=== PATIENT | female | born 1930 | race Caucasian/White ===

== ENCOUNTER → 2017-03-05 | Outpatient (CLI) | payer MEDICARE | LOC: M WUC 14:38 | DX: M51.36 Other intervertebral disc degeneration, lumbar region (principal); S23.3XXA Sprain of ligaments of thoracic spine, initial encounter; Z87.81 Personal history of (healed) traumatic fracture; Y92.89 Other specified places as the place of occurrence of the external cause; Y93.89 Activity, other specified; Y99.8 Other external cause status; X58.XXXA Exposure to other specified factors, initial encounter | CPT/HCPCS: 71046 ==

== ENCOUNTER → 2018-07-03 | Outpatient (REF) | payer MEDICARE, MEDICAID ==
[2018-07-03 12:43] LABS: HEMOGLOBIN 12.5 g/dl (12.0-15.5); MEAN CORPUSCULAR HEMOGLOBIN 29.8 pg (27.0-33.0); MEAN CORPUSCULAR HGB CONC 32.1 g/dl (32.0-36.5); MEAN CORPUSCULAR VOLUME 92.9 fl (80.0-96.0); PLATELET COUNT, AUTOMATED 240 10^3/uL (150-450); WHITE BLOOD COUNT 5.6 10^3/uL (4.0-10.0)
[2018-07-03 13:44] LABS: ALBUMIN 3.3 GM/DL (3.2-5.2); BILIRUBIN,TOTAL 0.5 MG/DL (0.2-1.0); CALCIUM LEVEL 8.7 MG/DL (8.8-10.2); CHOLESTEROL RISK RATIO 3.875 (<5); CREATININE FOR GFR 1.04 MG/DL (0.55-1.30); GLOMERULAR FILTRATION RATE 53.5 (>32); POTASSIUM SERUM 4.7 MEQ/L (3.5-5.1); THYROID STIMULATING HORMONE 3.3 uIU/ML (0.358-3.740); TOTAL 25(OH) VITAMIN D 28.4 NG/ML (30.0-100.0); TOTAL PROTEIN 6.6 GM/DL (6.4-8.2)
[2018-07-03 13:55] LABS: HEMOGLOBIN A1c 5.3 %
== END ==
LOC: M LABDRAW1 11:57
PROVIDERS: ATTEND Family Medicine
DX: D64.9 Anemia, unspecified (principal); R53.83 Other fatigue; E03.9 Hypothyroidism, unspecified

== ENCOUNTER 2019-01-06 16:27 | Inpatient (IN) | payer MEDICARE, MEDICAID ==
[~2019-01-06] VITALS: Ht 149.9 cm; Wt 52.0 kg
--- NOTE | 2019-01-06 17:45 | REP ---
Three views left hip: 2018. Indication: New left hip pain following fall. Comparison: None. Findings: Minimally displaced intertrochanteric left hip fracture is present with a somewhat obliquely oriented subtrochanteric extension. There is no subluxation or dislocation. 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 No additional fractures are present. Impression: Proximal left femur fracture as described. Electronically Signed by Johann Chris DO 01/06/2019 05:35 P
[2019-01-06 18:31] LABS: BASO % 0.1 % (0.0-1.0); EOS % 0.1 % (0.0-3.0); HEMATOCRIT 33.4 % (36.0-47.0); HEMOGLOBIN 10.6 g/dl (12.0-15.5); LYMPH # 0.7 10^3/uL (1.5-5.0); MEAN CORPUSCULAR HEMOGLOBIN 29.5 pg (27.0-33.0); MEAN CORPUSCULAR HGB CONC 31.7 g/dl (32.0-36.5); MONO # 0.4 10^3/uL (0.0-0.8); MONO % 4.6 % (0.0-5.0); NEUTROPHILS # 7.8 10^3/uL (1.5-8.5); NEUTROPHILS % 86.8 % (36.0-66.0); PLATELET COUNT, AUTOMATED 199 10^3/uL (150-450); RED BLOOD COUNT 3.59 10^6/uL (4.00-5.40)
--- NOTE | 2019-01-06 18:45 | REP ---
Single view chest: 01/06/2019. Indication: Syncope. Comparison: 03/05/2017. Findings: The lungs are clear. Ectatic aorta is noted. The cardiomediastinal silhouette is unremarkable. There is no evidence of pleural effusion or pneumothorax. Chronic interstitial changes are redemonstrated. The patient is rotated. High-riding humeral heads particularly on the right suggest rotator cuff injury. Impression: There is no evidence of acute cardiopulmonary process. Electronically Signed by Johann Chris DO 01/06/2019 06:37 P
[2019-01-06 18:52] LABS: BLOOD UREA NITROGEN 25 MG/DL (7-18); CALCIUM LEVEL 8.5 MG/DL (8.8-10.2); CARBON DIOXIDE LEVEL 25 MEQ/L (21-32); CHLORIDE LEVEL 108 MEQ/L (98-107); CK-MB VALUE MASS 1.2 NG/ML (<3.6); CPK CREATINE PHOSPHOKINASE 34 U/L (26-192); CREATININE FOR GFR 1.15 MG/DL (0.55-1.30); GLOMERULAR FILTRATION RATE 47.5 (>32); GLUCOSE, FASTING 108 MG/DL (70-100); MB/CK RELATIVE INDEX 3.53 (< OR =4); POTASSIUM SERUM 4.1 MEQ/L (3.5-5.1); SODIUM LEVEL 141 MEQ/L (136-145); TROPONIN I < 0.02 NG/ML (< 0.10)
--- NOTE | 2019-01-06 19:13 | REP ---
Two views distal left femur: 01/06/2019. Indication: Left femur trauma. Comparison: None. Findings: There is no acute fracture, subluxation or dislocation of the distal left femur or visualized knee. 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 Impression: No distal femoral fracture. There is no evidence of subluxation/dislocation. Electronically Signed by Johann Chris DO 01/06/2019 07:05 P
[2019-01-06] MEDS ORDERED: KETAMINE HCL 200 MG/20 ML VIAL As Ordered ONE (20:11)
[2019-01-06] MEDS ORDERED: MIDAZOLAM INJ 2 MG/2 ML VIAL (J2250) As Ordered ONE (20:12)
--- NOTE | 2019-01-06 20:22 | CR.PDOC ---
General Date of Consultation: Jan 06, 2019 Consultation REASON FOR CONSULTATION/CHIEF COMPLAINT: Left femoral bone fracture HISTORY OF PRESENT ILLNESS: Patient is 88 years old female resolved significant past medical history, patient didn't go primary care physician for years presented to the ER after mechanical fall, patient stood up and fell backwards due to lightheadedness. Patient was found to have left proximal femoral bone fracture on x-ray. Patient is afebrile, does not have leukocytosis. EKG was done and showed normal sinus rhythm, no any acute ischemic changes. Patient denied fever, cough, chills, nausea, vomiting, shortness of breath, palpitations, diarrhea or dysuria ALLERGIES: Please see below. HOME MEDICATIONS: Please see below. PAST MEDICAL HISTORY: No significant past medical history. Patient didn't go to primary care physician for years PAST SURGICAL HISTORY: Appendectomy FAMILY HISTORY: I personally reviewed family history and found in significant SOCIAL HISTORY: Marital status and/or living arrangements: Tobacco use: Denied ETOH: Denied REVIEW OF SYSTEMS: 10 point review system negative except as listed above PHYSICAL EXAMINATION: VITAL SIGNS: Please see below. GENERAL APPEARANCE: Pleasant elderly female HEENT: PERRLA, EOMI RESPIRATORY: Clear to auscultation bilaterally CARDIOVASCULAR: S1-S2 ABDOMEN: Nontender, nondistended EXTREMITIES: Tenderness over left hip area, no cyanosis, no leg swelling NEUROLOGICAL: Cranial nerves from 2-12 intact PSYCHIATRIC: Normal mental status LABORATORY DATA: Please see below. ASSESSMENT/PLAN: Patient is 88 years old female resolved significant past medical history, patient didn't go primary care physician for years presented to the ER after mechanical fall, patient stood up and fell backwards due to lightheadedness. Patient was found to have left proximal femoral bone fracture on x-ray Patient does not have any acute cardiopulmonary diseases, gastrointestinal diseases, renal diseases or infection. Vital Signs/I&O Vital Signs Date Time Temp Pulse Resp B/P (MAP) Pulse Ox O2 Delivery O2 Flow Rate FiO2 01/06/19 19:45 70 18 170/67 (101) 99 Room Air 01/06/19 18:19 98.1 Laboratory Data Labs 24H Laboratory Tests 2 01/06/19 18:04: Immature Granulocyte % (Auto) 0.4, Neutrophils (%) (Auto) 86.8H, Lymphocytes (%) (Auto) 8.0L, Monocytes (%) (Auto) 4.6, Eosinophils (%) (Auto) 0.1, Basophils (%) (Auto) 0.1, Neutrophils # (Auto) 7.8, Lymphocytes # (Auto) 0.7L, Monocytes # (Auto) 0.4, Eosinophils # (Auto) 0.0, Basophils # (Auto) 0.0, Nucleated Red Blood Cells % (auto) 0.0, Anion Gap 8, Glomerular Filtration Rate 47.5, Calcium Level 8.5L, Total Creatine Kinase 34, Creatine Kinase MB 1.2, Creatine Kinase MB Relative Index 3.53, Troponin I < 0.02, Thyroid Stimulating Hormone (TSH) 2.100 CBC/BMP Laboratory Tests 01/06/19 18:04 Allergies Coded Allergies: Penicillins (Verified Allergy, Unknown, 01/06/19) Home Medications No Active Prescriptions or Reported Meds POLI ANDRADE DO Jan 06, 2019 20:22
[2019-01-06] MEDS ORDERED: CLINDAMYCIN 900 MG/50 ML PREMIX BAG As Ordered ONE (21:07)
[2019-01-06] MEDS ORDERED: NS 1,000 ML IV SCH (22:45)
[2019-01-06] MEDS ORDERED: ACETAMINOPHEN 325 MG TAB PO PRN (22:45)
[2019-01-06] MEDS ORDERED: oxyCODONE 5MG TAB PO PRN ×2 (22:45)
[2019-01-06 23:00] VITALS: BP 113/73
[2019-01-06] MEDS ORDERED: ONDANSETRON 4MG/2ML VIAL (J2405) IV PRN (23:15)
[2019-01-06] MEDS ORDERED: LR 1,000 ML IV SCH (23:15)
[2019-01-06] MEDS ORDERED: fentaNYL 100 MCG/2 ML INJECTION (J3010) IV PRN (23:15)
[2019-01-06 23:30] VITALS: BP 114/73
[2019-01-06] MEDS ORDERED: MORPHINE 2 MG/ML 1ML VIAL (J2270) IV PRN (23:45)
[2019-01-07] VITALS (7 sets, daily range): BP systolic 114–153; BP diastolic 65–86
[2019-01-07] MEDS: CLINDAMYCIN 900 MG in IV 1 EA IV SCH ×3 (00:05→14:49)
[2019-01-07] MEDS ORDERED: PILL CUTTER 1 EACH XX PRN (06:15)
--- NOTE | 2019-01-07 08:24 | REP ---
Two-view fluoroscopic images: 01/06/2019. Indication: Operative guidance. Comparison: Earlier this same day. Findings: Given no fixation of the previously described fractures is present with the hardware intact. No new fractures are detected. Impression: Fluoroscopy provided for operative guidance. 3 minutes 6 seconds of fluoroscopy time utilized. Electronically Signed by Johann Chris DO 01/07/2019 08:15 A
[2019-01-07] MEDS: MOM 30ML SUSPENSION UDC PO SCH (09:00)
[2019-01-07] MEDS: MIRALAX *UNIT DOSE* 17GM PACKET PO SCH (09:00)
[2019-01-07] MEDS: traMADol 50 MG TAB PO PRN ×2 (09:22→14:01)
--- NOTE | 2019-01-07 11:36 | IPNPDOC ---
Date Seen The patient was seen on 01/07/19. Progress Note SUBJECTIVE: Patient was seen at bedside this morning. She reported mild pain around her surgical site. I asked her about the events surrounding her fall. She explained that she stood up too quickly, felt dizzy and fell. She denied any prior history of palpitations, heart problems, vertigo, feelings of heart racing. She had no current complaints. She was eager to start working with PT and moving as soon as possible in order to leave the hospital. She denied any chest pain, shortness of breath, lower extremity swelling. OBJECTIVE PHYSICAL EXAMINATION: VITAL SIGNS: Please see below. GENERAL: Patient is pleasant and cooperative, appears her stated age, sitting up comfortably in bed, alert and oriented in no acute distress HEENT: Normocephalic, atraumatic. No scleral icterus. PERRLA. EOMI. no nasal discharge. No tracheal deviation. No obvious swollen lymph nodes CARDIOVASCULAR: Regular rate and rhythm. Normal S1 and S2. No murmurs, gallops or rubs noted RESPIRATORY: Lungs clear to auscultation bilaterally. ABDOMINAL:. No obvious lesions noted. Normal bowel sounds in all 4 quadrants. No pain, tenderness, guarding or rigidity EXTREMITIES:. Surgical scar noted on patients left leg. No erythema or exudates. 2/4 pulses noted throughout. No leg swelling or tenderness NEUROLOGICAL: A&O x3. No focal deficits noted PSYCHOLOGICAL: Mood and affect were appropriate LABORATORY DATA, MICROBIOLOGY: Please see below. Imagin01/06/2019 hip/pelvis x-ray: Proximal left femur fracture as described 01/06/2019 CXR: There is no evidence of acute cardiopulmonary process 01/06/2019. Femur x-ray: No distal femoral fracture. There is no evidence of subluxation/dislocation. DVT prophylaxis ordered?: Currently on Xarelto 10 mg by mouth daily ASSESSMENT AND PLAN: This is an 88-year-old white female with no known pertinent past medical history presenting after a fall with a left femoral fracture s/p surgical repair. PROBLEMS: # Femoral fracture S/P surgical repair -Patient shows no sign of surgical site infection -Pt is medically optimized -Pt should be evaluated by PT/OT DISPOSITION: Pending patient's improved mobility and PT/OT approval VS, I&O, 24H, Fishbone Vital Signs/I&O Vital Signs Date Time Temp Pulse Resp B/P (MAP) Pulse Ox O2 Delivery O2 Flow Rate FiO2 01/07/19 10:00 18 01/07/19 09:22 99 Room Air 01/07/19 06:16 97.1 71 142/73 (96) I&O- Last 24 Hours up to 6 AM 01/07/19 06:00 Intake Total 1300 ml Output Total 200 ml Balance 1100 ml Laboratory Data 24H LABS Laboratory Tests 2 01/06/19 18:04: Immature Granulocyte % (Auto) 0.4, Neutrophils (%) (Auto) 86.8H, Lymphocytes (%) (Auto) 8.0L, Monocytes (%) (Auto) 4.6, Eosinophils (%) (Auto) 0.1, Basophils (%) (Auto) 0.1, Neutrophils # (Auto) 7.8, Lymphocytes # (Auto) 0.7L, Monocytes # (Auto) 0.4, Eosinophils # (Auto) 0.0, Basophils # (Auto) 0.0, Nucleated Red Blood Cells % (auto) 0.0, Anion Gap 8, Glomerular Filtration Rate 47.5, Calcium Level 8.5L, Total Creatine Kinase 34, Creatine Kinase MB 1.2, Creatine Kinase MB Relative Index 3.53, Troponin I < 0.02, Thyroid Stimulating Hormone (TSH) 2.100 CBC/BMP Laboratory Tests 01/06/19 18:04 GME ATTESTATION GME ATTESTATION My faculty preceptor for this patient encounter was physically present during the encounter and was fully available. All aspects of the patient interview, examination, medical decision making process, and medical care plan development were reviewed and approved by the faculty preceptor. The faculty preceptor is a christianson and concurs with the plan as stated in the body of this note and will attest to such by his/her cosignature. ATTENDING NOTE Patient was seen and examined by me this morning with the residents. Agree with the above assessment and plan ANNETTE ROMERO-3 Jan 07, 2019 11:36 ALINE PHILLIPS MD Jan 07, 2019 16:33
[2019-01-07] MEDS: ACETAMINOPHEN 500 MG TAB PO SCH ×2 (13:42→21:38)
[2019-01-07] MEDS ORDERED: ONDANSETRON 4MG/2ML VIAL (J2405) IV PRN (15:00)
--- NOTE | 2019-01-07 15:01 | ECGEPIP ---
[facility] - ED Test Date: 2019-01-06 Pat Name: GRICEL REDDY Department: Room: - Gender: Female Addictions Recovery Specialist: : [id number] Requested By: ESTUARDO LEBRON Order Number: [id number] Reading MD: Dhaval Edwards Measurements Intervals Pinson Rate: 60 P: 39 CT: 195 QRS: -15 QRSD: 88 T: -14 QT: 411 QTc: 411 Interpretive Statements SINUS RHYTHM MINIMAL VOLTAGE CRITERIA FOR LVH, CONSIDER NORMAL VARIANT NONSPECIFIC ST & T-WAVE ABNORMALITY NO PRIORS FOR COMPARISON Electronically Signed on 01-07-2019 15:01:30 EST by Dhaval Edwards
[2019-01-07] MEDS: RIVAROXABAN 10 MG TAB (XARELTO) PO SCH (17:38)
[2019-01-08] MEDS: ACETAMINOPHEN 500 MG TAB PO SCH ×3 (05:50→21:47)
[2019-01-08 06:06] VITALS: BP 139/75
--- NOTE | 2019-01-08 07:29 | CR ---
DATE OF CONSULTATION: 01/06/2019 REASON FOR CONSULTATION: Left hip pain. HISTORY OF PRESENT ILLNESS: The patient states she was at her daughter's home with whom she lives when she felt a little dizzy and fell onto her left hip. She immediately appreciated pain that was sharp in nature and located to the left hip/groin. It was made worse with any sort of movement, alleviated only with rest and pain medications. It is sharp in nature as a 10 out of 10. Denies any pain or issues elsewhere. Denies any fevers, chills, nausea, or vomiting. Complete 10-system review with pertinent positives and negatives in history of present illness (HPI). All other systems negative. PAST MEDICAL HISTORY: None. PAST SURGICAL HISTORY: She had an appendectomy when she was 26. MEDICATIONS: None. ALLERGIES: To PENICILLIN. She says she has swelling. SOCIAL HISTORY: Denies any drinking or smoking or illicit drug use and currently lives at home with her daughter. PHYSICAL EXAMINATION: Patient is awake, alert, and oriented. Well dressed. Appropriate affect. Breathing unlabored in room air. Normocephalic, atraumatic. BILATERAL UPPER EXTREMITIES: No tenderness to palpation. Full active range of motion in the shoulders, elbows, and wrists. Radial pulse 2+, regular rate. Skin is intact. Positive anterior interosseous nerve (AIN), posterior interosseous nerve (PIN), and ulnar motor nerve function. Sensation intact to light touch superficial sensory branch of radial nerve, median nerve, ulnar nerve. RIGHT LOWER EXTREMITY: No tenderness to palpation about the hip, knee, or foot. Full range of motion in the ankle, hip, and knee without any pain or discomfort. Negative log roll. Sensation intact to light touch superficial peroneal, deep peroneal, sural, saphenous, tibial distributions. Positive extensor hallucis longus (EHL), flexor hallucis longus (FHL), tibia, and gastroc motor function. Posterior tibial pulse 2+, regular rate. Skin intact. LEFT LOWER EXTREMITY: Skin is intact. Positive log roll test. Tender to palpation in the groin. No tenderness to palpation about the knee or ankle. Positive EHL, FHL, tibia, and gastroc motor function. Sensation intact to light touch superficial peroneal, deep peroneal, sural, saphenous, tibial distributions. Posterior tibial pulse 2+, regular rate. Skin is intact. IMAGING: Reviewed, demonstrating a left intertrochanteric hip fracture. DIAGNOSIS: Left hip intertrochanteric fracture. I discussed with the patient this requires surgical intervention in order to improve her mobilization and overall functioning. Patient expressed understanding and agreement with this plan. Consent was obtained. Discussed the risks and benefits including, but not limited to, infection, damage to surrounding structures, incomplete relief, and need for further surgery. Patient consented. She underwent medical hospitalist clearance and is cleared for surgery. She is currently nothing by mouth (n.p.o.). We will plan on doing the surgery tonight. Patient is currently bed rest, IV fluids. Orthopedic team will follow. Appreciate hospitalist admission.
--- NOTE | 2019-01-08 08:04 | RO ---
DATE OF PROCEDURE: PREOPERATIVE DIAGNOSIS: Left intertrochanteric hip fracture. POSTOPERATIVE DIAGNOSIS: Left intertrochanteric hip fracture. PROCEDURE: Left femur intramedullary rodding. SURGEON: Efren Webb MD YARDAGE CALLER: None. ANESTHESIA: Spinal. INDICATIONS: This is a pleasant 88-year-old female who suffered a hip fracture after a fall at home. We discussed the benefits of improved mobilization and pain control with operative intervention, and the risks including, but not limited to, infection, malunion, nonunion, damage to surrounding structures. The patient and her daughter consented for surgery. PREOPERATIVE ANTIBIOTICS: 900 mg of clindamycin. ESTIMATED BLOOD LOSS: 200 mL. COMPLICATIONS: None. OPERATIVE DESCRIPTION: The patient was brought back to the operating room in the supine position, underwent spinal anesthesia and was placed onto the fracture table, at which point we took preoperative x-rays after closed reduction maneuvers of traction, adduction of the affected leg and internal rotation. Once confirming adequate reduction, we prepped and draped in the left hip in the usual fashion. We had a time out confirmed site, side and surgery. Once all in agreement, we made a longitudinal incision in line with the greater trochanter and femur. We used a drill tip Guidewire to establish our start point confirmed on AP and lateral films of the hip. Once this was done, we placed a starting Guidewire and used the entry reamer. Then we passed the Guidewire all the way down to the knee, measured for a 380 nail, at which point we sequentially reamed up to 12.5 and used an 11 nail and passed it down past the fracture site. We then made an incision through the aiming arm for the helical blade. We inserted a Guidewire and confirmed on AP and lateral views that we were in subchondral bone within appropriate tip apex distance. We then drilled appropriately and placed the helical blade and we locked it into place, at which point we used perfect [place] techniques to make small stab incisions on the lateral aspect of the distal knee and placed two distal Crosslocks in static positioning. At this point, fracture reduction and fixation was confirmed on AP and lateral films of the entire femur. We were happy with placement and fixation of the hardware and reduction of the fracture. We irrigated the wounds thoroughly, closed the subcutaneous tissue with #2-0 Vicryl and the skin with madie, placed dressing of gauze and Tegaderm, took the patient off the fracture taken and awakened the patient, at which point she was taken back to the postanesthesia care unit (PACU) in stable condition. POSTOPERATIVE PLAN: She will undergo skip antibiotics and deep vein thrombosis (DVT) prophylaxis, and be weightbearing as tolerated on the affected leg.
[2019-01-08] MEDS: MOM 30ML SUSPENSION UDC PO SCH ×2 (09:00→09:26)
[2019-01-08] MEDS: MIRALAX *UNIT DOSE* 17GM PACKET PO SCH ×2 (09:00→09:26)
--- NOTE | 2019-01-08 09:47 | IPNPDOC ---
Date Seen The patient was seen on 01/08/19. Progress Note SUBJECTIVE: Patient was seen at bedside this morning. She said her work with physical therapy yesterday went well. She is enthusiastic about getting back to her baseline as soon as possible. She currently has no complaints. She expresses that the pain around her hip after surgery is less than she was expecting and tolerable. She denies any chest pain, shortness of breath, nausea, vomiting, weakness, lower extremity swelling. OBJECTIVE PHYSICAL EXAMINATION: VITAL SIGNS: Please see below. GENERAL: Patient is pleasant and cooperative, appears her stated age, sitting up comfortably in bed, alert and oriented in no acute distress HEENT: Normocephalic, atraumatic. No scleral icterus. PERRLA. EOMI. no nasal discharge. No tracheal deviation. No obvious swollen lymph nodes CARDIOVASCULAR: Regular rate and rhythm. Normal S1 and S2. No murmurs, gallops or rubs noted RESPIRATORY: Lungs clear to auscultation bilaterally. ABDOMINAL:. No obvious lesions noted. Normal bowel sounds in all 4 quadrants. No pain, tenderness, guarding or rigidity EXTREMITIES:. Surgical scar noted on patients left leg. No erythema or exudates. 2/4 pulses noted throughout. No leg swelling or tenderness NEUROLOGICAL: A&O x3. No focal deficits noted PSYCHOLOGICAL: Mood and affect were appropriate LABORATORY DATA, MICROBIOLOGY: Please see below. Imagin01/06/2019 hip/pelvis x-ray: Proximal left femur fracture as described 01/06/2019 CXR: There is no evidence of acute cardiopulmonary process 01/06/2019. Femur x-ray: No distal femoral fracture. There is no evidence of sub luxation/dislocation. DVT prophylaxis ordered?: Currently on Xarelto 10 mg by mouth daily ASSESSMENT AND PLAN: This is an 88-year-old white female with no known pertinent past medical history presenting after a fall with a left femoral fracture s/p surgical repair. PROBLEMS: # Femoral fracture S/P surgical repair -Patient shows no sign of surgical site infection -Pt is medically optimized -PT/OT evaluated pt and will continue to work with her in improving her mobility. DISPOSITION: Pending patient's improved mobility with PT/OT. VS, I&O, 24H, Fishbone Vital Signs/I&O Vital Signs Date Time Temp Pulse Resp B/P (MAP) Pulse Ox O2 Delivery O2 Flow Rate FiO2 01/08/19 06:06 96.8 66 20 139/75 (96) 97 Room Air I&O- Last 24 Hours up to 6 AM 01/08/19 06:00 Intake Total 1250 ml Output Total 650 ml Balance 600 ml GME ATTESTATION GME ATTESTATION My faculty preceptor for this patient encounter was physically present during the encounter and was fully available. All aspects of the patient interview, exa mination, medical decision making process, and medical care plan development were reviewed and approved by the faculty preceptor. The faculty preceptor is aware and concurs with the plan as stated in the body of this note and will attest to such by his/her cosignature. ATTENDING NOTE Patient was seen and examined by me this morning with the residents. Agree with the above assessment and plan ANNETTE ROMERO-3 Jan 08, 2019 09:47 ALINE PHILLIPS MD Jan 08, 2019 15:39
[2019-01-08] MEDS: traMADol 50 MG TAB PO PRN (10:15)
[2019-01-08 14:30] VITALS: BP 128/72
[2019-01-08] MEDS: RIVAROXABAN 10 MG TAB (XARELTO) PO SCH (17:26)
[2019-01-09] MEDS: ACETAMINOPHEN 500 MG TAB PO SCH ×3 (05:46→21:31)
[2019-01-09 06:00] VITALS: BP 126/62
[2019-01-09] MEDS: MOM 30ML SUSPENSION UDC PO SCH (08:58)
[2019-01-09] MEDS: MIRALAX *UNIT DOSE* 17GM PACKET PO SCH (08:58)
[2019-01-09 14:00] VITALS: BP 147/68
--- NOTE | 2019-01-09 15:32 | IPNPDOC ---
Date Seen The patient was seen on 01/09/19. Progress Note SUBJECTIVE: Patient seen and examined this morning. She states that she is feeling well. Her only complaint is left hip tenderness which is expected especially after working with PT yesterday. Otherwise she denies chest pain, shortness breath, nausea, vomiting, fevers, and chills. She is tolerating her meals with no problems as well. OBJECTIVE PHYSICAL EXAMINATION: VITAL SIGNS: Please see below. GENERAL: Patient is pleasant and cooperative, appears her stated age, sitting up comfortably in bed, alert and oriented in no acute distress HEENT: Moist mucous membranes no elevation in CVP CARDIOVASCULAR: S1 S2 regular no additional heart sounds appreciated. RESPIRATORY: Clear to auscultation bilaterally. ABDOMINAL: Bowel sounds present abdomen soft and nontender EXTREMITIES: No clubbing cyanosis or edema. Surgical scar noted on patients left leg. No erythema or exudates. 2/4 pulses noted throughout. No leg swelling or tenderness NEUROLOGICAL: cranial 2 through 12 grossly intact no gross focal deficits appreciated PSYCHOLOGICAL: Appropriate LABORATORY DATA, MICROBIOLOGY: Please see below. IMAGING STUDIES: 01/06/2019 Hip/pelvis x-ray: Proximal left femur fracture as described CXR: There is no evidence of acute cardiopulmonary process Femur x-ray: No distal femoral fracture. There is no evidence of subluxation/dislocation. ASSESSMENT AND PLAN: This is a 88-year-old white female with left femoral fracture s/p surgical repair. PROBLEMS: Femoral fracture S/P surgical repair - medically optimized -PT/OT on board to increase mobility. -ARU screen for rehabilitation -Currently getting scheduled Tylenol 1000 mg Q8H, will obtain CMP tomorrow to monitor liver enzymes. No known pertinent past medical history Constipation -MiraLAX and milk of magnesia magnesium DVT prophylaxis: Cholesterol total 10 mg PO daily DISPOSITION: ARU screen. Rehabilitation placement possible Friday? VS, I&O, 24H, Fishbone Vital Signs/I&O Vital Signs Date Time Temp Pulse Resp B/P (MAP) Pulse Ox O2 Delivery O2 Flow Rate FiO2 01/09/19 14:00 98.2 90 16 147/68 (94) 95 Room Air I&O- Last 24 Hours up to 6 AM 01/09/19 06:00 Intake Total 960 ml Output Total 2050 ml Balance -1090 ml GME ATTESTATION GME ATTESTATION My faculty preceptor for this patient encounter was physically present during the encounter and was fully available. All aspects of the patient interview, examination, medical decision making process, and medical care plan development were reviewed and approved by the faculty preceptor. The faculty preceptor is aware and concurs with the plan as stated in the body of this note and will attest to such by his/her cosignature. ATTENDING NOTE Pt was seen and examined by me personally. Agree with the above assessment and plan . ZINA LIAO DO Jan 09, 2019 15:32 ALINE PHILLIPS MD Jan 09, 2019 16:30
[2019-01-09] MEDS: RIVAROXABAN 10 MG TAB (XARELTO) PO SCH (18:07)
[2019-01-09 20:20] VITALS: BP 148/71
[2019-01-10] VITALS (13 sets, daily range): BP systolic 146–176; BP diastolic 74–97
[2019-01-10] MEDS: traMADol 50 MG TAB PO PRN ×2 (00:31→23:52)
[2019-01-10] MEDS: ACETAMINOPHEN 500 MG TAB PO SCH ×3 (05:28→22:15)
[2019-01-10] MEDS ORDERED: XARE10TA PO (05:52)
[2019-01-10] MEDS ORDERED: TRAM50TA2 PO (05:52)
[2019-01-10 06:05] LABS: HEMATOCRIT 23.2 % (36.0-47.0); HEMOGLOBIN 7.3 g/dl (12.0-15.5); MEAN CORPUSCULAR HEMOGLOBIN 29.9 pg (27.0-33.0); MEAN CORPUSCULAR HGB CONC 31.5 g/dl (32.0-36.5); MEAN CORPUSCULAR VOLUME 95.1 fl (80.0-96.0); PLATELET COUNT, AUTOMATED 202 10^3/uL (150-450); RED BLOOD COUNT 2.44 10^6/uL (4.00-5.40); WHITE BLOOD COUNT 5.1 10^3/uL (4.0-10.0)
[2019-01-10] MEDS ORDERED: ACET-683 PO (06:10)
[2019-01-10 06:26] LABS: ALBUMIN 2.4 GM/DL (3.2-5.2); ALT/SGPT 14 U/L (12-78); BILIRUBIN,TOTAL 0.6 MG/DL (0.2-1.0); BLOOD UREA NITROGEN 23 MG/DL (7-18); CALCIUM LEVEL 8.7 MG/DL (8.8-10.2); CARBON DIOXIDE LEVEL 29 MEQ/L (21-32); CHLORIDE LEVEL 109 MEQ/L (98-107); GLOMERULAR FILTRATION RATE > 60.0 (>32); GLUCOSE, FASTING 86 MG/DL (70-100); MAGNESIUM LEVEL 1.9 MG/DL (1.8-2.4); SODIUM LEVEL 142 MEQ/L (136-145); TOTAL PROTEIN 5.5 GM/DL (6.4-8.2)
[2019-01-10 08:52] LABS: HEMATOCRIT 22.4 % (36.0-47.0); HEMOGLOBIN 7.1 g/dl (12.0-15.5)
[2019-01-10] MEDS: MOM 30ML SUSPENSION UDC PO SCH ×2 (08:56→08:58)
[2019-01-10] MEDS: MIRALAX *UNIT DOSE* 17GM PACKET PO SCH ×2 (08:56→08:59)
--- NOTE | 2019-01-10 08:58 | REPVR ---
PROCEDURE INFORMATION: Exam: CT Abdomen And Pelvis Without Contrast Exam date and time: 01/10/2019 8:05 AM Age: 88 years old Clinical history: Abnormal Findings; Abnormal Lab Test; Other: anemia 7.3 hgh; Prior Surgery; Surgery Date: Post-operative (0-2 days); Surgery Type: LEFT TOTAL HIP; Additional Info: anemia 7.3 hgb post op left hip TECHNIQUE: Imaging protocol: Computed tomography of the abdomen and pelvis without contrast. Radiation optimization: All CT scans at this facility use at least one of these dose optimization techniques: automated exposure control; mA and/or kV adjustment per patient size (includes targeted exams where dose is matched to clinical indication); or iterative reconstruction. COMPARISON: CR Hip,AP,LAT to include Pelvis 01/06/2019 4:59 PM FINDINGS: Limitations: Examination is limited without IV contrast. Coronary arteries: Mild coronary artery calcification. Liver: Normal. No mass. Gallbladder and bile ducts: Normal. No calcified stones. No ductal dilation. Pancreas: Normal. No ductal dilation. Spleen: Normal. No splenomegaly. Adrenals: Normal. No mass. Kidneys and ureters: Moderate atrophy of the right kidney. No hydronephrosis bilaterally. Cystic lesion in the upper pole of the left kidney measuring 2.3 x 1.9 cm with thin septal and rim calcifications. Stomach and bowel: Copious stool in the colon. Negative for colonic diverticulitis. No abnormal bowel dilatation. No abnormal bowel wall thickening. Appendix: The appendix is not seen. However, there is no evidence of appendicitis. Intraperitoneal space: Unremarkable. No free air. No significant fluid collection. Vasculature: Severe calcified atherosclerotic disease. 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 No abdominal or aortic rupture. Lymph nodes: Unremarkable. No enlarged lymph nodes. Few scattered mesenteric nodes. Bladder: Unremarkable as visualized. Reproductive: Uterus is normal. Bones/joints: Severe degenerative spine. Mild chronic compression deformity of T12. Mild degenerative changes of the hips. Status post left proximal femoral fixation. Degenerate changes of the pubic symphysis. Soft tissues: There is dependent subcutaneous edema. Mild soft tissue swelling and gas in the left lateral hemipelvis. IMPRESSION: 1. No intraperitoneal or retroperitoneal hemorrhage. 2. 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 Recommend follow-up CTA in 3 months. 3. Complicated cystic lesion in the upper pole of the right kidney. Recommend CT without and with contrast or MR without and with contrast at 6 months and 12 months, then yearly for 5 years. 4. Status post left proximal femoral fixation. 5. Mild soft tissue swelling and gas in the left lateral hemipelvis. Consistent with recent postop status. 6. Additional findings as described. Electronically signed by: Luis Chaudhary On 01/10/2019 08:57:54 AM
[2019-01-10] MEDS ORDERED: diphenhydrAMINE 25 MG CAP PO ONE (09:00)
[2019-01-10] MEDS ORDERED: ACETAMINOPHEN TAB 650MG DOSE (2X325MG) PO ONE (09:00)
[2019-01-10 09:10] LABS: PERCENT SATURATION 13.3 % (13.2-45.0)
--- NOTE | 2019-01-10 11:37 | IPNPDOC ---
Date Seen The patient was seen on 01/10/19. Progress Note INFRARENAL AAA 2.1 x 1.1. x 2.8 cm plan: -no rupture or dissection -keep sbp<180 at all times -norvasc 2.5 mg bid hold for sbp<130mmHg -vascular consult as outpt. VS, I&O, 24H, Fishbone Vital Signs/I&O Vital Signs Date Time Temp Pulse Resp B/P (MAP) Pulse Ox O2 Delivery O2 Flow Rate FiO2 01/10/19 11:16 97.8 78 20 155/78 98 Room Air I&O- Last 24 Hours up to 6 AM 01/10/19 06:00 Intake Total 660 ml Output Total 0 ml Balance 660 ml Laboratory Data 24H LABS Laboratory Tests 2 01/10/19 05:36: Nucleated Red Blood Cells % (auto) 0.6H, Anion Gap 4L, Glomerular Filtration Rate > 60.0, Calcium Level 8.7L, Magnesium Level 1.9, Total Bilirubin 0.6, Aspartate Amino Transf (AST/SGOT) 21, Alanine Aminotransferase (ALT/SGPT) 14, Alkaline Phosphatase 117, Total Protein 5.5L, Albumin 2.4L, Albumin/Globulin Ratio 0.77L 01/10/19 08:20: Reticulocyte # (auto) 47.2, Differential Slide Review Report, Peripheral Blood Smear Path Consult PERIPHERAL SMEAR, Percent Reticulocyte Count 2.0H, Reticulocyte Hemoglobin Equivalent 32.0, Iron Level 22L, Total Iron Binding Capacity 166L, Transferrin % Saturation 13.3, Ferritin 440H CBC/BMP Laboratory Tests 01/10/19 05:36 01/10/19 08:20 JOHN SMITH MD Jan 10, 2019 11:37
[2019-01-10] MEDS: FUROSEMIDE 20 MG/2 ML VIAL (J1940) IV SCH ×2 (14:37→17:35)
--- NOTE | 2019-01-10 15:49 | IPN ---
DATE: 01/10/2019 The patient this morning complains of 10 out of 10 at the left hip, stating yesterday, "It was the worst night of my life." Despite having pain medications, tramadol 50 mg every 4 hours as needed, the patient states that she was unable to sleep. This morning, she denies any chest pain, pressure, tightness, shortness of breath. Aside from the left upper arm ecchymosis, there are no other ecchymotic areas found on the abdomen, back, flank or left hip. Hemoglobin this morning was 7.3 from previous 10.6 on the . She is currently on anticoagulation with Xarelto. Denies any chest pain, pressure, tightness, shortness of breath, palpitations, or lightheadedness. No complaints of generalized weakness. Repeat hemoglobin is still pending. Denies bright red blood per rectum, melena, black tarry stools, hematemesis or coffee ground emesis. PHYSICAL EXAMINATION: Temperature 96.9, pulse 71, respiratory rate 17, blood pressure 146/78, 93% on room air. GENERAL: Awake, alert, oriented to person, place and time. Able to speak appropriately. No facial asymmetry. Moist mucous membranes. No thyromegaly. No jugular venous distention (JVD). LUNGS: Clear to auscultation. No wheezing, rales or rhonchi. HEART: S1, S2. Sinus rhythm. No murmurs, rubs or gallops. ABDOMEN: Soft, nontender, nondistended. Positive bowel sounds. EXTREMITIES: Ecchymotic area in the left arm. Otherwise there are no Lance Tsai signs. No bruising at the left hip site, which has a surgical dressing. No pitting edema in the lower extremities. LABORATORY DATA: Hemoglobin 7.3, hematocrit 23, previous hemoglobin was 10.6, hematocrit 33, platelet count 202. Sodium 142, potassium 4.0, chloride 109, bicarbonate 29, BUN 23, creatinine 0.9, glucose 86, magnesium 1.9, total bilirubin 0.6, AST 21, ALT 14, alkaline phosphatase 117. ASSESSMENT AND PLAN: This is an 88-year-old female with no past medical history, has not seen a physician for several years, fell backwards and sustained a left femoral fracture. Due to complaints of lightheadedness, the patient underwent left femoral intramedullary jaden, now found to be anemic. IMPRESSION: 1. Left intertrochanteric hip fracture, currently on anticoagulation with Xarelto. Pain control with Ultram 50 mg every 4 hours, milk of magnesia for bowel regimen. 2. Postoperative anemia. No signs of hemodilution. The patient did not receive a significant amount of IV fluids last evening, she did receive a total of 3.4 liters of fluid since admission, but had urinated almost 2.7 liters out over this past [address] of the abdomen and pelvis without contrast to rule out retroperitoneal bleed and repeat hemoglobin. If hemoglobin remains less than 8, we will transfuse with red blood cells and Lasix in between, premedicate with Tylenol and Benadryl. Check hemoccult stool, iron studies, reticulocyte count and smear. 3.Infrarenal AAA. no dissection or rupture. keep sbp<180 mmHg at all times. outpt fu with vascular surgery 4. HTN -low dose norvasc with holding parameters for sbp<130mmHg MTDD
[2019-01-10] MEDS ORDERED: FUROSEMIDE 20 MG/2 ML VIAL (J1940) As Ordered ONE (17:33)
[2019-01-10] MEDS: RIVAROXABAN 10 MG TAB (XARELTO) PO SCH (17:38)
[2019-01-10 17:56] LABS: HEMATOCRIT 35.6 % (36.0-47.0); HEMOGLOBIN 11.6 g/dl (12.0-15.5)
[2019-01-11 00:16] LABS: HEMATOCRIT 32.9 % (36.0-47.0)
[2019-01-11 05:33] VITALS: BP 157/88
[2019-01-11] MEDS: ACETAMINOPHEN 500 MG TAB PO SCH ×3 (05:37→23:24)
[2019-01-11 06:03] LABS: HEMATOCRIT 35.1 % (36.0-47.0); HEMOGLOBIN 11.6 g/dl (12.0-15.5)
[2019-01-11] MEDS: MIRALAX *UNIT DOSE* 17GM PACKET PO SCH (07:57)
[2019-01-11] MEDS: MOM 30ML SUSPENSION UDC PO SCH (07:57)
[2019-01-11] MEDS: traMADol 50 MG TAB PO PRN (07:57)
[2019-01-11 11:02] LABS: TOTAL 25(OH) VITAMIN D 19.6 NG/ML (30.0-100.0)
[2019-01-11 12:12] LABS: HEMATOCRIT 35.8 % (36.0-47.0)
[2019-01-11 14:28] VITALS: BP 153/92
--- NOTE | 2019-01-11 16:44 | IPNPDOC ---
Date Seen The patient was seen on 01/11/19. Progress Note Addendum to progress note: acute blood loss anemia -s/p 2 units rbc transfusion -no overt GI bleed, denies hematemesis, brbpr, black tarry stools, melena. -CT abd/pelvis: no intraperitoneal or retroperitoneal hematoma -hip surgical site-no obvious hematoma -check stool for blood x 3 VS, I&O, 24H, Fishbone Vital Signs/I&O Vital Signs Date Time Temp Pulse Resp B/P (MAP) Pulse Ox O2 Delivery O2 Flow Rate FiO2 01/11/19 14:28 96.7 78 18 153/92 (112) 99 Room Air I&O- Last 24 Hours up to 6 AM 01/11/19 05:59 Intake Total 2025 ml Output Total 650 ml Balance 1375 ml Laboratory Data 24H LABS Laboratory Tests 2 01/11/19 11:44: Reticulocyte # (auto) 73.7, Percent Reticulocyte Count 1.8H, Reticulocyte Hemoglobin Equivalent 28.7 CBC/BMP Laboratory Tests 01/10/19 17:49 01/10/19 23:38 01/11/19 05:55 01/11/19 11:44 JOHN SMITH MD Jan 11, 2019 16:44
[2019-01-11 17:37] LABS: CALCIUM LEVEL 9.1 MG/DL (8.8-10.2); GLOMERULAR FILTRATION RATE 55.8 (>32); POTASSIUM SERUM 4.3 MEQ/L (3.5-5.1)
[2019-01-11 17:46] LABS: HEMATOCRIT 35.7 % (36.0-47.0); HEMOGLOBIN 11.9 g/dl (12.0-15.5); MEAN CORPUSCULAR HEMOGLOBIN 29.8 pg (27.0-33.0); MEAN CORPUSCULAR HGB CONC 33.3 g/dl (32.0-36.5); MEAN CORPUSCULAR VOLUME 89.3 fl (80.0-96.0); PLATELET COUNT, AUTOMATED 257 10^3/uL (150-450)
[2019-01-11] MEDS: RIVAROXABAN 10 MG TAB (XARELTO) PO SCH (17:47)
--- NOTE | 2019-01-11 22:01 | IPN ---
DATE: 01/11/2019 Patient had a restful night's sleep after two units red blood cell (RBC) transfusion. Her hemoglobin and hematocrit have remained stable at 12 and 35.8 hematocrit. She denies any bright red blood per rectum, melena, or black tarry stools, only has slight ecchymosis in the left antecubital fossa and arm. Patient currently has no pain, 0/10 at the bedside. No other issues overnight, afebrile, no chills, no shortness of breath. Patient is awaiting placement and not safe for hospital discharge as yet and has been changed to alternate level of care (ALC) status. Vital signs: Temperature 97.5, pulse 75, respiratory rate 18, blood pressure 157/88, 98% on room air. Generally: Patient is awake, alert, oriented, answering questions appropriately, no use of respiratory accessory muscles. Anicteric sclerae, no jaundice. No jugular venous distention (JVD). No thyromegaly or cervical lymphadenopathy. Lungs: Clear to auscultation. No wheezing, rales, or rhonchi. Heart: S1, S2, sinus rhythm. Abdomen: Soft, nontender, nondistended. Negative Lance Tsai's sign. Extremities: Ecchymotic area left upper arm. No bruising on the left hip. The surgical site is clean. No pitting edema of the lower extremities. LABORATORY DATA: White count 5.1, hemoglobin 12, hematocrit 35.8, platelet count 202. 01/10/2019 metabolic panel have been reviewed. Iron studies have been reviewed. CT abdomen and pelvis 01/10/2019: No intraperitoneal or retroperitoneal hemorrhage. Saccular aneurysm with a wide neck at the right posterior lateral wall of the infrarenal abdominal aorta. Recommend followup CT in 3 months. Complicated cystic lesion upper pole of the right kidney. Recommend CT without and with contrast or MR without and with contrast in 6 months and 12 months and yearly for 5 years. Status post left proximal femoral fixation. Mild soft tissue swelling and gas in the left lateral hemipelvis consistent with recent postoperative status. ASSESSMENT AND PLAN: This is an 88-year-old female who has not seen a physician in several decades, fell backwards, sustained a left femoral fracture status post left femoral intramedullary jaden, was found to be anemic postoperatively with CT abdomen and pelvis showing an incidental finding of an infrarenal abdominal aortic aneurysm without rupture or dissection. Patient did receive 2 units of red blood cell (RBC) transfusion. Has not had a bowel movement to rule out gastrointestinal (GI) bleed. Currently stable for the past 12 hours. IMPRESSION: 1. Left intertrochanteric hip fracture. On anticoagulation with Xarelto. Pain controlled with Ultram every 4 hours. Milk of Magnesia for bowel regimen. Followed postoperatively by orthopaedic surgery. Cooperative with physical therapy and awaiting placement in rehabilitation. Not safe for hospital discharge. Patient is currently alternate level of care (ALC) status. 2. Postoperative anemia. No signs of hemodilution. Patient did not have any overt gastrointestinal (GI) bleed. Has not had a bowel movement to check hemoccult stool. CT abdomen and pelvis has no intraperitoneal or retroperitoneal bleeding. Repeat hemoglobin after 2 units red blood cell (RBC) transfusion has been stable at 12 for the past 12 hours. 3. Incidental finding of an infrarenal abdominal aortic aneurysm with no dissection or rupture. Patient's blood pressure has been well maintained. We started her on Norvasc 2.5 mg twice a day to be increased to 5 mg twice a day for better blood pressure control. Pain is controlled on tramadol 50 every 4 hours as needed. Patient has no signs of dissection or rupture. DISPOSITION: Not safe for hospital discharge. Awaiting clearance from physical therapy. Currently changed to alternate level of care (ALC) longterm facility (SNF) status due to not being able to pass a home safety evaluation and not safe for hospital discharge. Recommendations are to continue rehabilitation after hospital discharge. KUNAL
[2019-01-12] MEDS: traMADol 50 MG TAB PO PRN ×2 (01:18→08:26)
[2019-01-12] MEDS: ACETAMINOPHEN 500 MG TAB PO SCH (05:19)
[2019-01-12 06:00] VITALS: BP 131/89
[2019-01-12 06:22] LABS: HEMATOCRIT 35.6 % (36.0-47.0); HEMOGLOBIN 11.9 g/dl (12.0-15.5); MEAN CORPUSCULAR HEMOGLOBIN 29.8 pg (27.0-33.0); MEAN CORPUSCULAR HGB CONC 33.4 g/dl (32.0-36.5); PLATELET COUNT, AUTOMATED 270 10^3/uL (150-450); WHITE BLOOD COUNT 5.6 10^3/uL (4.0-10.0)
[2019-01-12 08:27] VITALS: BP 131/89
[2019-01-12] MEDS: MIRALAX *UNIT DOSE* 17GM PACKET PO SCH (08:27)
[2019-01-12] MEDS: MOM 30ML SUSPENSION UDC PO SCH (08:27)
--- NOTE | 2019-01-12 10:56 | DSES ---
DATE OF ADMISSION: 01/06/2019 DATE OF DISCHARGE: 01/12/2019 DISCHARGE DIAGNOSES: 1. Left intertrochanteric hip fracture. 2. Postoperative anemia. 3. Incidental finding of an infrarenal abdominal aortic aneurysm with no dissection or rupture. CONSULTANTS: Dr. Efren Webb [facility] COURSE: This is an 88-year-old female who presented to the emergency room (ER) after mechanical fall (the patient stood up and fell backwards due to lightheadedness). In the emergency department, she was found to have a left proximal femoral bone fracture on x-ray. She was afebrile at the time and did not have leukocytosis. Electrocardiogram (EKG) was done in the emergency department and showed normal sinus rhythm without any acute ischemic changes. She had no history of acute cardiopulmonary diseases, gastrointestinal diseases, renal diseases, or infection. Orthopedics was consulted and she went for left femur intramedullary rodding by Dr. Efren Webb on the day of admission. On postoperative day #4, CBC was checked and the patient was found to have a hemoglobin of 7.3 which subsequently dropped down to 7.1 almost three hours later. She was transfused 2 units of packed red blood cells on 01/10/2019 (postoperative day #4). Her hemoglobin/hematocrit (H/H) continued to be monitored and her hemoglobin stayed relatively stable at around 11-12. CT of abdomen and pelvis done 01/10/2019 was unrevealing for intraperitoneal or retroperitoneal hemorrhage; however, there was incidentally noted a saccular aneurysm with a wide neck at the right posterior lateral wall of the infrarenal abdominal aorta. Radiology recommended followup CTA in 3 months. Incidentally, it was also discovered that she had a complicated cystic lesion in the upper pole of the right kidney as well and radiology recommended CT without and with contrast or MRI without and with contrast at 6 and 12 months and then yearly for 5 years. While the patient did work with physical therapy, she continued to not be deemed suitable for discharge home. She was subsequently discharged on postoperative day #6 to [facility]) for acute rehab to gather her strength and improve mobility. PHYSICAL EXAMINATION ON DISCHARGE: Vitals: Temperature 97.1, pulse 87 and regular, respiratory rate 18, blood pressure 131/89, pulse oximetry is 97% on room air. General: The patient is awake, alert and oriented, answering questions appropriately. HEENT: Anicteric sclerae. Atraumatic, normocephalic. Neck: No jugular venous distention (JVD). No thyromegaly or cervical lymphadenopathy. Lungs: Clear to auscultation bilaterally; no wheezing, rhonchi or rales. No use of respiratory accessory muscles. Heart: Regular rate and rhythm. No murmurs, gallops or rubs. Abdomen: Positive bowel sounds, soft, nontender, nondistended. No peritoneal signs. Extremities: Ecchymotic area of the left upper arm. No bruising of the left hip. Surgical site is clean and the dressing and is intact. No pitting edema of the lower extremities bilaterally. LABORATORY DATA: CBC: WBC 5.6, hemoglobin 11.9, hematocrit 35.6, and platelets 270. Chemistry from 01/11/2019 shows electrolytes are in balance with a sodium of 136, potassium 4.3, chloride 102, carbon dioxide 27, BUN 28, creatinine 1.00, fasting glucose 94, and calcium 9.1. Iron studies done 01/06/2019 showed mild iron deficiency with an iron of 22, TIBC of 166 and ferritin of 444. Her albumin was low at 2.4 on the 24th as well as her total protein which was 5.5. Peripheral smear on 01/11/2019 showed normocytic normochromic anemia, either a component of anemia of chronic disease or blood loss from her hip fracture would be the causative agent. IMAGING STUDIES: 01/06/2019 hip and pelvis x-ray showed a proximal left femur fracture with an obliquely oriented sub trochanteric extension, no subluxation or dislocation. Chest x-ray done 01/06/2019 showed the lungs were clear. Ectatic aorta is noted. Cardiomediastinal silhouette is unremarkable. No pleural effusion or pneumothorax. Chronic interstitial changes. No evidence of acute cardiopulmonary disease. Femur x-ray done 01/06/2019 showed no distal femoral fracture, no evidence of subluxation or dislocation. 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 CT of abdomen and pelvis done 01/06/2019 (with the findings discussed as above) showed no intraperitoneal or retroperitoneal hemorrhage, saccular aneurysm with a wide neck at the right posterior lateral wall of the infrarenal abdominal aorta (recommend followup CT in 3 months), complicated cystic lesion in the upper pole of the right kidney (recommend CT with and without contrast or MRI without and with contrast at 6 and 12 months and then yearly for 5 years), status post left proximal femoral fixation, mild soft tissue swelling and gas in the left lateral hemipelvis consistent with recent postoperative changes. DISCHARGE/PLAN: 1. Discharged to [facility] for rehabilitation. 2. Discharge medications are Tylenol 1000 mg by mouth every 8 hours as needed for pain, tramadol 50 mg 1-2 tablets by mouth every 4 hours as needed for pain, and Xarelto 10 mg by mouth daily for deep vein thrombosis (DVT) prophylaxis post surgery. She should follow up with her primary care provider 1 week after hospital discharge. Greater than 33 minutes was spent coordinating discharge. I have personally evaluated and examined the patient. Discussed with residents and student regarding plan of care and agree with the above assessment and discharge plan. KUNAL
== END 2019-01-12 13:05 | DRG 481 ==
LOC: M ED 16:27 → EDBD 16:27 → M ED 20:36 → M MS5PR 23:25
PROVIDERS: ADMIT Orthopaedic Surgery Hand Surgery; ATTEND Student in an Organized Health Care Education/Training Program
PROC: 0QS706Z Reposition Left Upper Femur with Intramedullary Internal Fixation Device, Open Approach (ICD-10-PCS; principal; 2019-01-06 20:30)
PROC: 30233N1 Transfusion of Nonautologous Red Blood Cells into Peripheral Vein, Percutaneous Approach (ICD-10-PCS; 2019-01-10)
DX: S72.142A Displaced intertrochanteric fracture of left femur, initial encounter for closed fracture (principal); D62 Acute posthemorrhagic anemia; W18.09XA Striking against other object with subsequent fall, initial encounter; Y92.009 Unspecified place in unspecified non-institutional (private) residence as the place of occurrence of the external cause; K59.00 Constipation, unspecified; I10 Essential (primary) hypertension; I71.4 Abdominal aortic aneurysm, without rupture; Z88.0 Allergy status to penicillin

== ENCOUNTER → 2019-01-26 | Outpatient (REF) | payer MEDICAID, MEDICARE ==
[~2019-01-26] MED LIST: ACET-683 PO; TRAM50TA2 PO; XARE10TA PO
[2019-01-26 11:49] LABS: HEMATOCRIT 34.5 % (36.0-47.0); HEMOGLOBIN 10.7 g/dl (12.0-15.5); MEAN CORPUSCULAR HEMOGLOBIN 29.3 pg (27.0-33.0); MEAN CORPUSCULAR VOLUME 94.5 fl (80.0-96.0); PLATELET COUNT, AUTOMATED 423 10^3/uL (150-450); RED BLOOD COUNT 3.65 10^6/uL (4.00-5.40); WHITE BLOOD COUNT 4.6 10^3/uL (4.0-10.0)
[2019-01-26 12:21] LABS: BLOOD UREA NITROGEN 23 MG/DL (7-18); CALCIUM LEVEL 9.3 MG/DL (8.8-10.2); CARBON DIOXIDE LEVEL 29 MEQ/L (21-32); CHLORIDE LEVEL 106 MEQ/L (98-107); CREATININE FOR GFR 0.92 MG/DL (0.55-1.30); GLOMERULAR FILTRATION RATE > 60.0 (>32); GLUCOSE, FASTING 87 MG/DL (70-100); POTASSIUM SERUM 5.4 MEQ/L (3.5-5.1); SODIUM LEVEL 140 MEQ/L (136-145)
== END ==
PROVIDERS: ATTEND Internal Medicine
DX: Z00.00 Encounter for general adult medical examination without abnormal findings (principal)

== ENCOUNTER → 2019-04-18 | Outpatient (REF) | payer MEDICARE, MEDICAID | LOC: M LAB REF 14:29 | PROVIDERS: ATTEND Physician Assistant | DX: M54.9 Dorsalgia, unspecified (principal) ==

== ENCOUNTER 2019-04-21 12:56 | Emergency (ER) | payer MEDICARE, MEDICAID ==
[2019-04-21 15:16] LABS: HEMATOCRIT 39.4 % (36.0-47.0); HEMOGLOBIN 12.6 g/dl (12.0-15.5); LYMPH # 0.8 10^3/uL (1.5-5.0); LYMPH % 12.8 % (24.0-44.0); MEAN CORPUSCULAR HEMOGLOBIN 30.1 pg (27.0-33.0); MONO # 0.2 10^3/uL (0.0-0.8); MONO % 3.7 % (0.0-5.0); NEUTROPHILS # 5.3 10^3/uL (1.5-8.5); PLATELET COUNT, AUTOMATED 261 10^3/uL (150-450); RED BLOOD COUNT 4.19 10^6/uL (4.00-5.40); WHITE BLOOD COUNT 6.4 10^3/uL (4.0-10.0)
[2019-04-21] MEDS ORDERED: NITR100C2 OR (15:18)
[2019-04-21] MEDS ORDERED: PRED10TA2 OR (15:18)
[2019-04-21 15:48] LABS: APPEARANCE, URINE HAZY (CLEAR); BACTERIA, URINE AUTO NEGATIVE (NEGATIVE); BILIRUBIN, URINE AUTO NEGATIVE (NEGATIVE); BLOOD, URINE BLOOD NEGATIVE (NEGATIVE); CALCIUM OXALATE CRYSTALS LARGE; COLOR, URINE YELLOW (YELLOW); GLUCOSE, URINE (UA) AUTO NEGATIVE (NEGATIVE); KETONE, URINE AUTO TRACE mg/dL (NEGATIVE); LEUKOCYTE ESTERASE, URINE AUTO NEGATIVE (NEGATIVE); NITRITE, URINE AUTO NEGATIVE (NEGATIVE); PROTEIN, URINE AUTO NEGATIVE (NEGATIVE); RBC, URINE AUTO 12 /HPF (0-3); SPECIFIC GRAVITY URINE AUTO 1.024 (1.002-1.035); SQUAMOUS EPITHELIAL CELL UR AU 0 /HPF (0-6); WBC, URINE AUTO 2 /HPF (0-3)
[2019-04-21 15:54] LABS: ALBUMIN 3.8 GM/DL (3.2-5.2); BILIRUBIN,DIRECT 0.1 MG/DL (0.0-0.2); BILIRUBIN,TOTAL 0.4 MG/DL (0.2-1.0); CALCIUM LEVEL 9.2 MG/DL (8.8-10.2); CREATININE FOR GFR 1.03 MG/DL (0.55-1.30); POTASSIUM SERUM 4.1 MEQ/L (3.5-5.1); TOTAL PROTEIN 7.2 GM/DL (6.4-8.2)
--- NOTE | 2019-04-21 18:13 | REPVR ---
PROCEDURE INFORMATION: Exam: CT Abdomen And Pelvis Without Contrast Exam date and time: 04/21/2019 5:34 PM Age: 88 years old Clinical indication: Abdominal pain; Additional info: Flank pain, hematuria TECHNIQUE: Imaging protocol: Computed tomography of the abdomen and pelvis without contrast. Radiation optimization: All CT scans at this facility use at least one of these dose optimization techniques: automated exposure control; mA and/or kV adjustment per patient size (includes targeted exams where dose is matched to clinical indication); or iterative reconstruction. COMPARISON: CT ABD PELVIS W/O CONTRAST 01/10/2019 7:54 AM FINDINGS: Lungs: No suspicious mass or airspace process in the visualized lung bases. Liver: Noncontrast liver shows no obvious lesion. Gallbladder and bile ducts: Gallbladder is present and shows no evidence of gallstone. Pancreas: Noncontrast pancreas shows no obvious mass or adjacent fluid. Spleen: Noncontrast spleen shows no obvious focal deformity. Adrenals: Adrenal glands are normal in appearance. Kidneys and ureters: Kidneys demonstrate no stone or obstruction. Anterior midpole left renal 1 cm cyst with simple fluid density on axial image 36. Upper pole peripherally calcified 2.3 cm simple fluid density cyst, right kidney. Both of these appear benign and stable. Stomach and bowel: No evidence of small bowel obstruction. No evidence of acute diverticulitis. Appendix: Appendix is not seen. No RLQ inflammation to suggest appendicitis. Intraperitoneal space: No pneumoperitoneum. Vasculature: Infrarenal abdominal aortic aneurysm measuring 3.1 x 2.3 cm, unchanged since the prior CT. Lymph nodes: No enlarged lymph nodes. Bladder: Urinary bladder appears normal. Reproductive: No uterine enlargement or obvious ovarian lesion. Bones/joints: Diffuse skeletal demineralization, left proximal femur fixation, and lumbar spine degenerative changes are present. Soft tissues: Unremarkable. Other findings: Limited evaluation without enteric or IV contrast. IMPRESSION: 1. No evidence of obstructive uropathy or other explanation for flank pain and hematuria. 2. Benign simple cyst, left kidney and Bosniak type 2 cyst, right kidney with peripheral calcification. 3. Stable saccular aneurysm, infrarenal abdominal aorta COMMENTS: Consistent with the [employer]'s Incidental Findings Committee white paper (J Am Radha Radiol 2018): Any incidental cystic renal lesion classified in this report as too small to characterize or simple appearing is likely a benign cyst. No follow-up imaging is recommended for these lesions per consensus recommendations based on imaging criteria. Electronically signed by: Irving Trevino On 04/21/2019 18:13:17 PM
[2019-04-21] MEDS ORDERED: LIDOCAINE 5% (LIDODERM) PATCH TD ONE (18:15)
[2019-04-21 18:38] VITALS: BP 140/76
[2019-04-22] MEDS ORDERED: **NOTE PATIENT COMMENT** MISC XX SCH (06:00)
--- NOTE | 2019-04-22 11:43 | ED PDOC ---
Post-Departure Follow-Up dr orozco faxed formal report of ct abd/p for fu Carolyn Noriega MD Apr 22, 2019 11:43
== END 2019-04-21 19:18 | disposition home or self-care (01) ==
LOC: M ED 12:56
DX: S29.012A Strain of muscle and tendon of back wall of thorax, initial encounter (principal); X58.XXXA Exposure to other specified factors, initial encounter; Y92.9 Unspecified place or not applicable; C64.2 Malignant neoplasm of left kidney, except renal pelvis; N20.0 Calculus of kidney; I71.4 Abdominal aortic aneurysm, without rupture; Z88.0 Allergy status to penicillin; Z79.899 Other long term (current) drug therapy

== ENCOUNTER 2020-04-04 14:07 | Observation (INO) | payer MEDICARE, MEDICAID ==
[~2020-04-04] VITALS: Ht 152.4 cm; Wt 49.5 kg
[~2020-04-04 14:07] MED LIST changes: +NITR100C2 OR; +PRED10TA2 OR
[2020-04-04 14:43] LABS: BASO % 0.8 % (0.0-1.0); EOS # 0.1 10^3/uL (0.0-0.5); EOS % 2.8 % (0.0-3.0); HEMATOCRIT 39.8 % (36.0-47.0); HEMOGLOBIN 12.7 g/dl (12.0-15.5); LYMPH # 0.9 10^3/uL (1.5-5.0); MEAN CORPUSCULAR HEMOGLOBIN 29.2 pg (27.0-33.0); MEAN CORPUSCULAR HGB CONC 31.9 g/dl (32.0-36.5); MEAN CORPUSCULAR VOLUME 91.5 fl (80.0-96.0); MONO # 0.4 10^3/uL (0.0-0.8); MONO % 9.1 % (2.0-8.0); NEUTROPHILS # 2.5 10^3/uL (1.5-8.5); PLATELET COUNT, AUTOMATED 203 10^3/uL (150-450); RED BLOOD COUNT 4.35 10^6/uL (4.00-5.40); WHITE BLOOD COUNT 3.9 10^3/uL (4.0-10.0)
[2020-04-04 15:19] LABS: ALBUMIN 3.4 GM/DL (3.2-5.2); ALT/SGPT 10 U/L (12-78); BILIRUBIN,TOTAL 0.4 MG/DL (0.2-1.0); BLOOD UREA NITROGEN 20 MG/DL (7-18); CALCIUM LEVEL 8.9 MG/DL (8.8-10.2); CARBON DIOXIDE LEVEL 26 MEQ/L (21-32); CHLORIDE LEVEL 108 MEQ/L (98-107); CK-MB VALUE MASS < 1.0 NG/ML (<3.6); CPK CREATINE PHOSPHOKINASE 30 U/L (26-192); CREATININE FOR GFR 0.96 MG/DL (0.55-1.30); GLOMERULAR FILTRATION RATE 58.4 (>32); GLUCOSE, FASTING 99 MG/DL (70-100); MB/CK RELATIVE INDEX 3.33 (< OR =4); POTASSIUM SERUM 3.8 MEQ/L (3.5-5.1); SODIUM LEVEL 141 MEQ/L (136-145); TOTAL PROTEIN 6.3 GM/DL (6.4-8.2); TROPONIN I 0.04 NG/ML (< 0.10)
--- OUTSIDE RECORDS SUMMARY | 2020-04-04 15:19 | CCD ---
Author Author [facility] Organization [facility] Address Unknown Phone Unavailable Care Team Providers Care Stone Planer Name Role Phone Galilea, Fouzia DO Unavailable Unavailable Galilea, Fouzia DO Unavailable Unavailable Galilea, Fouzia DO Unavailable Unavailable Galilea, Fouzia DO Unavailable Unavailable Galilea, Fouzia DO Unavailable Unavailable Galilea, Fouzia DO Unavailable Unavailable Galilea, Fouzia DO Unavailable Unavailable Galilea, Fouzia DO Unavailable Unavailable Galilea, Fouzia DO Unavailable Unavailable Galilea, Fouzia DO Unavailable Unavailable Galilea, Fouzia DO Unavailable Unavailable Galilea, Fouzia DO Unavailable Unavailable Galilea, Fouzia DO Unavailable Unavailable Galilea, Fouzia DO Unavailable Unavailable Galilea, Fouzia DO Unavailable Unavailable Galilea, Fouzia DO Unavailable Unavailable Galilea, Fouzia DO Unavailable Unavailable Galilea, Fouzia DO Unavailable Unavailable Galilea, Fouzia DO Unavailable Unavailable Galilea, Fouzia DO Unavailable Unavailable Galilea, Fouzia DO Unavailable Unavailable Galilea, Fouzia DO Unavailable Unavailable Galilea, Fouzia DO Unavailable Unavailable Galilea, Fouzia DO Unavailable Unavailable Galilea, Fouzia DO Unavailable Unavailable Galilea, Fouzia DO Unavailable Unavailable Galilea, Fouzia DO Unavailable Unavailable Galilea, Fouzia DO Unavailable Unavailable Galilea, Fouzia DO Unavailable Unavailable Galilea, Fouzia DO Unavailable Unavailable Galilea, Fouzia DO Unavailable Unavailable Galilea, Fouzia DO Unavailable Unavailable Galilea, Fouzia DO Unavailable Unavailable Galilea, Fouzia DO Unavailable Unavailable Galilea, Fouzia DO Unavailable Unavailable Galilea, Fouzia DO Unavailable Unavailable Galilea, Fouzia DO Unavailable Unavailable Galilea, Fouzia DO Unavailable Unavailable Galilea, Fouzia DO Unavailable Unavailable Galilea, Fouzia DO Unavailable Unavailable Galilea, Fouzia DO Unavailable Unavailable Galilea, Fouzia DO Unavailable Unavailable Galilea, Fouzia DO Unavailable Unavailable Galilea, Fouzia DO Unavailable Unavailable Galilea, Fouzia DO Unavailable Unavailable Galilea, Fouzia DO Unavailable Unavailable Galilea, Fouzia DO Unavailable Unavailable Galilea, Fouzia DO Unavailable Unavailable Galilea, Fouzia DO Unavailable Unavailable Galilea, Fouzia DO Unavailable Unavailable Galilea, Fouzia DO Unavailable Unavailable Galilea, Fouzia DO Unavailable Unavailable Galilea, Fouzia DO Unavailable Unavailable Galilea, Fouzia DO Unavailable Unavailable Galilea, Fouzia DO Unavailable Unavailable Galilea, Fouzia DO Unavailable Unavailable Galilea, Fouzia DO Unavailable Unavailable Galilea, Fouzia DO Unavailable Unavailable Galilea, Fouzia DO Unavailable Unavailable Galilea, Fouzia DO Unavailable Unavailable Galilea, Fouzia DO Unavailable Unavailable Galilea, Fouzia DO Unavailable Unavailable Galilea, Fouzia DO Unavailable Unavailable Galilea, Fouzia DO Unavailable Unavailable Galilea, Fouzia DO Unavailable Unavailable Galilea, Fouzia DO Unavailable Unavailable Galilea, Fouzia DO Unavailable Unavailable Galilea, Fouzia DO Unavailable Unavailable Galilea, Fouzia DO Unavailable Unavailable Galilea, Fouzia DO Unavailable Unavailable Galilea, Fouzia DO Unavailable Unavailable Galilea, Fouzia DO Unavailable Unavailable Galilea, Fouzia DO Unavailable Unavailable Galilea, Fouzia DO Unavailable Unavailable Galilea, Fouzia DO Unavailable Unavailable Galilea, Fouzia DO Unavailable Unavailable Galilea, Fouzia DO Unavailable Unavailable Galilea, Fouzia DO Unavailable Unavailable Galilea, Fouzia DO Unavailable Unavailable Galilea, Fouzia DO Unavailable Unavailable Galilea, Fouzia DO Unavailable Unavailable Galilea, Fouzia DO Unavailable Unavailable Galilea, Fouzia DO Unavailable Unavailable Galilea, Fouzia DO Unavailable Unavailable Galilea, Fouzia DO Unavailable Unavailable Galilea, Fouzia DO Unavailable Unavailable Galilea, Fouzia DO Unavailable Unavailable Galilea, Fouzia DO Unavailable Unavailable Galilea, Fouzia DO Unavailable Unavailable Galilea, Fouzia DO Unavailable Unavailable Galilea, Fouzia DO Unavailable Unavailable Galilea, Fouzia DO Unavailable Unavailable Galilea, Fouzia DO Unavailable Unavailable Galilea, Fouzia DO Unavailable Unavailable Galilea, Fouzia DO Unavailable Unavailable Galilea, Fouzia DO Unavailable Unavailable Galilea, Fouzia DO Unavailable Unavailable Galilea, Fouzia DO Unavailable Unavailable Galilea, Fouzia DO Unavailable Unavailable Galilea, Fouzia DO Unavailable Unavailable Galilea, Fouzia DO Unavailable Unavailable Galilea, Fouzia DO Unavailable Unavailable Galilea, Fouzia DO Unavailable Unavailable Galilea, Fouzia DO Unavailable Unavailable Galilea, Fouzia DO Unavailable Unavailable Galilea, Fouzia DO Unavailable Unavailable Galilea, Fouzia DO Unavailable Unavailable Galilea, Fouzia DO Unavailable Unavailable Galilea, Fouzia DO Unavailable Unavailable Galilea, Fouzia DO Unavailable Unavailable Galilea, Fouzia DO Unavailable Unavailable Galilea, Fouzia DO Unavailable Unavailable Galilea, Fouzia DO Unavailable Unavailable Galilea, Fouzia DO Unavailable Unavailable Galilea, Fouzia DO Unavailable Unavailable Galilea, Fouzia DO Unavailable Unavailable Galilea, Fouzia DO Unavailable Unavailable Galilea, Fouzia DO Unavailable Unavailable Galilea, Fouzia DO Unavailable Unavailable Galilea, Fouzia DO Unavailable Unavailable Galilea, Fouzia DO Unavailable Unavailable Galilea, Fouzia DO Unavailable Unavailable Galilea, Fouzia DO Unavailable Unavailable Galilea, Fouzia DO Unavailable Unavailable Galilea, Fouzia DO Unavailable Unavailable Galilea, Fouzia DO Unavailable Unavailable Galilea, Fouzia DO Unavailable Unavailable Galilea, Fouzia DO Unavailable Unavailable Galilea, Fouzia DO Unavailable Unavailable Galilea, Fouzia DO Unavailable Unavailable Galilea, Fouzia DO Unavailable Unavailable Galilea, Fouzia DO Unavailable Unavailable Galilea, Fouzia DO Unavailable Unavailable Galilea, Fouzia DO Unavailable Unavailable Galilea, Fouzia DO Unavailable Unavailable Galilea, Fouzia DO Unavailable Unavailable Galilea, Fouzia DO Unavailable Unavailable Galilea, Fouzia DO Unavailable Unavailable Galilea, Fouzia DO Unavailable Unavailable Galilea, Fouzia DO Unavailable Unavailable Galilea, Fouzia DO Unavailable Unavailable Galilea, Fouzia DO Unavailable Unavailable Galilea, Fouzia DO Unavailable Unavailable Galilea, Fouzia DO Unavailable Unavailable RING, K CHEMA PA Unavailable Unavailable RING, K CHEMA PA Unavailable Unavailable RING, K CHEMA PA Unavailable Unavailable RING, K CHEMA PA Unavailable Unavailable RING, K CHEMA PA Unavailable Unavailable RING, K CHEMA PA Unavailable Unavailable RING, K CHEMA PA Unavailable Unavailable RING, K CHEMA PA Unavailable Unavailable RING, K CHEMA PA Unavailable Unavailable RING, K CHEMA PA Unavailable Unavailable RING, K CHEMA PA Unavailable Unavailable RING, K CHEMA PA Unavailable Unavailable RING, K CHEMA PA Unavailable Unavailable RING, K CHEMA PA Unavailable Unavailable RING, K CHEMA PA Unavailable Unavailable RING, K CHEMA PA Unavailable Unavailable RING, K CHEMA PA Unavailable Unavailable RING, K CHEMA PA Unavailable Unavailable RING, K CHEMA PA Unavailable Unavailable RING, K CHEMA PA Unavailable Unavailable RING, K CHEMA PA Unavailable Unavailable Re-disclosure Warning The records that you are about to access may contain information from federally-assisted alcohol or drug abuse programs. If such information is present, then the following federally mandated warning applies: This information has been disclosed to you from records protected by federal confidentiality rules (42 CFR part 2). The federal rules prohibit you from making any further disclosure of this information unless further disclosure is expressly permitted by the written consent of the person to whom it pertains or as otherwise permitted by 42 CFR part 2. A general authorization for the release of medical or other information is NOT sufficient for this purpose. The Federal rules restrict any use of the information to criminally investigate or prosecute any alcohol or drug abuse patient.The records that you are about to access may contain highly sensitive health information, the redisclosure of which is protected by Article 27-F of the [facility] Public Health law. If you continue you may have access to information: Regarding HIV / AIDS; Provided by facilities licensed or operated by the [facility] Office of Mental Health; or Provided by the [facility] Office for People With Developmental Disabilities. If such information is present, then the following [facility] mandated warning applies: This information has been disclosed to you from confidential records which are protected by state law. State law prohibits you from making any further disclosure of this information without the specific written consent of the person to whom it pertains, or as otherwise permitted by law. Any unauthorized further disclosure in violation of state law may result in a fine or skilled nursing sentence or both. A general authorization for the release of medical or other information is NOT sufficient authorization for further disc losure. Family History Family Member Name Family Member Gender Family Member Status Date o f Status Description Data Source(s) Unknown Male Problem [facility] ([facility]) Unknown Unknown Problem [facility] ([facility]) Encounters Encounter Providers Location Date Indications Data Source(s ) Outpatient Attender: Fouzia Herrera 10/21 10:20:00 AM EDT [facility] ([facility] ) Outpatient Referrer: Fouzia Calero DO 04/26/2019 12:19:00 PM EDT [facility] Outpatient Attender: CHEMA Monroe 04/18/2019 10:20:00 AM EST [facility] ([facility]) Outpatient Referrer: Fouzia Calero DO 03/01/2019 04:11:00 PM EST [facility] Outpatient Referrer: Fouzia Calero DO 03/01/2019 04:02:00 PM EST [facility] Outpatient Referrer: Fouzia Calero DO 03/01/2019 01:26:00 PM EST [facility] Outpatient Referrer: Fouzia Calero DO 03/01/2019 01:20:00 PM EST [facility] Outpatient Referrer: Fouzia Calero DO 03/01/2019 01:15:00 PM EST [facility] Outpatient Referrer: Fouzia Calero DO 02/26/2019 09:06:00 AM EST [facility] Outpatient Referrer: Fouzia Calero DO 02/26/2019 07:23:00 AM EST [facility] Outpatient Referrer: Fouzia Calero DO 02/25/2019 02:57:00 PM EST [facility] Medications Medication Brand Name Start Date Product Form Dose Route Admi nistrative Instructions Pharmacy Instructions Status Indications Reaction Description Data Source(s) 5 mg 10/22/2019 12:00:00 AM EDT tablet 30 TAKE ONE TABLET BY MOUTH EVERY DAY AT BEDTIME TAKE ONE TABLET BY MOUTH EVERY DAY AT BEDTIME SOLD: 10/23/2019 [facility] 5 mg 10/22/2019 12:00:00 AM EDT tablet 30 TAKE ONE TABLET BY MOUTH EVERY DAY AT BEDTIME TAKE ONE TABLET BY MOUTH EVERY DAY AT BEDTIME SOLD: 11/27/2019 [facility] levocetirizine dihydrochloride 5 MG Oral Tablet Levocetirizi ne Dihydrochloride 10/22/2019 12:00:00 AM EDT ORAL active [facility] ([facility]) NITROFURANTOIN, MACROCRYSTALS 25 MG / Ni trofurantoin, Monohydrate 75 MG Oral Capsule [Macrobid] Macrobid 04/18/2019 12:00:00 AM EST ORAL active [facility] ([facility], [facility]) Cephalexin 500 MG Oral Tablet Cephalexin 04/18/2019 12:00:00 AM EST ORAL completed [facility] ([facility], [facility]) 10 mg 04/18/2019 12:00:00 AM EST tablet 8 TAKE ONE TABLET BY MOUTH TWICE A DAY FOR 4 DAYS TAKE ONE TABLET BY MOUTH TWICE A DAY FOR 4 DAYS SOLD: 2019 [facility] Prednisone 10 MG Oral Tablet Prednisone 04/18/2019 12:00:00 AM EST ORAL active [facility] ([facility]) 100 mg 04/18/2019 12:00:00 AM EST capsule 10 TAKE ONE CAPSULE BY MOUTH EVERY 12 HOURS FOR 5 DAYS TAKE ONE CAPSULE BY MOUTH EVERY 12 HOURS FOR 5 DAYS SO LD: 04/18/2019 [facility] No Active Medications 04/18/2019 12:00:00 AM EST completed [facility] ([facility], [facility]) 8 HR Acetaminophen 650 MG Extended Release Oral Tablet [Tylenol] Tylenol 8 Hour Arthritis Pain 02/19/2019 12:00:00 AM EST ORAL active [facility] ([facility]) Fouzia [employer] 02/19/2019 12:00:00 AM EST ORAL active [facility] ([facility]) tramadol hydrochloride 50 MG Oral Tablet Tramadol HCL 02/19/2019 12:00:00 AM EST active [facility] ([facility]) Insurance Providers Payer name Policy type / Coverage type Policy ID Covered alliance party ID Covered alliance party's relationship to anderson Policy Anderson Plan Information EMEDNY [id number] SP [id number] MEDICARE COMPLETE [id number] SP [id number] [facility] O [id number] S [id number] MEDICAID M [id number] MEDICAID [id number] SP [id number] [facility] [id number] SP [id number] [facility] [id number] SP [id number] [facility]) O [id number] S [id number] MEDICARE C [id number] S [id number] [id number] SP [id number] [facility] [id number] SP [id number] [facility] Commercial [id number] Self [id number] [facility]/Medicare Solu Commercial [id number] Self [id number] Results ID Date Data Source [id number] 11/08/2019 12:00:00 AM EDT [facility] Fouzia Calero DO Patient Name: GRICEL [id number] [facility] Date of : 1930[place] [address] Date of Exam: 11/08/2019PATRICIA Dangelo [id number]#: Fax: [phone] EXAM: US RETROPERITONEAL, COMPLETE(RENAL/AORTA)CLINICAL INFORMATION: Hematuria.Prior CT of 04/21/2019 showed a simple left renal cyst.The right kidney measures 6.8 x 2.5 x 3.1 cm. There is renal corticalthinning. In the superior pole there is a 1.7 x 1.9 x 1.4 cm sizedanechoic structure which exhibits posterior wall enhancement and increasedthrough transmission. This is without septations or mural nodules. Thereare no solid masses. There is no hydronephrosis. The right renal RI is.33.The left kidney measures 9.7 x 4.9 x 4.2 cm. The renal cortical echopattern is within normal limits. In the interpolar region, there is a 1.6x 1.2 x 1 cm sized anechoic structure which exhibits posterior wallenhancement and increased through transmission. This is without septationsor mural nodules. There are no solid masses. There is no hydronephrosis.The left renal RI is .71.IMPRESSION:1. The right kidney is small in size compared to the left. There is rightrenal cortical thinning, etiology uncertain. There is a right renal cystas described above. The prior CT showed some thin peripheral cyst wallcalcifications.2. Simple left renal cyst as described above.Accredited by the [employer] in General Ultrasound.UZMA Montero/Pelon you for referring GRICEL REDDY to our office. Electronically Signed - BRENDA BAILEY DO 11/08/19 13:52 Name Value Range Interpretation Code Description Data Natalie rce(s) Supporting Document(s) ID Date Data Source [id number] 10/22/2019 11:05:00 AM EDT [facility] ([facility]) Name Value Range Interpretation Code Description Data Natalie rce(s) Supporting Document(s) Thyrotropin [Units/volume] in Serum or Plasma by Detec tion limit <= 0.05 mIU/L 1.38 uIU/mL 0.36-3.74 [facility] ([facility] ) ID Date Data Source [id number] 10/22/2019 11:05:00 AM EDT [facility] ([facility]) Name Value Range Interpretation Code Description Data Natalie rce(s) Supporting Document(s) Urea nitrogen [Mass/volume] in Serum or Plasma 24 mg/dL 7-18 [facility] ([facility]) Glucose [Mass/volume] in Serum or Plasma 87 mg/dL 74-99 [facility] ([facility]) 100-125 mg/dL PRE-DIABETES/FASTING >126 mg/dL DIABETES/FASTING Sodium [Moles/volume] in Serum or Plasma 142 meq/L 136-145 [facility] ([facility]) Potassium [Moles/volume] in Serum or Plasma 4.0 meq/L 3.5-5.1 [facility] ([facility]) Chloride [Moles/volume] in Serum or Plasma 106 meq/L 98-107 [facility] ([facility]) Creatinine 1.2 mg/dL 0.6-1.3 [facility] Calcium [Mass/volume] in Serum or Plasma 9.1 mg/dL 8.5-10.1 [facility] ([facility]) Alkaline phosphatase isoenzyme [Units/volume] in Serum or Pl asma 129 mg/dL 46-116 [facility] ([facility]) Carbon dioxide, total [Moles/volume] in Serum or Plasma 26 meq/L 21 -32 [facility] ([facility]) Aspartate aminotransferase [Enzymatic activity/volume] in Serum or Plasma 16 U/L 15-37 [facility] ([facility] ) Albumin [Mass/volume] in Serum or Plasma 3.9 g/dL 3.4-5.0 [facility] ([facility]) Alanine aminotransferase [Enzymatic activity/volume] in Seru m or Plasma 13 U/L 12-78 [facility] ([facility]) Total Bilirubin 0.6 mg/dL 0.2-1.0 [facility] ([facility]) Glomerular filtration rate/1.73 sq M pre dicted among non-blacks [Volume Rate/Area] in Serum or Plasma by Creatinine-based formula (MDRD) 42 mL/min [facility] ([facility]) A/G Ratio 1.11 CALC 1.00-1.90 [facility]) Proteinase 3 Ab [Units/volume] in Serum 7.4 g/dL 6.4-8.2 [facility] ([facility]) Glomerular filtration rate/1.73 sq M pre dicted among blacks [Volume Rate/Area] in Serum or Plasma by Creatinine-based formula (MDRD) 51 mL/min [facility] ([facility]) <content>CHRONIC KIDNEY DISEASE STAGING PER NKF</content>
<content></content>
<content>STAGE I & II GFR >= 60 NORMAL TO MILDLY DECREASED</content>
<content>STAGE III GFR 30-59 MODERATELY DECREASED</content>
<content>STAGE IV GFR 15-29 SEVERELY DECREASED</content>
<content>STAGE V GFR <15 VERY LITTLE GFR LEFT</content>
<content>ESRD GFR <15 ON ASSISTANT TO THE VICE PRESIDENT</content>
<content></content> ID Date Data Source [id number] 10/22/2019 11:05:00 AM EDT [facility] ([facility]) Name Value Range Interpretation Code Description Data Natalie rce(s) Supporting Document(s) Leukocytes [#/volume] in Blood by Automated count 4.8 x10*3/UL 4.1-10 .9 [facility] Hematocrit [Volume Fraction] of Blood by Automated count 41.7 % 3 7.0-51.0 [facility] Hemoglobin [Mass/volume] in Blood 14.0 g/dL 12.0-18.0 [facility] Erythrocytes [#/volume] in Blood by Automated count 4.61 x10*6/UL 4.2 0-6.30 [facility] ([facility]) MCH 30.5 pg 26.0-32.0 [facility] MCV 90.4 fL 80.0-97.0 [facility] ([facility]) MCHC 33.7 g/dL 31.0-38.0 [facility] ([facility]) Erythrocyte distribution width [Ratio] by Automated count 13.1 % 11.6-13.7 [facility] ([facility]) Lymph % 30.2 % 10.0-58.5 [facility] MPV 8.1 FL 7.8-11.0 [facility] ([facility]) Platelets [#/volume] in Blood by Automated count 223 x10*3/UL 140-440 [facility] ([facility]) Mid % 8.7 % 1.7-9.3 [facility] Mid # 0.5 x10*3/UL 0.1-0.6 [facility] ([facility]) Neut % 61.1 % 37.0-92.0 [facility] Lymph # 1.4 x10*3/UL 0.6-4.1 [facility] ([facility]) Neut # 2.9 x10*3/UL 2.0-7.8 [facility] ([facility]) ID Date Data Source [id number] 10/22/2019 10:30:00 AM EDT [facility] ([facility]) Name Value Range Interpretation Code Description Data Natalie rce(s) Supporting Document(s) Urine Color Laboratory test result MEDEN T ([facility]) Urine Appearance Laboratory test result Abnormal (applies to non-numeric results) [facility] ([facility]) Specific gravity of Urine 1.030 1.005-1.030 OK DENT ([facility]) Urine PH 5.0 units 5.0-9.0 [facility] Urine Blood Laboratory test result Abnormal (applies to non-numeric results) [facility] ([facility]) Urine Leukocytes Laboratory test result [facility] ([facility]) Urine Protein Laboratory test result 0-0 MED ENT ([facility]) Urine Nitrite Laboratory test result MED [facility] ([facility]) Glucose [Presence] in Urine Laboratory test result [facility] ([facility]) Bilirubin.total [Mass/volume] in Serum or Plasma Laboratory test resu lt [facility] ([facility]) Urine Urobilinogen 0.2 mg/dL 0.2-1.0 [facility] ([facility]) Urine Ketone Laboratory test result MEDE NT ([facility]) ID Date Data Source [id number] 04/18/2019 12:23:00 PM EST [facility] ([facility]) Name Value Range Interpretation Code Description Data Natalie rce(s) Supporting Document(s) Bacteria identified in Urine by Culture <pending> [facility]) ID Date Data Source [id number] 03/01/2019 12:00:00 AM EST [facility] Fouzia Calero DO Patient Name: GRICEL [id number] [facility] Date of : 1930[facility] [address] [facility]: [facility] [id number] Fax: [phone] EXAM: CT ABDOMEN & PELVIS WITHOUT&WITH CONTRASTCLINICAL INFORMATION: Abdominal aortic aneurysm and right renal lesion.Comparison CT 01/10/19 [facility].Low dose [address] scanning of the abdomen and pelvis wasobtained before and after the administration of intravenous contrast using3 mm increments and reconstructed in both sagittal and coronal scan planes. Immediate and delayed post contrast enhanced imaging was obtained throughthe abdomen. 75 cc of Optiray 350 was administered intravenously.The visualized lung bases demonstrate mild fibrotic changes.The liver, spleen, adrenals and pancreas are unremarkable with no mass.There is no hydronephrosis bilaterally. The left kidney demonstrates a1.3 cm cyst in the mid-anterior aspect. The right kidney is moderatelyatrophic. Approximate length is 7 cm. There is no right hydronephrosis.There is a delayed nephrogram of the right kidney. 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 Benign appearing cysticlesion in the upper pole of the right kidney measures 2.5 cm in diameterwith thin calcifications in the wall of the cyst.Moderate atherosclerotic calcification is seen of the abdominal aorta.There is again a focal saccular aneurysm posteriorly of the distalabdominal aorta below the level of the renal arteries. The saccularout-pouching is totally thrombosed. Maximum diameter is 3.4 cm. Residualpatent lumen is 2.3 x 2.2 cm. There is no adenopathy. There is no freeair or free fluid. There is no bowel wall thickening. No pelvic mass isseen. Urinary bladder is not well distended and not well evaluated. Thereis metallic internal fixation in the proximal left femur. There aredegenerative changes of the spine. There is a moderate compressiondeformity of the T12 vertebral body which is unchanged.IMPRESSION:Moderate right renal atrophy. 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 There is a benigncyst in the upper pole of the right kidney with thin calcifications in thewall of the cyst. 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 The focal out-pouching is thrombosed.There is residual patent lumen is 2.3 x 2.2 cm.Accredited by the [employer] in [place].KENY Griffin/Pelon diehl for referring GRICEL REDDY to our office. Electronically Signed - ANGEL PHAN MD 03/01/19 18:02 Name Value Range Interpretation Code Description Data Natalie rce(s) Supporting Document(s) ID Date Data Source [id number] 02/19/2019 11:19:00 AM EST [facility] ([facility]) Name Value Range Interpretation Code Description Data Natalie rce(s) Supporting Document(s) Triglyceride [Mass/volume] in Serum or Plasma 87 mg/dL 30-150 [facility] ([facility] [facility] Cholesterol [Mass/volume] in Serum or Plasma 220 mg/dL 131-200 [facility] ([facility]) Cholesterol in LDL [Mass/volume] in Serum or Plasma by calcu lation 136 CALC 50-159 [facility] ([facility]) Cholesterol in HDL [Mass/volume] in Serum or Plasma 67 mg/dL 35-60 [facility] ([facility]) ID Date Data Source [id number] 02/19/2019 11:19:00 AM EST [facility] ([facility]) Name Value Range Interpretation Code Description Data Natalie rce(s) Supporting Document(s) Glucose [Mass/volume] in Serum or Plasma 94 mg/dL 74-99 [facility] ([facility]) 100-125 mg/dL PRE-DIABETES/FASTING >126 mg/dL DIABETES/FASTING Creatinine 1.2 mg/dL 0.6-1.3 [facility] Urea nitrogen [Mass/volume] in Serum or Plasma 31 mg/dL 7-18 [facility] ([facility]) Sodium [Moles/volume] in Serum or Plasma 140 meq/L 136-145 [facility] ([facility]) Carbon dioxide, total [Moles/volume] in Serum or Plasma 24 meq/L 21 -32 [facility] ([facility]) Potassium [Moles/volume] in Serum or Plasma 4.5 meq/L 3.5-5.1 [facility] ([facility]) Chloride [Moles/volume] in Serum or Plasma 104 meq/L 98-107 [facility] ([facility]) Calcium [Mass/volume] in Serum or Plasma 9.6 mg/dL 8.5-10.1 [facility] ([facility]) Alkaline phosphatase isoenzyme [Units/volume] in Serum or Pl asma 167 mg/dL 46-116 [facility] ([facility]) Total Bilirubin 0.6 mg/dL 0.2-1.0 [facility] ([facility]) Albumin [Mass/volume] in Serum or Plasma 3.7 g/dL 3.4-5.0 [facility] ([facility]) Alanine aminotransferase [Enzymatic activity/volume] in Seru m or Plasma 11 U/L 12-78 [facility] ([facility]) Aspartate aminotransferase [Enzymatic activity/volume] in Serum or Plasma 14 U/L 15-37 [facility] ([facility] ) Proteinase 3 Ab [Units/volume] in Serum 7.3 g/dL 6.4-8.2 [facility] ([facility]) A/G Ratio 1.03 CALC 1.00-1.90 [facility] Glomerular filtration rate/1.73 sq M pre dicted among blacks [Volume Rate/Area] in Serum or Plasma by Creatinine-based formula (MDRD) 52 mL/min [facility] <content>CHRONIC KIDNEY DISEASE STAGING PER NKF</content>
<content></content>
<content>STAGE I & II GFR >= 60 NORMAL TO MILDLY DECREASED</content>
<content>STAGE III GFR 30-59 MODERATELY DECREASED</content>
<content>STAGE IV GFR 15-29 SEVERELY DECREASED</content>
<content>STAGE V GFR <15 VERY LITTLE GFR LEFT</content>
<content>ESRD GFR <15 ON ASSISTANT TO THE VICE PRESIDENT</content>
<content></content> Glomerular filtration rate/1.73 sq M pre dicted among non-blacks [Volume Rate/Area] in Serum or Plasma by Creatinine-based formula (MDRD) 42 mL/min [facility] ([facility]) ID Date Data Source [id number] 02/19/2019 11:19:00 AM EST [facility] ([facility]) Name Value Range Interpretation Code Description Data Natalie rce(s) Supporting Document(s) Leukocytes [#/volume] in Blood by Automated count 4.8 x10*3/UL 4.1-10 .9 [facility] ([facility]) Hemoglobin [Mass/volume] in Blood 12.6 g/dL 12.0-18.0 [facility] ([facility]) Erythrocytes [#/volume] in Blood by Automated count 4.25 x10*6/UL 4.2 0-6.30 [facility] ([facility]) Hematocrit [Volume Fraction] of Blood by Automated count 38.7 % 3 7.0-51.0 [facility] ([facility]) MCV 91.1 fL 80.0-97.0 [facility]) MCH 29.6 pg 26.0-32.0 [facility]) MCHC 32.5 g/dL 31.0-38.0 [facility]) Platelets [#/volume] in Blood by Automated count 251 x10*3/UL 140-440 [facility] ([facility]) Erythrocyte distribution width [Ratio] by Automated count 13.7 % 11.6-13.7 [facility] ([facility]) MPV 8.5 FL 7.8-11.0 [facility]) Mid % 8.2 % 1.7-9.3 [facility] Lymph % 26.1 % 10.0-58.5 [facility] Lymph # 1.2 x10*3/UL 0.6-4.1 [facility] ([facility]) Neut % 65.7 % 37.0-92.0 [facility] Mid # 0.5 x10*3/UL 0.1-0.6 [facility] ([facility]) Neut # 3.1 x10*3/UL 2.0-7.8 [facility] ([facility]) Procedure Vital Signs ID Date Data Source [id number] Name Value Range Interpretation Code Description Data Source(s) Body mass index (BMI) [Ratio] 20.9 kg/m2 20.9 k g/m2 [facility] ([facility]) Body weight 105.38 [lb_av] 105.38 [lb_av] [facility] ([facility]) Body height 59.50 [in_i] 59.50 [in_i] [facility] ([facility]) 4'11.50" Body temperature 97.6 [degF] 97.6 [degF] [facility] ([facility]) Diastolic blood pressure 80 mm[Hg] 80 mm[Hg] [facility] ([facility]) RT Arm Systolic blood pressure 122 mm[Hg] 122 mm[Hg] [facility] ([facility]) RT Arm Body mass index (BMI) [Ratio] 20.8 kg/m2 20.8 k [facility]) Body height 59 [in_i] 59 [in_i] [facility] ([facility]) 4'11" Body weight 103.00 [lb_av] 103.00 [lb_av] [facility] ([facility], [facility]) Body temperature 97.6 [degF] 97.6 [degF] [facility] ([facility], [facility]) Oxygen saturation in Arterial blood by Pulse oximetry 96 % 96 % [facility] ([facility], [facility]) Respiratory rate 12 /min 12 /min [facility] ( [facility], [facility]) Heart rate 79 /min 79 /min [facility] ([facility], [facility]) Diastolic blood pressure 94 mm[Hg] 94 mm[Hg] [facility] ([facility], [facility]) Systolic blood pressure 170 mm[Hg] 170 mm[Hg] [facility] ([facility], [facility]) Body mass index (BMI) [Ratio] 20.5 kg/m2 20.5 k g/m2 [facility] Oxygen saturation in Arterial blood by Pulse oximetry --post exerci se 98 % 98 % [facility] ([facility]) RM Air Body weight 103.00 [lb_av] 103.00 [lb_av] [facility] ([facility]) Body height 59.50 [in_i] 59.50 [in_i] [facility] ([facility] 4'11.50" Heart rate 77 /min 77 /min [facility] ([facility]) Diastolic blood pressure 84 mm[Hg] 84 mm[Hg] [facility] ([facility]) RT Arm Systolic blood pressure 112 mm[Hg] 112 mm[Hg] [facility] ([facility]) RT Arm
[2020-04-04 18:01] LABS: CK-MB VALUE MASS 1.3 NG/ML (<3.6); MB/CK RELATIVE INDEX 3.42 (< OR =4); TROPONIN I 0.04 NG/ML (< 0.10)
[2020-04-04] MEDS ORDERED: LABETALOL 100MG/20ML VIAL IV STA (18:49)
--- NOTE | 2020-04-04 18:51 | REPVR ---
PROCEDURE INFORMATION: Exam: CT Head Without Contrast Exam date and time: 04/04/2020 6:36 PM Age: 89 years old Clinical indication: Weakness, extremity; Additional info: Right n/t weakness TECHNIQUE: Imaging protocol: Computed tomography of the head without contrast. Radiation optimization: All CT scans at this facility use at least one of these dose optimization techniques: automated exposure control; mA and/or kV adjustment per patient size (includes targeted exams where dose is matched to clinical indication); or iterative reconstruction. COMPARISON: No relevant prior studies available. FINDINGS: Brain: There is moderate age related parenchymal volume loss. White matter changes are demonstrated in the subcortical, centrum semiovale and periventricular white matter consistent with chronic age related small vessel ischemic changes. Diffuse cerebellar atrophy. Cerebral ventricles: The degree of ventricular dilatation is normal for age and/or degree of atrophy present. Bones/joints: Unremarkable. No acute fracture. Paranasal sinuses: Visualized sinuses are unremarkable. No fluid levels. Mastoid air cells: Visualized mastoid air cells are well aerated. Vasculature: Atherosclerotic calcifications are demonstrated in the intracranial carotid arteries bilaterally as well as in the vertebral basilar system. Soft tissues: Unremarkable. IMPRESSION: 1. There is moderate age related parenchymal volume loss. White matter changes are demonstrated in the subcortical, centrum semiovale and periventricular white matter consistent with chronic age related small vessel ischemic changes. 2. The degree of ventricular dilatation is normal for age and/or degree of atrophy present. 3. Diffuse cerebellar atrophy. Electronically signed by: Tyrese Blackburn On 04/04/2020 18:50:42 PM
--- NOTE | 2020-04-04 19:49 | ECGEPIP ---
[facility] - ED Test Date: 2020-04-04 Pat Name: GRICEL REDDY Department: Room: - Gender: Female [employer]: : 1930 Requested By: Autumn Mendez Order Number: [id number] Reading MD: Dhaval Edwards Measurements Intervals [place] Rate: 72 P: 27 SC: 176 QRS: -24 QRSD: 94 T: 4 QT: 416 QTc: 455 Interpretive Statements Normal sinus rhythm Moderate voltage criteria for LVH, may be normal variant Nonspecific ST and T wave abnormality SIMILAR TO 01/06/19 Electronically Signed on 04-04-2020 19:49:44 EST by Dhaval Edwards
[2020-04-04 19:51] LABS: RSV AMPLIFICATION NEGATIVE (NEGATIVE)
--- NOTE | 2020-04-04 20:18 | HPEPDOC ---
General Date of Admission Apr 04, 2020 Date of Service: Apr 04, 2020 Chief Complaint The patient is a 89-year-old female admitted with a reason for visit of right upper extremity loss of sensation and weakness with right facial droop Source: Patient History of Present Illness Mrs. Negron is an 89 year old female with hypertension who presents with stroke like symptoms that have resolved. At baseline, she has been independent at home with family. She ambulates without a walker and cognitively sharp. She is not on any medications per daughter (HCP). Daughter says they are monitoring her blood pressure which has consistently been in the 190s. PCP reports that her hyper tension is from anxiety. This week and this morning patient was feeling well. Patient was sitting down to watch TV when she developed diaphoresis and nausea. When family returned and saw patient at 12:30PM, patient was lying on the couch saying she cannot feel her right arm and cannot move her right arm. She had right facial droop and was looking up and to the right. She was brought to the ED. Cardiac work up in the ED was negative. Neurologically stable. Blood pressure was labile. When I walked in she was comfortable and BP was 168/99. As we were talking, SBP increased to 190s. She feels well without complaints. Patient will be place in observation for TIA and stroke work up. Home Medications No Active Prescriptions or Reported Meds Allergies Coded Allergies: Penicillins (Verified Allergy, Unknown, 01/06/19) Past Medical History Medical History 1. Left renal cancer 2. Left hip fracture Surgical History 1. Appendectomy 2. Left hip fracture 3. 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 Family History Mother: Had to have her kidney's removed Father: Heart disease Social History * Smoker: Denies Alcohol: Denies Drugs: denies A-FIB/CHADSVASC A-FIB History Current/History of A-Fib/PAF?: No Review of Systems Constitutional: Denies: Chills, Fever Eyes: Reports: Other (Unable to move pupils to left due to eye surgery) ENT: Reports: Sore Throat (Yesterday had sore throat, better today) Skin: Denies: Rash Pulmonary: Denies: Dyspnea, Cough Cardiovascular: Denies: Chest Pain Gastrointestinal: Reports: Nausea (Earlier, but resolved), Diarrhea (Yesterday); Denies: Abdominal Pain Genitourinary: Denies: Dysuria Hematologic: Denies: Bruising Neurological: Reports: Other Symptoms (Denies paresthesias) Psych: Denies: Anxiety, Depression Physical Examination General Exam: Positive: Alert, Cooperative, No Acute Distress Eye Exam: Positive: Other Eye Symptoms (Unable to move pupils to the left) ENT Exam: Positive: Atraumatic, Tongue Midline Neck Exam: Positive: Supple Chest Exam: Positive: Clear to auscultation; Negative: Rales, Rhonchi, Wheezing Heart Exam: Positive: Rate Normal, Regular Rhythm Abdomen Exam: Positive: Normal bowel sounds, Soft; Negative: Tenderness Extremity Exam: Negative: Edema Neuro Exam: Positive: Normal Speech, Cranial Nerves 3-12 NL Psych Exam: Positive: Mental status NL Vital Signs Vital Signs Date Time Temp Pulse Resp B/P (MAP) Pulse Ox O2 Delivery O2 Flow Rate FiO2 04/04/20 18:56 73 201/113 04/04/20 18:37 96 04/04/20 14:20 96.4 18 Room Air Laboratory Data Labs 24H Laboratory Tests 2 04/04/20 14:28: Immature Granulocyte % (Auto) 0.3, Neutrophils (%) (Auto) 65.0, Lymphocytes (%) (Auto) 22.0L, Monocytes (%) (Auto) 9.1H, Eosinophils (%) (Auto) 2.8, Basophils (%) (Auto) 0.8, Neutrophils # (Auto) 2.5, Lymphocytes # (Auto) 0.9L, Monocytes # (Auto) 0.4, Eosinophils # (Auto) 0.1, Basophils # (Auto) 0.0, Nucleated Red Blood Cells % (auto) 0.0, Anion Gap 7L, Glomerular Filtration Rate 58.4, Calcium Level 8.9, Total Bilirubin 0.4, Aspartate Amino Transf (AST/SGOT) 11, Alanine Aminotransferase (ALT/SGPT) 10L, Alkaline Phosphatase 126H, Total Creatine Kinase 30, Creatine Kinase MB < 1.0, Creatine Kinase MB Relative Index 3.33, Troponin I 0.04, Total Protein 6.3L, Albumin 3.4, Albumin/Globulin Ratio 1.2 04/04/20 17:22: Total Creatine Kinase 38, Creatine Kinase MB 1.3, Creatine Kinase MB Relative Index 3.42, Troponin I 0.04 04/04/20 18:37: Coronavirus (COVID-19)(PCR) NEGATIVE, Influenza Type A (RT-PCR) NEGATIVE, Influenza Type B (RT-PCR) NEGATIVE, Respiratory Syncytial Virus (PCR) NEGATIVE CBC/BMP Laboratory Tests 04/04/20 14:28 Assessment/Plan Mrs. Negron is an 89 year old female with hypertension who presents with a TIA. She has been following with PCP about hypertension of which they've opted to monitor. Will allow for permissive hypertension today between 140-180. Otherwise will pursue a stroke up work. Plan / VTE VTE Prophylaxis Ordered?: Yes Plan Plan 1. TIA -Transient right sided weakness, loss of sensation, and facial droop -Ordered for MRI, MRA, Carotid US, and Echo with bubble study -Ordered for lipid panel and HbA1c for AM -Aspirin, clopidogrel, and atorvastatin 2. Hypertension -Part of it may be anxiety related -Will allow for permissive hypertension between 140 to 180 -May benefit from antihypertensives 3. DVT ppx -SCD SHAHRAM DECKER DO Apr 04, 2020 20:18
--- OUTSIDE RECORDS SUMMARY | 2020-04-04 20:30 | CCD ---
Author Author [facility] Organization [facility] Address Unknown Phone Unavailable Care Team Providers Care Advertising Analyst Name Role Phone Galilea, Fouzia DO Unavailable Unavailable Galilea, Fouzia DO Unavailable Unavailable Galilea, Fouzia DO Unavailable Unavailable Galilea, Fouzia DO Unavailable Unavailable Galilea, Fouzia DO Unavailable Unavailable Galilea, Fozuia DO Unavailable Unavailable Galilea, Fouzia DO Unavailable [...] Unavailable Galilea, Fouzia DO Unavailable Unavailable Galilea, Fouzai DO Unavailable Unavailable Galilea, Fouzia DO Unavailable [...] is protected by Article 27-F of the [facility] Public Health law. If you continue you may have access to information: Regarding HIV / AIDS; Provided by facilities licensed or operated by the [facility] Office of Mental Health; or Provided by the [facility] Office for People With Developmental Disabilities. If such information is present, then the following [facility] mandated warning applies: This information has [...] law may result in a fine or retirement sentence or both. A general authorization for [...] Fouzia Herrera 10/21 10:20:00 AM EDT [facility] ([facility] ) Outpatient Referrer: Fouzia Calero DO 04/26/2019 12:19:00 PM EDT [facility] Outpatient Attender: CHEMA Monroe 04/18/2019 10:20:00 AM EST [facility] ([facility]) Outpatient Referrer: Fouzia Calero DO 03/01/2019 04:11:00 [...] 10/22/2019 12:00:00 AM EDT ORAL active [facility] ([facility]) NITROFURANTOIN, MACROCRYSTALS 25 MG / Ni trofurantoin, Monohydrate 75 MG Oral Capsule [Macrobid] Macrobid 04/18/2019 12:00:00 AM EST ORAL active [facility] ([facility], [facility]) Cephalexin 500 MG Oral Tablet Cephalexin 04/18/2019 12:00:00 AM EST ORAL completed [facility] ([facility], [facility]) 10 mg 04/18/2019 12:00:00 AM EST tablet 8 TAKE ONE TABLET BY MOUTH TWICE A DAY FOR 4 DAYS TAKE ONE TABLET BY MOUTH TWICE A DAY FOR 4 DAYS SOLD: 2019 [facility] Prednisone 10 MG Oral Tablet Prednisone 04/18/2019 12:00:00 AM EST ORAL active [facility] ([facility], [facility]) 100 mg 04/18/2019 12:00:00 AM EST capsule 10 TAKE ONE CAPSULE BY MOUTH EVERY 12 HOURS FOR 5 DAYS TAKE ONE CAPSULE BY MOUTH EVERY 12 HOURS FOR 5 DAYS SO LD: 04/18/2019 [facility] No Active Medications 04/18/2019 12:00:00 AM EST completed [facility] ([facility], [facility]) 8 HR Acetaminophen 650 MG Extended Release Oral Tablet [Tylenol] Tylenol 8 Hour Arthritis Pain 02/19/2019 12:00:00 AM EST ORAL active [facility] ([facility]) Fouzia [employer] 02/19/2019 12:00:00 AM EST ORAL active [facility] ([facility]) tramadol hydrochloride 50 MG Oral Tablet Tramadol HCL 02/19/2019 12:00:00 AM EST active [facility] ([facility]) Insurance Providers Payer name Policy type / Coverage type Policy ID Covered constitution party ID Covered constitution party's relationship to anderson Policy Anderson Plan Information EMEDNY [id number] SP [id number] MEDICARE COMPLETE [id number] SP [id number] MEDICARE COMPLETE-[facility] O [id number] S [id number] MEDICAID M [id number] S [id number] MEDICAID [id number] SP [id number] [facility] [id number] SP [id number] [facility] [id number] SP [id number] [facility](M[facility]) O [id number] S [id number] MEDICARE C [id number] S [id number] [facility] [id number] SP [id number] [facility] [id number] SP [id number] [facility] ([facility]) Commercial [id number] Self [id number] [facility]/Medicare Solu Commercial [id number] Self [id number] Results ID Date Data Source [id number] 11/08/2019 12:00:00 AM EDT [facility] Fouzia Calero DO Patient Name: GRICEL [id number] [facility] Date of : 1930[place] [address] Date of Exam: 11/08/2019PATRICIA Dangelo [id number]#: Fax: [phone] EXAM: US RETROPERITONEAL, COMPLETE(RENAL/AORTA)CLINICAL INFORMATION: [...] renal cyst as described above.Accredited by the [employer] in General Ultrasound.UZMA Montero/Pelon you for referring GRICEL REDDY to our office. Electronically Signed - BRENDA BAILEY DO 11/08/19 13:52 Name Value Range Interpretation Code Description Data Natalie rce(s) Supporting Document(s) ID Date Data Source [id number] 10/22/2019 11:05:00 AM EDT [facility] ([facility]) Name Value Range Interpretation Code Description Data Natalie rce(s) Supporting Document(s) Thyrotropin [Units/volume] in Serum or Plasma by Detec tion limit <= 0.05 mIU/L 1.38 uIU/mL 0.36-3.74 [facility] ([facility] ) ID Date Data Source [id number] 10/22/2019 11:05:00 AM EDT [facility] ([facility]) Name Value Range Interpretation Code Description Data Natalie rce(s) Supporting Document(s) Urea nitrogen [Mass/volume] in Serum or Plasma 24 mg/dL 7-18 [facility] ([facility]) Glucose [Mass/volume] in Serum or Plasma 87 mg/dL 74-99 [facility] ([facility]) 100-125 mg/dL PRE-DIABETES/FASTING >126 mg/dL DIABETES/FASTING Sodium [Moles/volume] in Serum or Plasma 142 meq/L 136-145 [facility] ([facility]) Potassium [Moles/volume] in Serum or Plasma 4.0 meq/L 3.5-5.1 [facility] ([facility]) Chloride [Moles/volume] in Serum or Plasma 106 meq/L 98-107 [facility] ([facility]) Creatinine 1.2 mg/dL 0.6-1.3 [facility] Calcium [Mass/volume] in Serum or Plasma 9.1 mg/dL 8.5-10.1 [facility] ([facility]) Alkaline phosphatase isoenzyme [Units/volume] in Serum or Pl asma 129 mg/dL 46-116 [facility] ([facility]) Carbon dioxide, total [Moles/volume] in Serum or Plasma 26 meq/L 21 -32 [facility] ([facility]) Aspartate aminotransferase [Enzymatic activity/volume] in Serum or Plasma 16 U/L 15-37 [facility] ([facility] ) Albumin [Mass/volume] in Serum or Plasma 3.9 g/dL 3.4-5.0 [facility] ([facility]) Alanine aminotransferase [Enzymatic activity/volume] in Seru m or Plasma 13 U/L 12-78 [facility] ([facility]) Total Bilirubin 0.6 mg/dL 0.2-1.0 [facility] ([facility]) Glomerular filtration rate/1.73 sq M pre dicted among non-blacks [Volume Rate/Area] in Serum or Plasma by Creatinine-based formula (MDRD) 42 mL/min [facility] ([facility]) A/G Ratio 1.11 CALC 1.00-1.90 [facility]) Proteinase 3 Ab [Units/volume] in Serum 7.4 g/dL 6.4-8.2 [facility] ([facility]) Glomerular filtration rate/1.73 sq M pre dicted among blacks [Volume Rate/Area] in Serum or Plasma by Creatinine-based formula (MDRD) 51 mL/min [facility] ([facility]) <content>CHRONIC KIDNEY DISEASE STAGING PER NKF</content>
<content></content>
<content>STAGE I & II GFR >= 60 NORMAL TO MILDLY DECREASED</content>
<content>STAGE III GFR 30-59 MODERATELY DECREASED</content>
<content>STAGE IV GFR 15-29 SEVERELY DECREASED</content>
<content>STAGE V GFR <15 VERY LITTLE GFR LEFT</content>
<content>ESRD GFR <15 ON SUPPORT ASSOCIATE</content>
<content></content> ID Date Data Source [id number] 10/22/2019 11:05:00 AM EDT [facility] ([facility]) Name Value Range Interpretation Code Description Data Natalie rce(s) Supporting Document(s) Leukocytes [#/volume] in Blood by Automated count 4.8 x10*3/UL 4.1-10 .9 [facility] Hematocrit [Volume Fraction] of Blood by Automated count 41.7 % 3 7.0-51.0 [facility] Hemoglobin [Mass/volume] in Blood 14.0 g/dL 12.0-18.0 [facility] Erythrocytes [#/volume] in Blood by Automated count 4.61 x10*6/UL 4.2 0-6.30 [facility] ([facility]) MCH 30.5 pg 26.0-32.0 [facility] MCV 90.4 fL 80.0-97.0 [facility] ([facility]) MCHC 33.7 g/dL 31.0-38.0 [facility] ([facility]) Erythrocyte distribution width [Ratio] by Automated count 13.1 % 11.6-13.7 [facility] ([facility]) Lymph % 30.2 % 10.0-58.5 [facility] MPV 8.1 FL 7.8-11.0 [facility] ([facility]) Platelets [#/volume] in Blood by Automated count 223 x10*3/UL 140-440 [facility] ([facility]) Mid % 8.7 % 1.7-9.3 [facility] Mid # 0.5 x10*3/UL 0.1-0.6 [facility] ([facility]) Neut % 61.1 % 37.0-92.0 [facility] Lymph # 1.4 x10*3/UL 0.6-4.1 [facility] ([facility]) Neut # 2.9 x10*3/UL 2.0-7.8 [facility] ([facility]) ID Date Data Source [id number] 10/22/2019 10:30:00 AM EDT [facility] ([facility]) Name Value Range Interpretation Code Description Data Natalie rce(s) Supporting Document(s) Urine Color Laboratory test result MEDEN T ([facility]) Urine Appearance Laboratory test result Abnormal (applies to non-numeric results) [facility] ([facility]) Specific gravity of Urine 1.030 1.005-1.030 [place] DENT ([facility]) Urine PH 5.0 units 5.0-9.0 [facility] Urine Blood Laboratory test result Abnormal (applies to non-numeric results) [facility] ([facility]) Urine Leukocytes Laboratory test result [facility] ([facility]) Urine Protein Laboratory test result 0-0 MED [facility]NT ([facility]) Urine Nitrite Laboratory test result [facility] ([facility]) Glucose [Presence] in Urine Laboratory test result [facility] ([facility]) Bilirubin.total [Mass/volume] in Serum or Plasma Laboratory test resu lt [facility] ([facility]) Urine Urobilinogen 0.2 mg/dL 0.2-1.0 [facility] ([facility]) Urine Ketone Laboratory test result MEDE NT ([facility]) ID Date Data Source [id number] 04/18/2019 12:23:00 PM EST [facility] ([facility], [facility]) Name Value Range Interpretation Code Description Data Natalie rce(s) Supporting Document(s) Bacteria identified in Urine by Culture <pending> [facility], [facility]) ID Date Data Source [id number] 03/01/2019 12:00:00 AM EST [facility] Fouzia Calero DO Patient Name: GRICEL [id number] [facility] Date of : 1930[facility]: [id number] Fax: [phone] EXAM: CT ABDOMEN & PELVIS WITHOUT&WITH CONTRASTCLINICAL INFORMATION: 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.Low dose [address] scanning [...] is 2.3 x 2.2 cm.Accredited by the [employer] in [place].KENY Griffin/Pelon diehl for referring GRICEL REDDY to our office. Electronically Signed - ANGEL PHAN MD 03/01/19 18:02 Name Value Range Interpretation Code Description Data Natalie rce(s) Supporting Document(s) ID Date Data Source [id number] 02/19/2019 11:19:00 AM EST [facility] ([facility]) Name Value Range Interpretation Code Description Data Natalie rce(s) Supporting Document(s) Triglyceride [Mass/volume] in Serum or Plasma 87 mg/dL 30-150 [facility] ([facility]) Cholesterol [Mass/volume] in Serum or Plasma 220 mg/dL 131-200 [facility] ([facility]) Cholesterol in LDL [Mass/volume] in Serum or Plasma by calcu lation 136 CALC 50-159 [facility] ([facility]) Cholesterol in HDL [Mass/volume] in Serum or Plasma 67 mg/dL 35-60 [facility] ([facility]) ID Date Data Source [id number] 02/19/2019 11:19:00 AM EST [facility] ([facility]) Name Value Range Interpretation Code Description Data Natalie rce(s) Supporting Document(s) Glucose [Mass/volume] in Serum or Plasma 94 mg/dL 74-99 [facility] ([facility]) 100-125 mg/dL PRE-DIABETES/FASTING >126 mg/dL DIABETES/FASTING Creatinine 1.2 mg/dL 0.6-1.3 [facility] Urea nitrogen [Mass/volume] in Serum or Plasma 31 mg/dL 7-18 [facility] ([facility]) Sodium [Moles/volume] in Serum or Plasma 140 meq/L 136-145 [facility] ([facility]) Carbon dioxide, total [Moles/volume] in Serum or Plasma 24 meq/L 21 -32 [facility] ([facility]) Potassium [Moles/volume] in Serum or Plasma 4.5 meq/L 3.5-5.1 [facility] ([facility]) Chloride [Moles/volume] in Serum or Plasma 104 meq/L 98-107 [facility] ([facility]) Calcium [Mass/volume] in Serum or Plasma 9.6 mg/dL 8.5-10.1 [facility] ([facility]) Alkaline phosphatase isoenzyme [Units/volume] in Serum or Pl asma 167 mg/dL 46-116 [facility] ([facility]) Total Bilirubin 0.6 mg/dL 0.2-1.0 [facility] ([facility]) Albumin [Mass/volume] in Serum or Plasma 3.7 g/dL 3.4-5.0 [facility] ([facility]) Alanine aminotransferase [Enzymatic activity/volume] in Seru m or Plasma 11 U/L 12-78 [facility] ([facility]) Aspartate aminotransferase [Enzymatic activity/volume] in Serum or Plasma 14 U/L 15-37 [facility] ([facility] ) Proteinase 3 Ab [Units/volume] in Serum 7.3 g/dL 6.4-8.2 [facility] ([facility]) A/G Ratio 1.03 CALC 1.00-1.90 [facility] Glomerular filtration rate/1.73 sq M pre dicted among blacks [Volume Rate/Area] in Serum or Plasma by Creatinine-based formula (MDRD) 52 mL/min [facility] <content>CHRONIC KIDNEY DISEASE STAGING PER NKF</content>
<content></content>
<content>STAGE I & II GFR >= 60 NORMAL TO MILDLY DECREASED</content>
<content>STAGE III GFR 30-59 MODERATELY DECREASED</content>
<content>STAGE IV GFR 15-29 SEVERELY DECREASED</content>
<content>STAGE V GFR <15 VERY LITTLE GFR LEFT</content>
<content>ESRD GFR <15 ON SUPPORT ASSOCIATE</content>
<content></content> Glomerular filtration rate/1.73 sq M pre dicted among non-blacks [Volume Rate/Area] in Serum or Plasma by Creatinine-based formula (MDRD) 42 mL/min [facility] ([facility]) ID Date Data Source [id number] 02/19/2019 11:19:00 AM EST [facility] ([facility]) Name Value Range Interpretation Code Description Data Natalie rce(s) Supporting Document(s) Leukocytes [#/volume] in Blood by Automated count 4.8 x10*3/UL 4.1-10 .9 [facility] ([facility]) Hemoglobin [Mass/volume] in Blood 12.6 g/dL 12.0-18.0 [facility] ([facility]) Erythrocytes [#/volume] in Blood by Automated count 4.25 x10*6/UL 4.2 0-6.30 [facility] ([facility]) Hematocrit [Volume Fraction] of Blood by Automated count 38.7 % 3 7.0-51.0 [facility] ([facility]) MCV 91.1 fL 80.0-97.0 [facility] MCH 29.6 pg 26.0-32.0 [facility] MCHC 32.5 g/dL 31.0-38.0 [facility] Platelets [#/volume] in Blood by Automated count 251 x10*3/UL 140-440 [facility] ([facility]) Erythrocyte distribution width [Ratio] by Automated count 13.7 % 11.6-13.7 [facility] ([facility]) MPV 8.5 FL 7.8-11.0 [facility] Mid % 8.2 % 1.7-9.3 [facility] Lymph % 26.1 % 10.0-58.5 [facility] Lymph # 1.2 x10*3/UL 0.6-4.1 [facility] ([facility]) Neut % 65.7 % 37.0-92.0 [facility] Mid # 0.5 x10*3/UL 0.1-0.6 [facility] ([facility]) Neut # 3.1 x10*3/UL 2.0-7.8 [facility] ([facility]) Procedure Vital Signs ID Date Data Source [id number] Name Value Range Interpretation Code Description Data Source(s) Body mass index (BMI) [Ratio] 20.9 kg/m2 20.9 k g/m2 [facility] ([facility]) Body weight 105.38 [lb_av] 105.38 [lb_av] [facility] T ([facility]) Body height 59.50 [in_i] 59.50 [in_i] [facility] ([facility]) 4'11.50" Body temperature 97.6 [degF] 97.6 [degF] [facility] ([facility]) Diastolic blood pressure 80 mm[Hg] 80 mm[Hg] [facility] ([facility]) RT Arm Systolic blood pressure 122 mm[Hg] 122 mm[Hg] [facility] ([facility]) RT Arm Body mass index (BMI) [Ratio] 20.8 kg/m2 20.8 k g/m2 [facility] ([facility], [facility]) Body height 59 [in_i] 59 [in_i] [facility] ([facility]) 4'11" Body weight 103.00 [lb_av] 103.00 [lb_av] [facility] T ([facility], [facility]) Body temperature 97.6 [degF] 97.6 [degF] [facility] ([facility], [facility]) Oxygen saturation in Arterial blood by Pulse oximetry 96 % 96 % [facility] ([facility]) Respiratory rate 12 /min 12 /min [facility] ( [facility], [facility]) Heart rate 79 /min 79 /min [facility] ([facility], [facility]) Diastolic blood pressure 94 mm[Hg] 94 mm[Hg] [facility] ([facility], [facility]) Systolic blood pressure 170 mm[Hg] 170 mm[Hg] [facility] ([facility], [facility]) Body mass index (BMI) [Ratio] 20.5 kg/m2 20.5 k g/m2 [facility] ([facility]) Oxygen saturation in Arterial blood by Pulse oximetry --post exerci se 98 % 98 % [facility] ([facility]) RM Air Body weight 103.00 [lb_av] 103.00 [lb_av] [facility] T ([facility]) Body height 59.50 [in_i] 59.50 [in_i] [facility] 4'11.50" Heart rate 77 /min 77 /min [facility] ([facility]) Diastolic blood pressure 84 mm[Hg] 84 mm[Hg] [facility] ([facility]) RT Arm Systolic blood pressure 112 mm[Hg] 112 mm[Hg] M [facility] ([facility]) RT Arm
--- NOTE | 2020-04-04 21:26 | REPVR ---
PROCEDURE INFORMATION: Exam: MR Head Without Contrast Exam date and time: 04/04/2020 9:04 PM Age: 89 years old Clinical indication: Other: RT sided weakness; Additional info: Right side weakness TECHNIQUE: Imaging protocol: MR of the head without contrast. COMPARISON: CT Head without contrast 04/04/2020 6:29 PM FINDINGS: Brain: Multiple foci of T2 lengthening are demonstrated in the subcortical, periventricular and centrum semiovale white matter consistent with age-related small vessel gliosis. Moderate age related parenchymal atrophy. Diffuse cerebellar atrophy. Cerebral ventricles: The degree of ventricular dilatation is normal for age and/or degree of atrophy present. Bones/joints: Unremarkable. Paranasal sinuses: Normal as visualized. No acute sinusitis. Mastoid air cells: Normal as visualized. No mastoid effusion. Orbital cavity: Unremarkable. Soft tissues: Unremarkable. IMPRESSION: 1. Multiple foci of T2 lengthening are demonstrated in the subcortical, periventricular and centrum semiovale white matter consistent with age-related small vessel gliosis. 2. Moderate age related parenchymal atrophy. 3. The degree of ventricular dilatation is normal for age and/or degree of atrophy present. 4. Diffuse cerebellar atrophy. 5. No acute intracranial findings. Electronically signed by: Tyrese Blackburn On 04/04/2020 21:26:53 PM
--- NOTE | 2020-04-04 21:30 | REPVR ---
PROCEDURE INFORMATION: Exam: MR Angiogram Head Without Contrast, Arteries Exam date and time: 04/04/2020 9:04 PM Age: 89 years old Clinical indication: Weakness; Additional info: Right side weakness TECHNIQUE: Imaging protocol: MR angiogram head without contrast. Exam focused on the arteries. 3D rendering (Not supervised by radiologist): MIP and/or 3D reconstructed images were created by the technologist. COMPARISON: CT Head without contrast 04/04/2020 6:29 PM FINDINGS: ANTERIOR CIRCULATION: Right internal carotid artery: Intracranial segment is patent with no significant stenosis. No aneurysm. Right middle cerebral artery: No occlusion or significant stenosis. No aneurysm. Right anterior cerebral artery: No occlusion or significant stenosis. No aneurysm. Left internal carotid artery: Intracranial segment is patent with no significant stenosis. No aneurysm. Left middle cerebral artery: No occlusion or significant stenosis. No aneurysm. Left anterior cerebral artery: No occlusion or significant stenosis. No aneurysm. POSTERIOR CIRCULATION: Right vertebral artery: No occlusion or significant stenosis. No aneurysm. Left vertebral artery: No occlusion or significant stenosis. No aneurysm. Basilar artery: No occlusion or significant stenosis. No aneurysm. Right posterior cerebral artery: No occlusion or significant stenosis. No aneurysm. Left posterior cerebral artery: origin. No occlusion or significant stenosis. No aneurysm. Other findings: Limited by motion artifact. IMPRESSION: Limited study. No large vessel occlusion. Electronically signed by: Tyrese Blackburn On 04/04/2020 21:30:36 PM
--- NOTE | 2020-04-04 21:37 | REPVR ---
PROCEDURE INFORMATION: Exam: US Duplex Bilateral Extracranial Arteries Exam date and time: 04/04/2020 9:23 PM Age: 89 years old Clinical indication: Other: TIA TECHNIQUE: Imaging protocol: Real-time Duplex ultrasound scan of the bilateral carotid and vertebral arteries combining freeman scale, color Doppler and spectral waveform analysis. Bilateral exam. COMPARISON: CT Head without contrast 04/04/2020 6:29 PM FINDINGS: Right common carotid artery: Mild atherosclerotic changes. No occlusion or high-grade stenosis. Monophasic waveform. Right internal carotid artery: [id number] atherosclerotic changes. No occlusion or significant stenosis. No significant velocity increase. Monophasic waveform. Right ICA/CCA ratio: Within normal limits. 1.2. Right external carotid artery: No stenosis in the origin. Right vertebral artery: Unremarkable. Antegrade flow. Left common carotid artery: Mild atherosclerotic changes. No occlusion or high-grade stenosis. Biphasic waveform. Left internal carotid artery: Unremarkable. No occlusion or high-grade stenosis. Parvus tardus waveform. Left ICA/CCA ratio: Within normal limits. 1.1. Left external carotid artery: No stenosis in the origin. Left vertebral artery: Unremarkable. Antegrade flow. IMPRESSION: 1. Mild atherosclerotic changes in both proximal internal carotid arteries without evidence of a significant stenosis. Findings consistent with a mild stenosis using standard ultrasound criteria. 2. Dampened waveform in the left internal carotid artery. Relatively low velocities demonstrated bilaterally suggest decreased cardiac output versus bilateral proximal carotid stenoses. 3. Antegrade flow both vertebral arteries. REFERENCES: SRU CRITERIA. The degree of internal carotid artery stenosis is based on criteria defined by the Society of Radiologists in Ultrasound (SRU). Normal is no stenosis. Mild is less than 50% stenosis. Moderate is 50-69% stenosis. Severe is greater than 69% stenosis to near occlusion. Near occlusion is a markedly narrowed lumen. Total occlusion is no detectable patent lumen. Electronically signed by: Tyrese Blackburn On 04/04/2020 21:38:11 PM
[2020-04-04 22:58] VITALS: BP 174/96
[2020-04-05 06:00] VITALS: BP 148/84
[2020-04-05 06:50] LABS: HEMATOCRIT 37.2 % (36.0-47.0); MEAN CORPUSCULAR HEMOGLOBIN 29.5 pg (27.0-33.0); MEAN CORPUSCULAR HGB CONC 32.3 g/dl (32.0-36.5); MEAN CORPUSCULAR VOLUME 91.4 fl (80.0-96.0); PLATELET COUNT, AUTOMATED 190 10^3/uL (150-450); RED BLOOD COUNT 4.07 10^6/uL (4.00-5.40)
[2020-04-05 07:07] LABS: BLOOD UREA NITROGEN 17 MG/DL (7-18); CALCIUM LEVEL 8.6 MG/DL (8.8-10.2); CARBON DIOXIDE LEVEL 25 MEQ/L (21-32); CHLORIDE LEVEL 109 MEQ/L (98-107); CHOLESTEROL LEVEL 192 MG/DL (<200); CHOLESTEROL RISK RATIO 3.047 (<5); CREATININE FOR GFR 0.91 MG/DL (0.55-1.30); GLOMERULAR FILTRATION RATE > 60.0 (>32); GLUCOSE, FASTING 86 MG/DL (70-100); HDL CHOLESTEROL 63 MG/DL (>40); LDL CHOLESTEROL 108 MG/DL (<100); NON-HDL-C 129 MG/DL; SODIUM LEVEL 143 MEQ/L (136-145); TRIGLYCERIDES LEVEL 104 MG/DL (<150)
[2020-04-05] MEDS ORDERED: ASPIRIN 81 MG ENTERIC TAB PO SCH (09:00)
[2020-04-05] MEDS ORDERED: CLOPIDOGREL 75 MG TAB PO SCH (09:00)
[2020-04-05 10:11] LABS: HEMOGLOBIN A1c 5.2 %
[2020-04-05 14:00] VITALS: BP 162/98
[2020-04-05] MEDS ORDERED: ASPI81TAEC PO (16:19)
[2020-04-05] MEDS ORDERED: AMLO1TAB24 PO (16:19)
[2020-04-05] MEDS ORDERED: CLOP75TA2 PO (16:19)
[2020-04-05] MEDS ORDERED: ATOR80TA59 PO (16:19)
[2020-04-05] MEDS ORDERED: amLODIPine 5 MG TAB PO ONE (16:30)
--- NOTE | 2020-04-05 16:34 | DS.PDOC ---
Discharge Summary General Date of Admission Apr 04, 2020 at 20:06 Date of Discharge 04/05/20 Discharge Summary PROCEDURES PERFORMED DURING STAY: [None]. ADMITTING DIAGNOSES: TIA Hypertension DISCHARGE DIAGNOSES: TIA Hypertension COMPLICATIONS/CHIEF COMPLAINT: Hypertension/Tia. HISTORY OF PRESENT ILLNESS: Mrs. Negron is an 89 year old female with hypertension who presents with stroke like symptoms that have resolved. At baseline, she has been independent at home with family. She ambulates without a walker and cognitively sharp. She is not on any medications per daughter (HCP). Daughter says they are monitoring her blood pressure which has consistently been in the 190s. PCP reports that her hypertension is from anxiety. This week and this morning patient was feeling well. Patient was sitting down to watch TV when she developed diaphoresis and nausea. When family returned and saw patient at 1 2:30PM, patient was lying on the couch saying she cannot feel her right arm and cannot move her right arm. She had right facial droop and was looking up and to the right. She was brought to the ED. Cardiac work up in the ED was negative. Neurologically stable. Blood pressure was labile. When I walked in she was comfortable and BP was 168/99. As we were talking, SBP increased to 190s. She feels well without complaints. Patient will be place in observation for TIA and stroke work up. HOSPITAL COURSE: CT and MRI imaging of the brain including MRA did not reveal acute stroke or significant vascular stenosis. Patient was started on aspirin, Plavix and hypodensity statin. Physical therapy and cleared for discharge with rolling walker at home services. Patient was noted to be hypertensive. Her blood pressure improved slightly to 160s over 90s started on amlodipine 5 mg. Patient was referred to PCP and neurology upon discharge. DISCHARGE MEDICATIONS: Please see below. ALLERGIES: Please see below. PHYSICAL EXAMINATION ON DISCHARGE: VITAL SIGNS: please see below General: NAD, comfortable HEENT: PERRLA, EOMI, sclerae clear Neck: supple, normal ROM, no JVD Respiratory: lungs CTAB, no wheeze, no rales, no crackles CVS: RRR, normal S1, S2, no murmurs Abdo: soft, no masses, no hepatosplenomegaly, BS+, no rebound tenderness Extremities: no edema, pulses 2+ MSK: no joint deformities, normal ROM Neuro: no focal neuro deficits, moving all 4 extremities, CN2-12 intact. Strength 5/5 in all 4 extremities. No nystagmus. Psych: calm, cooperative, AAO x 3 LABORATORY DATA: Please see below. IMAGING: CT head wo contrast (04/04/20): 1. There is moderate age related parenchymal volume loss. White matter changes are demonstrated in the subcortical, centrum semiovale and periventricular white matter consistent with chronic age related small vessel ischemic changes. 2. The degree of ventricular dilatation is normal for age and/or degree of atrophy present. 3. Diffuse cerebellar atrophy. MRA brain wo contrast (04/04/20): FINDINGS: ANTERIOR CIRCULATION: Right internal carotid artery: Intracranial segment is patent with no significant stenosis. No aneurysm. Right middle cerebral artery: No occlusion or significant stenosis. No aneurysm. Right anterior cerebral artery: No occlusion or significant stenosis. No aneurysm. Left internal carotid artery: Intracranial segment is patent with no significant stenosis. No aneurysm. Left middle cerebral artery: No occlusion or significant stenosis. No aneurysm. Left anterior cerebral artery: No occlusion or significant stenosis. No aneurysm. POSTERIOR CIRCULATION: Right vertebral artery: No occlusion or significant stenosis. No aneurysm. Left vertebral artery: No occlusion or significant stenosis. No aneurysm. Basilar artery: No occlusion or significant stenosis. No aneurysm. Right posterior cerebral artery: No occlusion or significant stenosis. No aneurysm. Left posterior cerebral artery: origin. No occlusion or significant stenosis. No aneurysm. Other findings: Limited by motion artifact. IMPRESSION: Limited study. No large vessel occlusion. MRI brain wo contrast (04/04/20): IMPRESSION: 1. Multiple foci of T2 lengthening are demonstrated in the subcortical, periventricular and centrum semiovale white matter consistent with age-related small vessel gliosis. 2. Moderate age related parenchymal atrophy. 3. The degree of ventricular dilatation is normal for age and/or degree of atrophy present. 4. Diffuse cerebellar atrophy. 5. No acute intracranial findings. US Duplex bilateral carotids (04/04/20): FINDINGS: Right common carotid artery: Mild atherosclerotic changes. No occlusion or high-grade stenosis. Monophasic waveform. Right internal carotid artery: [id number] atherosclerotic changes. No occlusion or significant stenosis. No significant velocity increase. Monophasic waveform. Right ICA/CCA ratio: Within normal limits. 1.2. Right external carotid artery: No stenosis in the origin. Right vertebral artery: Unremarkable. Antegrade flow. Left common carotid artery: Mild atherosclerotic changes. No occlusion or high-grade stenosis. Biphasic waveform. Left internal carotid artery: Unremarkable. No occlusion or high-grade stenosis. Parvus tardus waveform. Left ICA/CCA ratio: Within normal limits. 1.1. Left external carotid artery: No stenosis in the origin. Left vertebral artery: Unremarkable. Antegrade flow. IMPRESSION: 1. Mild atherosclerotic changes in both proximal internal carotid arteries without evidence of a significant stenosis. Findings consistent with a mild stenosis using standard ultrasound criteria. 2. Dampened waveform in the left internal carotid artery. Relatively low velocities demonstrated bilaterally suggest decreased cardiac output versus bilateral proximal carotid stenoses. 3. Antegrade flow both vertebral arteries. PROGNOSIS: good ACTIVITY: As tolerated DIET: low cholesterol DISCHARGE PLAN: DC home with home PT and OT. Use RW. Started on asa 81, plavix 75 mg and atorvastatin 80 mg daily. Started on amlodipine 5 mg daily. Neurology referral. To follow up with PCP 2-5 days. DISPOSITION: . DISCHARGE INSTRUCTIONS: . Please follow-up with your primary care doctor within 3-5 days . Please follow-up with neurology within 1-2 weeks . Please taking medications as prescribed. . If you develop bleeding, chest pain, shortness of breath, seizures, nausea, fevers, or otherwise worsening of your symptoms, please call 911 or return to the nearest emergency room ITEMS TO FOLLOWUP ON ON OUTPATIENT: Final echo report DISCHARGE CONDITION: Stable TIME SPENT ON DISCHARGE: 35 minutes Vital Signs/I&Os Vital Signs Date Time Temp Pulse Resp B/P (MAP) Pulse Ox O2 Delivery O2 Flow Rate FiO2 04/05/20 14:00 98.3 65 16 162/98 (119) 97 Room Air I&O- Last 24 Hours up to 6 AM 04/05/20 06:00 Intake Total 60 ml Output Total 250 ml Balance -190 ml Laboratory Data Labs 24H Laboratory Tests 2 04/04/20 17:22: Total Creatine Kinase 38, Creatine Kinase MB 1.3, Creatine Kinase MB Relative Index 3.42, Troponin I 0.04 04/04/20 18:37: Coronavirus (COVID-19)(PCR) NEGATIVE, Influenza Type A (RT-PCR) NEGATIVE, Influenza Type B (RT-PCR) NEGATIVE, Respiratory Syncytial Virus (PCR) NEGATIVE 04/05/20 06:16: Nucleated Red Blood Cells % (auto) 0.0, Anion Gap 9, Glomerular Filtration Rate > 60.0, Estimated Mean Plasma Glucose 103, Hemoglobin A1c 5.2, Calcium Level 8.6L, Triglycerides Level 104, Total Cholesterol 192, LDL Cholesterol 108H, Non- HDL Cholesterol (LDL + VLDL) 129, Total HDL Cholesterol 63, Cholesterol/HDL Ratio 3.047 CBC/BMP Laboratory Tests 04/05/20 06:16 Discharge Medications Scheduled Amlodipine Besylate (Amlodipine Besylate) 5 Mg Tablet, 1 TAB PO DAILY Aspirin (Aspirin EC) 81 Mg Tablet.dr, 81 MG PO DAILY Atorvastatin Calcium (Atorvastatin Calcium) 80 Mg Tablet, 1 TAB PO DAILY Clopidogrel Bisulfate (Clopidogrel) 75 Mg Tablet, 75 MG PO DAILY Allergies Coded Allergies: Penicillins (Verified Allergy, Unknown, 01/06/19) LINDA FINNEY MD Apr 05, 2020 16:34
[2020-04-05] MEDS ORDERED: CAPTOpril 6.25 MG PER 1/2 TABLET PO ONE (16:45)
[2020-04-05 17:02] VITALS: BP 172/98
[2020-04-05] MEDS ORDERED: ATORVASTATIN 20 MG TAB PO SCH (21:00)
[2020-04-06] MEDS ORDERED: ATOR80TA59 PO (12:27)
[2020-04-06] MEDS ORDERED: AMLO1TAB24 PO (12:27)
[2020-04-06] MEDS ORDERED: PLAV1TAB2 PO (12:27)
[2020-04-06] MEDS ORDERED: ASPI-161 PO (12:27)
--- NOTE | 2020-04-10 08:47 | ECHO ---
DATE OF PROCEDURE: 04/05/2020 Age: 89 Gender: Female PATIENT LOCATION: Room 4227 REFERRING PROVIDER: SHAHRAM DECKER DO REASON FOR STUDY: Transient ischemic attack (TIA) 2D MEASUREMENTS: IVS 1.4 cm LV 3.0 cm LVPW 1.4 cm LA 3.8 cm Aorta 2.8 cm IVC 1.3 cm DOPPLER MEASUREMENT Peak velocity across the aortic valve 1.9 m/s Peak velocity across the LVOT 0.67 m/s Peak gradient across the aortic valve 15 mmHg Mean gradient across the aortic valve 9 mmHg Mitral E 0.45 Mitral A 0.81 with a ratio of about 0.6 Maximum tricuspid valve velocity 2.5 m/s 2D COMMENTS: 1. Technically limited study due to poor acoustic window. 2. Mildly increased left ventricular wall thickness with normal left ventricular size, and a low-normal global left ventricular systolic function. The anterior septum appeared to be mildly hypokinetic in some views. The ejection fraction is 50% to 55%. 3. Normal left atrium. Normal right atrium and right ventricle. 4. The atrial septum appeared to be normal without evidence of defect or shunt. 5. Normal aortic root. 6. No pericardial effusion seen. 7. Mildly calcified aortic valve with normal leaflet excursion. Mildly calcified mitral annulus with normal anterior mitral valve leaflet motion. Normal tricuspid valve. The pulmonic valve and proximal pulmonary artery branches were not well visualized. 8. The inferior vena cava was normal in size and central venous pressure is most likely normal. DOPPLER: It detects mild aortic regurgitation, mild mitral regurgitation, and mild tricuspid regurgitation. The calculated pulmonary artery systolic pressure varied between 30 to 40 mmHg. Abnormal relaxation pattern was noted across the mitral valve leaflets, as well as the mitral valve annulus consistent with features of grade 1 left ventricular diastolic dysfunction. IMPRESSION: 1. Low-normal global left ventricular systolic function. The anterior septum appeared to be mildly hypokinetic in some views. 2. There are some features of grade 1 left ventricular diastolic dysfunction manifested by abnormal relaxation. 3. Aortic valve sclerosis with mild aortic regurgitation and trivial aortic stenosis. 4. Mitral annular calcification with mild mitral regurgitation. 5. Mild tricuspid regurgitation with [id number] hypertension. 6. Bubble study was not done due to poor acoustic window. [facility]
== END 2020-04-05 18:06 | disposition home health service (06) ==
LOC: EDBD 14:07 → M ED 14:07 → M ED INP 20:06 → M MSPAV 22:58
PROVIDERS: ADMIT Internal Medicine; ATTEND Family Medicine
DX: G45.9 Transient cerebral ischemic attack, unspecified (principal); I10 Essential (primary) hypertension; F41.9 Anxiety disorder, unspecified; Z79.82 Long term (current) use of aspirin; Z79.899 Other long term (current) drug therapy; Z88.0 Allergy status to penicillin; Z85.528 Personal history of other malignant neoplasm of kidney

== ENCOUNTER 2020-04-06 09:30 | Inpatient (IN) | payer MEDICARE, MEDICAID ==
[~2020-04-06] VITALS: Ht 154.9 cm; Wt 44.4 kg
[~2020-04-06 09:30] MED LIST changes: +AMLO1TAB24 PO; +ASPI-569 PO; +ATOR80TA59 PO; +CLOP75TA2 PO
--- OUTSIDE RECORDS SUMMARY | 2020-04-06 09:40 | CCD | Continuity of Care Document ---
Author Author Ingrid SHERIFF Organization Unknown Address [address] [facility] [address] [place] [address] Phone [phone] Care Team Providers Care Press Set Up Person Name Role Phone Fouzia Sheriff DO AUTM Unavailable Problems Description No Information Available Social History Type Date Description Comments Sex Unknown ETOH Use Denies alcohol use Tobacco Use Start: Unknown End: Unknown Patient is a former smoker 6 cigarettes a day x 10-15 yrs Allergies, Adverse Reactions, Alerts Active Allergies Reaction Severity Comments Date Penicillin arm swelled from injection 0 02/19/2019 Medications Active Medications SIG Qnty Indications Ordering Provide r Date Levocetirizine Dihydrochloride 5mg Tablets take one tablet by mouth at bedtime 30tabs Fouzia Sheriff, 10/22/2019 Fouzia [employer] 1 qd po Fouzia Sheriff,DO 04/2019 Tramadol HCL 50mg Tablets 1 tab bid po prn pain Fouzia Sheirff,DO 02/19/2019 Tylenol 8 Hour Arthritis Pain 650mg Tablets ER 1 by mouth as needed every 8 hours 90tabs Fouzia Sheriff, 02/19/2019 Immunizations Description No Information Available Vital Signs Date Vital Result Comment 10/22/2019 10:31am BP Systolic 122 mmHg RT Arm BP Diastolic 80 mmHg RT Arm Body Temperature 97.6 F Height 59.50 inches 4'11.50" Weight 105.38 lb BMI (Body Mass Index) 20.9 kg/m2 02/19/2019 10:41am BP Systolic 112 mmHg RT Arm BP Diastolic 84 mmHg RT Arm Heart Rate 77 /min Height 59.50 inches 4'11.50" Weight 103.00 lb O2 Saturation Level with Exercise 98 % RM Air BMI (Body Mass Index) 20.5 kg/m2 Results Test Acquired Date Facility Test Result H/L Range Note CBC With Differential 04/04/2020 [facility] [address] [place] [address] [phone] White Blood Count 3.9 10 Low 4.0-10.0 Red Blood Count 4.35 10 Normal 4.00-5.40 Hemoglobin 12.7 g/dL Normal 12.0-15.5 Hematocrit 39.8 % Normal 36.0-47.0 Mean Corpuscular Volume 91.5 fl Normal 80.0-96.0 Mean Corpuscular Hemoglobin 29.2 pg Normal 27.0-33.0 Mean Corpuscular HGB Conc 31.9 g/dL Low 32.0-36.5 Red Cell Distribution Width 12.1 % Normal 11.5-14.5 Platelet Count, Automated 203 10 Normal 150-450 Neutrophils % 65.0 % Normal 36.0-66.0 Lymph % 22.0 % Low 24.0-44.0 [place] % 9.1 % High 2.0-8.0 Eos % 2.8 % Normal 0.0-3.0 Baso % 0.8 % Normal 0.0-1.0 Immature Granulocyte % 0.3 % Normal 0-3.0 Nucleated Red Blood Cell % 0.0 % Normal 0-0 Neutrophils # 2.5 10 Normal 1.5-8.5 Lymph # 0.9 10 Low 1.5-5.0 [place] # 0.4 10 Normal 0.0-0.8 Eos # 0.1 10 Normal 0.0-0.5 Baso # 0.0 10 Normal 0.0-0.2 Complete Blood Count 10/22/2019 [facility] Full Stack Developer: [place] [address] [phone] WBC 4.8 x10*3/UL 4.1 - 10.9 RBC 4.61 x10*6/UL 4.20 - 6.30 Hemoglobin 14.0 g/dL 12.0 - 18.0 Hematocrit 41.7 % 37.0 - 51.0 MCV 90.4 fL 80.0 - 97.0 MCH 30.5 pg 26.0 - 32.0 MCHC 33.7 g/dL 31.0 - 38.0 RDW 13.1 % 11.6 - 13.7 PLT 223 x10*3/UL 140 - 440 MPV 8.1 FL 7.8 - 11.0 Lymph % 30.2 % 10.0 - 58.5 Mid % 8.7 % 1.7 - 9.3 Neut % 61.1 % 37.0 - 92.0 Lymph # 1.4 x10*3/UL 0.6 - 4.1 Mid # 0.5 x10*3/UL 0.1 - 0.6 Neut # 2.9 x10*3/UL 2.0 - 7.8 Comprehensive Chem Profile 10/22/2019 [facility], Full Stack Developer: [place] [address] [phone] Glucose 87 mg/dL 74 - 99 1 BUN 24 mg/dL High 7 - 18 Creatinine 1.2 mg/dL 0.6 - 1.3 Sodium 142 mEq/L 136 - 145 Potassium 4.0 mEq/L 3.5 - 5.1 Chloride 106 mEq/L 98 - 107 Carbon Dioxide 26 mEq/L 21 - 32 Calcium 9.1 mg/dL 8.5 - 10.1 Alk. Phosphatase 129 mg/dL High 46 - 116 Total Bilirubin 0.6 mg/dL 0.2 - 1.0 Ast (Sgot) 16 U/L 15 - 37 Alt (SGPT) 13 U/L 12 - 78 Albumin 3.9 g/dL 3.4 - 5.0 Total Protein 7.4 g/dL 6.4 - 8.2 A/G Ratio 1.11 CALC 1.00 - 1.90 GFR 42 mL/min Low >60 GFR 51 mL/min Low >60 2 Laboratory test finding 10/22/2019 [facility], Full Stack Developer: [place] [address] [phone] Thyroid Stimulating Hormone 1.38 uIU/mL 0.3 6 - 3.74 Ua Dipstick Only 10/22/2019 [facility] , Full Stack Developer: [place] [address] [phone] Urine Color YELLOW Yellow Urine Appearance SL. HAZY Abnormal Clear Urine PH 5.0 units 5.0 - 9.0 Urine Specific [place] 1.030 1.005 - 1.030 Urine Leukocytes NEGATIVE Negative Urine Blood MODERATE Abnormal Negative Urine Protein NEGATIVE Negative -Trace Urine Glucose NEGATIVE mg/dL Negative Urine Nitrite NEGATIVE Negative Urine Ketone NEGATIVE mg/dL Negative Urine Bilirubin NEGATIVE Negative Urine Urobilinogen 0.2 mg/dL 0.2 - 1.0 1 100-125 mg/dL PRE-DIABET ES/FASTING >126 mg/dL DIABETES/FASTING 2 CHRONIC KIDNEY DISEASE STAGI NG PER NKF STAGE I & II GFR >= 60 NORMAL TO MILDLY DECREASED STAGE III GFR 30-59 MODERATELY DECREASED STAGE IV GFR 15-29 SEVERELY DECREASED STAGE V GFR <15 VERY LITTLE GFR LEFT ESRD GFR <15 ON RETORT PRE COOKER Procedures Description No Information Available Medical Devices Description No Information Available Encounters Type Date Location Provider Dx Diagnosis Office Visit 10/22/2019 10:20a [facility] 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 H81.311 Aural vertigo, right ear H69.91 Unspecified Eustachian tube disorder, right ear M15.9 Polyosteoarthritis, unspecif ied E78.00 Pure hypercholesterolemia, u nspecified Assessments Date Code Description Provider 10/22/2019 D64.9 Anemia, unspecified Fouzia Galilea, DO 10/22/2019 R31.9 Hematuria, unspecified Fouzia Bog gs,DO 10/22/2019 E78.00 Pure hypercholesterolemia, unspe cified Fouzia Sheriff,DO 10/22/2019 I71.9 Aortic aneurysm of unspecified s ite, without rupture Fouzia Sheriff,DO 10/22/2019 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 behavior o f right kidney Fouzia Sheriff,DO 10/22/2019 H81.311 Aural vertigo, right ear Fouzia B oggs,DO 10/22/2019 H69.91 Unspecified Eustachian tube diso rder, right ear Fouzia Galilea,DO 10/22/2019 M15.9 Polyosteoarthritis, unspecified Fouzia Galilea,DO 10/22/2019 E78.00 Pure hypercholesterolemia, unspe cified Fouzia Galilea,DO Plan of Treatment 10/22/2019 - Fouzia Sheriff,DO* D64.9 Anemia, unspecified * R31.9 Hematuria, unspecified * E78.00 Pure hypercholesterolemia, unspecified * I71.9 Aortic aneurysm of unspecified site, without rupture * 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
--- OUTSIDE RECORDS SUMMARY | 2020-04-06 09:40 | CCD | Continuity of Care Document ---
Author Author Ingrid SHERIFF Organization Unknown Address [address] [facility] [address] [place] [address] Phone [phone] Care Team Providers Care Sewing Machine Operator Semiautomatic Name Role Phone Fouzia Sheriff DO AUTM [...] 1 tab bid po prn pain Fouzia Sheriff,DO 02/19/2019 Tylenol 8 Hour Arthritis Pain 650mg [...] H/L Range Note CBC With Differential 04/04/2020 [facility] [address] [place] [address] [phone] White Blood Count 3.9 10 Low 4.0-10.0 [...] 36.0-66.0 Lymph % 22.0 % Low 24.0-44.0 [place] % 9.1 % High 2.0-8.0 Eos % 2.8 % Normal 0.0-3.0 Baso % 0.8 % Normal 0.0-1.0 Immature Granulocyte % 0.3 % Normal 0-3.0 Nucleated Red Blood Cell % 0.0 % Normal 0-0 Neutrophils # 2.5 10 Normal 1.5-8.5 Lymph # 0.9 10 Low 1.5-5.0 [place] # 0.4 10 Normal 0.0-0.8 Eos # 0.1 10 Normal 0.0-0.5 Baso # 0.0 10 Normal 0.0-0.2 Comprehensive Metabolic Profil 04/04/[address] [id number] [phone] Glucose, Fasting 99 mg/dL Normal 70-100 Blood Urea Nitrogen 20 mg/dL High 7-18 Creatinine For GFR 0.96 mg/dL Normal 0.55-1.30 Glomerular Filtration Rate 58.4 Normal >32 1 Sodium Level 141 mEq/L Normal 136-145 Potassium Serum 3.8 mEq/L Normal 3.5-5.1 Chloride Level 108 mEq/L High 98-107 Carbon Dioxide Level 26 mEq/L Normal 21-32 Anion Gap 7 mEq/L Low 8-16 Calcium Level 8.9 mg/dL Normal 8.8-10.2 Ast/Sgot 11 U/L Normal 7-37 Alt/SGPT 10 U/L Low 12-78 Alkaline Phosphatase 126 U/L High 45-117 Bilirubin,Total 0.4 mg/dL Normal 0.2-1.0 Total Protein 6.3 GM/DL Low 6.4-8.2 Albumin 3.4 GM/DL Normal 3.2-5.2 Albumin/Globulin Ratio 1.2 Normal 1.2-2.2 Cardiac Marker Panel 04/04/2020 [facility] [address] [place], [place] [id number] [phone] CPK Creatine Phosphokinase 30 U/L Normal 26-19 2 CK-MB Value Mass < 1.0 NG/ML Normal <3.6 MB/CK Relative Index 3.33 Normal < Or =4 2 Troponin I 0.04 NG/ML Normal < 0.10 3 Complete Blood Count 10/22/2019 [facility] [employer] [facility] [employer] Business Administration Program Chair: [place] [address] [phone] WBC 4.8 x10*3/UL 4.1 - 10.9 RBC [...] 2.0 - 7.8 Comprehensive Chem Profile 10/22/2019 [facility] Business Administration Program Chair: [place] [address] [phone] Glucose 87 mg/dL 74 - 99 4 BUN 24 mg/dL High 7 - 18 [...] Low >60 GFR 51 mL/min Low >60 5 Laboratory test finding 10/22/2019 [facility] Architectural Engineer iskaran, Business Administration Program Chair: Dr Jay Marquez [place] [id number] [phone] Thyroid Stimulating Hormone 1.38 uIU/mL 0.3 6 - 3.74 Ua Dipstick Only 10/22/2019 [facility] , Business Administration Program Chair: [place] [address] [phone] Urine Color YELLOW Yellow Urine Appearance SL. HAZY Abnormal Clear Urine PH 5.0 units 5.0 - 9.0 Urine Specific [place] 1.030 1.005 - 1.030 Urine Leukocytes NEGATIVE Negative Urine Blood MODERATE Abnormal Negative Urine Protein NEGATIVE Negative -Trace Urine Glucose NEGATIVE mg/dL Negative Urine Nitrite NEGATIVE Negative Urine Ketone NEGATIVE mg/dL Negative Urine Bilirubin NEGATIVE Negative Urine Urobilinogen 0.2 mg/dL 0.2 - 1.0 1 Units are mL/min/1.73 m2 Chronic Kidney Disease Staging per NKF: Stage I & II GFR >=60 Normal to Mildly Decreased Stage III GFR 30-59 Moderately Decreased Stage IV GFR 15-29 Severely Decreased Stage V GFR <15 Very Little GFR Left ESRD GFR <15 on FUR BLOWING MACHINE OPERATOR 2 DIAGNOSIS CRITERIA MMB ng/ml Relative Index (RI) NON-AMI < or = 5 N/A PHAN ZONE > 5 < or = 4 AMI > 5 > 4 3 Troponin I Reference Interva l for Siemens [place] LOCI: 99th Percentile= 0.00-0.045 ng/ml Risk Stratification: <= 0.10 ng/ml Decreased Risk for Adverse Clinical Events. 0.10-1.50 ng/ml Increased Risk for Adv erse Clinical Events. Evaluation of additional criterion and/or repeat testing in 2-6 hours is suggested to rule out myocardial damage. >= 1.50 ng/ml Indicative of Myocardial Injury. 4 100-125 mg/dL PRE-DIABET ES/FASTING >126 mg/dL DIABETES/FASTING 5 CHRONIC KIDNEY DISEASE STAGI NG PER NKF STAGE I & II GFR >= 60 NORMAL TO MILDLY DECREASED STAGE III GFR 30-59 MODERATELY DECREASED STAGE IV GFR 15-29 SEVERELY DECREASED STAGE V GFR <15 VERY LITTLE GFR LEFT ESRD GFR <15 ON FUR BLOWING MACHINE OPERATOR Procedures Description No Information Available Medical Devices Description No Information Available Encounters Type Date Location Provider Dx Diagnosis Office Visit 10/22/2019 10:20a [facility] 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
--- OUTSIDE RECORDS SUMMARY | 2020-04-06 09:40 | CCD ---
Author Author [facility] Organization [facility] Address Unknown Phone Unavailable Care Team Providers Care Lighter Name Role Phone Galilea, Fouzia DO Unavailable [...] is protected by Article 27-F of the [facility] Public Health law. If you continue you may have access to information: Regarding HIV / AIDS; Provided by facilities licensed or operated by the [facility] Office of Mental Health; or Provided by the [facility] Office for People With Developmental Disabilities. If such information is present, then the following [facility] mandated warning applies: This information has [...] law may result in a fine or senior living sentence or both. A general authorization for [...] Fouzia Herrera 10/21 10:20:00 AM EDT [facility] ([facility] ) Outpatient Referrer: Fouzia Calero DO 04/26/2019 12:19:00 PM EDT [facility] Outpatient Attender: CHEMA Monroe 04/18/2019 10:20:00 AM EST [facility] ([facility]) Outpatient Referrer: Fouzia Calero DO 03/01/2019 04:11:00 [...] Instructions Status Indications Reaction Description Data Source(s) 80 mg 04/05/2020 12:00:00 AM EST tablet 30 TAKE ONE TABLET BY MOUTH EVERY DAY TAKE ONE TABLET BY MOUTH EVERY DAY SOLD: 04/05/2020 [facility] 81 mg 04/05/2020 12:00:00 AM EST tablet,delayed release (DR/EC) 30 TAKE ONE TABLET BY MOUTH EVERY DAY TAKE ONE TABLET BY MOUTH EVERY DAY SOLD: 04/05/2020 [facility] 5 mg 04/05/2020 12:00:00 AM EST tablet 30 TAKE ONE TABLET BY MOUTH EVERY DAY TAKE ONE TABLET BY MOUTH EVERY DAY SOLD: 04/05/2020 [facility] 75 mg 04/05/2020 12:00:00 AM EST tablet 30 TAKE ONE TABLET BY MOUTH EVERY DAY TAKE ONE TABLET BY MOUTH EVERY DAY SOLD: 04/05/2020 [facility] 5 mg 10/22/2019 12:00:00 AM EDT tablet 30 TAKE ONE TABLET BY MOUTH EVERY DAY AT BEDTIME TAKE ONE TABLET BY MOUTH EVERY DAY AT BEDTIME SOLD: 11/27/2019 [facility] levocetirizine dihydrochloride 5 MG Oral Tablet Levocetirizi ne Dihydrochloride 10/22/2019 12:00:00 AM EDT ORAL active [facility] ([facility]) 5 mg 10/22/2019 12:00:00 AM EDT tablet 30 TAKE ONE TABLET BY MOUTH EVERY DAY AT BEDTIME TAKE ONE TABLET BY MOUTH EVERY DAY AT BEDTIME SOLD: 10/23/2019 [facility] NITROFURANTOIN, MACROCRYSTALS 25 MG / Ni trofurantoin, Monohydrate 75 MG Oral Capsule [Macrobid] Macrobid 04/18/2019 12:00:00 AM EST ORAL active [facility] ([facility]) Cephalexin 500 MG Oral Tablet Cephalexin 04/18/2019 12:00:00 AM EST ORAL completed [facility] ([facility]) Prednisone 10 MG Oral Tablet Prednisone 04/18/2019 12:00:00 AM EST ORAL active [facility] ([facility]) 100 mg 04/18/2019 12:00:00 AM EST capsule 10 TAKE ONE CAPSULE BY MOUTH EVERY 12 HOURS FOR 5 DAYS TAKE ONE CAPSULE BY MOUTH EVERY 12 HOURS FOR 5 DAYS SO LD: 04/18/2019 [facility] No Active Medications 04/18/2019 12:00:00 AM EST completed [facility] ([facility]) 10 mg 04/18/2019 12:00:00 AM EST tablet 8 TAKE ONE TABLET BY MOUTH TWICE A DAY FOR 4 DAYS TAKE ONE TABLET BY MOUTH TWICE A DAY FOR 4 DAYS SOLD: 2019 [facility] tramadol hydrochloride 50 MG Oral Tablet Tramadol HCL 02/19/2019 12:00:00 AM EST active [facility] ([facility]) 8 HR Acetaminophen 650 MG Extended Release Oral Tablet [Tylenol] Tylenol 8 Hour Arthritis Pain 02/19/2019 12:00:00 AM EST ORAL active [facility] ([facility]) Fouzia [employer] 02/19/2019 12:00:00 AM EST ORAL active [facility] ([facility]) Insurance Providers Payer name Policy type / Coverage type Policy ID Covered green party ID Covered green party's relationship to anderson Policy [place] Plan Information EMEDNY [id number] SP [id number] MEDICARE COMPLETE [id number] SP [id number] MEDICARE COMPLETE[facility] O [id number] S [id number] MEDICAID M [id number] MEDICAID [id number] SP [id number] [facility] MCRO [id number] SP [id number] [facility] MCRO [id number] SP [id number] [facility](MCAID) O [id number] S [id number] MEDICARE C [id number] S [id number] [facility] MCRO [id number] SP [id number] [facility] MCRO [id number] SP [id number] [facility] (MCR) Commercial [id number] Self [id number] [facility] [id number] Self [id number] Results ID Date Data Source [id number] 04/04/2020 06:37:00 PM EST [facility] Name Value Range Interpretation Code Description Data Natalie rce(s) Supporting Document(s) SARS coronavirus 2 RNA [Presence] in Res piratory specimen by TAN with probe detection NEGATIVE [facility] This lab was ordered by [facility] a nd reported by [facility]. ID Date Data Source [id number] 04/04/2020 02:28:00 PM EST [facility] ([facility]) Name Value Range Interpretation Code Description Data Natalie rce(s) Supporting Document(s) CPK Creatine Phosphokinase 30 U/L 26-192 [facility] ([facility]) CK-MB Value Mass [facility] test [facility] MB/CK Relative Index 3.33 [facility] ([facility]) <content>DIAGNOSIS CRITERIA</content>
<content>MMB ng/ml Relative Index (RI)</content>
<content>NON-AMI < or = 5 N/A</content>
<content>PHAN ZONE > 5 < or = 4</content>
<content>AMI > 5 > 4</content>
<content></content> Troponin I 0.04 ng/mL [facility] ([facility]) <content>Troponin I Reference Interval f or Siemens Wilson LOCI:</content>
<content></content>
<content>99th Percentile= 0.00-0.045 ng/ml</content>
<content></content>
<content>Risk Stratification:</content>
<content><= 0.10 ng/ml Decreased Risk for Adverse Clinical</content>
<content>Events.</content>
<content>0.10-1.50 ng/ml Increased Risk for Adverse Clinical</content>
<content>Events. Evaluation of additional</content>
<content>criterion and/or repeat testing in 2-6</content>
<content>hours is suggested to rule out myocardial</content>
<content>damage.</content>
<content>>= 1.50 ng/ml Indicative of Myocardial Injury.</content>
<content></content> ID Date Data Source [id number] 04/04/2020 02:28:00 PM EST [facility] ([facility]) Name Value Range Interpretation Code Description Data Natalie rce(s) Supporting Document(s) Glucose, Fasting 99 mg/dL 70-100 [facility] ([facility]) Creatinine For GFR 0.96 mg/dL 0.55-1.30 [facility] ([facility]) Blood Urea Nitrogen 20 mg/dL 7-18 [facility] ([facility]) Glomerular Filtration Rate 58.4 [facility] ([facility]) <content>Units are mL/min/1.73 m2</content>
<content></content>
<content>Chronic Kidney Disease Staging per NKF:</content>
<content></content>
<content>Stage I & II GFR >=60 Normal to Mildly Decreased</content>
<content>Stage III GFR 30- 59 Moderately Decreased</content>
<content>Stage IV GFR 15-29 Severely Decreased</content>
<content>Stage V GFR <15 Very Little GFR Left</content>
<content>ESRD GFR <15 on DUDE RANCH MANAGER</content>
<content></content> Potassium Serum 3.8 meq/L 3.5-5.1 [facility] ([facility]) Sodium Level 141 meq/L 136-145 [facility] ([facility]) Anion Gap 7 meq/L 8-16 [facility]) Chloride Level 108 meq/L 98-107 [facility] ([facility]) Carbon Dioxide Level 26 meq/L 21-32 [facility] ([facility]) Calcium Level 8.9 mg/dL 8.8-10.2 [facility] ([facility]) Ast/Sgot 11 U/L 7-37 [facility]) Alt/SGPT 10 U/L 12-78 [facility]) Alkaline Phosphatase 126 U/L 45-117 [facility] ([facility]) Total Protein 6.3 GM/DL 6.4-8.2 [facility] ([facility]) Bilirubin,Total 0.4 mg/dL 0.2-1.0 [facility] Albumin/Globulin Ratio 1.2 1.2-2.2 [facility] Albumin 3.4 GM/DL 3.2-5.2 [facility] ([facility]) ID Date Data Source [id number] 04/04/2020 02:28:00 PM EST [facility] ([facility]) Name Value Range Interpretation Code Description Data Natalie rce(s) Supporting Document(s) White Blood Count 3.9 10 4.0-10.0 [facility] ([facility]) Red Blood Count 4.35 10 4.00-5.40 [facility] ([facility]) Hemoglobin 12.7 g/dL 12.0-15.5 [facility] Mean Corpuscular Hemoglobin 29.2 pg 27.0-33.0 [facility] ([facility]) Hematocrit 39.8 % 36.0-47.0 [facility] Mean Corpuscular Volume 91.5 fl 80.0-96.0 [facility] Platelet Count, Automated 203 10 150-450 [facility] NT ([facility]) Mean Corpuscular HGB Conc 31.9 g/dL 32.0-36.5 [facility] ([facility]) Red Cell Distribution Width 12.1 % 11.5-14.5 [facility] ([facility]) Lymph % 22.0 % 24.0-44.0 [facility]) Neutrophils % 65.0 % 36.0-66.0 [facility] ([facility]) [place] % 9.1 % 2.0-8.0 [facility] Baso % 0.8 % 0.0-1.0 [facility]) Eos % 2.8 % 0.0-3.0 [facility]) Immature Granulocyte % 0.3 % 0-3.0 [facility] ([facility]) Lymph # 0.9 10 1.5-5.0 [facility]) Neutrophils # 2.5 10 1.5-8.5 [facility] ([facility]) Nucleated Red Blood Cell % 0.0 % 0-0 [facility] ([facility]) Eos # 0.1 10 0.0-0.5 [facility] Baso # 0.0 10 0.0-0.2 [facility]) [place] # 0.4 10 0.0-0.8 [facility]) ID Date Data Source [id number] 11/08/2019 12:00:00 AM EDT [facility] Fouzia Calero DO Patient Name: GRICEL [id number] [facility] Date of : 08/11/1931[address] Date of Exam: 11/08/2019PATRICIA Dangelo [id number]#: Fax: [phone] EXAM: US RETROPERITONEAL, COMPLETE(RENAL/AORTA)CLINICAL INFORMATION: [...] renal cyst as described above.Accredited by the [employer] in General Ultrasound.UZMA Montero/Pelon you for referring GRICEL REDDY to our office. Electronically Signed - BRENDA BAILEY DO 11/08/19 13:52 Name Value Range Interpretation Code Description Data Natalie rce(s) Supporting Document(s) ID Date Data Source [id number] 10/22/2019 11:05:00 AM EDT [facility] ([facility]) Name Value Range Interpretation Code Description Data Natalie rce(s) Supporting Document(s) Thyrotropin [Units/volume] in Serum or Plasma by Detec tion limit <= 0.05 mIU/L 1.38 uIU/mL 0.36-3.74 [facility] ([facility] ) ID Date Data Source [id number] 10/22/2019 11:05:00 AM EDT [facility] ([facility]) Name Value Range Interpretation Code Description Data Natalie rce(s) Supporting Document(s) Glucose [Mass/volume] in Serum or Plasma 87 mg/dL 74-99 [facility] ([facility]) 100-125 mg/dL PRE-DIABETES/FASTING >126 mg/dL DIABETES/FASTING Sodium [Moles/volume] in Serum or Plasma 142 meq/L 136-145 [facility] ([facility]) Urea nitrogen [Mass/volume] in Serum or Plasma 24 mg/dL 7-18 [facility] ([facility]) Creatinine 1.2 mg/dL 0.6-1.3 [facility] ([facility]) Potassium [Moles/volume] in Serum or Plasma 4.0 meq/L 3.5-5.1 [facility] ([facility]) Chloride [Moles/volume] in Serum or Plasma 106 meq/L 98-107 [facility] ([facility]) Carbon dioxide, total [Moles/volume] in Serum or Plasma 26 meq/L 21 -32 [facility] ([facility]) Calcium [Mass/volume] in Serum or Plasma 9.1 mg/dL 8.5-10.1 [facility] ([facility]) Total Bilirubin 0.6 mg/dL 0.2-1.0 [facility] ([facility]) Alkaline phosphatase isoenzyme [Units/volume] in Serum or Pl asma 129 mg/dL 46-116 [facility] ([facility]) Aspartate aminotransferase [Enzymatic activity/volume] in Serum or Plasma 16 U/L 15-37 [facility] ([facility] ) Albumin [Mass/volume] in Serum or Plasma 3.9 g/dL 3.4-5.0 [facility] ([facility]) Alanine aminotransferase [Enzymatic activity/volume] in Seru m or Plasma 13 U/L 12-78 [facility] Glomerular filtration rate/1.73 sq M pre dicted among non-blacks [Volume Rate/Area] in Serum or Plasma by Creatinine-based formula (MDRD) 42 mL/min [facility] A/G Ratio 1.11 CALC 1.00-1.90 [facility] ([facility]) Proteinase 3 Ab [Units/volume] in Serum 7.4 g/dL 6.4-8.2 [facility] Glomerular filtration rate/1.73 sq M pre dicted among blacks [Volume Rate/Area] in Serum or Plasma by Creatinine-based formula (MDRD) 51 mL/min [facility] <content>CHRONIC KIDNEY DISEASE STAGING PER NKF</content>
<content></content>
<content>STAGE I & II GFR >= 60 NORMAL TO MILDLY DECREASED</content>
<content>STAGE III GFR 30-59 MODERATELY DECREASED</content>
<content>STAGE IV GFR 15-29 SEVERELY DECREASED</content>
<content>STAGE V GFR <15 VERY LITTLE GFR LEFT</content>
<content>ESRD GFR <15 ON DUDE RANCH MANAGER</content>
<content></content> ID Date Data Source [id number] 10/22/2019 11:05:00 AM EDT [facility] Name Value Range Interpretation Code Description Data Natalie rce(s) Supporting Document(s) Leukocytes [#/volume] in Blood by Automated count 4.8 x10*3/UL 4.1-10 .9 [facility] Erythrocytes [#/volume] in Blood by Automated count 4.61 x10*6/UL 4.2 0-6.30 [facility] MCV 90.4 fL 80.0-97.0 [facility] ([facility]) Hematocrit [Volume Fraction] of Blood by Automated count 41.7 % 3 7.0-51.0 [facility] Hemoglobin [Mass/volume] in Blood 14.0 g/dL 12.0-18.0 [facility] MCH 30.5 pg 26.0-32.0 [facility] ([facility]) MCHC 33.7 g/dL 31.0-38.0 [facility] ([facility]) Erythrocyte distribution width [Ratio] by Automated count 13.1 % 11.6-13.7 [facility] Lymph % 30.2 % 10.0-58.5 [facility] ([facility]) MPV 8.1 FL 7.8-11.0 [facility] ([facility]) Platelets [#/volume] in Blood by Automated count 223 x10*3/UL 140-440 [facility] Mid % 8.7 % 1.7-9.3 [facility] ([facility]) Neut % 61.1 % 37.0-92.0 [facility] ([facility]) Neut # 2.9 x10*3/UL 2.0-7.8 [facility] ([facility]) Mid # 0.5 x10*3/UL 0.1-0.6 [facility] ([facility]) Lymph # 1.4 x10*3/UL 0.6-4.1 [facility] ([facility]) ID Date Data Source [id number] 10/22/2019 10:30:00 AM EDT [facility] Name Value Range Interpretation Code Description Data Natalie rce(s) Supporting Document(s) Urine Color Laboratory test result [facility] Specific gravity of Urine 1.030 1.005-1.030 [facility] Urine PH 5.0 units 5.0-9.0 [facility] ([facility]) Urine Appearance Laboratory test result Abnormal (applies to non-numeric results) [facility] Urine Protein Laboratory test result 0-0 [facility] Urine Blood Laboratory test result Abnormal (applies to non-numeric results) [facility] ([facility]) Urine Leukocytes Laboratory test result [facility] ([facility]) Urine Nitrite Laboratory test result [facility] ([facility]) Urine Ketone Laboratory test result [facility] ([facility]) Glucose [Presence] in Urine Laboratory test result [facility] Bilirubin.total [Mass/volume] in Serum or Plasma Laboratory test resu lt [facility] ([facility]) Urine Urobilinogen 0.2 mg/dL 0.2-1.0 [facility] ([facility]) ID Date Data Source [id number] 04/18/2019 12:23:00 PM EST [facility]) Name Value Range Interpretation Code Description Data Natalie rce(s) Supporting Document(s) Bacteria identified in Urine by Culture <pending> [facility] ([facility], [facility]) ID Date Data Source [id number] 03/01/2019 12:00:00 AM EST [facility] Fouzia Calero DO Patient Name: GRICEL [id number] [facility] Date of : [facility] Date of Exam: 03/01/2019PATRICIA Dangelo [id number]#: Fax: [phone] EXAM: CT ABDOMEN & PELVIS WITHOUT&WITH CONTRASTCLINICAL INFORMATION: 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 Electronically Signed - ANGEL PHAN MD 03/01/19 18:02 Name Value Range Interpretation Code Description Data Natalie rce(s) Supporting Document(s) ID Date Data Source [id number] 02/19/2019 11:19:00 AM EST [facility] ([facility]) Name Value Range Interpretation Code Description Data Natalie rce(s) Supporting Document(s) Triglyceride [Mass/volume] in Serum or Plasma 87 mg/dL 30-150 [facility] ([facility]) Cholesterol [Mass/volume] in Serum or Plasma 220 mg/dL 131-200 [facility] ([facility]) Cholesterol in LDL [Mass/volume] in Serum or Plasma by calcu lation 136 CALC 50-159 [facility] ([facility]) Cholesterol in HDL [Mass/volume] in Serum or Plasma 67 mg/dL 35-60 [facility] ([facility]) ID Date Data Source [id number] 02/19/2019 11:19:00 AM EST [facility] ([facility]) Name Value Range Interpretation Code Description Data Natalie rce(s) Supporting Document(s) Glucose [Mass/volume] in Serum or Plasma 94 mg/dL 74-99 [facility] ([facility]) 100-125 mg/dL PRE-DIABETES/FASTING >126 mg/dL DIABETES/FASTING Creatinine 1.2 mg/dL 0.6-1.3 [facility] ([facility]) Urea nitrogen [Mass/volume] in Serum or Plasma 31 mg/dL 7-18 [facility] ([facility]) Sodium [Moles/volume] in Serum or Plasma 140 meq/L 136-145 [facility] ([facility]) Carbon dioxide, total [Moles/volume] in Serum or Plasma 24 meq/L 21 -32 [facility] ([facility]) Potassium [Moles/volume] in Serum or Plasma 4.5 meq/L 3.5-5.1 [facility] ([facility]) Chloride [Moles/volume] in Serum or Plasma 104 meq/L 98-107 [facility] ([facility]) Calcium [Mass/volume] in Serum or Plasma 9.6 mg/dL 8.5-10.1 [facility] ([facility]) Alkaline phosphatase isoenzyme [Units/volume] in Serum or Pl asma 167 mg/dL 46-116 [facility] ([facility]) Total Bilirubin 0.6 mg/dL 0.2-1.0 [facility] ([facility]) Albumin [Mass/volume] in Serum or Plasma 3.7 g/dL 3.4-5.0 [facility] ([facility]) Alanine aminotransferase [Enzymatic activity/volume] in Seru m or Plasma 11 U/L 12-78 [facility] ([facility]) Aspartate aminotransferase [Enzymatic activity/volume] in Serum or Plasma 14 U/L 15-37 [facility] ([facility] ) Proteinase 3 Ab [Units/volume] in Serum 7.3 g/dL 6.4-8.2 [facility] ([facility]) A/G Ratio 1.03 CALC 1.00-1.90 [facility] ([facility]) Glomerular filtration rate/1.73 sq M pre dicted among blacks [Volume Rate/Area] in Serum or Plasma by Creatinine-based formula (MDRD) 52 mL/min [facility] <content>CHRONIC KIDNEY DISEASE STAGING PER NKF</content>
<content></content>
<content>STAGE I & II GFR >= 60 NORMAL TO MILDLY DECREASED</content>
<content>STAGE III GFR 30-59 MODERATELY DECREASED</content>
<content>STAGE IV GFR 15-29 SEVERELY DECREASED</content>
<content>STAGE V GFR <15 VERY LITTLE GFR LEFT</content>
<content>ESRD GFR <15 ON DUDE RANCH MANAGER</content>
<content></content> Glomerular filtration rate/1.73 sq M pre dicted among non-blacks [Volume Rate/Area] in Serum or Plasma by Creatinine-based formula (MDRD) 42 mL/min [facility] ID Date Data Source [id number] 02/19/2019 11:19:00 AM EST [facility] ([facility]) Name Value Range Interpretation Code Description Data Natalie rce(s) Supporting Document(s) Leukocytes [#/volume] in Blood by Automated count 4.8 x10*3/UL 4.1-10 .9 [facility] ([facility]) Hemoglobin [Mass/volume] in Blood 12.6 g/dL 12.0-18.0 [facility] ([facility]) Erythrocytes [#/volume] in Blood by Automated count 4.25 x10*6/UL 4.2 0-6.30 [facility] ([facility]) Hematocrit [Volume Fraction] of Blood by Automated count 38.7 % 3 7.0-51.0 [facility] ([facility]) MCV 91.1 fL 80.0-97.0 [facility] MCH 29.6 pg 26.0-32.0 [facility] MCHC 32.5 g/dL 31.0-38.0 [facility] Platelets [#/volume] in Blood by Automated count 251 x10*3/UL 140-440 [facility] ([facility]) Erythrocyte distribution width [Ratio] by Automated count 13.7 % 11.6-13.7 [facility] ([facility]) MPV 8.5 FL 7.8-11.0 [facility] Mid % 8.2 % 1.7-9.3 [facility] Lymph % 26.1 % 10.0-58.5 [facility] Lymph # 1.2 x10*3/UL 0.6-4.1 [facility] ([facility]) Neut % 65.7 % 37.0-92.0 [facility] Mid # 0.5 x10*3/UL 0.1-0.6 [facility] ([facility]) Neut # 3.1 x10*3/UL 2.0-7.8 [facility] ([facility]) Procedure Vital Signs ID Date Data Source [id number] Name Value Range Interpretation Code Description Data Source(s) Body mass index (BMI) [Ratio] 20.9 kg/m2 20.9 k g/m2 [facility] ([facility]) Body weight 105.38 [lb_av] 105.38 [lb_av] [facility] ([facility]) Body height 59.50 [in_i] 59.50 [in_i] [facility] ( [facility] 4'11.50" Body temperature 97.6 [degF] 97.6 [degF] [facility] ([facility]) Diastolic blood pressure 80 mm[Hg] 80 mm[Hg] [facility] ([facility]) RT Arm Systolic blood pressure 122 mm[Hg] 122 mm[Hg] M [facility] ([facility]) RT Arm Body mass index (BMI) [Ratio] 20.8 kg/m2 20.8 k g/m2 [facility] ([facility]) Body height 59 [in_i] 59 [in_i] [facility] ([facility], [facility]) 4'11" Body weight 103.00 [lb_av] 103.00 [lb_av] [facility] T ([facility]) Body temperature 97.6 [degF] 97.6 [degF] [facility] ([facility], [facility]) Oxygen saturation in Arterial blood by Pulse oximetry 96 % 96 % [facility] ([facility], [facility]) Respiratory rate 12 /min 12 /min [facility] ( [facility]) Heart rate 79 /min 79 /min [facility] ([facility], [facility]) Diastolic blood pressure 94 mm[Hg] 94 mm[Hg] [facility]) Systolic blood pressure 170 mm[Hg] 170 mm[Hg] [facility]) Body mass index (BMI) [Ratio] 20.5 kg/m2 20.5 k g/m2 [facility] ([facility]) Oxygen saturation in Arterial blood by Pulse oximetry --post exerci se 98 % 98 % [facility] ([facility]) RM Air Body weight 103.00 [lb_av] 103.00 [lb_av] MEDEN T ([facility]) Body height 59.50 [in_i] 59.50 [in_i] [facility] 411.50" Heart rate 77 /min 77 /min MEDENT ([facility]) Diastolic blood pressure 84 mm[Hg] 84 mm[Hg] MEDENT ([facility]) RT Arm Systolic blood pressure 112 mm[Hg] 112 mm[Hg] [facility]) RT Arm
--- OUTSIDE RECORDS SUMMARY | 2020-04-06 10:19 | CCD ---
Author Author [facility] Organization [facility] Address Unknown Phone Unavailable Care Team Providers Care Beef Pusher Name Role Phone Galilea, Fouzia DO Unavailable [...] Unavailable Unavailable Galilea, Fouzia DO Unavailable Unavailable Galiela, Fouzia DO Unavailable Unavailable Glailea, Fouzia DO Unavailable Unavailable Galilea, Fouzia DO [...] Unavailable Unavailable Galilea, Fouzia DO Unavailable Unavailable Aglilea, Fouzia DO Unavailable Unavailable Galilea, Fouzia DO [...] Unavailable Unavailable Galilea, Fouzia DO Unavailable Unavailable Glailea, Fouzia DO Unavailable Unavailable Galilea, Fouzia DO [...] is protected by Article 27-F of the [facility] Public Health law. If you continue you may have access to information: Regarding HIV / AIDS; Provided by facilities licensed or operated by the [facility] Office of Mental Health; or Provided by the [facility] Office for People With Developmental Disabilities. If such information is present, then the following [facility] mandated warning applies: This information has [...] may result in a fine or senior care sentence or both. A general authorization for [...] Fouzia Herrera 10/21 10:20:00 AM EDT [facility] ([facility] ) Outpatient Referrer: Fouzia Calero DO 04/26/2019 12:19:00 PM EDT [facility] Outpatient Attender: CHEMA Monroe 04/18/2019 10:20:00 AM EST [facility]) Outpatient Referrer: Fouzia Calero DO 03/01/2019 04:11:00 PM EST [facility] Outpatient Referrer: Fouzia Calero DO 03/01/2019 04:02:00 PM EST [facility] Outpatient Referrer: Fouzia Calero DO 03/01/2019 01:26:00 PM EST [facility] Outpatient Referrer: Fouzia Calero DO 03/01/2019 01:20:00 PM EST [facility] Outpatient Referrer: Fouiza Calero DO 03/01/2019 01:15:00 PM EST [facility] [...] 10/22/2019 12:00:00 AM EDT ORAL active [facility] ([facility]) 5 mg 10/22/2019 12:00:00 AM EDT tablet 30 TAKE ONE TABLET BY MOUTH EVERY DAY AT BEDTIME TAKE ONE TABLET BY MOUTH EVERY DAY AT BEDTIME SOLD: 10/23/2019 [facility] NITROFURANTOIN, MACROCRYSTALS 25 MG / Ni trofurantoin, Monohydrate 75 MG Oral Capsule [Macrobid] Macrobid 04/18/2019 12:00:00 AM EST ORAL active [facility] ([facility]) Cephalexin 500 MG Oral Tablet Cephalexin 04/18/2019 12:00:00 AM EST ORAL completed [facility] ([facility]) Prednisone 10 MG Oral Tablet Prednisone 04/18/2019 12:00:00 AM EST ORAL active [facility] ([facility]) 100 mg 04/18/2019 12:00:00 AM EST capsule 10 TAKE ONE CAPSULE BY MOUTH EVERY 12 HOURS FOR 5 DAYS TAKE ONE CAPSULE BY MOUTH EVERY 12 HOURS FOR 5 DAYS SO LD: 04/18/2019 [facility] No Active Medications 04/18/2019 12:00:00 AM EST completed [facility] ([facility]) 10 mg 04/18/2019 12:00:00 AM EST tablet [...] 02/19/2019 12:00:00 AM EST ORAL active [facility] ([facility]) Fouzia [employer] 02/19/2019 12:00:00 AM EST ORAL active [facility] ([facility]) Insurance Providers Payer name Policy type / Coverage type Policy ID Covered democrat ID Covered democrat's relationship to anderson Policy Anderson Plan Information EMEDNY [id number] SP [id number] MEDICARE COMPLETE [id number] SP [id number] [facility]IC[facility] COM[facility]TE[facility] O [id number] S [id number] MEDICAID M [id number] MEDICAID [id number] SP [id number] [facility] MCRO [id number] SP [id number] [facility] MCRO [id number] SP [id number] [facility](MCAID) O [id number] S [id number] MEDICARE C [id number] S [id number] [facility] MCRO [id number] SP [id number] [facility] MCRO [id number] SP [id number] [facility] (MCR) Commercial [id number] Self [id number] [facility] Commercial [id number] Self [id number] Results ID Date Data Source [id number] 04/04/2020 06:37:00 PM EST [facility] Name Value Range Interpretation Code Description Data Natalie rce(s) Supporting Document(s) SARS coronavirus 2 RNA [Presence] in Res piratory specimen by TAN with probe detection NEGATIVE [facility] This lab was ordered by [facility] a nd reported by [facility]. ID Date Data Source [id number] 04/04/2020 02:28:00 PM EST [facility] ([facility]) Name Value Range Interpretation Code Description Data Natalie rce(s) Supporting Document(s) CPK Creatine Phosphokinase 30 U/L 26-192 [facility] ([facility]) CK-MB Value Mass Laboratory test result [facility] ([facility]) MB/CK Relative Index 3.33 [facility] ([facility]) <content>DIAGNOSIS CRITERIA</content>
<content>MMB ng/ml Relative Index (RI)</content>
<content>NON-AMI < or = 5 N/A</content>
<content>PHAN ZONE > 5 < or = 4</content>
<content>AMI > 5 > 4</content>
<content></content> Troponin I 0.04 ng/mL [facility] ([facility]) <content>Troponin I Reference Interval f or Siemens [place] LOCI:</content>
<content></content>
<content>99th Percentile= 0.00-0.045 ng/ml</content>
<content></content>
<content>Risk Stratification:</content>
<content><= 0.10 ng/ml Decreased Risk for Adverse Clinical</content>
<content>Events.</content>
<content>0.10-1.50 ng/ml Increased Risk for Adverse Clinical</content>
<content>Events. Evaluation of additional</content>
<content>criterion and/or repeat testing in 2-6</content>
<content>hours is suggested to rule out myocardial</content>
<content>damage.</content>
<content>>= 1.50 ng/ml Indicative of Myocardial Injury.</content>
<content></content> ID Date Data Source [id number] 04/04/2020 02:28:00 PM EST [facility] ([facility]) Name Value Range Interpretation Code Description Data Natalie rce(s) Supporting Document(s) Glucose, Fasting 99 mg/dL 70-100 [facility] ([facility]) Creatinine For GFR 0.96 mg/dL 0.55-1.30 [facility] ([facility]) Blood Urea Nitrogen 20 mg/dL 7-18 [facility] ([facility]) Glomerular Filtration Rate 58.4 [facility] ([facility]) <content>Units are mL/min/1.73 m2</content>
<content></content>
<content>Chronic Kidney Disease Staging per NKF:</content>
<content></content>
<content>Stage I & II GFR >=60 Normal to Mildly Decreased</content>
<content>Stage III GFR 30- 59 Moderately Decreased</content>
<content>Stage IV GFR 15-29 Severely Decreased</content>
<content>Stage V GFR <15 Very Little GFR Left</content>
<content>ESRD GFR <15 on PRESS SETTER</content>
<content></content> Potassium Serum 3.8 meq/L 3.5-5.1 [facility] ([facility]) Sodium Level 141 meq/L 136-145 [facility] ([facility]) Anion Gap 7 meq/L 8-16 [facility] [facility]) Chloride Level 108 meq/L 98-107 [facility] ([facility]) Carbon Dioxide Level 26 meq/L 21-32 [facility] ([facility]) Calcium Level 8.9 mg/dL 8.8-10.2 [facility] ([facility]) Ast/Sgot 11 U/L 7-37 [facility] [facility]) Alt/SGPT 10 U/L 12-78 [facility] [facility] Alkaline Phosphatase 126 U/L 45-117 [facility] ([facility]) Total Protein 6.3 GM/DL 6.4-8.2 [facility] ([facility]) Bilirubin,Total 0.4 mg/dL 0.2-1.0 [facility] Albumin/Globulin Ratio 1.2 1.2-2.2 [facility] Albumin 3.4 GM/DL 3.2-5.2 [facility] [facility]) ID Date Data Source [id number] 04/04/2020 02:28:00 PM EST [facility] ([facility]) Name Value Range Interpretation Code Description Data Natalie rce(s) Supporting Document(s) White Blood Count 3.9 10 4.0-10.0 [facility] ([facility]) Red Blood Count 4.35 10 4.00-5.40 [facility] ([facility]) Hemoglobin 12.7 g/dL 12.0-15.5 [facility] [facility] Mean Corpuscular Hemoglobin 29.2 pg 27.0-33.0 [facility] ([facility]) Hematocrit 39.8 % 36.0-47.0 [facility] [facility] Mean Corpuscular Volume 91.5 fl 80.0-96.0 [facility]) Platelet Count, Automated 203 10 150-450 [facility] ([facility]) Mean Corpuscular HGB Conc 31.9 g/dL 32.0-36.5 [facility] ([facility]) Red Cell Distribution Width 12.1 % 11.5-14.5 [facility] ([facility]) Lymph % 22.0 % 24.0-44.0 [facility] [facility] Neutrophils % 65.0 % 36.0-66.0 [facility] ([facility]) [place] % 9.1 % 2.0-8.0 [facility] [place] [facility] Baso % 0.8 % 0.0-1.0 [facility] [place] [facility] Eos % 2.8 % 0.0-3.0 [facility]) Immature Granulocyte % 0.3 % 0-3.0 [facility] ([facility]) Lymph # 0.9 10 1.5-5.0 [facility] [place] [facility]) Neutrophils # 2.5 10 1.5-8.5 [facility] ([facility]) Nucleated Red Blood Cell % 0.0 % 0-0 [facility] ([facility]) Eos # 0.1 10 0.0-0.5 [facility] [place] [facility] Baso # 0.0 10 0.0-0.2 [facility] [place] [facility]) [place] # 0.4 10 0.0-0.8 [facility] [place] [facility]) ID Date Data Source [id number] 11/08/2019 12:00:00 AM EDT [facility] Fouzia Calero DO Patient Name: GRICEL [id number] [facility] Date of : 08/11/1931[address] Date of Exam: 11/08/2019PATRICIA Dangelo [id number]#: Fax: [phone] EXAM: US RETROPERITONEAL, COMPLETE(RENAL/AORTA)CLINICAL INFORMATION: [...] renal cyst as described above.Accredited by the [employer] in General Ultrasound.UZMA Montero/Pelon you for referring GRICEL REDDY to our office. Electronically Signed - BRENDA BAILEY DO 11/08/19 13:52 Name Value Range Interpretation Code Description Data Natalie rce(s) Supporting Document(s) ID Date Data Source [id number] 10/22/2019 11:05:00 AM EDT [facility] ([facility]) Name Value Range Interpretation Code Description Data Natalie rce(s) Supporting Document(s) Thyrotropin [Units/volume] in Serum or Plasma by Detec tion limit <= 0.05 mIU/L 1.38 uIU/mL 0.36-3.74 [facility] ([facility] ) ID Date Data Source [id number] 10/22/2019 11:05:00 AM EDT [facility] ([facility]) Name Value Range Interpretation Code Description Data Natalie rce(s) Supporting Document(s) Glucose [Mass/volume] in Serum or Plasma 87 mg/dL 74-99 [facility] ([facility]) 100-125 mg/dL PRE-DIABETES/FASTING >126 mg/dL DIABETES/FASTING Sodium [Moles/volume] in Serum or Plasma 142 meq/L 136-145 [facility] ([facility]) Urea nitrogen [Mass/volume] in Serum or Plasma 24 mg/dL 7-18 [facility] ([facility]) Creatinine 1.2 mg/dL 0.6-1.3 [facility] ([facility]) Potassium [Moles/volume] in Serum or Plasma 4.0 meq/L 3.5-5.1 [facility] ([facility]) Chloride [Moles/volume] in Serum or Plasma 106 meq/L 98-107 [facility] ([facility]) Carbon dioxide, total [Moles/volume] in Serum or Plasma 26 meq/L 21 -32 [facility] ([facility]) Calcium [Mass/volume] in Serum or Plasma 9.1 mg/dL 8.5-10.1 [facility] ([facility]) Total Bilirubin 0.6 mg/dL 0.2-1.0 [facility] ([facility]) Alkaline phosphatase isoenzyme [Units/volume] in Serum or Pl asma 129 mg/dL 46-116 [facility] ([facility]) Aspartate aminotransferase [Enzymatic activity/volume] in Serum or Plasma 16 U/L 15-37 [facility] ([facility] ) Albumin [Mass/volume] in Serum or Plasma 3.9 g/dL 3.4-5.0 [facility] ([facility]) Alanine aminotransferase [Enzymatic activity/volume] in Seru m or Plasma 13 U/L 12-78 [facility] Glomerular filtration rate/1.73 sq M pre dicted among non-blacks [Volume Rate/Area] in Serum or Plasma by Creatinine-based formula (MDRD) 42 mL/min [facility] A/G Ratio 1.11 CALC 1.00-1.90 [facility] ([facility]) Proteinase 3 Ab [Units/volume] in Serum 7.4 g/dL 6.4-8.2 [facility] Glomerular filtration rate/1.73 sq M pre dicted among blacks [Volume Rate/Area] in Serum or Plasma by Creatinine-based formula (MDRD) 51 mL/min [facility] <content>CHRONIC KIDNEY DISEASE STAGING PER NKF</content>
<content></content>
<content>STAGE I & II GFR >= 60 NORMAL TO MILDLY DECREASED</content>
<content>STAGE III GFR 30-59 MODERATELY DECREASED</content>
<content>STAGE IV GFR 15-29 SEVERELY DECREASED</content>
<content>STAGE V GFR <15 VERY LITTLE GFR LEFT</content>
<content>ESRD GFR <15 ON PRESS SETTER</content>
<content></content> ID Date Data Source [id number] 10/22/2019 11:05:00 AM EDT [facility] Name Value Range Interpretation Code Description Data Natalie rce(s) Supporting Document(s) Leukocytes [#/volume] in Blood by Automated count 4.8 x10*3/UL 4.1-10 .9 [facility] Erythrocytes [#/volume] in Blood by Automated count 4.61 x10*6/UL 4.2 0-6.30 [facility] MCV 90.4 fL 80.0-97.0 [facility] ([facility]) Hematocrit [Volume Fraction] of Blood by Automated count 41.7 % 3 7.0-51.0 [facility] Hemoglobin [Mass/volume] in Blood 14.0 g/dL 12.0-18.0 [facility] MCH 30.5 pg 26.0-32.0 [facility] ([facility]) MCHC 33.7 g/dL 31.0-38.0 [facility] ([facility]) Erythrocyte distribution width [Ratio] by Automated count 13.1 % 11.6-13.7 [facility] Lymph % 30.2 % 10.0-58.5 [facility] ([facility]) MPV 8.1 FL 7.8-11.0 [facility] ([facility]) Platelets [#/volume] in Blood by Automated count 223 x10*3/UL 140-440 [facility] Mid % 8.7 % 1.7-9.3 [facility] ([facility]) Neut % 61.1 % 37.0-92.0 [facility] ([facility]) Neut # 2.9 x10*3/UL 2.0-7.8 [facility] ([facility]) Mid # 0.5 x10*3/UL 0.1-0.6 [facility] ([facility]) Lymph # 1.4 x10*3/UL 0.6-4.1 [facility] ([facility]) ID Date Data Source [id number] 10/22/2019 10:30:00 AM EDT [facility] Name Value Range Interpretation Code Description Data Natalie rce(s) Supporting Document(s) Urine Color Laboratory test result [facility] ([facility] Specific gravity of Urine 1.030 1.005-1.030 [facility] Urine PH 5.0 units 5.0-9.0 [facility] ([facility]) Urine Appearance Laboratory test result Abnormal (applies to non-numeric results) [facility] Urine Protein Laboratory test result 0-0 [facility] Urine Blood Laboratory test result Abnormal (applies to non-numeric results) [facility] ([facility]) Urine Leukocytes Laboratory test result [facility] ([facility]) Urine Nitrite Laboratory test result [facility] ([facility]) Urine Ketone Laboratory test result [facility] ([facility]) Glucose [Presence] in Urine Laboratory test result [facility] Bilirubin.total [Mass/volume] in Serum or Plasma Laboratory test resu lt [facility] ([facility]) Urine Urobilinogen 0.2 mg/dL 0.2-1.0 [facility] ([facility]) ID Date Data Source [id number] 04/18/2019 12:23:00 PM EST [facility] ([facility]) Name Value Range Interpretation Code Description Data Natalie rce(s) Supporting Document(s) Bacteria identified in Urine by Culture <pending> [facility] ([facility]) ID Date Data Source [id number] 03/01/2019 12:00:00 AM EST [facility] Fouzia Calero DO Patient Name: GRICEL [id number] [facility] Date of Exam: 03/01/2019PATRICIA Dangelo [id number]#: Fax: [phone] EXAM: CT ABDOMEN & PELVIS WITHOUT&WITH CONTRASTCLINICAL INFORMATION: 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 Electronically Signed - ANGEL PHAN MD 03/01/19 18:02 Name Value Range Interpretation Code Description Data Natalie rce(s) Supporting Document(s) ID Date Data Source [id number] 02/19/2019 11:19:00 AM EST [facility] ([facility]) Name Value Range Interpretation Code Description Data Natalie rce(s) Supporting Document(s) Triglyceride [Mass/volume] in Serum or Plasma 87 mg/dL 30-150 [facility] ([facility]) Cholesterol [Mass/volume] in Serum or Plasma 220 mg/dL 131-200 [facility] ([facility]) Cholesterol in LDL [Mass/volume] in Serum or Plasma by calcu lation 136 CALC 50-159 [facility] ([facility]) Cholesterol in HDL [Mass/volume] in Serum or Plasma 67 mg/dL 35-60 [facility] ([facility]) ID Date Data Source [id number] 02/19/2019 11:19:00 AM EST [facility] ([facility]) Name Value Range Interpretation Code Description Data Natalie rce(s) Supporting Document(s) Glucose [Mass/volume] in Serum or Plasma 94 mg/dL 74-99 [facility] ([facility]) 100-125 mg/dL PRE-DIABETES/FASTING >126 mg/dL DIABETES/FASTING Creatinine 1.2 mg/dL 0.6-1.3 [facility] ([facility]) Urea nitrogen [Mass/volume] in Serum or Plasma 31 mg/dL 7-18 [facility] ([facility]) Sodium [Moles/volume] in Serum or Plasma 140 meq/L 136-145 [facility] ([facility]) Carbon dioxide, total [Moles/volume] in Serum or Plasma 24 meq/L 21 -32 [facility] ([facility]) Potassium [Moles/volume] in Serum or Plasma 4.5 meq/L 3.5-5.1 [facility] ([facility]) Chloride [Moles/volume] in Serum or Plasma 104 meq/L 98-107 [facility] ([facility]) Calcium [Mass/volume] in Serum or Plasma 9.6 mg/dL 8.5-10.1 [facility] ([facility]) Alkaline phosphatase isoenzyme [Units/volume] in Serum or Pl asma 167 mg/dL 46-116 [facility] ([facility]) Total Bilirubin 0.6 mg/dL 0.2-1.0 [facility] ([facility]) Albumin [Mass/volume] in Serum or Plasma 3.7 g/dL 3.4-5.0 [facility] ([facility]) Alanine aminotransferase [Enzymatic activity/volume] in Seru m or Plasma 11 U/L 12-78 [facility] ([facility]) Aspartate aminotransferase [Enzymatic activity/volume] in Serum or Plasma 14 U/L 15-37 [facility] ([facility] ) Proteinase 3 Ab [Units/volume] in Serum 7.3 g/dL 6.4-8.2 [facility] ([facility]) A/G Ratio 1.03 CALC 1.00-1.90 [facility] ([facility]) Glomerular filtration rate/1.73 sq M pre dicted among blacks [Volume Rate/Area] in Serum or Plasma by Creatinine-based formula (MDRD) 52 mL/min [facility] [facility] <content>CHRONIC KIDNEY DISEASE STAGING PER NKF</content>
<content></content>
<content>STAGE I & II GFR >= 60 NORMAL TO MILDLY DECREASED</content>
<content>STAGE III GFR 30-59 MODERATELY DECREASED</content>
<content>STAGE IV GFR 15-29 SEVERELY DECREASED</content>
<content>STAGE V GFR <15 VERY LITTLE GFR LEFT</content>
<content>ESRD GFR <15 ON PRESS SETTER</content>
<content></content> Glomerular filtration rate/1.73 sq M pre dicted among non-blacks [Volume Rate/Area] in Serum or Plasma by Creatinine-based formula (MDRD) 42 mL/min [facility] [place] [facility] ID Date Data Source [id number] 02/19/2019 11:19:00 AM EST [facility] ([facility]) Name Value Range Interpretation Code Description Data Natalie rce(s) Supporting Document(s) Leukocytes [#/volume] in Blood by Automated count 4.8 x10*3/UL 4.1-10 .9 [facility] ([facility]) Hemoglobin [Mass/volume] in Blood 12.6 g/dL 12.0-18.0 [facility] ([facility]) Erythrocytes [#/volume] in Blood by Automated count 4.25 x10*6/UL 4.2 0-6.30 [facility] ([facility]) Hematocrit [Volume Fraction] of Blood by Automated count 38.7 % 3 7.0-51.0 [facility] ([facility]) MCV 91.1 fL 80.0-97.0 [facility] [facility] MCH 29.6 pg 26.0-32.0 [facility] [facility] MCHC 32.5 g/dL 31.0-38.0 [facility] [facility] Platelets [#/volume] in Blood by Automated count 251 x10*3/UL 140-440 [facility] ([facility]) Erythrocyte distribution width [Ratio] by Automated count 13.7 % 11.6-13.7 [facility] ([facility]) MPV 8.5 FL 7.8-11.0 [facility] [facility] Mid % 8.2 % 1.7-9.3 [facility] [facility] Lymph % 26.1 % 10.0-58.5 [facility] [facility] Lymph # 1.2 x10*3/UL 0.6-4.1 [facility] ([facility]) Neut % 65.7 % 37.0-92.0 [facility] [facility] Mid # 0.5 x10*3/UL 0.1-0.6 [facility] ([facility]) Neut # 3.1 x10*3/UL 2.0-7.8 [facility] ([facility]) Procedure Vital Signs ID Date Data Source [id number] Name Value Range Interpretation Code Description Data Source(s) Body mass index (BMI) [Ratio] 20.9 kg/m2 20.9 k g/m2 [facility] ([facility]) Body weight 105.38 [lb_av] 105.38 [lb_av] [facility] ([facility]) Body height 59.50 [in_i] 59.50 [in_i] [facility] 4'11.50" Body temperature 97.6 [degF] 97.6 [degF] [facility] ([facility]) Diastolic blood pressure 80 mm[Hg] 80 mm[Hg] [facility] ([facility]) RT Arm Systolic blood pressure 122 mm[Hg] 122 mm[Hg] M [facility] ([facility]) RT Arm Body mass index (BMI) [Ratio] 20.8 kg/m2 20.8 k g/m2 [facility] ([facility]) Body height 59 [in_i] 59 [in_i] [facility] ([facility]) 4'11" Body weight 103.00 [lb_av] 103.00 [lb_av] [facility] ([place] [facility], [facility]) Body temperature 97.6 [degF] 97.6 [degF] [facility] ([facility], [facility]) Oxygen saturation in Arterial blood by Pulse oximetry 96 % 96 % [facility] ([place] [facility]) Respiratory rate 12 /min 12 /min [facility] ( [place] [facility], [facility]) Heart rate 79 /min 79 /min [facility] ([facility]) Diastolic blood pressure 94 mm[Hg] 94 mm[Hg] [facility] ([place] [facility]) Systolic blood pressure 170 mm[Hg] 170 mm[Hg] [facility] [facility]) Body mass index (BMI) [Ratio] 20.5 kg/m2 20.5 k g/m2 [facility] ([facility]) Oxygen saturation in Arterial blood by Pulse oximetry --post exerci se 98 % 98 % [facility] ([facility]) RM Air Body weight 103.00 [lb_av] 103.00 [lb_av] [facility] ([facility]) Body height 59.50 [in_i] 59.50 [in_i] [facility] 411.50" Heart rate 77 /min 77 /min [facility] ([facility]) Diastolic blood pressure 84 mm[Hg] 84 mm[Hg] [facility] ([facility]) RT Arm Systolic blood pressure 112 mm[Hg] 112 mm[Hg] [facility]) RT Arm
--- NOTE | 2020-04-06 10:22 | REP ---
INDICATION: CVA - Nursing interventions must not delay CT COMPARISON: 04/04/2020 TECHNIQUE: Axial noncontrast images from the skull base to the thoracic inlet with coronal reformations. This CT examination was performed using the following dose reduction techniques: Automated exposure control, adjustment of mA and/or kv according to the patient's size, and use of iterative reconstruction technique. FINDINGS: Periventricular leukomalacia, atrophy and microvascular ischemic changes are appreciated. 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 The ventricles and sulci are symmetric. Corey-white differentiation is maintained. There is no evidence for acute intracranial hemorrhage, mass/mass effect, pathology or infarction. No extra-axial fluid collection. Calvarium is intact. Paranasal sinuses and mastoid air cells are clear. IMPRESSION: Atrophy and microvascular ischemic changes. No acute intracranial hemorrhage, infarction, or mass/mass effect. <Electronically signed by Daniel Baker > 04/06/20 [id number]
--- NOTE | 2020-04-06 10:23 | REP ---
INDICATION: CVA COMPARISON: 01/06/2019 TECHNIQUE: Portable AP view of the chest FINDINGS: The mediastinum and cardiac silhouette are stable and within normal limits for portable technique. The lung lanier demonstrate chronic changes without acute consolidation, effusion, or pneumothorax. Skeletal structures are intact. IMPRESSION: No acute cardiopulmonary process appreciated. <Electronically signed by Daniel Baker > 04/06/20 [id number]
[2020-04-06 10:49] LABS: BASO % 0.4 % (0.0-1.0); EOS # 0.1 10^3/uL (0.0-0.5); EOS % 0.6 % (0.0-3.0); HEMATOCRIT 44.2 % (36.0-47.0); HEMOGLOBIN 13.9 g/dl (12.0-15.5); LYMPH # 0.7 10^3/uL (1.5-5.0); LYMPH % 8.8 % (24.0-44.0); MEAN CORPUSCULAR HEMOGLOBIN 28.7 pg (27.0-33.0); MEAN CORPUSCULAR HGB CONC 31.4 g/dl (32.0-36.5); MEAN CORPUSCULAR VOLUME 91.3 fl (80.0-96.0); MONO # 0.5 10^3/uL (0.0-0.8); MONO % 6.3 % (2.0-8.0); NEUTROPHILS % 83.2 % (36.0-66.0); PLATELET COUNT, AUTOMATED 211 10^3/uL (150-450); RED BLOOD COUNT 4.84 10^6/uL (4.00-5.40); WHITE BLOOD COUNT 8.5 10^3/uL (4.0-10.0)
[2020-04-06 10:58] LABS: INR 0.96
[2020-04-06 10:59] LABS: PARTIAL THROMBOPLASTIN TIME 29.9 SECONDS (24.2-38.5)
[2020-04-06 11:20] LABS: ALBUMIN 3.7 GM/DL (3.2-5.2); BILIRUBIN,DIRECT 0.2 MG/DL (0.0-0.2); BILIRUBIN,TOTAL 1.2 MG/DL (0.2-1.0); CALCIUM LEVEL 9.4 MG/DL (8.8-10.2); CK-MB VALUE MASS 1.4 NG/ML (<3.6); CREATININE FOR GFR 0.95 MG/DL (0.55-1.30); GLOMERULAR FILTRATION RATE 59.1 (>32); MB/CK RELATIVE INDEX 1.89 (< OR =4); POTASSIUM SERUM 4.4 MEQ/L (3.5-5.1); TOTAL PROTEIN 6.8 GM/DL (6.4-8.2); TROPONIN I 0.04 NG/ML (< 0.10)
[2020-04-06] MEDS ORDERED: ASPI-161 PO (12:27)
[2020-04-06] MEDS ORDERED: PLAV1TAB2 PO (12:27)
[2020-04-06] MEDS ORDERED: ATOR80TA59 PO (12:27)
[2020-04-06] MEDS ORDERED: AMLO1TAB24 PO (12:27)
[2020-04-06] MEDS ORDERED: hydrALAZINE 20MG/ML 1ML VIAL (J0360 PER 20MG) IV ONE (12:45)
--- NOTE | 2020-04-06 13:33 | REP ---
INDICATION: fall. COMPARISON: None. TECHNIQUE: AP view of the pelvis and AP and frogleg views of the right hip are obtained. FINDINGS: There is marked diffuse osteopenia. There is orthopedic hull in the left hip across a healed fracture. No acute pelvic or sacral fracture is seen. The right hip is intact. No right hip fracture is seen. There is some chondrocalcinosis and mild spurring at the right hip. There is also mild spurring at the symphysis pubis. Visualized bowel gas pattern is normal. IMPRESSION: Diffuse osteopenia. Old pinned fracture left hip. No acute hip or pelvic fracture seen. Right hip osteoarthritic changes. <Electronically signed by Hiren Buchanan > 04/06/20 [id number]
--- NOTE | 2020-04-06 13:54 | REP ---
INDICATION: fall. COMPARISON: None. TECHNIQUE: AP and lateral views of the right femur are presented. FINDINGS: Two views of the right mid and distal femur demonstrate diffuse osteopenia and vascular calcification. No fracture or subluxation is seen. There are degenerative changes in the knee joint including joint space narrowing and chondrocalcinosis. IMPRESSION: Diffuse osteopenia. Degenerative changes at the knee. Vascular calcification. No fracture seen.. <Electronically signed by Hiren Buchanan > 04/06/20 [id number]
[2020-04-06] MEDS ORDERED: MOM 30ML SUSPENSION UDC PO PRN (16:45)
[2020-04-06] MEDS ORDERED: MAALOX 30 ML SUSP *UDC PO PRN (16:45)
[2020-04-06] MEDS ORDERED: ACETAMINOPHEN TAB 650MG DOSE (2X325MG) PO PRN (16:45)
--- OUTSIDE RECORDS SUMMARY | 2020-04-06 16:46 | CCD ---
Author Author [facility] Organization [facility] Address Unknown Phone Unavailable Care Team Providers Care Agent Licensing Clerk Name Role Phone Galilea, Fouzia DO Unavailable [...] is protected by Article 27-F of the [facility] Public Health law. If you continue you may have access to information: Regarding HIV / AIDS; Provided by facilities licensed or operated by the [facility] Office of Mental Health; or Provided by the [facility] Office for People With Developmental Disabilities. If such information is present, then the following [facility] mandated warning applies: This information has [...] law may result in a fine or chcf sentence or both. A general authorization for [...] Fouzia Herrera 10/21 10:20:00 AM EDT [facility] ([facility] ) Outpatient Referrer: Fouzia Calero DO 04/26/2019 12:19:00 PM EDT [facility] Outpatient Attender: CHEMA Monroe 04/18/2019 10:20:00 AM EST [facility] ([facility]) Outpatient Referrer: Fouzia Calero DO 03/01/2019 [...] 10/22/2019 12:00:00 AM EDT ORAL active [facility] ([facility]) 5 mg 10/22/2019 12:00:00 AM EDT tablet 30 TAKE ONE TABLET BY MOUTH EVERY DAY AT BEDTIME TAKE ONE TABLET BY MOUTH EVERY DAY AT BEDTIME SOLD: 10/23/2019 [facility] NITROFURANTOIN, MACROCRYSTALS 25 MG / Ni trofurantoin, Monohydrate 75 MG Oral Capsule [Macrobid] Macrobid 04/18/2019 12:00:00 AM EST ORAL active [facility] ([facility]) Cephalexin 500 MG Oral Tablet Cephalexin 04/18/2019 12:00:00 AM EST ORAL completed [facility] ([facility]) Prednisone 10 MG Oral Tablet Prednisone 04/18/2019 12:00:00 AM EST ORAL active [facility] ([facility]) 100 mg 04/18/2019 12:00:00 AM EST capsule 10 TAKE ONE CAPSULE BY MOUTH EVERY 12 HOURS FOR 5 DAYS TAKE ONE CAPSULE BY MOUTH EVERY 12 HOURS FOR 5 DAYS SO LD: 04/18/2019 [facility] No Active Medications 04/18/2019 12:00:00 AM EST completed [facility] ([facility]) 10 mg 04/18/2019 12:00:00 AM EST tablet 8 TAKE ONE TABLET BY MOUTH TWICE A DAY FOR 4 DAYS TAKE ONE TABLET BY MOUTH TWICE A DAY FOR 4 DAYS SOLD: 2019 [facility] tramadol hydrochloride 50 MG Oral Tablet Tramadol HCL 02/19/2019 12:00:00 AM EST active [facility] ([facility]) 8 HR Acetaminophen 650 MG Extended Release Oral Tablet [Tylenol] Tylenol 8 Hour Arthritis Pain 02/19/2019 12:00:00 AM EST ORAL active [facility] ([facility]) Fouzia [employer] 02/19/2019 12:00:00 AM EST ORAL active [facility] ([facility]) Insurance Providers Payer name Policy type / Coverage type Policy ID Covered libertarian ID Covered libertarian's relationship to anderson Policy Anderson Plan Information EMEDNY [id number] SP [id number] MEDICARE COMPLETE [id number] SP [id number] MEDICARE COMPLETE-[facility] O [id number] S [id number] MEDICAID M [id number] MEDICAID [id number] SP [id number] [facility] MCRO [id number] SP [id number] [facility] MCRO [id number] SP [id number] [employer] [facility](MCAID) O [id number] S [id number] MEDICARE C [id number] S [id number] [employer] [facility] [facility] MCRO [id number] SP [id number] [facility] [facility] MCRO [id number] SP [id number] [facility] (MCR) Commercial [id number] Self [id number] [facility] Commercial [id number] Self [id number] Results ID Date Data Source [id number] 04/04/2020 06:37:00 PM EST [facility] ([facility]) Name Value Range Interpretation Code Description Data Natalie rce(s) Supporting Document(s) Influenza A Amplification Laboratory test result [facility] ([facility]) Negative results do not preclude influen za or RSV virus infection and should not be used as the sole basis for treatment or other patient management decisions. Influenza B Amplification Laboratory test result [facility] ([facility]) Negative results do not preclude influen za or RSV virus infection and should not be used as the sole basis for treatment or other patient management decisions. RSV Amplification Laboratory test result [facility] ([facility]) Negative results do not preclude influen za or RSV virus infection and should not be used as the sole basis for treatment or other patient management decisions. Laboratory test finding (navigational concept) Laboratory test result [facility] ([facility]) A false negative result may occur if a s pecimen is improperly collected, transported or handled. False negative results may also occur if inadequate numbers of organisms are present in the specimen. As with any molecular test, mutations within the target regions of [employer] SARS-CoV-2 could affect primer and/or probe binding resulting in failure to detect the presence of virus. This test cannot rule out diseases caused by other bacterial or viral pathogens. DISCLAIMER: Testing was performed using the [employer] SARS-CoV-2 test. This test was developed and its performance characteristics determined by [employer]. This test has not been FDA cleared or approved. This test has been authorized by FDA under an Emergency Use Authorization (EUA). This test is only authorized for the duration of time the declaration that circumstances exist justifying the authorization of the emergency use of in vitro diagnostic tests for detection of SARS-CoV-2 virus and/or diagnosis of COVID-19 infection under section 564(b)(1) of the Act, 21 U.S.C. 360bbb-3(b)(1), unless the authorization is terminated or revoked sooner. ID Date Data Source [id number] 04/04/2020 06:37:00 PM EST [facility] Name Value Range Interpretation Code Description Data Natalie rce(s) Supporting Document(s) SARS coronavirus 2 RNA [Presence] in Res piratory specimen by TAN with probe detection NEGATIVE [facility] This lab was ordered by [facility] a nd reported by [facility]. ID Date Data Source [id number] 04/04/2020 05:22:00 PM EST [facility] ([facility]) Name Value Range Interpretation Code Description Data Natalie rce(s) Supporting Document(s) CK-MB Value Mass 1.3 ng/mL [facility] ([facility]) CPK Creatine Phosphokinase 38 U/L 26-192 [facility] ([facility]) Troponin I 0.04 ng/mL [facility] ([facility]) <content>Troponin I Reference Interval f or Siemens Nolan LOCI:</content>
<content></content>
<content>99th Percentile= 0.00-0.045 ng/ml</content>
<content></content>
<content>Risk Stratification:</content>
<content><= 0.10 ng/ml Decreased Risk for Adverse Clinical</content>
<content>Events.</content>
<content>0.10-1.50 ng/ml Increased Risk for Adverse Clinical</content>
<content>Events. Evaluation of additional</content>
<content>criterion and/or repeat testing in 2-6</content>
<content>hours is suggested to rule out myocardial</content>
<content>damage.</content>
<content>>= 1.50 ng/ml Indicative of Myocardial Injury.</content>
<content></content> MB/CK Relative Index 3.42 [facility] ([facility]) <content>DIAGNOSIS CRITERIA</content>
<content>MMB ng/ml Relative Index (RI)</content>
<content>NON-AMI < or = 5 N/A</content>
<content>PHAN ZONE > 5 < or = 4</content>
<content>AMI > 5 > 4</content>
<content></content> ID Date Data Source [id number] 04/04/2020 02:28:00 PM EST [facility] Name Value Range Interpretation Code Description Data Natalie rce(s) Supporting Document(s) CPK Creatine Phosphokinase 30 U/L 26-192 [facility] ([facility]) CK-MB Value Mass Laboratory test result [facility] ([facility]) MB/CK Relative Index 3.33 [facility] ([facility]) <content>DIAGNOSIS CRITERIA</content>
<content>MMB ng/ml Relative Index (RI)</content>
<content>NON-AMI < or = 5 N/A</content>
<content>PHAN ZONE > 5 < or = 4</content>
<content>AMI > 5 > 4</content>
<content></content> Troponin I 0.04 ng/mL [facility] <content>Troponin I Reference Interval f or Siemens Nolan LOCI:</content>
<content></content>
<content>99th Percentile= 0.00-0.045 ng/ml</content>
<content></content>
<content>Risk Stratification:</content>
<content><= 0.10 ng/ml Decreased Risk for Adverse Clinical</content>
<content>Events.</content>
<content>0.10-1.50 ng/ml Increased Risk for Adverse Clinical</content>
<content>Events. Evaluation of additional</content>
<content>criterion and/or repeat testing in 2-6</content>
<content>hours is suggested to rule out myocardial</content>
<content>damage.</content>
<content>>= 1.50 ng/ml Indicative of Myocardial Injury.</content>
<content></content> ID Date Data Source [id number] 04/04/2020 02:28:00 PM EST [facility] ([facility]) Name Value Range Interpretation Code Description Data Natalie rce(s) Supporting Document(s) Glucose, Fasting 99 mg/dL 70-100 [facility] ([facility]) Creatinine For GFR 0.96 mg/dL 0.55-1.30 [facility] ([facility]) Blood Urea Nitrogen 20 mg/dL 7-18 [facility] ([facility]) Glomerular Filtration Rate 58.4 [facility] <content>Units are mL/min/1.73 m2</content>
<content></content>
<content>Chronic Kidney Disease Staging per NKF:</content>
<content></content>
<content>Stage I & II GFR >=60 Normal to Mildly Decreased</content>
<content>Stage III GFR 30- 59 Moderately Decreased</content>
<content>Stage IV GFR 15-29 Severely Decreased</content>
<content>Stage V GFR <15 Very Little GFR Left</content>
<content>ESRD GFR <15 on RESEARCH QUALITY ASSURANCE SPECIALIST</content>
<content></content> Potassium Serum 3.8 meq/L 3.5-5.1 [facility] ([facility]) Sodium Level 141 meq/L 136-145 [facility] ([facility]) Chloride Level 108 meq/L 98-107 [facility] ([facility]) Carbon Dioxide Level 26 meq/L 21-32 [facility] ([facility]) Calcium Level 8.9 mg/dL 8.8-10.2 [facility] ([facility]) Anion Gap 7 meq/L 8-16 [facility] Ast/Sgot 11 U/L 7-37 [facility] ([facility]) Alt/SGPT 10 U/L 12-78 [facility] Alkaline Phosphatase 126 U/L 45-117 [facility] ([facility]) Total Protein 6.3 GM/DL 6.4-8.2 [facility] ([facility]) Bilirubin,Total 0.4 mg/dL 0.2-1.0 [facility] ([facility]) Albumin/Globulin Ratio 1.2 1.2-2.2 [facility] ([facility]) Albumin 3.4 GM/DL 3.2-5.2 [facility] ([facility]) ID Date Data Source [id number] 04/04/2020 02:28:00 PM EST [facility] ([facility]) Name Value Range Interpretation Code Description Data Natalie rce(s) Supporting Document(s) White Blood Count 3.9 10 4.0-10.0 [facility] ([facility]) Red Blood Count 4.35 10 4.00-5.40 [facility] ([facility]) Hemoglobin 12.7 g/dL 12.0-15.5 [facility] ([facility]) Mean Corpuscular Hemoglobin 29.2 pg 27.0-33.0 MD D[facility] ([facility]) Hematocrit 39.8 % 36.0-47.0 [facility] ([facility]) Mean Corpuscular Volume 91.5 fl 80.0-96.0 [facility] ([facility]) Platelet Count, Automated 203 10 150-450 MEDE NT ([facility]) Mean Corpuscular HGB Conc 31.9 g/dL 32.0-36.5 [facility]E NT ([facility]) Red Cell Distribution Width 12.1 % 11.5-14.5 [facility] ([facility]) Lymph % 22.0 % 24.0-44.0 [facility]) Neutrophils % 65.0 % 36.0-66.0 [facility] ([facility]) Carlton % 9.1 % 2.0-8.0 [facility]) Eos % 2.8 % 0.0-3.0 [facility]) Nucleated Red Blood Cell % 0.0 % 0-0 [facility] ([facility]) Baso % 0.8 % 0.0-1.0 [facility]) Immature Granulocyte % 0.3 % 0-3.0 [facility] ([facility]) Lymph # 0.9 10 1.5-5.0 [facility]) Neutrophils # 2.5 10 1.5-8.5 [facility] ([facility]) Carlton # 0.4 10 0.0-0.8 [facility]) Eos # 0.1 10 0.0-0.5 [facility]) Baso # 0.0 10 0.0-0.2 [facility]) ID Date Data Source [id number] 11/08/2019 12:00:00 AM EDT [facility] Fouzia Calero DO Patient Name: GRICEL [id number] Date of : 1930[facility] [address] Date of Exam: 11/08/2019PATRICIA Dangelo [id number]#: Fax: [phone] EXAM: US RETROPERITONEAL, COMPLETE(RENAL/AORTA)CLINICAL INFORMATION: [...] renal cyst as described above.Accredited by the [employer] in General Ultrasound.UZMA Montero/Pelon you for referring GRICEL REDDY to our office. Electronically Signed - BRENDA BAILEY DO 11/08/19 13:52 Name Value Range Interpretation Code Description Data Natalie rce(s) Supporting Document(s) ID Date Data Source [id number] 10/22/2019 11:05:00 AM EDT JIMY ([facility]) Name Value Range Interpretation Code Description Data Natalie rce(s) Supporting Document(s) Thyrotropin [Units/volume] in Serum or Plasma by Detec tion limit <= 0.05 mIU/L 1.38 uIU/mL 0.36-3.74 JIMY ([facility] ) ID Date Data Source [id number] 10/22/2019 11:05:00 AM EDT [facility] ([facility]) Name Value Range Interpretation Code Description Data Natalie rce(s) Supporting Document(s) Glucose [Mass/volume] in Serum or Plasma 87 mg/dL 74-99 [facility] ([facility]) 100-125 mg/dL PRE-DIABETES/FASTING >126 mg/dL DIABETES/FASTING Urea nitrogen [Mass/volume] in Serum or Plasma 24 mg/dL 7-18 [facility] ([facility]) Creatinine 1.2 mg/dL 0.6-1.3 [facility] ([facility]) Sodium [Moles/volume] in Serum or Plasma 142 meq/L 136-145 [facility] ([facility]) Potassium [Moles/volume] in Serum or Plasma 4.0 meq/L 3.5-5.1 [facility] ([facility]) Chloride [Moles/volume] in Serum or Plasma 106 meq/L 98-107 [facility] ([facility]) Calcium [Mass/volume] in Serum or Plasma 9.1 mg/dL 8.5-10.1 [facility] ([facility]) Carbon dioxide, total [Moles/volume] in Serum or Plasma 26 meq/L 21 -32 [facility] ([facility]) Aspartate aminotransferase [Enzymatic activity/volume] in Serum or Plasma 16 U/L 15-37 [facility] ([facility] ) Total Bilirubin 0.6 mg/dL 0.2-1.0 [facility] ([facility]) Alkaline phosphatase isoenzyme [Units/volume] in Serum or Pl asma 129 mg/dL 46-116 [facility] ([facility]) Alanine aminotransferase [Enzymatic activity/volume] in Seru m or Plasma 13 U/L 12-78 [facility] ([facility]) Albumin [Mass/volume] in Serum or Plasma 3.9 g/dL 3.4-5.0 [facility] ([facility]) Proteinase 3 Ab [Units/volume] in Serum 7.4 g/dL 6.4-8.2 [facility] ([facility]) Glomerular filtration rate/1.73 sq M pre dicted among non-blacks [Volume Rate/Area] in Serum or Plasma by Creatinine-based formula (MDRD) 42 mL/min [facility] A/G Ratio 1.11 CALC 1.00-1.90 [facility] ([facility]) Glomerular filtration rate/1.73 sq M pre dicted among blacks [Volume Rate/Area] in Serum or Plasma by Creatinine-based formula (MDRD) 51 mL/min [facility] <content>CHRONIC KIDNEY DISEASE STAGING PER NKF</content>
<content></content>
<content>STAGE I & II GFR >= 60 NORMAL TO MILDLY DECREASED</content>
<content>STAGE III GFR 30-59 MODERATELY DECREASED</content>
<content>STAGE IV GFR 15-29 SEVERELY DECREASED</content>
<content>STAGE V GFR <15 VERY LITTLE GFR LEFT</content>
<content>ESRD GFR <15 ON RESEARCH QUALITY ASSURANCE SPECIALIST</content>
<content></content> ID Date Data Source [id number] 10/22/2019 11:05:00 AM EDT [facility] ([facility]) Name Value Range Interpretation Code Description Data Natalie rce(s) Supporting Document(s) Leukocytes [#/volume] in Blood by Automated count 4.8 x10*3/UL 4.1-10 .9 [facility] Hemoglobin [Mass/volume] in Blood 14.0 g/dL 12.0-18.0 [facility] Erythrocytes [#/volume] in Blood by Automated count 4.61 x10*6/UL 4.2 0-6.30 [facility] MCV 90.4 fL 80.0-97.0 [facility] ([facility]) Hematocrit [Volume Fraction] of Blood by Automated count 41.7 % 3 7.0-51.0 [facility] ([facility]) MCH 30.5 pg 26.0-32.0 [facility] ([facility]) MCHC 33.7 g/dL 31.0-38.0 [facility] ([facility]) Erythrocyte distribution width [Ratio] by Automated count 13.1 % 11.6-13.7 [facility] ([facility]) Lymph % 30.2 % 10.0-58.5 [facility] ([facility]) MPV 8.1 FL 7.8-11.0 [facility] ([facility]) Platelets [#/volume] in Blood by Automated count 223 x10*3/UL 140-440 [facility] ([facility]) Mid % 8.7 % 1.7-9.3 [facility] ([facility]) Neut % 61.1 % 37.0-92.0 [facility] ([facility]) Neut # 2.9 x10*3/UL 2.0-7.8 [facility] ([facility]) Mid # 0.5 x10*3/UL 0.1-0.6 [facility] ([facility]) Lymph # 1.4 x10*3/UL 0.6-4.1 [facility] ([facility]) ID Date Data Source [id number] 10/22/2019 10:30:00 AM EDT [facility] Name Value Range Interpretation Code Description Data Natalie rce(s) Supporting Document(s) Urine Color Laboratory test result [facility] T [facility] Urine Appearance Laboratory test result Abnormal (applies to non-numeric results) [facility] Specific gravity of Urine 1.030 1.005-1.030 [facility] Urine PH 5.0 units 5.0-9.0 [facility] Urine Protein Laboratory test result 0-0 [facility] Urine Blood Laboratory test result Abnormal (applies to non-numeric results) [facility] ([facility]) Urine Leukocytes Laboratory test result [facility] ([facility]) Urine Nitrite Laboratory test result [facility]) Glucose [Presence] in Urine Laboratory test result [facility]) Bilirubin.total [Mass/volume] in Serum or Plasma Laboratory test resu lt [facility] ([facility]) Urine Ketone Laboratory test result MEDE NT ([facility]) Urine Urobilinogen 0.2 mg/dL 0.2-1.0 [facility] ([facility]) ID Date Data Source [id number] 04/18/2019 12:23:00 PM EST [facility] ([facility]) Name Value Range Interpretation Code Description Data Natalie rce(s) Supporting Document(s) Bacteria identified in Urine by Culture <pending> [facility]) ID Date Data Source [id number] 03/01/2019 12:00:00 AM EST 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 Electronically Signed - ANGEL PHAN MD 03/01/19 18:02 Name Value Range Interpretation Code Description Data Natalie rce(s) Supporting Document(s) ID Date Data Source [id number] 02/19/2019 11:19:00 AM EST [facility] ([facility]) Name Value Range Interpretation Code Description Data Natalie rce(s) Supporting Document(s) Triglyceride [Mass/volume] in Serum or Plasma 87 mg/dL 30-150 [facility] ([facility]) Cholesterol [Mass/volume] in Serum or Plasma 220 mg/dL 131-200 [facility] ([facility]) Cholesterol in LDL [Mass/volume] in Serum or Plasma by calcu lation 136 CALC 50-159 [facility] ([facility]) Cholesterol in HDL [Mass/volume] in Serum or Plasma 67 mg/dL 35-60 [facility] ([facility]) ID Date Data Source [id number] 02/19/2019 11:19:00 AM EST [facility] ([facility]) Name Value Range Interpretation Code Description Data Natalie rce(s) Supporting Document(s) Glucose [Mass/volume] in Serum or Plasma 94 mg/dL 74-99 [facility] ([facility]) 100-125 mg/dL PRE-DIABETES/FASTING >126 mg/dL DIABETES/FASTING Creatinine 1.2 mg/dL 0.6-1.3 [facility] ([facility]) Urea nitrogen [Mass/volume] in Serum or Plasma 31 mg/dL 7-18 [facility] ([facility]) Sodium [Moles/volume] in Serum or Plasma 140 meq/L 136-145 [facility] ([facility]) Carbon dioxide, total [Moles/volume] in Serum or Plasma 24 meq/L 21 -32 [facility] ([facility]) Potassium [Moles/volume] in Serum or Plasma 4.5 meq/L 3.5-5.1 [facility] ([facility]) Chloride [Moles/volume] in Serum or Plasma 104 meq/L 98-107 [facility] ([facility]) Calcium [Mass/volume] in Serum or Plasma 9.6 mg/dL 8.5-10.1 [facility] ([facility]) Alkaline phosphatase isoenzyme [Units/volume] in Serum or Pl asma 167 mg/dL 46-116 [facility] ([facility]) Total Bilirubin 0.6 mg/dL 0.2-1.0 [facility] ([facility]) Albumin [Mass/volume] in Serum or Plasma 3.7 g/dL 3.4-5.0 [facility] ([facility]) Alanine aminotransferase [Enzymatic activity/volume] in Seru m or Plasma 11 U/L 12-78 [facility] ([facility]) Aspartate aminotransferase [Enzymatic activity/volume] in Serum or Plasma 14 U/L 15-37 [facility] Proteinase 3 Ab [Units/volume] in Serum 7.3 g/dL 6.4-8.2 [facility] A/G Ratio 1.03 CALC 1.00-1.90 [facility] Glomerular filtration rate/1.73 sq M pre dicted among blacks [Volume Rate/Area] in Serum or Plasma by Creatinine-based formula (MDRD) 52 mL/min [facility] <content>CHRONIC KIDNEY DISEASE STAGING PER NKF</content>
<content></content>
<content>STAGE I & II GFR >= 60 NORMAL TO MILDLY DECREASED</content>
<content>STAGE III GFR 30-59 MODERATELY DECREASED</content>
<content>STAGE IV GFR 15-29 SEVERELY DECREASED</content>
<content>STAGE V GFR <15 VERY LITTLE GFR LEFT</content>
<content>ESRD GFR <15 ON RESEARCH QUALITY ASSURANCE SPECIALIST</content>
<content></content> Glomerular filtration rate/1.73 sq M pre dicted among non-blacks [Volume Rate/Area] in Serum or Plasma by Creatinine-based formula (MDRD) 42 mL/min [facility] ID Date Data Source [id number] 02/19/2019 11:19:00 AM EST [facility] ([facility]) Name Value Range Interpretation Code Description Data Natalie rce(s) Supporting Document(s) Leukocytes [#/volume] in Blood by Automated count 4.8 x10*3/UL 4.1-10 .9 [facility] ([facility]) Hemoglobin [Mass/volume] in Blood 12.6 g/dL 12.0-18.0 [facility] ([facility]) Erythrocytes [#/volume] in Blood by Automated count 4.25 x10*6/UL 4.2 0-6.30 [facility] Hematocrit [Volume Fraction] of Blood by Automated count 38.7 % 3 7.0-51.0 [facility] ([facility]) MCV 91.1 fL 80.0-97.0 [facility] MCH 29.6 pg 26.0-32.0 [facility] ([facility] MCHC 32.5 g/dL 31.0-38.0 [facility] ([facility] Platelets [#/volume] in Blood by Automated count 251 x10*3/UL 140-440 [facility] ([facility]) Erythrocyte distribution width [Ratio] by Automated count 13.7 % 11.6-13.7 [facility] ([facility]) MPV 8.5 FL 7.8-11.0 [facility] ([facility] Mid % 8.2 % 1.7-9.3 [facility] ([facility] Lymph % 26.1 % 10.0-58.5 [facility] ([facility] Lymph # 1.2 x10*3/UL 0.6-4.1 [facility] ([facility]) Neut % 65.7 % 37.0-92.0 [facility] Mid # 0.5 x10*3/UL 0.1-0.6 [facility] ([facility]) Neut # 3.1 x10*3/UL 2.0-7.8 [facility] ([facility]) Procedure Vital Signs ID Date Data Source UNK Name Value Range Interpretation Code Description Data Source(s) Body mass index (BMI) [Ratio] 20.9 kg/m2 20.9 k g/m2 [facility] ([facility]) Body weight 105.38 [lb_av] 105.38 [lb_av] [facility] ([facility]) Body height 59.50 [in_i] 59.50 [in_i] [facility] ([facility]) 4'11.50" Body temperature 97.6 [degF] 97.6 [degF] [facility] ([facility]) Diastolic blood pressure 80 mm[Hg] 80 mm[Hg] [facility] ([facility]) RT Arm Systolic blood pressure 122 mm[Hg] 122 mm[Hg] [facility] ([facility]) RT Arm Body mass index (BMI) [Ratio] 20.8 kg/m2 20.8 k g/m2 [facility] ([facility], [facility]) Body height 59 [in_i] 59 [in_i] [facility] ([facility]) 4'11" Body weight 103.00 [lb_av] 103.00 [lb_av] [facility] ([facility]) Body temperature 97.6 [degF] 97.6 [degF] [facility] ([facility]) Oxygen saturation in Arterial blood by Pulse oximetry 96 % 96 % [facility] ([facility], [facility]) Respiratory rate 12 /min 12 /min [facility] ( [facility], [facility]) Heart rate 79 /min 79 /min [facility] ([facility], [facility]) Diastolic blood pressure 94 mm[Hg] 94 mm[Hg] [facility] ([facility]) Systolic blood pressure 170 mm[Hg] 170 mm[Hg] [facility] ([facility]) Body mass index (BMI) [Ratio] 20.5 kg/m2 20.5 k g/m2 [facility] ([facility]) Oxygen saturation in Arterial blood by Pulse oximetry --post exerci se 98 % 98 % [facility] ([facility]) RM Air Body weight 103.00 [lb_av] 103.00 [lb_av] [facility] ([facility]) Body height 59.50 [in_i] 59.50 [in_i] [facility] ([facility]) 4'11.50" Heart rate 77 /min 77 /min [facility] ([facility]) Diastolic blood pressure 84 mm[Hg] 84 mm[Hg] [facility] ([facility]) RT Arm Systolic blood pressure 112 mm[Hg] 112 mm[Hg] [facility] ([facility]) RT Arm
--- NOTE | 2020-04-06 19:00 | HPEPDOC ---
[facility] Medical History & Physical Date of Admission Apr 06, 2020 Date of Service: Apr 06, 2020 History and Physical CHIEF COMPLAINT: R sided weakness, fall HISTORY OF PRESENT ILLNESS: 89 yo F with a hx of HTN, TIA (TIA dx on 04/04/17 and DC on 04/05/20 on ASA/plavix/statin), developed R sided arm and leg weakness along with R facial droop and slurred speech on evening of 04/05/20. Per family, patient developed symptoms 30 minutes after arrival home. Her family could not understand her and she was unable to open a bottle of water with her R hand, and her R foot was dragging. Subsequently she fell to the ground in the [place], onto her R hip, without head injury. On arrival to ED patient's speech and R sided weakness normalized, but recurred again on re-exam. CT head showed no acute CVA. RLE imaging including femur did not shoe fracture. I consulted Dr. Guo from the ED, recommended stat CTA head and neck along with repeat MRI brain wo contrast. CTA did not show severe stenosis, but MRI revealed clustered foci of L temporoparietal acute to early subacute ischemic infarct extending to the posterior L insula, in aggregate measuring 3 cm. As patient as out side of window, no tPA was administered. Patient also found to be hypertensive, but permissive hypertension will be practiced to maintain BP between 140 and 180 systolic. Patient will be admitted to hospitalist service for further stroke workup. PAST MEDICAL HISTORY: 1. Left renal cancer 2. Left hip fracture PAST SURGICAL HISTORY: 1. Appendectomy 2. Left hip fracture 3. 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 SOCIAL HISTORY: Patient denies smoking Patient denies etoh use Patient denies illicit drug use FAMILY HISTORY: Mother: Had to have her kidney's removed Father: Heart disease ALLERGIES: Please see below. REVIEW OF SYSTEMS: 10 point ROS completed, relevant findings noted in HPI HOME MEDICATIONS: Please see below. PHYSICAL EXAMINATION: VITAL SIGNS: please see below General: NAD, comfortable HEENT: PERRLA, EOMI, sclerae clear Neck: supple, normal ROM, no JVD Respiratory: lungs CTAB, no wheeze, no rales, no crackles CVS: RRR, normal S1, S2, no murmurs Abdo: soft, no masses, no hepatosplenomegaly, BS+, no rebound tenderness Extremities: no edema, pulses 2+ MSK: no joint deformities, normal ROM Neuro: no focal neuro deficits, moving all 4 extremities, CN2-12 intact. Strength 3/5 in RUE and RLE. No nystagmus. Has subtle R facial droop, and slurr ed speech Psych: calm, cooperative, AAO x 2 LABORATORY DATA: See below. IMAGING: MRI brain wo contrast (04/06/20): FINDINGS: Examination is motion limited. Moderate to severe volume loss. Major vascular flow voids at the skull base are preserved. No extra-axial fluid collection. No midline shift or intracranial mass effect. Nonspecific white matter gliosis, probable chronic microvascular ischemia. Clustered foci of left temporoparietal diffusion restriction extending to the posterior left insula measuring up to 3 cm in aggregate. Visualized paranasal sinuses and mastoid air cells are clear. IMPRESSION: Clustered foci of left temporoparietal acute to early subacute ischemic infarction extending to the posterior left insula measuring up to 3 cm in aggr egate. CTA neck (04/06/20): FINDINGS: Right common carotid artery: Mild plaquing involving the right common carotid artery greater distally with stenosis measuring up to 25%. Right internal carotid artery: No stenosis of the extracranial segment. No dissection or occlusion. Right external carotid artery: No occlusion or stenosis of the origin. Right vertebral artery: No stenosis. No dissection or occlusion. Left common carotid artery: There is plaquing most prominent at the proximal aspect of the left common carotid artery. Stenosis measures up to 40%. Left internal carotid artery: Mild calcification and plaquing at the proximal aspect of the left ICA. Stenosis measures up to 25%. Left external carotid artery: No occlusion or stenosis of the origin. Left vertebral artery: No stenosis. No dissection or occlusion. Subclavian arteries: Hypy-vx-imvmkusn stenosis involving the proximal left subclavian artery. Aorta: Aortic calcification. Bones/joints: There are degenerative changes involving the spine. Soft tissues: Normal. No significant soft tissue swelling. IMPRESSION: 1. 40% stenosis at the proximal left common carotid artery. 2. 25% stenosis at the proximal left ICA. 3. 25% stenosis at the distal right common carotid artery. 4. Zmeh-ln-wtnndlwb stenosis involving the proximal aspect of the left subclavian artery. CTA head (04/06/20): ANTERIOR CIRCULATION: Right internal carotid artery: Mild calcification involving the right carotid siphon without significant stenosis. Right middle cerebral artery: Unremarkable. No occlusion or significant stenosis. No aneurysm. Right anterior cerebral artery: Hypoplastic right A1 segment. Left internal carotid artery: Mild calcification involving the left carotid siphon without significant stenosis. Left middle cerebral artery: Unremarkable. No occlusion or significant stenosis. No aneurysm. Left anterior cerebral artery: Unremarkable. No occlusion or significant stenosis. No aneurysm. POSTERIOR CIRCULATION: Right vertebral artery: Unremarkable. No occlusion or significant stenosis. No aneurysm. Left vertebral artery: Xlwg-xv-qgywlnkr left vertebral artery stenosis. Basilar artery: Unremarkable. No occlusion or significant stenosis. No aneurysm. Right posterior cerebral artery: Unremarkable. No occlusion or significant stenosis. No aneurysm. Left posterior cerebral artery: origin of the left posterior cerebral artery. Moderate left SHAMPOO ASSISTANT P2 stenosis. Brain: No definite mass, mass effect, or midline shift. Cerebral ventricles: No ventriculomegaly. Bones/joints: Unremarkable. No acute fracture. Soft tissues: Unremarkable. IMPRESSION: 1. No large vessel occlusion. 2. Moderate left SHAMPOO ASSISTANT P2 stenosis. 3. Xwju-af-fynjzqqt left vertebral artery stenosis. MICROBIOLOGY: Please see below. ASSESSMENT: 89 yo F with a hx of HTN, TIA, presented with stroke symptoms (R sided weakness and slurred speech), confirmed CVA on MRI (L temporoparietal acute to early subacute) 3 cm in size. Admitted to hospitalist service for further stroke workup. . PLAN: CVA - confirmed on imaging as noted above - no severe stenosis noted on CTA head and neck - plan to assess for possible aort arch thrombus via CT chest w contrast vs. MELIA. D/w Dr. Banerjee, given age, CT would be preferred to avoid invasive procedure. - recently admitted for TIA between 04/04-04/05/20, without imaging findings and resolution of symptoms - was DC on 04/05/20 on ASA/plavix and atorvastatin - neurology consult - c/w DAPT and statin - given [address] once - permissive HTN, maintain BP 140-180 mmHg - labetalol 10 mg q6h IV prn for SBP > 180 mmHg - PT/OT and ST eval ordered HTN - resume amlodipine in am - permissive HTN for 24 hours - labetalol IV 10 mg q6h prn for SBP > 180 mmHg DVT ppx: SCDs, TEDs, Lovenox Vital Signs Vital Signs Date Time Temp Pulse Resp B/P (MAP) Pulse Ox O2 Delivery O2 Flow Rate FiO2 04/06/20 18:22 97 96 04/06/20 18:15 165/99 (121) 04/06/20 09:31 97.9 18 Room Air Laboratory Data Labs 24H Laboratory Tests 2 04/06/20 10:04: Immature Granulocyte % (Auto) 0.7, Neutrophils (%) (Auto) 83.2H, Lymphocytes (%) (Auto) 8.8L, Monocytes (%) (Auto) 6.3, Eosinophils (%) (Auto) 0.6, Basophils (%) (Auto) 0.4, Neutrophils # (Auto) 7.0, Lymphocytes # (Auto) 0.7L, Monocytes # (Auto) 0.5, Eosinophils # (Auto) 0.1, Basophils # (Auto) 0.0, Nucleated Red Blood Cells % (auto) 0.0, Prothrombin Time 13.0, Prothromb Time International Ratio 0.96, Activated Partial Thromboplast Time 29.9, Anion Gap 9, Glomerular Filtration Rate 59.1, Calcium Level 9.4, Total Bilirubin 1.2#H, Direct Bilirubin 0.2, Aspartate Amino Transf (AST/SGOT) 16, Alanine Aminotransferase (ALT/SGPT) 15, Alkaline Phosphatase 134H, Total Creatine Kinase 74#, Creatine Kinase MB 1.4, Creatine Kinase MB Relative Index 1.89, Troponin I 0.04, Total Protein 6.8, Albumin 3.7, Albumin/Globulin Ratio 1.2 CBC/BMP Laboratory Tests 04/06/20 10:04 Home Medications Scheduled Amlodipine Besylate (Norvasc) 10 Mg Tablet, 1 TAB PO DAILY Aspirin (Aspirin EC) 81 Mg Tablet.dr, 81 MG PO DAILY Atorvastatin Calcium (Atorvastatin Calcium) 80 Mg Tablet, 80 MG PO QHS Clopidogrel Bisulfate (Plavix) 75 Mg Tablet, 75 MG PO DAILY Allergies Coded Allergies: Penicillins (Verified Allergy, Unknown, 01/06/19) LINDA FINNEY MD Apr 06, 2020 19:00
--- NOTE | 2020-04-06 19:17 | REPVR ---
PROCEDURE INFORMATION: Exam: CT Angiography Neck With Contrast Exam date and time: 04/06/2020 6:40 PM Age: 89 years old Clinical indication: Other: TIA; Additional info: Re-admit with TIA in 48 hrs. R/O stenosis TECHNIQUE: Imaging protocol: Computed tomography angiography of the neck with intravenous contrast. 3D rendering (Not supervised by radiologist): MIP and/or 3D reconstructed images were created by the technologist. Radiation optimization: All CT scans at this facility use at least one of these dose optimization techniques: automated exposure control; mA and/or kV adjustment per patient size (includes targeted exams where dose is matched to clinical indication); or iterative reconstruction. Contrast material: ISOVUE 370; Contrast volume: 75 ml; Contrast route: INTRAVENOUS (IV); COMPARISON: US Duplex,carotid (complete) 04/04/2020 7:17 PM FINDINGS: Right common carotid artery: Mild plaquing involving the right common carotid artery greater distally with stenosis measuring up to 25%. Right internal carotid artery: No stenosis of the extracranial segment. No dissection or occlusion. Right external carotid artery: No occlusion or stenosis of the origin. Right vertebral artery: No stenosis. No dissection or occlusion. Left common carotid artery: There is plaquing most prominent at the proximal aspect of the left common carotid artery. Stenosis measures up to 40%. Left internal carotid artery: Mild calcification and plaquing at the proximal aspect of the left ICA. Stenosis measures up to 25%. Left external carotid artery: No occlusion or stenosis of the origin. Left vertebral artery: No stenosis. No dissection or occlusion. Subclavian arteries: Qike-yo-hebzioxz stenosis involving the proximal left subclavian artery. Aorta: Aortic calcification. Bones/joints: There are degenerative changes involving the spine. Soft tissues: Normal. No significant soft tissue swelling. IMPRESSION: 1. 40% stenosis at the proximal left common carotid artery. 2. 25% stenosis at the proximal left ICA. 3. 25% stenosis at the distal right common carotid artery. 4. Eahh-na-bwrhissk stenosis involving the proximal aspect of the left subclavian artery. REFERENCES: NASCET CRITERIA. The degree of internal carotid artery stenosis is based on NASCET criteria. Normal is no stenosis. Mild is less than 50% stenosis. Moderate is 50-69% stenosis. Severe is 70% to 99% stenosis. Total occlusion is no detectable patent lumen. Electronically signed by: Refugio Chaudhary On 04/06/2020 19:17:38 PM
--- NOTE | 2020-04-06 19:20 | REPVR ---
PROCEDURE INFORMATION: Exam: CT Angiography Head With Contrast Exam date and time: 04/06/2020 6:40 PM Age: 89 years old Clinical indication: Other: TIA; Additional info: Re-admit with TIA in 48 hrs. R/O stenosis TECHNIQUE: Imaging protocol: Computed tomography angiography of the head with intravenous contrast. 3D rendering (Not supervised by radiologist): MIP and/or 3D reconstructed images were created by the technologist. Radiation optimization: All CT scans at this facility use at least one of these dose optimization techniques: automated exposure control; mA and/or kV adjustment per patient size (includes targeted exams where dose is matched to clinical indication); or iterative reconstruction. Contrast material: ISOVUE 370; Contrast volume: 75 ml; Contrast route: INTRAVENOUS (IV); COMPARISON: MRA BRAIN W/O CONTRAST 04/04/2020 8:31 PM FINDINGS: ANTERIOR CIRCULATION: Right internal carotid artery: Mild calcification involving the right carotid siphon without significant stenosis. Right middle cerebral artery: Unremarkable. No occlusion or significant stenosis. No aneurysm. Right anterior cerebral artery: Hypoplastic right A1 segment. Left internal carotid artery: Mild calcification involving the left carotid siphon without significant stenosis. Left middle cerebral artery: Unremarkable. No occlusion or significant stenosis. No aneurysm. Left anterior cerebral artery: Unremarkable. No occlusion or significant stenosis. No aneurysm. POSTERIOR CIRCULATION: Right vertebral artery: Unremarkable. No occlusion or significant stenosis. No aneurysm. Left vertebral artery: Hsvu-gz-ngbzcujj left vertebral artery stenosis. Basilar artery: Unremarkable. No occlusion or significant stenosis. No aneurysm. Right posterior cerebral artery: Unremarkable. No occlusion or significant stenosis. No aneurysm. Left posterior cerebral artery: origin of the left posterior cerebral artery. Moderate left HSE MANAGER P2 stenosis. Brain: No definite mass, mass effect, or midline shift. Cerebral ventricles: No ventriculomegaly. Bones/joints: Unremarkable. No acute fracture. Soft tissues: Unremarkable. IMPRESSION: 1. No large vessel occlusion. 2. Moderate left HSE MANAGER P2 stenosis. 3. Qmio-py-trfenlxp left vertebral artery stenosis. Electronically signed by: Refugio Chaudhary On 04/06/2020 19:21:12 PM
--- NOTE | 2020-04-06 19:46 | REPVR ---
PROCEDURE INFORMATION: Exam: MR Head Without Contrast Exam date and time: 04/06/2020 7:18 PM Age: 89 years old Clinical indication: Condition or disease; Other: Re-admit with TIA in 48 hrs. R/O CVA TECHNIQUE: Imaging protocol: MR of the head without contrast. COMPARISON: MRI-Brain without Contrast 04/04/2020 8:31 PM FINDINGS: Examination is motion limited. Moderate to severe volume loss. Major vascular flow voids at the skull base are preserved. No extra-axial fluid collection. No midline shift or intracranial mass effect. Nonspecific white matter gliosis, probable chronic microvascular ischemia. Clustered foci of left temporoparietal diffusion restriction extending to the posterior left insula measuring up to 3 cm in aggregate. Visualized paranasal sinuses and mastoid air cells are clear. IMPRESSION: Clustered foci of left temporoparietal acute to early subacute ischemic infarction extending to the posterior left insula measuring up to 3 cm in aggregate. Electronically signed by: Refugio Chaudhary On 04/06/2020 19:47:17 PM
[2020-04-06] MEDS: LABETALOL 100MG/20ML VIAL IV PRN (20:54)
[2020-04-06] MEDS ORDERED: ATORVASTATIN 20 MG TAB PO SCH (21:00)
[2020-04-06] MEDS ORDERED: ASPIRIN 300 MG SUPP PR ONE (21:15)
[2020-04-06 21:30] VITALS: BP 173/85
[2020-04-06] MEDS: DOCUSATE SODIUM 100MG CAPSULE PO SCH (22:47)
[2020-04-06] MEDS: NS 1,000 ML IV SCH (22:48)
[2020-04-07] VITALS: BP 142/82
[2020-04-07 04:00] VITALS: BP 177/94
[2020-04-07] MEDS: NS 1,000 ML IV SCH ×2 (06:04→13:35)
[2020-04-07 08:00] VITALS: BP 164/79
--- NOTE | 2020-04-07 08:14 | ECGEPIP ---
[facility] - ED Test Date: 2020-04-06 Pat Name: GRICEL REDDY Department: Room: - Gender: Female [employer]: : 1930 Requested By: ESTUARDO Escalante Order Number: [id number] Reading MD: Autumn Mendez Measurements Intervals [place] Rate: 81 P: 32 [place]: 168 QRS: -23 QRSD: 92 T: 22 QT: 378 QTc: 439 Interpretive Statements Normal sinus rhythm Moderate voltage criteria for LVH, may be normal variant ( R in aVL , [place] product ) Nonspecific ST and T wave abnormality increased rate 04/04/20 Electronically Signed on 04-07-2020 8:13:53 EST by Autumn Mendez
[2020-04-07] MEDS ORDERED: amLODIPine 5 MG TAB PO SCH (09:00)
[2020-04-07] MEDS ORDERED: CLOPIDOGREL 75 MG TAB PO SCH (09:00)
[2020-04-07] MEDS ORDERED: ASPIRIN 81MG ENTERIC TABLET PO SCH (09:00)
[2020-04-07] MEDS ORDERED: ENOXAPARIN 40MG/0.4ML SYRINGE (J1650 PER 10MG) SC SCH (09:00)
[2020-04-07] MEDS: DOCUSATE SODIUM 100MG CAPSULE PO SCH (09:43)
[2020-04-07] MEDS ORDERED: AMLO10TA PO (11:27)
[2020-04-07 12:00] VITALS: BP 184/84
[2020-04-07 12:24] VITALS: BP 184/84
[2020-04-07] MEDS: LABETALOL 100MG/20ML VIAL IV PRN (12:24)
[2020-04-07 16:00] VITALS: BP 168/88
[2020-04-07] MEDS ORDERED: ISOVUE-370 76% 100ML VIAL As Ordered ONE (18:25)
--- NOTE | 2020-04-07 19:13 | REPVR ---
PROCEDURE INFORMATION: Exam: CT Angiography Chest With Contrast Exam date and time: 04/07/2020 6:33 PM Age: 89 years old Clinical indication: Other: R/O thoracic aortic thrombus. Setting of tia/cva. TECHNIQUE: Imaging protocol: Computed tomographic angiography of the chest with contrast. 3D rendering (Not supervised by radiologist): MIP and/or 3D reconstructed images were created by the technologist. Radiation optimization: All CT scans at this facility use at least one of these dose optimization techniques: automated exposure control; mA and/or kV adjustment per patient size (includes targeted exams where dose is matched to clinical indication); or iterative reconstruction. Contrast material: ISOVUE 370; Contrast volume: 75 ml; Contrast route: INTRAVENOUS (IV); COMPARISON: CR PORTABLE CHEST X-RAY 04/06/2020 10:10 AM FINDINGS: Pulmonary arteries: There are no pulmonary emboli. 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 No dissection. Lungs: Well inflated lungs consistent with COPD. Pleural spaces: Unremarkable. No pneumothorax. No pleural effusion. Heart: There is mild atherosclerotic calcification of the coronary arteries. Cardiomegaly. Lymph nodes: Unremarkable. No enlarged lymph nodes. Bones/joints: Osteoporosis. The spine demonstrates mild degenerative changes. Multilevel age-indeterminate compression deformities throughout the thoracic spine involving T5 through T8 and T11 and T12. Soft tissues: Unremarkable. IMPRESSION: 1. 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 No dissection. 2. There are no pulmonary emboli. 3. Cardiomegaly. 4. Well inflated lungs consistent with COPD. 5. Multilevel age-indeterminate compression deformities throughout the thoracic spine involving T5 through T8 and T11 and T12. Electronically signed by: Tyrese Blackburn On 04/07/2020 19:13:10 PM
--- NOTE | 2020-04-27 15:47 | DS.PDOC ---
Discharge Summary General Date of Admission Apr 06, 2020 at 16:32 Date of Discharge 04/07/20 Discharge Summary PROCEDURES PERFORMED DURING STAY: [None]. ADMITTING DIAGNOSES: CVA HTN DISCHARGE DIAGNOSES: CVA HTN COMPLICATIONS/CHIEF COMPLAINT: Hypertension,Tia. HISTORY OF PRESENT ILLNESS: 89 yo F with a hx of HTN, TIA (TIA dx on 04/04/17 and DC on 04/05/20 on ASA/plavix/statin), developed R sided arm and leg weakness along with R facial droop and slurred speech on evening of 04/05/20. Per family, patient developed symptoms 30 minutes after arrival home. Her family could not understand her and she was unable to open a bottle of water with her R hand, and her R foot was dragging. Subsequently she fell to the ground in the hal[place]way, onto her R hip, without head injury. On arrival to ED patient's speech and R sided weakness normalized, but recurred again on re-exam. CT head showed no acute CVA. RLE imaging including femur did not shoe fracture. I consulted Dr. Guo from the ED, recommended stat CTA head and neck along with repeat MRI brain wo contrast. CTA did not show severe stenosis, but MRI revealed clustered foci of L temporoparietal acute to early subacute ischemic infarct extending to the posterior L insula, in aggregate measuring 3 cm. As patient as out side of window, no tPA was administered. Patient also found to be hypertensive, but permissive hypertension will be practiced to maintain BP between 140 and 180 systolic. HOSPITAL COURSE: During the hospital stay the following issues addressed CVA - confirmed on imaging as noted above - no severe stenosis noted on CTA head and neck Patient will be transferred to ARU for further treatment treatment HTN Resolved after IV medication. Stable for now DISCHARGE MEDICATIONS: Please see below. ALLERGIES: Please see below. PHYSICAL EXAMINATION ON DISCHARGE: VITAL SIGNS: Please see below. General: NAD, comfortable HEENT: PERRLA, EOMI, sclerae clear Neck: supple, normal ROM, no JVD Respiratory: lungs CTAB, no wheeze, no rales, no crackles CVS: RRR, normal S1, S2, no murmurs Abdo: soft, no masses, no hepatosplenomegaly, BS+, no rebound tenderness Extremities: no edema, pulses 2+ MSK: no joint deformities, normal ROM Neuro: no focal neuro deficits, moving all 4 extremities, CN2-12 intact. Strength 3/5 in RUE and RLE. No nystagmus. Has subtle R facial droop, and slurred speech Psych: calm, cooperative, AAO x 2 LABORATORY DATA: Please see below. IMAGING: MRI brain wo contrast (04/06/20): FINDINGS: Examination is motion limited. Moderate to severe volume loss. Major vascular flow voids at the skull base are preserved. No extra-axial fluid collection. No midline shift or intracranial mass effect. Nonspecific white matter gliosis, probable chronic microvascular ischemia. Clustered foci of left temporoparietal diffusion restriction extending to the posterior left insula measuring up to 3 cm in aggregate. Visualized paranasal sinuses and mastoid air cells are clear. IMPRESSION: Clustered foci of left temporoparietal acute to early subacute ischemic infarction extending to the posterior left insula measuring up to 3 cm in aggregate. CTA neck (04/06/20): FINDINGS: Right common carotid artery: Mild plaquing involving the right common carotid artery greater distally with stenosis measuring up to 25%. Right internal carotid artery: No stenosis of the extracranial segment. No dissection or occlusion. Right external carotid artery: No occlusion or stenosis of the origin. Right vertebral artery: No stenosis. No dissection or occlusion. Left common carotid artery: There is plaquing most prominent at the proximal aspect of the left common carotid artery. Stenosis measures up to 40%. Left internal carotid artery: Mild calcification and plaquing at the proximal aspect of the left ICA. Stenosis measures up to 25%. Left external carotid artery: No occlusion or stenosis of the origin. Left vertebral artery: No stenosis. No dissection or occlusion. Subclavian arteries: [id number]-[id number] stenosis involving the proximal left subclavian artery. Aorta: Aortic calcification. Bones/joints: There are degenerative changes involving the spine. Soft tissues: Normal. No significant soft tissue swelling. IMPRESSION: 1. 40% stenosis at the proximal left common carotid artery. 2. 25% stenosis at the proximal left ICA. 3. 25% stenosis at the distal right common carotid artery. 4. [id number]-[id number] stenosis involving the proximal aspect of the left subclavian artery. CTA head (04/06/20): ANTERIOR CIRCULATION: Right internal carotid artery: Mild calcification involving the right carotid siphon without significant stenosis. Right middle cerebral artery: Unremarkable. No occlusion or significant stenosis. No aneurysm. Right anterior cerebral artery: Hypoplastic right A1 segment. Left internal carotid artery: Mild calcification involving the left carotid siphon without significant stenosis. Left middle cerebral artery: Unremarkable. No occlusion or significant stenosis. No aneurysm. Left anterior cerebral artery: Unremarkable. No occlusion or significant stenosis. No aneurysm. POSTERIOR CIRCULATION: Right vertebral artery: Unremarkable. No occlusion or significant stenosis. No aneurysm. Left vertebral artery: Taey-de-nhdfcurv left vertebral artery stenosis. Basilar artery: Unremarkable. No occlusion or significant stenosis. No aneurysm. Right posterior cerebral artery: Unremarkable. No occlusion or significant stenosis. No aneurysm. Left posterior cerebral artery: origin of the left posterior cerebral artery. Moderate left SYSTEMS ENGINEER P2 stenosis. Brain: No definite mass, mass effect, or midline shift. Cerebral ventricles: No ventriculomegaly. Bones/joints: Unremarkable. No acute fracture. Soft tissues: Unremarkable. IMPRESSION: 1. No large vessel occlusion. 2. Moderate left SYSTEMS ENGINEER P2 stenosis. 3. [id number]-[id number] left vertebral artery stenosis. PROGNOSIS: Fair ACTIVITY: [As tolerated]. DIET: Cardiac DISPOSITION: 62 D/T Rehab Facility. ITEMS TO FOLLOWUP ON ON OUTPATIENT: Follow-up with neurologist in the outpatient settings DISCHARGE CONDITION: [Stable]. TIME SPENT ON DISCHARGE: 30 minutes. Discharge Medications Scheduled Amlodipine Besylate (Amlodipine Besylate) 5 Mg Tablet, 5 MG PO BID Aspirin (Aspirin EC) 81 Mg Tablet.dr, 81 MG PO DAILY Atorvastatin Calcium (Atorvastatin Calcium) 80 Mg Tablet, 80 MG PO QHS Clopidogrel Bisulfate (Plavix) 75 Mg Tablet, 75 MG PO DAILY Gabapentin (Gabapentin) 100 Mg Capsule, 100 MG PO TID Hydralazine HCl (Hydralazine HCl) 25 Mg Tablet, 25 MG PO TID Pantoprazole Sodium (Pantoprazole Sodium) 40 Mg Tablet.dr, 40 MG PO DAILY Allergies Coded Allergies: Penicillins (Verified Allergy, Unknown, 01/06/19) POLI ANDRADE DO Apr 27, 2020 15:47
== END 2020-04-07 19:30 | DRG 65 ==
LOC: M ED 09:30 → M ED INP 16:32 → M PCU 21:30
PROVIDERS: ADMIT Family Medicine; ATTEND Internal Medicine
DX: I63.59 Cerebral infarction due to unspecified occlusion or stenosis of other cerebral artery (principal); G81.91 Hemiplegia, unspecified affecting right dominant side; I10 Essential (primary) hypertension; I65.23 Occlusion and stenosis of bilateral carotid arteries; I65.02 Occlusion and stenosis of left vertebral artery; R29.810 Facial weakness; Z85.528 Personal history of other malignant neoplasm of kidney; Z87.81 Personal history of (healed) traumatic fracture; Z79.82 Long term (current) use of aspirin; Z79.02 Long term (current) use of antithrombotics/antiplatelets; Z79.899 Other long term (current) drug therapy; Z88.0 Allergy status to penicillin

== ENCOUNTER 2020-04-07 13:03 | Inpatient (IN) | payer MEDICARE, MEDICAID ==
[~2020-04-07] VITALS: Ht 154.9 cm; Wt 49.3 kg
[~2020-04-07 13:03] MED LIST changes: +AMLO10TA PO; +ASPI-161 PO; +PLAV1TAB2 PO
[2020-04-07] MEDS ORDERED: BISACODYL 10 MG SUPP PR PRN (16:30)
--- OUTSIDE RECORDS SUMMARY | 2020-04-07 19:29 | CCD | Continuity of Care Document ---
Author Author Ingrid SHERIFF Organization Unknown Address [address] [facility] [address] [place] [address] Phone [phone] Care Team Providers Care Ore Grader Name Role Phone Fouzia Sheriff DO AUTM [...] Date Facility Test Result H/L Range Note Influenza A/B RSV Covid Amp 04/04/2020 [facility] [address] [place] [address] [phone] Influenza A Amplification NEGATIVE Normal Negati ve 1 Influenza B Amplification NEGATIVE Normal Negative 2 RSV Amplification NEGATIVE Normal Negative 3 Sars Covid-19 Amplification NEGATIVE Normal Negative 4 Cardiac Marker Panel 04/04/2020 [facility] enter [address] [place] [address] [phone] CPK Creatine Phosphokinase 38 U/L Normal 26-19 2 CK-MB Value Mass 1.3 NG/ML Normal <3.6 MB/CK Relative Index 3.42 Normal < Or =4 5 Troponin I 0.04 NG/ML Normal < 0.10 6 CBC With Differential 04/04/2020 [facility] [address] [place] [address] [phone] White Blood Count 3.9 10 Low 4.0-10.0 [...] 36.0-66.0 Lymph % 22.0 % Low 24.0-44.0 Glenn % 9.1 % High 2.0-8.0 Eos % 2.8 % Normal 0.0-3.0 Baso % 0.8 % Normal 0.0-1.0 Immature Granulocyte % 0.3 % Normal 0-3.0 Nucleated Red Blood Cell % 0.0 % Normal 0-0 Neutrophils # 2.5 10 Normal 1.5-8.5 Lymph # 0.9 10 Low 1.5-5.0 Glenn # 0.4 10 Normal 0.0-0.8 Eos # 0.1 10 Normal 0.0-0.5 Baso # 0.0 10 Normal 0.0-0.2 Comprehensive Metabolic Profil 04/04/2020 [facility] [address] [place] [address] [phone] Glucose, Fasting 99 mg/dL Normal 70-100 Blood Urea Nitrogen 20 mg/dL High 7-18 Creatinine For GFR 0.96 mg/dL Normal 0.55-1.30 Glomerular Filtration Rate 58.4 Normal >32 7 Sodium Level 141 mEq/L Normal 136-145 Potassium [...] 1.2 Normal 1.2-2.2 Cardiac Marker Panel 04/04/2020 [facility] enter [address] [place] [address] [phone] CPK Creatine Phosphokinase 30 U/L Normal 26-19 2 CK-MB Value Mass < 1.0 NG/ML Normal <3.6 MB/CK Relative Index 3.33 Normal < Or =4 8 Troponin I 0.04 NG/ML Normal < 0.10 9 Complete Blood Count 10/22/2019 [facility] Chief Scientific Officer: Dr Jay Marquez [place], [place] [id number] [phone] WBC 4.8 x10*3/UL 4.1 - 10.9 RBC [...] 2.0 - 7.8 Comprehensive Chem Profile 10/22/2019 [facility], Chief Scientific Officer: [place] [address] [phone] Glucose 87 mg/dL 74 - 99 10 BUN 24 mg/dL High 7 - 18 [...] Low >60 GFR 51 mL/min Low >60 11 Laboratory test finding 10/22/2019 [facility], Chief Scientific Officer: [place] [address] [phone] Thyroid Stimulating Hormone 1.38 uIU/mL 0.3 6 - 3.74 Ua Dipstick Only 10/22/2019 [facility] , Chief Scientific Officer: [place] [address] [phone] Urine Color YELLOW Yellow Urine Appearance SL. HAZY Abnormal Clear Urine PH 5.0 units 5.0 - 9.0 Urine Specific [employer] 1.030 1.005 - 1.030 Urine Leukocytes NEGATIVE Negative Urine Blood MODERATE Abnormal Negative Urine Protein NEGATIVE Negative -Trace Urine Glucose NEGATIVE mg/dL Negative Urine Nitrite NEGATIVE Negative Urine Ketone NEGATIVE mg/dL Negative Urine Bilirubin NEGATIVE Negative Urine Urobilinogen 0.2 mg/dL 0.2 - 1.0 1 Negative results do not prec lude influenza or RSV virus infection and should not be used as the sole basis for treatment or other patient management decisions. 2 Negative results do not prec lude influenza or RSV virus infection and should not be used as the sole basis for treatment or other patient management decisions. 3 Negative results do not prec lude influenza or RSV virus infection and should not be used as the sole basis for treatment or other patient management decisions. 4 A false negative result may occur if a specimen is improperly collected, transported or handled. False [...] pathogens. DISCLAIMER: Testing was performed using the [employer] SARS-CoV-2 test. This test was developed and its performance characteristics determined by [employer]. This test has not been FDA cleared [...] the authorization is terminated or revoked sooner. 5 DIAGNOSIS CRITERIA MMB ng/ml Relative Index (RI) NON-AMI < or = 5 N/A PHAN ZONE > 5 < or = 4 AMI > 5 > 4 6 Troponin I Reference Interva l for [employer] LOCI: 99th Percentile= 0.00-0.045 ng/ml Risk Stratification: <= 0.10 ng/ml Decreased Risk for Adverse Clinical Events. 0.10-1.50 ng/ml Increased Risk for Adv erse Clinical Events. Evaluation of additional criterion and/or repeat testing in 2-6 hours is suggested to rule out myocardial damage. >= 1.50 ng/ml Indicative of Myocardial Injury. 7 Units are mL/min/1.73 m2 Chronic Kidney Disease Staging per NKF: Stage I & II GFR >=60 Normal to Mildly Decreased Stage III GFR 30-59 Moderately Decreased Stage IV GFR 15-29 Severely Decreased Stage V GFR <15 Very Little GFR Left ESRD GFR <15 on CHEMICAL ENGINEERING INTERN 8 DIAGNOSIS CRITERIA MMB ng/ml Relative Index (RI) NON-AMI < or = 5 N/A PHAN ZONE > 5 < or = 4 AMI > 5 > 4 9 Troponin I Reference Interva l for [employer] LOCI: 99th Percentile= 0.00-0.045 ng/ml Risk Stratification: <= 0.10 ng/ml Decreased Risk for Adverse Clinical Events. 0.10-1.50 ng/ml Increased Risk for Adv erse Clinical Events. Evaluation of additional criterion and/or repeat testing in 2-6 hours is suggested to rule out myocardial damage. >= 1.50 ng/ml Indicative of Myocardial Injury. 10 100-125 mg/dL PRE-DIABET ES/FASTING >126 mg/dL DIABETES/FASTING 11 CHRONIC KIDNEY DISEASE STAGI NG PER NKF STAGE I & II GFR >= 60 NORMAL TO MILDLY DECREASED STAGE III GFR 30-59 MODERATELY DECREASED STAGE IV GFR 15-29 SEVERELY DECREASED STAGE V GFR <15 VERY LITTLE GFR LEFT ESRD GFR <15 ON CHEMICAL ENGINEERING INTERN Procedures Description No Information Available Medical Devices Description No Information Available Encounters Type Date Location Provider Dx Diagnosis Office Visit 10/22/2019 10:20a [facility] 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 vertigo, right ear H69.91 Unspecified Eustachian tube disorder, right ear M15.9 Polyosteoarthritis, unspecif ied E78.00 Pure hypercholesterolemia, u nspecified Assessments Date Code Description Provider 10/22/2019 D64.9 Anemia, unspecified Fouzia Sheriff, 10/22/2019 R31.9 Hematuria, unspecified Fouzia matt,DO 10/22/2019 E78.00 Pure hypercholesterolemia, unspe cified Fouzia Sheriff,DO 10/22/2019 I71.9 Aortic aneurysm of unspecified s ite, without rupture Fouzia Sheriff, 10/22/2019 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 10/22/2019 - Fouzia Sheriff DO* D64.9 Anemia, [...]
--- OUTSIDE RECORDS SUMMARY | 2020-04-07 19:29 | CCD | Continuity of Care Document ---
Author Author Ingrid SHERIFF Organization Unknown Address [address] [facility] [address] [place] [address] Phone [phone] Care Team Providers Care Chain Saw Mechanic Name Role Phone Fouzia Sheriff DO AUTM [...] Note Influenza A/B RSV Covid Amp 04/04/2020 [facility] [address] [place] [address] [phone] Influenza A Amplification NEGATIVE Normal Negati ve 1 Influenza B Amplification NEGATIVE Normal Negative 2 RSV Amplification NEGATIVE Normal Negative 3 Sars Covid-19 Amplification NEGATIVE Normal Negative 4 Cardiac Marker Panel 04/04/2020 [facility] enter [address] [place] [address] [phone] CPK Creatine Phosphokinase 38 U/L Normal 26-19 2 CK-MB Value Mass 1.3 NG/ML Normal <3.6 MB/CK Relative Index 3.42 Normal < Or =4 5 Troponin I 0.04 NG/ML Normal < 0.10 6 CBC With Differential 04/04/2020 [facility] [address] [place] [address] [phone] White Blood Count 3.9 10 Low 4.0-10.0 [...] 36.0-66.0 Lymph % 22.0 % Low 24.0-44.0 Desha % 9.1 % High 2.0-8.0 Eos % 2.8 % Normal 0.0-3.0 Baso % 0.8 % Normal 0.0-1.0 Immature Granulocyte % 0.3 % Normal 0-3.0 Nucleated Red Blood Cell % 0.0 % Normal 0-0 Neutrophils # 2.5 10 Normal 1.5-8.5 Lymph # 0.9 10 Low 1.5-5.0 Desha # 0.4 10 Normal 0.0-0.8 Eos # 0.1 10 Normal 0.0-0.5 Baso # 0.0 10 Normal 0.0-0.2 Comprehensive Metabolic Profil 04/04/2020 [facility] [address] [place] [address] [phone] Glucose, Fasting 99 mg/dL Normal 70-100 Blood [...] 1.2 Normal 1.2-2.2 Cardiac Marker Panel 04/04/2020 [facility] enter [address] [place] [address] [phone] CPK Creatine Phosphokinase 30 U/L Normal 26-19 2 CK-MB Value Mass < 1.0 NG/ML Normal <3.6 MB/CK Relative Index 3.33 Normal < Or =4 8 Troponin I 0.04 NG/ML Normal < 0.10 9 Complete Blood Count 10/22/2019 [facility] Inseam Leveler: Dr Jay Marquez [place], [place] [id number] [phone] WBC 4.8 x10*3/UL 4.1 - 10.9 RBC [...] 2.0 - 7.8 Comprehensive Chem Profile 10/22/2019 [facility], Inseam Leveler: [place] [address] [phone] Glucose 87 mg/dL 74 - 99 10 [...] Low >60 11 Laboratory test finding 10/22/2019 [facility], Inseam Leveler: [place] [address] [phone] Thyroid Stimulating Hormone 1.38 uIU/mL 0.3 6 - 3.74 Ua Dipstick Only 10/22/2019 [facility] , Inseam Leveler: Dr [place] [address] [phone] Urine Color YELLOW Yellow Urine Appearance SL. HAZY Abnormal Clear Urine PH 5.0 units 5.0 - 9.0 Urine Specific [place] 1.030 1.005 - 1.030 Urine Leukocytes NEGATIVE [...] pathogens. DISCLAIMER: Testing was performed using the [employer] SARS-CoV-2 test. This test was developed and its performance characteristics determined by [employer]. This test has not been FDA cleared [...] 6 Troponin I Reference Interva l for [facility] LOCI: 99th Percentile= 0.00-0.045 ng/ml Risk Stratification: [...] Little GFR Left ESRD GFR <15 on JOINTER MACHINE OPERATOR 8 DIAGNOSIS CRITERIA MMB ng/ml Relative Index (RI) NON-AMI < or = 5 N/A PHAN ZONE > 5 < or = 4 AMI > 5 > 4 9 Troponin I Reference Interva l for [facility] LOCI: 99th Percentile= 0.00-0.045 ng/ml Risk Stratification: [...] LITTLE GFR LEFT ESRD GFR <15 ON JOINTER MACHINE OPERATOR Procedures Description No Information Available Medical Devices Description No Information Available Encounters Type Date Location Provider Dx Diagnosis Office Visit 10/22/2019 10:20a [facility] Fouzia Sheriff , D64.9 Anemia, [...] 11:00 am - Fouzia Sheriff DO at [facility] 10/22/2019 - Fouzia Sheriff DO* [...]
--- OUTSIDE RECORDS SUMMARY | 2020-04-07 19:29 | CCD ---
Author Author [facility] Organization [facility] Address Unknown Phone Unavailable Care Team Providers [employer] Counter Clerk Name Role Phone Galilea, Fouzia DO [...] Unavailable Unavailable Galilea, Fouzia DO Unavailable Unavailable Galliea, Fouzia DO Unavailable Unavailable Galilea, Fouzia DO [...] is protected by Article 27-F of the [facility] Public Health law. If you continue you may have access to information: Regarding HIV / AIDS; Provided by facilities licensed or operated by the [facility] Office of Mental Health; or Provided by the [facility] Office for People With Developmental Disabilities. If such information is present, then the following [facility] mandated warning applies: This information has [...] Fouzia Herrera 10/21 10:20:00 AM EDT [facility] ([facility] ) Outpatient Referrer: Fouzia Calero DO 04/26/2019 12:19:00 PM EDT [facility] Outpatient Attender: CHEMA Monroe 04/18/2019 10:20:00 AM EST [facility]) Outpatient Referrer: Fouzia Calero DO 03/01/2019 [...] 10/22/2019 12:00:00 AM EDT ORAL active [facility] ([facility]) 5 mg 10/22/2019 12:00:00 AM EDT tablet 30 TAKE ONE TABLET BY MOUTH EVERY DAY AT BEDTIME TAKE ONE TABLET BY MOUTH EVERY DAY AT BEDTIME SOLD: 10/23/2019 [facility] NITROFURANTOIN, MACROCRYSTALS 25 MG / Ni trofurantoin, Monohydrate 75 MG Oral Capsule [Macrobid] Macrobid 04/18/2019 12:00:00 AM EST ORAL active [facility] ([facility]) Cephalexin 500 MG Oral Tablet Cephalexin 04/18/2019 12:00:00 AM EST ORAL completed [facility] ([facility] Prednisone 10 MG Oral Tablet Prednisone 04/18/2019 12:00:00 AM EST ORAL active [facility] ([facility]) 100 mg 04/18/2019 12:00:00 AM EST capsule 10 TAKE ONE CAPSULE BY MOUTH EVERY 12 HOURS FOR 5 DAYS TAKE ONE CAPSULE BY MOUTH EVERY 12 HOURS FOR 5 DAYS SO LD: 04/18/2019 [facility] No Active Medications 04/18/2019 12:00:00 AM EST completed [facility] ([facility]) 10 mg 04/18/2019 12:00:00 AM EST tablet 8 TAKE ONE TABLET BY MOUTH TWICE A DAY FOR 4 DAYS TAKE ONE TABLET BY MOUTH TWICE A DAY FOR 4 DAYS SOLD: 2019 [facility] tramadol hydrochloride 50 MG Oral Tablet Tramadol HCL 02/19/2019 12:00:00 AM EST active [facility] ([facility]) 8 HR Acetaminophen 650 MG Extended Release Oral Tablet [Tylenol] Tylenol 8 Hour Arthritis Pain 02/19/2019 12:00:00 AM EST ORAL active [facility] ([facility]) Fouzia [employer] 02/19/2019 12:00:00 AM EST ORAL active [facility] ([facility]) Insurance Providers Payer name Policy type / Coverage type Policy ID Covered alliance party ID Covered alliance party's relationship to anderson Policy Anderson Plan Information EMEDNY [id number] SP [id number] [facility] [id number] SP [id number] MEDICARE COMPLETE [id number] SP [id number] MEDICARE COMPLETE-[facility] O [id number] S [id number] MEDICAID M [id number] MEDICAID [id number] SP [id number] [facility] MCRHMO [id number] SP [id number] [facility](MCAID) O [id number] S [id number] MEDICARE C [id number] S [id number] [facility] MCRHMO [id number] SP [id number] [facility] MCRO [id number] SP [id number] [facility] ([facility]) Commercial [id number] Self [id number] [facility] Commercial [id number] Self [id number] Results ID Date Data Source [id number] 04/04/2020 06:37:00 PM EST [facility] ([facility]) Name Value Range Interpretation Code Description Data Natalie rce(s) Supporting Document(s) Influenza A Amplification Laboratory test result [facility] ([facility]) Negative results do not preclude influen za or RSV virus infection and should not be used as the sole basis for treatment or other patient management decisions. Influenza B Amplification Laboratory test result [facility] ([facility]) Negative results do not preclude influen za or RSV virus infection and should not be used as the sole basis for treatment or other patient management decisions. RSV Amplification Laboratory test result [facility] ([facility]) Negative results do not preclude influen za or RSV virus infection and should not be used as the sole basis for treatment or other patient management decisions. Laboratory test finding (navigational concept) Laboratory test result [facility] ([facility]) A false negative result may occur [...] pathogens. DISCLAIMER: Testing was performed using the [employer] SARS-CoV-2 test. This test was developed and its performance characteristics determined by [employer]. This test has not been FDA cleared [...] or revoked sooner. ID Date Data Source [id number] 04/04/2020 06:37:00 PM EST [facility] Name Value Range Interpretation Code Description Data Natalie rce(s) Supporting Document(s) SARS coronavirus 2 RNA [Presence] in Res piratory specimen by TAN with probe detection NEGATIVE [facility] This lab was ordered by [facility] a nd reported by [facility]. ID Date Data Source [id number] 04/04/2020 05:22:00 PM EST [facility] ([facility]) Name Value Range Interpretation Code Description Data Natalie rce(s) Supporting Document(s) CK-MB Value Mass 1.3 ng/mL [facility] ([facility]) CPK Creatine Phosphokinase 38 U/L 26-192 [facility] ([facility]) Troponin I 0.04 ng/mL [facility] ([facility]) <content>Troponin I Reference Interval f or Siemens Browns LOCI:</content>
<content></content>
<content>99th Percentile= 0.00-0.045 ng/ml</content>
<content></content>
<content>Risk Stratification:</content>
<content><= 0.10 ng/ml Decreased Risk for Adverse Clinical</content>
<content>Events.</content>
<content>0.10-1.50 ng/ml Increased Risk for Adverse Clinical</content>
<content>Events. Evaluation of additional</content>
<content>criterion and/or repeat testing in 2-6</content>
<content>hours is suggested to rule out myocardial</content>
<content>damage.</content>
<content>>= 1.50 ng/ml Indicative of Myocardial Injury.</content>
<content></content> MB/CK Relative Index 3.42 [facility] ([facility]) <content>DIAGNOSIS CRITERIA</content>
<content>MMB ng/ml Relative Index (RI)</content>
<content>NON-AMI < or = 5 N/A</content>
<content>PHAN ZONE > 5 < or = 4</content>
<content>AMI > 5 > 4</content>
<content></content> ID Date Data Source [id number] 04/04/2020 02:28:00 PM EST [facility] Name Value Range Interpretation Code Description Data Natalie rce(s) Supporting Document(s) CPK Creatine Phosphokinase 30 U/L 26-192 [facility] ([facility]) CK-MB Value Mass Laboratory test result [facility] ([facility]) MB/CK Relative Index 3.33 [facility]) <content>DIAGNOSIS CRITERIA</content>
<content>MMB ng/ml Relative Index (RI)</content>
<content>NON-AMI < or = 5 N/A</content>
<content>PHAN ZONE > 5 < or = 4</content>
<content>AMI > 5 > 4</content>
<content></content> Troponin I 0.04 ng/mL [facility] <content>Troponin I Reference Interval f or [employer]ens Browns LOCI:</content>
<content></content>
<content>99th Percentile= 0.00-0.045 ng/ml</content>
<content></content>
<content>Risk Stratification:</content>
<content><= 0.10 ng/ml Decreased Risk for Adverse Clinical</content>
<content>Events.</content>
<content>0.10-1.50 ng/ml Increased Risk for Adverse Clinical</content>
<content>Events. Evaluation of additional</content>
<content>criterion and/or repeat testing in 2-6</content>
<content>hours is suggested to rule out myocardial</content>
<content>damage.</content>
<content>>= 1.50 ng/ml Indicative of Myocardial Injury.</content>
<content></content> ID Date Data Source [id number] 04/04/2020 02:28:00 PM EST [facility] ([facility]) Name Value Range Interpretation Code Description Data Natalie rce(s) Supporting Document(s) Glucose, Fasting 99 mg/dL 70-100 [facility] ([facility]) Creatinine For GFR 0.96 mg/dL 0.55-1.30 [facility] ([facility]) Blood Urea Nitrogen 20 mg/dL 7-18 [facility] ([facility]) Glomerular Filtration Rate 58.4 [facility] <content>Units are mL/min/1.73 m2</content>
<content></content>
<content>Chronic Kidney Disease Staging per NKF:</content>
<content></content>
<content>Stage I & II GFR >=60 Normal to Mildly Decreased</content>
<content>Stage III GFR 30- 59 Moderately Decreased</content>
<content>Stage IV GFR 15-29 Severely Decreased</content>
<content>Stage V GFR <15 Very Little GFR Left</content>
<content>ESRD GFR <15 on VENDETTE</content>
<content></content> Potassium Serum 3.8 meq/L 3.5-5.1 [facility] ([facility]) Sodium Level 141 meq/L 136-145 [facility] ([facility]) Chloride Level 108 meq/L 98-107 [facility] ([facility]) Carbon Dioxide Level 26 meq/L 21-32 [facility] ([facility]) Calcium Level 8.9 mg/dL 8.8-10.2 [facility] ([facility]) Anion Gap 7 meq/L 8-16 [facility] Ast/Sgot 11 U/L 7-37 [facility] Alt/SGPT 10 U/L 12-78 [facility] Alkaline Phosphatase 126 U/L 45-117 [facility] ([facility]) Total Protein 6.3 GM/DL 6.4-8.2 [facility] ([facility]) Bilirubin,Total 0.4 mg/dL 0.2-1.0 [facility] ([facility]) Albumin/Globulin Ratio 1.2 1.2-2.2 [facility] ([facility]) Albumin 3.4 GM/DL 3.2-5.2 [facility]) ID Date Data Source [id number] 04/04/2020 02:28:00 PM EST [facility] ([facility]) Name Value Range Interpretation Code Description Data Natalie rce(s) Supporting Document(s) White Blood Count 3.9 10 4.0-10.0 [facility] ([facility]) Red Blood Count 4.35 10 4.00-5.40 [facility] ([facility]) Hemoglobin 12.7 g/dL 12.0-15.5 [facility] ([facility]) Mean Corpuscular Hemoglobin 29.2 pg 27.0-33.0 [place] [facility] ([facility]) Hematocrit 39.8 % 36.0-47.0 [facility] ([facility]) Mean Corpuscular Volume 91.5 fl 80.0-96.0 [facility] ([facility]) Platelet Count, Automated 203 10 150-450 MEDE NT ([facility]) Mean Corpuscular HGB Conc 31.9 g/dL 32.0-36.5 MEDE NT ([facility]) Red Cell Distribution Width 12.1 % 11.5-14.5 [place] [facility] ([facility]) Lymph % 22.0 % 24.0-44.0 [facility] Neutrophils % 65.0 % 36.0-66.0 [facility]) [place] % 9.1 % 2.0-8.0 [facility] Eos % 2.8 % 0.0-3.0 [facility] Nucleated Red Blood Cell % 0.0 % 0-0 [facility] ([facility]) Baso % 0.8 % 0.0-1.0 [facility] Immature Granulocyte % 0.3 % 0-3.0 [facility] ([facility]) Lymph # 0.9 10 1.5-5.0 [facility] Neutrophils # 2.5 10 1.5-8.5 [facility] ([facility]) [place] # 0.4 10 0.0-0.8 [facility] Eos # 0.1 10 0.0-0.5 [facility] Baso # 0.0 10 0.0-0.2 [facility]) ID Date Data Source [id number] 11/08/2019 12:00:00 AM EDT [facility] Fouzia Calero DO Patient Name: GRICEL [id number] Date of : 1930[facility] Date of Exam: 11/08/2019PATRICIA Dangelo [id number]#: Fax: [id number] EXAM: US RETROPERITONEAL, COMPLETE(RENAL/AORTA)CLINICAL INFORMATION: [...] renal cyst as described above.Accredited by the [employer] in General Ultrasound.UZMA Montero/Pelon you for referring GRICEL REDDY to our office. Electronically Signed - BRENDA BAILEY DO 11/08/19 13:52 Name Value Range Interpretation Code Description Data Natalie rce(s) Supporting Document(s) ID Date Data Source [id number] 10/22/2019 11:05:00 AM EDT JIMY ([facility]) Name Value Range Interpretation Code Description Data Natalie rce(s) Supporting Document(s) Thyrotropin [Units/volume] in Serum or Plasma by Detec tion limit <= 0.05 mIU/L 1.38 uIU/mL 0.36-3.74 JIMY ([facility] ) ID Date Data Source [id number] 10/22/2019 11:05:00 AM EDT [facility] ([facility]) Name Value Range Interpretation Code Description Data Natalie rce(s) Supporting Document(s) Glucose [Mass/volume] in Serum or Plasma 87 mg/dL 74-99 [facility] ([facility]) 100-125 mg/dL PRE-DIABETES/FASTING >126 mg/dL DIABETES/FASTING Urea nitrogen [Mass/volume] in Serum or Plasma 24 mg/dL 7-18 [facility] ([facility]) Creatinine 1.2 mg/dL 0.6-1.3 [facility] ([facility]) Sodium [Moles/volume] in Serum or Plasma 142 meq/L 136-145 [facility] ([facility]) Potassium [Moles/volume] in Serum or Plasma 4.0 meq/L 3.5-5.1 [facility] ([facility]) Chloride [Moles/volume] in Serum or Plasma 106 meq/L 98-107 [facility] ([facility]) Calcium [Mass/volume] in Serum or Plasma 9.1 mg/dL 8.5-10.1 [facility] ([facility]) Carbon dioxide, total [Moles/volume] in Serum or Plasma 26 meq/L 21 -32 [facility] ([facility]) Aspartate aminotransferase [Enzymatic activity/volume] in Serum or Plasma 16 U/L 15-37 [facility] ([facility] ) Total Bilirubin 0.6 mg/dL 0.2-1.0 [facility] ([facility]) Alkaline phosphatase isoenzyme [Units/volume] in Serum or Pl asma 129 mg/dL 46-116 [facility] ([facility]) Alanine aminotransferase [Enzymatic activity/volume] in Seru m or Plasma 13 U/L 12-78 [facility] ([facility]) Albumin [Mass/volume] in Serum or Plasma 3.9 g/dL 3.4-5.0 [facility] ([facility]) Proteinase 3 Ab [Units/volume] in Serum 7.4 g/dL 6.4-8.2 [facility] ([facility]) Glomerular filtration rate/1.73 sq M pre dicted among non-blacks [Volume Rate/Area] in Serum or Plasma by Creatinine-based formula (MDRD) 42 mL/min [facility] A/G Ratio 1.11 CALC 1.00-1.90 [facility] ([facility]) Glomerular filtration rate/1.73 sq M pre dicted among blacks [Volume Rate/Area] in Serum or Plasma by Creatinine-based formula (MDRD) 51 mL/min [facility] <content>CHRONIC KIDNEY DISEASE STAGING PER NKF</content>
<content></content>
<content>STAGE I & II GFR >= 60 NORMAL TO MILDLY DECREASED</content>
<content>STAGE III GFR 30-59 MODERATELY DECREASED</content>
<content>STAGE IV GFR 15-29 SEVERELY DECREASED</content>
<content>STAGE V GFR <15 VERY LITTLE GFR LEFT</content>
<content>ESRD GFR <15 ON VENDETTE</content>
<content></content> ID Date Data Source [id number] 10/22/2019 11:05:00 AM EDT [facility] ([facility]) Name Value Range Interpretation Code Description Data Natalie rce(s) Supporting Document(s) Leukocytes [#/volume] in Blood by Automated count 4.8 x10*3/UL 4.1-10 .9 [facility] Hemoglobin [Mass/volume] in Blood 14.0 g/dL 12.0-18.0 [facility] Erythrocytes [#/volume] in Blood by Automated count 4.61 x10*6/UL 4.2 0-6.30 [facility] MCV 90.4 fL 80.0-97.0 [facility] ([facility]) Hematocrit [Volume Fraction] of Blood by Automated count 41.7 % 3 7.0-51.0 [facility] ([facility]) MCH 30.5 pg 26.0-32.0 [facility] ([facility]) MCHC 33.7 g/dL 31.0-38.0 [facility] ([facility]) Erythrocyte distribution width [Ratio] by Automated count 13.1 % 11.6-13.7 [facility] ([facility]) Lymph % 30.2 % 10.0-58.5 [facility] ([facility]) MPV 8.1 FL 7.8-11.0 [facility] ([facility]) Platelets [#/volume] in Blood by Automated count 223 x10*3/UL 140-440 [facility] ([facility]) Mid % 8.7 % 1.7-9.3 [facility] ([facility]) Neut % 61.1 % 37.0-92.0 [facility] ([facility]) Neut # 2.9 x10*3/UL 2.0-7.8 [facility] ([facility]) Mid # 0.5 x10*3/UL 0.1-0.6 [facility] ([facility]) Lymph # 1.4 x10*3/UL 0.6-4.1 [facility] ([facility]) ID Date Data Source [id number] 10/22/2019 10:30:00 AM EDT [facility] Name Value Range Interpretation Code Description Data Natalie rce(s) Supporting Document(s) Urine Color Laboratory test result [facility]EN T [facility] Urine Appearance Laboratory test result Abnormal (applies to non-numeric results) [facility] Specific gravity of Urine 1.030 1.005-1.030 [place] [facility] Urine PH 5.0 units 5.0-9.0 [facility] Urine Protein Laboratory test result 0-0 [facility] Urine Blood Laboratory test result Abnormal (applies to non-numeric results) [facility] ([facility]) Urine Leukocytes Laboratory test result [facility] ([facility]) Urine Nitrite Laboratory test result [facility] Glucose [Presence] in Urine Laboratory test result [facility] Bilirubin.total [Mass/volume] in Serum or Plasma Laboratory test resu lt [facility] ([facility]) Urine Ketone Laboratory test result MEDE NT ([facility]) Urine Urobilinogen 0.2 mg/dL 0.2-1.0 [facility] ([facility]) ID Date Data Source [id number] 04/18/2019 12:23:00 PM EST [facility] ([facility]) Name Value Range Interpretation Code Description Data Natalie rce(s) Supporting Document(s) Bacteria identified in Urine by Culture <pending> [facility] ID Date Data Source [id number] 03/01/2019 12:00:00 AM EST [facility] Fouzia Calero DO Patient Name: GRICEL [id number] [facility] Date of : 1930[facility]: [facility] [id number] Fax: [phone] EXAM: CT ABDOMEN & PELVIS WITHOUT&WITH CONTRASTCLINICAL INFORMATION: 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 Electronically Signed - ANGEL PHAN MD 03/01/19 18:02 Name Value Range Interpretation Code Description Data Natalie rce(s) Supporting Document(s) ID Date Data Source [id number] 02/19/2019 11:19:00 AM EST [facility] ([facility]) Name Value Range Interpretation Code Description Data Natalie rce(s) Supporting Document(s) Triglyceride [Mass/volume] in Serum or Plasma 87 mg/dL 30-150 [facility] ([facility]) Cholesterol [Mass/volume] in Serum or Plasma 220 mg/dL 131-200 [facility] ([facility]) Cholesterol in LDL [Mass/volume] in Serum or Plasma by calcu lation 136 CALC 50-159 [facility] ([facility]) Cholesterol in HDL [Mass/volume] in Serum or Plasma 67 mg/dL 35-60 [facility] ([facility]) ID Date Data Source [id number] 02/19/2019 11:19:00 AM EST [facility] ([facility]) Name Value Range Interpretation Code Description Data Natalie rce(s) Supporting Document(s) Glucose [Mass/volume] in Serum or Plasma 94 mg/dL 74-99 [facility] ([facility]) 100-125 mg/dL PRE-DIABETES/FASTING >126 mg/dL DIABETES/FASTING Creatinine 1.2 mg/dL 0.6-1.3 [facility] ([facility]) Urea nitrogen [Mass/volume] in Serum or Plasma 31 mg/dL 7-18 [facility] ([facility]) Sodium [Moles/volume] in Serum or Plasma 140 meq/L 136-145 [facility] ([facility]) Carbon dioxide, total [Moles/volume] in Serum or Plasma 24 meq/L 21 -32 [facility] ([facility]) Potassium [Moles/volume] in Serum or Plasma 4.5 meq/L 3.5-5.1 [facility] ([facility]) Chloride [Moles/volume] in Serum or Plasma 104 meq/L 98-107 [facility] ([facility]) Calcium [Mass/volume] in Serum or Plasma 9.6 mg/dL 8.5-10.1 [facility] ([facility]) Alkaline phosphatase isoenzyme [Units/volume] in Serum or Pl asma 167 mg/dL 46-116 [facility] ([facility]) Total Bilirubin 0.6 mg/dL 0.2-1.0 [facility] ([facility]) Albumin [Mass/volume] in Serum or Plasma 3.7 g/dL 3.4-5.0 [facility] ([facility]) Alanine aminotransferase [Enzymatic activity/volume] in Seru m or Plasma 11 U/L 12-78 [facility] ([facility]) Aspartate aminotransferase [Enzymatic activity/volume] in Serum or Plasma 14 U/L 15-37 [facility] Proteinase 3 Ab [Units/volume] in Serum 7.3 g/dL 6.4-8.2 [facility] A/G Ratio 1.03 CALC 1.00-1.90 [facility] Glomerular filtration rate/1.73 sq M pre dicted among blacks [Volume Rate/Area] in Serum or Plasma by Creatinine-based formula (MDRD) 52 mL/min [facility] <content>CHRONIC KIDNEY DISEASE STAGING PER NKF</content>
<content></content>
<content>STAGE I & II GFR >= 60 NORMAL TO MILDLY DECREASED</content>
<content>STAGE III GFR 30-59 MODERATELY DECREASED</content>
<content>STAGE IV GFR 15-29 SEVERELY DECREASED</content>
<content>STAGE V GFR <15 VERY LITTLE GFR LEFT</content>
<content>ESRD GFR <15 ON VENDETTE</content>
<content></content> Glomerular filtration rate/1.73 sq M pre dicted among non-blacks [Volume Rate/Area] in Serum or Plasma by Creatinine-based formula (MDRD) 42 mL/min [facility] ID Date Data Source [id number] 02/19/2019 11:19:00 AM EST [facility] ([facility]) Name Value Range Interpretation Code Description Data Natalie rce(s) Supporting Document(s) Leukocytes [#/volume] in Blood by Automated count 4.8 x10*3/UL 4.1-10 .9 [facility] ([facility]) Hemoglobin [Mass/volume] in Blood 12.6 g/dL 12.0-18.0 [facility] ([facility]) Erythrocytes [#/volume] in Blood by Automated count 4.25 x10*6/UL 4.2 0-6.30 [facility] Hematocrit [Volume Fraction] of Blood by Automated count 38.7 % 3 7.0-51.0 [facility] ([facility]) MCV 91.1 fL 80.0-97.0 [facility] MCH 29.6 pg 26.0-32.0 [facility] MCHC 32.5 g/dL 31.0-38.0 [facility] Platelets [#/volume] in Blood by Automated count 251 x10*3/UL 140-440 [facility] ([facility]) Erythrocyte distribution width [Ratio] by Automated count 13.7 % 11.6-13.7 [facility] ([facility]) MPV 8.5 FL 7.8-11.0 [facility] Mid % 8.2 % 1.7-9.3 [facility] Lymph % 26.1 % 10.0-58.5 [facility] Lymph # 1.2 x10*3/UL 0.6-4.1 [facility] ([facility]) Neut % 65.7 % 37.0-92.0 [facility] [facility] Mid # 0.5 x10*3/UL 0.1-0.6 [facility] ([facility]) Neut # 3.1 x10*3/UL 2.0-7.8 [facility] ([facility]) Procedure Vital Signs ID Date Data Source UNK Name Value Range Interpretation Code Description Data Source(s) Body mass index (BMI) [Ratio] 20.9 kg/m2 20.9 k g/m2 [facility] ([facility]) Body weight 105.38 [lb_av] 105.38 [lb_av] MEDEN T ([facility]) Body height 59.50 [in_i] 59.50 [in_i] [facility] ([facility]) 4'11.50" Body temperature 97.6 [degF] 97.6 [degF] [facility] ([facility]) Diastolic blood pressure 80 mm[Hg] 80 mm[Hg] [facility] ([facility]) RT Arm Systolic blood pressure 122 mm[Hg] 122 mm[Hg] M EDENT ([facility]) RT Arm Body mass index (BMI) [Ratio] 20.8 kg/m2 20.8 k g/m2 [facility] ([facility], [facility]) Body height 59 [in_i] 59 [in_i] [facility] ([facility]) 4'11" Body weight 103.00 [lb_av] 103.00 [lb_av] [facility] T ([facility]) Body temperature 97.6 [degF] 97.6 [degF] [facility] ([facility]) Oxygen saturation in Arterial blood by Pulse oximetry 96 % 96 % [facility] ([facility], [facility]) Respiratory rate 12 /min 12 /min [facility] ( [facility], [facility]) Heart rate 79 /min 79 /min [facility] ([facility], [facility]) Diastolic blood pressure 94 mm[Hg] 94 mm[Hg] [facility] ([facility]) Systolic blood pressure 170 mm[Hg] 170 mm[Hg] [facility] ([facility]) Body mass index (BMI) [Ratio] 20.5 kg/m2 20.5 k g/m2 [facility] ([facility]) Oxygen saturation in Arterial blood by Pulse oximetry --post exerci se 98 % 98 % [facility] ([facility]) RM Air Body weight 103.00 [lb_av] 103.00 [lb_av] MEDEN T ([facility]) Body height 59.50 [in_i] 59.50 [in_i] [facility] ([facility]) 4'11.50" Heart rate 77 /min 77 /min [facility] ([facility]) Diastolic blood pressure 84 mm[Hg] 84 mm[Hg] [facility] ([facility]) RT Arm Systolic blood pressure 112 mm[Hg] 112 mm[Hg] [facility] ([facility]) RT Arm
[2020-04-07 20:00] VITALS: BP 162/92
[2020-04-07] MEDS: DOCUSATE SODIUM 100MG CAPSULE PO SCH (21:29)
[2020-04-07] MEDS: ATORVASTATIN 20 MG TAB PO SCH (21:29)
[2020-04-07] MEDS: SENNA 8.6 MG TAB (SENOKOT) PO SCH (21:29)
[2020-04-07] MEDS: ACETAMINOPHEN 500 MG TAB PO SCH (21:29)
[2020-04-07] MEDS: **hydrALAZINE HCL** 25 MG TAB PO SCH (21:30)
[2020-04-07] MEDS: amLODIPine 5 MG TAB PO SCH (21:30)
[2020-04-08 04:30] VITALS: BP 135/85
[2020-04-08 06:33] LABS: BASO % 0.3 % (0.0-1.0); EOS # 0.1 10^3/uL (0.0-0.5); EOS % 1.7 % (0.0-3.0); HEMATOCRIT 40.8 % (36.0-47.0); HEMOGLOBIN 13.1 g/dl (12.0-15.5); LYMPH # 0.7 10^3/uL (1.5-5.0); MEAN CORPUSCULAR HEMOGLOBIN 28.9 pg (27.0-33.0); MEAN CORPUSCULAR HGB CONC 32.1 g/dl (32.0-36.5); MEAN CORPUSCULAR VOLUME 90.1 fl (80.0-96.0); MONO # 0.4 10^3/uL (0.0-0.8); NEUTROPHILS # 5.4 10^3/uL (1.5-8.5); NEUTROPHILS % 81.5 % (36.0-66.0); PLATELET COUNT, AUTOMATED 201 10^3/uL (150-450); RED BLOOD COUNT 4.53 10^6/uL (4.00-5.40); WHITE BLOOD COUNT 6.6 10^3/uL (4.0-10.0)
[2020-04-08 07:03] LABS: ALBUMIN 3.3 GM/DL (3.2-5.2); ALT/SGPT 10 U/L (12-78); BILIRUBIN,TOTAL 1.4 MG/DL (0.2-1.0); BLOOD UREA NITROGEN 20 MG/DL (7-18); CALCIUM LEVEL 8.7 MG/DL (8.8-10.2); CARBON DIOXIDE LEVEL 21 MEQ/L (21-32); CHLORIDE LEVEL 105 MEQ/L (98-107); CREATININE FOR GFR 0.72 MG/DL (0.55-1.30); GLOMERULAR FILTRATION RATE > 60.0 (>32); GLUCOSE, FASTING 71 MG/DL (70-100); POTASSIUM SERUM 3.4 MEQ/L (3.5-5.1); SODIUM LEVEL 138 MEQ/L (136-145); TOTAL PROTEIN 6.2 GM/DL (6.4-8.2)
[2020-04-08] MEDS: DOCUSATE SODIUM 100MG CAPSULE PO SCH ×2 (08:59→20:39)
[2020-04-08] MEDS: PANTOPRAZOLE 40MG TAB (PROTONIX) PO SCH (08:59)
[2020-04-08] MEDS: CLOPIDOGREL 75 MG TAB PO SCH (08:59)
[2020-04-08] MEDS: **hydrALAZINE HCL** 25 MG TAB PO SCH ×4 (08:59→20:39)
[2020-04-08] MEDS: ASPIRIN 81MG ENTERIC TABLET PO SCH (08:59)
[2020-04-08] MEDS: ACETAMINOPHEN 500 MG TAB PO SCH ×3 (09:00→20:40)
[2020-04-08] MEDS ORDERED: ENOXAPARIN 40MG/0.4ML SYRINGE (J1650 PER 10MG) SC SCH (09:00)
[2020-04-08] MEDS: amLODIPine 5 MG TAB PO SCH ×2 (09:00→20:38)
[2020-04-08 09:41] VITALS: BP 126/91
--- NOTE | 2020-04-08 10:21 | IPNPDOC ---
Date Seen The patient was seen on 04/08/20. Progress Note SUBJECTIVE: 89 yo F with a hx of HTN, and CVA, was admitted to [facility] between 04/05- 04/05/2020 and 04/06-04/07/20 for TIA and CVA respectively. Intial TIA workup did not show imaging findings, nor significant stenosis of her cerebral vasculature. 2D echo did not indicate LV thrombus, and no atrial fibrillation was noted on telemetry. Patient was started on DAPT and statin, and discharged home. Patient returned on 04/06/20 with R arm and R leg weakness, along with R facial droop and slurred speech. MRI showed acute vs subacute L temporoparietal infarct. 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 Patient was transferred to ARU for rehab. On 04/08/20, I was called to assess patient urgently for worsening slurring of the speech and R arm and hand weakness while working with OT. Patient was seen and examined at bedside. She is on commode, assisted by OT and RN. Patient now moving her R arm and grasping hand bar with her R hand. Her speech remains slurred. She denies CP, palpitations, n/v/d. Vitals reviewed. BP 120s/70s. OBJECTIVE PHYSICAL EXAMINATION: VITAL SIGNS: Please see below. GENERAL: sitting on commode, non toxic HEENT: R facial droop CARDIOVASCULAR: RRR, normal S1, S2 RESPIRATORY: CTAB, no wheeze, no rales ABDOMINAL: soft, non tender, BS+ EXTREMITIES: no edeme NEUROLOGICAL: 3/5 strength in RUE, 3/5 strength in RLE. Slurred speech. R facial droop present on prior exam. LABORATORY DATA, IMAGING STUDIES, MICROBIOLOGY: Please see below. CTA chest (04/07/20): IMPRESSION: 1. 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 No dissection. 2. There are no pulmonary emboli. 3. Cardiomegaly. 4. Well inflated lungs consistent with COPD. 5. Multilevel age-indeterminate compression deformities throughout the thoracic spine involving T5 through T8 and T11 and T12. DVT prophylaxis ordered?: SCDs, TEDs. Lovenox ppx. 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 Guo, high likelihood of cholesterol emboli from aortic thrombus - recommended to continue with ASA/plavix vs xarelto, although no conclusive evidence for improved outcomes with AC - I discussed with patient's daughter (Naye Reynoso tel: [phone]), decided to continue with DAPT (ASA/plavix) and not xarelto given age, risk of falls given fall risk and lack of conclusive benefits - c/w DAPT and statin - Obtain STAT CT head wo contrast to r/o acute hemorrhage - if stable CT, c/w rehab HTN - s/p 24 hrs of permissive HTN - c/w amlodipine - 126/91 mmHg this morning - monitor and titrate DVT ppx: SCDs, TEDs, Lovenox Dispo: pending PT/ARU. VS, I&O, 24H, Fishbone Vital Signs/I&O Vital Signs Date Time Temp Pulse Resp B/P (MAP) Pulse Ox O2 Delivery O2 Flow Rate FiO2 04/08/20 09:00 97 04/08/20 08:59 151/86 04/08/20 04:30 98.1 18 95 Room Air I&O- Last 24 Hours up to 6 AM 04/08/20 06:00 Intake Total 120 ml Balance 120 ml Laboratory Data 24H LABS Laboratory Tests 2 04/08/20 06:10: Immature Granulocyte % (Auto) 0.5, Neutrophils (%) (Auto) 81.5H, Lymphocytes (%) (Auto) 10.0L, Monocytes (%) (Auto) 6.0, Eosinophils (%) (Auto) 1.7, Basophils (%) (Auto) 0.3, Neutrophils # (Auto) 5.4, Lymphocytes # (Auto) 0.7L, Monocytes # (Auto) 0.4, Eosinophils # (Auto) 0.1, Basophils # (Auto) 0.0, Nucleated Red Blood Cells % (auto) 0.0, Anion Gap 12, Glomerular Filtration Rate > 60.0, Calcium Level 8.7L, Total Bilirubin 1.4H, Aspartate Amino Transf (AST/SGOT) 15, Alanine Aminotransferase (ALT/SGPT) 10L, Alkaline Phosphatase 109, Total Protein 6.2L, Albumin 3.3, Albumin/Globulin Ratio 1.1L CBC/BMP Laboratory Tests 04/08/20 06:10 LINDA FINNEY MD Apr 08, 2020 10:21
--- NOTE | 2020-04-08 10:53 | REP ---
INDICATION: cva deficits. COMPARISON: MRI brain 04/06/2020, CT angio 04/06/2020, CT 04/06/2020 TECHNIQUE: CT BRAIN PERFORMED IN THE AXIAL PLANE. CORONAL RECONSTRUCTION IMAGES ARE PERFORMED. FINDINGS: Lateral ventricles are midline a dilated in appearance unchanged the previous study 3rd and 4th ventricles are also mildly dilated but all of this is proportionate to the diffuse cerebral atrophy. Chronic heterogeneous low-attenuation white matter changes in the periventricular, deep central and subcortical white matter bilaterally. Small lacunar infarcts again seen in the basal ganglia unchanged. The insular cortex shown with subacute infarcts on MRI in the left temporoparietal region poorly depicts this finding by CT. I do not see intraparenchymal or extra-axial hemorrhage. Atrophy is diffuse and severe but symmetric. Cerebellum shows atrophy without posterior fossa hemorrhage or mass. Basal cisterns intact. Mastoids and visualized sinuses clear. The skull base and calvarium are without fracture or focal lesion. IMPRESSION: Chronic small-vessel white matter ischemic changes of aging again noted without intraparenchymal or extra-axial hemorrhage. Ventriculomegaly proportionate to the diffuse moderately severe-severe cerebral atrophy, unchanged. Left parietotemporal region with insular cortex acute infarct by diffusion imaging on MRI brain 04/06/[address] changes on today's study compared to the 04/06/2020 exam. No other significant finding. <Electronically signed by Navid Hollingsworth > 04/08/20 [id number]
[2020-04-08] MEDS ORDERED: POTASSIUM CHLORIDE 10 MEQ SR TABLET PO ONE (11:00)
[2020-04-08 11:57] VITALS: BP 138/72
--- NOTE | 2020-04-08 12:05 | HPEPDOC ---
Dance Director Note DATE OF ADMISSION: 04-07-20 DATE OF SERVICE: 04-07-20 TIME OF ADMISSION: Please refer to physician's admission order. 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 No dissection." Discussion was held with patient and her family members who decided against full anticoagulation. She had permissive blood pressure was evaluated by therapy, where she was noted to have mobility and ADL impairments below her baseline and deemed medically appropriate for discharge to ARU on 04-07-20. On initial eval patient reports right posterior thigh soreness worse with movement. REVIEW OF SYSTEMS: The following is a completed review of systems and has been reviewed. Review of systems otherwise unremarkable. PAIN: Patient self reports right posterior hip pain EYES: No recent vision changes EARS, NOSE, & THROAT: No throat pain, or dysphagia, or rhinorrhea CARDIOVASCULAR: Denies chest pain or palpitations PULMONARY: Denies shortness of breath GASTROINTESTINAL: Denies constipation/diarrhea GENITOURINARY: denies dysuria MUSCULOSKELETAL: right leg pain NEUROLOGICAL:right sided paresis HEMATOLOGICAL: denies easy bruising SKIN: denies rash PSYCHIATRIC: Unremarkable All other review of systems found to be negative. PAST MEDICAL HISTORY: as per HPI PAST SURGICAL HISTORY: Appendectomy, left hip fracture ALLERGIES: Please see below. MEDICATIONS: Please see below. FAMILY HISTORY: Cardiac, kidney disease SOCIAL HISTORY: No etoh/illicit drugs DIET: low sodium PHYSICAL EXAMINATION: VITAL SIGNS: Please see below. GENERAL: Pleasant and cooperative. No acute distress. HEENT: PERRL. Extraocular movements intact. Clear conjunctiva CARDIOVASCULAR: Regular rate and rhythm. No murmurs, rubs, or gallops LUNGS: Clear to auscultation bilaterally. No wheezes. No rhonchi ABDOMEN: Soft, nontender, nondistended. Positive bowel sounds. Normal active bowel sounds NEUROLOGICAL: Alert and oriented to self, and place, not time, Cranial nerves II through XII grossly intact. Sensation grossly intact. +dysarthria EXTREMITIES: 5\\5 strength left upper extremity, 4/5 RUE. 4\\5 strength right lower extremity. 5/5 strength in left lower extremity. (-) SLR on the right +pain with internal rotation of right leg SKIN: intact LABORATORY DATA: Please see below. IMAGING: Imaging documentation personally reviewed by record FUNCTIONAL STATUS: Premorbid: Modified Independent with all activities of daily life as well as mobility On Admission: Min assist for bed nobility, functional transfers, and ambulation, dressing, toileting GOALS: Supervision for ambulation, dressing toileting, bathing, bed mobility ASSESSMENT:89-year-old with past medical history of TIAs and HTN who presents status post new stroke PLAN: 1. REhab- PT/OT advance mobility and ADLs, advance mobility and ADLs, strengthen/stretch/maintain ROM all 4 limbs -APPLICATION PROGRAMMER ANALYST for cognition 2. 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 Resp- recent CXR showing COPD, will monitor for infection and start duonebs 5. GI ppx- protonix 6. DVT ppx- lovenox and teds 7. Pain- tylenol , lidoderm patch to right posterior thigh 8. Dipos- tbd POST ADMISSION PHYSICIAN EVALUATION: Medical and functional status: Description of medical status, medical assessment: As above. Rehabilitation diagnosis and current and prior cold morbid medical conditions as above. Risk of complications and plans to mitigate them as above. Description of functional status current status is as above. Prior status as above. Status compared to preadmission: There are no clinically significant differences between the patient's current status and the information described on the preadmission screening document. Treatment plan anticipated: Treatment plan is as described above. Required disciplines including physical therapy, occupational therapy, others as noted above. Intensity of services: 3 hours a day, 6 days a week. Special considerations: There are no specific special or safety considerations that would likely preclude immediate implementation of an intensive rehabilitation program or subsequently influence the plan of care. ATTESTATION: Considering all the information above, it is my best judgment that this patient requires intensive rehabilitation therapy as described above and an inpatient hospital environment due to the complexity of nursing, medical, and rehabilitation needs required by the patient. Furthermore, this patient can reasonably be expected to participate in an benefit from an inpatient rehabilitation stay with an interdisciplinary team approach to the delivery of rehabilitation care under the direction and supervision of rehabilitation physician. PROGNOSIS: good ESTIMATED LENGTH OF STAY:10-14 days. PROJECTED DISCHARGE DESTINATION: Home with family support and any durable medical equipment required to increase functional safety and mobility TIME SPENT COUNSELING AND COORDINATING INITIAL CARE: Greater than 70 minutes. Vital Signs Vital Sign - Last 24 Hours 04/07/20 04/07/20 04/07/20 04/08/20 20:00 21:30 21:30 04:30 Temp 97.7 98.1 Pulse 87 87 97 Resp 18 18 B/P (MAP) 162/92 (115) 162/92 135/85 (102) Pulse Ox 96 95 O2 Delivery Room Air Room Air 04/08/20 04/08/20 08:59 09:00 Pulse 97 B/P (MAP) 151/86 Laboratory Data CBC/BMP Laboratory Tests 04/08/20 06:10 Labs 24H Laboratory Tests 2 04/08/20 06:10: Immature Granulocyte % (Auto) 0.5, Neutrophils (%) (Auto) 81.5H, Lymphocytes (%) (Auto) 10.0L, Monocytes (%) (Auto) 6.0, Eosinophils (%) (Auto) 1.7, Basophils (%) (Auto) 0.3, Neutrophils # (Auto) 5.4, Lymphocytes # (Auto) 0.7L, Monocytes # (Auto) 0.4, Eosinophils # (Auto) 0.1, Basophils # (Auto) 0.0, Nucleated Red Blood Cells % (auto) 0.0, Anion Gap 12, Glomerular Filtration Rate > 60.0, Calcium Level 8.7L, Total Bilirubin 1.4H, Aspartate Amino Transf (AST/SGOT) 15, Alanine Aminotransferase (ALT/SGPT) 10L, Alkaline Phosphatase 109, Total Protein 6.2L, Albumin 3.3, Albumin/Globulin Ratio 1.1L Home Medications Scheduled Amlodipine Besylate (Norvasc) 10 Mg Tablet, 1 TAB PO DAILY Aspirin (Aspirin EC) 81 Mg Tablet.dr, 81 MG PO DAILY, (Reported) Atorvastatin Calcium (Atorvastatin Calcium) 80 Mg Tablet, 80 MG PO QHS, (Reported) Clopidogrel Bisulfate (Plavix) 75 Mg Tablet, 75 MG PO DAILY, (Reported) Allergies Coded Allergies: Penicillins (Verified Allergy, Unknown, 01/06/19) A-FIB/CHADSVASC A-FIB History Current/History of A-Fib/PAF?: No Current PO Anticoag Therapy: No DARREN VAZ MD Apr 08, 2020 12:05
[2020-04-08] MEDS: LIDOCAINE 5% (LIDODERM) PATCH TD SCH (12:19)
[2020-04-08 16:00] VITALS: BP 156/86
[2020-04-08 20:00] VITALS: BP 129/67
--- NOTE | 2020-04-08 20:34 | CR ---
CONSULTATION DATE: 04/07/2020 REQUESTING PHYSICIAN: Dr. Raj Odom REASON FOR CONSULTATION: Right sided weakness. HISTORY OF PRESENT ILLNESS: Inrgid Negron is an 89-year-old woman with history of hypertension, TIA in 2017 and 2020 who was discharged home the day before yesterday and the same night at home she develop right sided arm and leg weakness along with right sided facial droop and slurred speech. She refused coming back to the hospital. Family was unable to understand her speech. The patient was unable to open a bottle of water with her right hand. She was dragging her right leg. Upon insistence of her family, the patient agreed to come to the hospital the next morning. In the Emergency Department her speech and right sided weakness improved. The patient had fallen at home and complained of right thigh pain. CTA of head and neck showed left P2 moderate stenosis and left carotid artery 25-40% and right carotid artery 25% stenosis. MRI scan of the brain showed small multiple foci of acute ischemic stroke in the left temporal parietal region which were 3 cm in aggregate size. The patient denied any headaches, neck pain, back pain, diplopia, urinary incontinence, falls, loss of consciousness, or head injuries. DIAGNOSTIC STUDIES: MRI and CTA of head and neck are summarized above. LABORATORY DATA: CBC and metabolic profile were unremarkable. PAST MEDICAL HISTORY: The patient's past medical history is significant for: 1. Left renal cancer. 2. Left hip fracture. PAST SURGICAL HISTORY: The patient's past surgical history is significant for appendectomy. FAMILY HISTORY: The patient's mother had her kidney removed. Father with history of heart disease. SOCIAL HISTORY: She denies smoking, alcohol or illicit drugs. REVIEW OF SYSTEMS: All systems were reviewed and found to be noncontributory except as mentioned as in History of Present Illness. HOME MEDICATIONS: 1. Aspirin 81 mg p.o. daily. 2. Atorvastatin 80 mg p.o. daily. 3. Plavix 75 mg p.o. daily. 4. Amlodipine 5 mg p.o. daily. ALLERGIES: PENICILLIN. PHYSICAL EXAMINATION: VITAL SIGNS: Temperature 97.4, pulse 74, respiratory rate 17, blood pressure 184/84, 95% saturation on room air. GENERAL APPEARANCE: The patient is awake, alert, oriented to place, person and time. Normal speech, comprehension and repetition. HEENT: The extraocular muscles are intact. No facial weakness. Tongue and uvula are midline. Regional lanier are full to confrontation. HEART: Regular rate and rhythm. LUNGS: Clear to auscultation. ABDOMEN: Soft, nontender, nondistended. EXTREMITIES: No pedal edema. MUSCULOSKELETAL: No musculoskeletal abnormalities. SKIN: No rash. No signs of meningeal irritation. NEUROLOGICAL: Strength in the right arm and leg is 5-/5 with a right pronator drift. Right plantar is upgoing. Left plantar is downgoing. Normal sensation throughout. Gait was not tested. No dysmetria on left side. She has right sided dysmetria on finger to nose testing. ASSESSMENT: 1. Small multiple left temporal and parietal acute subacute ischemic strokes. 2. Moderate left posterior cerebral artery stenosis. 3. 25-40% left carotid artery stenosis and 25% right carotid artery stenosis. 4. Recent TIA and TIA in 2018. PLAN: 1. Echocardiogram. 2. Telemetry monitoring. 3. CT angiogram of thoracic aorta to rule out thoracic atheromatous disease. 4. Aspirin 81 mg p.o. daily. 5. Plavix 75 mg p.o. daily. 6. Lipitor 80 mg p.o. daily. 7. Physical and Occupational therapy and rehabilitation. 8. If we do find thoracic aortic atheromatous disease, we do not know if anticoagulation has any superiority over antiplatelet therapy. We will wait for results of her CT angiogram of the chest and discuss with family. KUNAL
[2020-04-08] MEDS: SENNA 8.6 MG TAB (SENOKOT) PO SCH (20:40)
[2020-04-08] MEDS: **NOTE PATIENT COMMENT** MISC XX SCH (20:40)
[2020-04-08] MEDS: ATORVASTATIN 20 MG TAB PO SCH (20:40)
[2020-04-09 00:14] VITALS: BP 113/62
[2020-04-09 04:01] VITALS: BP 134/73
[2020-04-09 06:58] LABS: CALCIUM LEVEL 8.8 MG/DL (8.8-10.2); CREATININE FOR GFR 1.03 MG/DL (0.55-1.30); GLOMERULAR FILTRATION RATE 53.8 (>32); POTASSIUM SERUM 3.9 MEQ/L (3.5-5.1)
[2020-04-09] MEDS: ACETAMINOPHEN 500 MG TAB PO SCH ×3 (08:49→23:49)
[2020-04-09] MEDS: DOCUSATE SODIUM 100MG CAPSULE PO SCH ×2 (08:49→23:50)
[2020-04-09] MEDS: ENOXAPARIN 40MG/0.4ML SYRINGE (J1650 PER 10MG) SC SCH (08:49)
[2020-04-09] MEDS: LIDOCAINE 5% (LIDODERM) PATCH TD SCH (08:49)
[2020-04-09] MEDS: CLOPIDOGREL 75 MG TAB PO SCH (08:50)
[2020-04-09] MEDS: amLODIPine 5 MG TAB PO SCH ×2 (08:50→23:48)
[2020-04-09] MEDS: ASPIRIN 81MG ENTERIC TABLET PO SCH (08:50)
[2020-04-09] MEDS: **hydrALAZINE HCL** 25 MG TAB PO SCH ×4 (08:50→23:49)
[2020-04-09] MEDS: PANTOPRAZOLE 40MG TAB (PROTONIX) PO SCH (08:50)
[2020-04-09 13:03] VITALS: BP 118/74
--- NOTE | 2020-04-09 14:35 | ECGEPIP ---
[facility] Test Date: 2020-04-08 Pat Name: GRICEL REDDY Department: Room: [place] [address] Gender: Female Policy Services Representative: WILI : 1930 Requested By: LINDA FINNEY Order Number: [id number] Reading MD: Tesfaye Barr Measurements Intervals [place] Rate: 87 P: 39 [place]: 164 QRS: -24 QRSD: 96 T: -42 QT: 396 QTc: 476 Interpretive Statements Normal sinus rhythm Left ventricular hypertrophy with repolarization abnormality No significant change when compared to prior tracing of 04/06/2020 Electronically Signed on 04-09-2020 14:35:33 EST by Tesfaye Barr
[2020-04-09 20:00] VITALS: BP 132/86
[2020-04-09] MEDS: ATORVASTATIN 20 MG TAB PO SCH (23:47)
[2020-04-09] MEDS: **NOTE PATIENT COMMENT** MISC XX SCH (23:49)
[2020-04-09] MEDS: SENNA 8.6 MG TAB (SENOKOT) PO SCH (23:50)
[2020-04-10 05:24] VITALS: BP 153/80
[2020-04-10 07:06] LABS: BASO % 0.3 % (0.0-1.0); EOS # 0.2 10^3/uL (0.0-0.5); EOS % 3.4 % (0.0-3.0); HEMOGLOBIN 12.4 g/dl (12.0-15.5); LYMPH # 0.6 10^3/uL (1.5-5.0); MEAN CORPUSCULAR HEMOGLOBIN 29.4 pg (27.0-33.0); MEAN CORPUSCULAR HGB CONC 32.6 g/dl (32.0-36.5); MONO # 0.7 10^3/uL (0.0-0.8); MONO % 12.5 % (2.0-8.0); NEUTROPHILS # 4.3 10^3/uL (1.5-8.5); NEUTROPHILS % 73.3 % (36.0-66.0); PLATELET COUNT, AUTOMATED 214 10^3/uL (150-450); RED BLOOD COUNT 4.22 10^6/uL (4.00-5.40); WHITE BLOOD COUNT 5.9 10^3/uL (4.0-10.0)
[2020-04-10 07:25] LABS: CREATININE FOR GFR 0.96 MG/DL (0.55-1.30); GLOMERULAR FILTRATION RATE 58.4 (>32); POTASSIUM SERUM 3.5 MEQ/L (3.5-5.1)
[2020-04-10] MEDS: ENOXAPARIN 40MG/0.4ML SYRINGE (J1650 PER 10MG) SC SCH (10:29)
[2020-04-10] MEDS: PANTOPRAZOLE 40MG TAB (PROTONIX) PO SCH (10:30)
[2020-04-10] MEDS: DOCUSATE SODIUM 100MG CAPSULE PO SCH ×2 (10:30→20:21)
[2020-04-10] MEDS: ACETAMINOPHEN 500 MG TAB PO SCH ×3 (10:30→20:21)
[2020-04-10] MEDS: CLOPIDOGREL 75 MG TAB PO SCH (10:30)
[2020-04-10] MEDS: ASPIRIN 81MG ENTERIC TABLET PO SCH (10:30)
[2020-04-10] MEDS: LIDOCAINE 5% (LIDODERM) PATCH TD SCH (10:31)
[2020-04-10] MEDS: **hydrALAZINE HCL** 25 MG TAB PO SCH ×4 (10:34→20:21)
[2020-04-10] MEDS: amLODIPine 5 MG TAB PO SCH ×2 (10:34→20:21)
--- NOTE | 2020-04-10 11:35 | IPNPDOC ---
PM&R Progress Note DATE OF SERVICE: Apr 10, 2020 Online Producer Progress Note Subjective: Patient reporting she has been coughing when she drinks water through a straw, but otherwise feels well. REVIEW OF SYSTEMS: The following is a completed review of systems and has been reviewed. Review of systems otherwise unremarkable. PAIN: Patient self reports right posterior hip pain EYES: No recent vision changes EARS, NOSE, & THROAT: No throat pain, or dysphagia, or rhinorrhea CARDIOVASCULAR: Denies chest pain or palpitations PULMONARY: Denies shortness of breath GASTROINTESTINAL: Denies constipation/diarrhea GENITOURINARY: denies dysuria MUSCULOSKELETAL: right leg pain NEUROLOGICAL:right sided paresis HEMATOLOGICAL: denies easy bruising SKIN: denies rash PSYCHIATRIC: Unremarkable All other review of systems found to be negative. PHYSICAL EXAMINATION: VITAL SIGNS: Please see below. GENERAL: Pleasant and cooperative. No acute distress. HEENT: PERRL. Extraocular movements intact. Clear conjunctiva CARDIOVASCULAR: Regular rate and rhythm. No murmurs, rubs, or gallops LUNGS: Clear to auscultation bilaterally. No wheezes. No rhonchi ABDOMEN: Soft, nontender, nondistended. Positive bowel sounds. Normal active bowel sounds NEUROLOGICAL: Alert and oriented to self, and place, not time, Cranial nerves II through XII grossly intact. Sensation grossly intact. +dysarthria EXTREMITIES: 5\5 strength left upper extremity, 4/5 RUE. 4\5 strength right lower extremity. 5/5 strength in left lower extremity. SKIN: intact ASSESSMENT:89-year-old with past medical history of TIAs and HTN who presents status post new stroke PLAN: 1. REhab- PT/OT advance mobility and ADLs, advance mobility and ADLs, strengthen/stretch/maintain ROM all 4 limbs -PROOF OPERATOR for cognition & swallow, had been cleared on other unit for regular diet, however will downgrade until evaluated on ARU- mechanical soft level 3 and nectar for now 2. 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 Resp- recent CXR showing COPD, will monitor for infection , c/u duonebs, will add guaifenesin 5. GI ppx- protonix 6. DVT ppx- lovenox and teds 7. Pain- tylenol , lidoderm patch to right posterior thigh 8. Dipos- tbd Allergies Coded Allergies: Penicillins (Verified Allergy, Unknown, 01/06/19) Vital Signs Vital Signs Date Time Temp Pulse Resp B/P (MAP) Pulse Ox O2 Delivery O2 Flow Rate FiO2 04/10/20 10:34 80 139/76 04/10/20 05:24 98.1 17 97 Room Air Laboratory Data CBC/BMP Laboratory Tests 04/10/20 06:44 Labs 24H Laboratory Tests 2 04/10/20 06:44: Immature Granulocyte % (Auto) 0.5, Neutrophils (%) (Auto) 73.3H, Lymphocytes (%) (Auto) 10.0L, Monocytes (%) (Auto) 12.5H, Eosinophils (%) (Auto) 3.4H, Basophils (%) (Auto) 0.3, Neutrophils # (Auto) 4.3, Lymphocytes # (Auto) 0.6L, Monocytes # (Auto) 0.7, Eosinophils # (Auto) 0.2, Basophils # (Auto) 0.0, Nucleated Red Blo od Cells % (auto) 0.0, Anion Gap 10, Glomerular Filtration Rate 58.4, Calcium Level 9.0 Current Medications Current Medications Current Medications Medications (Trade) Dose Ordered Sig/Edward Route PRN Reason Start Time Stop Time Status Last Admin Dose Admin Acetaminophen (Tylenol Tab) 1,000 mg TID PO 04/07/20 21:00 04/10/20 10:30 Amlodipine Besylate (Norvasc) 5 mg BID PO 04/07/20 21:00 04/10/20 10:34 Aspirin (Ecotrin) 81 mg DAILY PO 04/08/20 09:00 04/10/20 10:30 Atorvastatin Calcium (Lipitor) 80 mg QHS PO 04/07/20 21:00 04/09/20 23:47 Bisacodyl (Dulcolax Suppository) 10 mg DAILYPRN PRN [place] CONSTIPATION 04/07/20 16:30 Clopidogrel Bisulfate (PLAVix) 75 mg DAILY PO 04/08/20 09:00 04/10/20 10:30 Docusate Sodium (Colace) 100 mg BID PO 04/07/20 21:00 04/10/20 10:30 Enoxaparin Sodium (Lovenox) 40 mg DAILY SC 04/08/20 09:00 04/08/20 10:46 DC Enoxaparin Sodium (Lovenox) 40 mg DAILY SC 04/09/20 09:00 04/10/20 10:29 Hydralazine HCl (Apresoline) 25 mg QID PO 04/07/20 21:00 04/09/20 23:49 Lidocaine (Lidoderm Patch) 1 patch DAILY TD 04/08/20 12:15 04/10/20 10:31 Non-Formulary Medication ( See Comment Field Below ) REMOVE LIDODERM PATCH DAILY@21 XX 04/08/20 21:00 04/09/20 23:49 Pantoprazole Sodium (Protonix) 40 mg DAILY PO 04/08/20 09:00 04/10/20 10:30 Senna (Senokot) 1 tab QHS PO 04/07/20 21:00 04/07/20 21:29 DARREN VAZ MD Apr 10, 2020 11:35
[2020-04-10 14:00] VITALS: BP 123/72
[2020-04-10] MEDS: guaiFENesin 200 MG TAB PO SCH ×2 (16:16→20:20)
[2020-04-10 20:00] VITALS: BP 162/92
[2020-04-10] MEDS: SENNA 8.6 MG TAB (SENOKOT) PO SCH (20:21)
[2020-04-10] MEDS: ATORVASTATIN 20 MG TAB PO SCH (20:21)
[2020-04-10] MEDS: **NOTE PATIENT COMMENT** MISC XX SCH (20:23)
[2020-04-11 05:20] VITALS: BP 138/75
[2020-04-11] MEDS: ACETAMINOPHEN 500 MG TAB PO SCH ×4 (09:00→20:44)
[2020-04-11] MEDS: LIDOCAINE 5% (LIDODERM) PATCH TD SCH (09:14)
[2020-04-11] MEDS: ENOXAPARIN 40MG/0.4ML SYRINGE (J1650 PER 10MG) SC SCH (09:15)
[2020-04-11] MEDS: guaiFENesin 200 MG TAB PO SCH ×3 (09:15→20:43)
[2020-04-11] MEDS: CLOPIDOGREL 75 MG TAB PO SCH (09:16)
[2020-04-11] MEDS: amLODIPine 5 MG TAB PO SCH ×2 (09:16→20:45)
[2020-04-11] MEDS: ASPIRIN 81MG ENTERIC TABLET PO SCH (09:16)
[2020-04-11] MEDS: **hydrALAZINE HCL** 25 MG TAB PO SCH ×4 (09:16→20:45)
[2020-04-11] MEDS: DOCUSATE SODIUM 100MG CAPSULE PO SCH ×2 (09:17→20:45)
[2020-04-11] MEDS: PANTOPRAZOLE 40MG TAB (PROTONIX) PO SCH (09:17)
--- NOTE | 2020-04-11 10:18 | IPNPDOC ---
PM&R Progress Note DATE OF SERVICE: Apr 11, 2020 Spice Fumigator Progress Note Subjective: Patient stating her right leg is really bothering her and it feels like shooting pain down her leg. REVIEW OF SYSTEMS: The following is a completed review of systems and has been reviewed. Review of systems otherwise unremarkable. PAIN: Patient self reports right posterior hip pain EYES: No recent vision changes EARS, NOSE, & THROAT: +dysphagia CARDIOVASCULAR: Denies chest pain or palpitations PULMONARY: Denies shortness of breath GASTROINTESTINAL: Denies constipation/diarrhea GENITOURINARY: denies dysuria MUSCULOSKELETAL: right leg pain NEUROLOGICAL:right sided paresis HEMATOLOGICAL: denies easy bruising SKIN: denies rash PSYCHIATRIC: Unremarkable All other review of systems found to be negative. PHYSICAL EXAMINATION: VITAL SIGNS: Please see below. GENERAL: Pleasant and cooperative. No acute distress. HEENT: PERRL. Extraocular movements intact. Clear conjunctiva CARDIOVASCULAR: Regular rate and rhythm. No murmurs, rubs, or gallops LUNGS: Clear to auscultation bilaterally. No wheezes. No rhonchi ABDOMEN: Soft, nontender, nondistended. Positive bowel sounds. Normal active bowel sounds NEUROLOGICAL: Alert and oriented to self, and place, not time, Cranial nerves II through XII grossly intact. Sensation grossly intact. +dysarthria EXTREMITIES: 5\5 strength left upper extremity, 4/5 RUE. 4\5 strength right lower extremity. 5/5 strength in left lower extremity. SKIN: intact ASSESSMENT:89-year-old with past medical history of TIAs and HTN who presents status post new stroke PLAN: 1. REhab- PT/OT advance mobility and ADLs, advance mobility and ADLs, strengthen/stretch/maintain ROM all 4 limbs -PULP BEATER for cognition & swallow, had been cleared on other unit for regular diet, however will downgrade until evaluated on ARU- mechanical soft level 3 and nectar for now 2. 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 Resp- recent CXR showing COPD, will monitor for infection , c/u duonebs and guaifenesin 5. GI ppx- protonix 6. DVT ppx- lovenox and teds 7. 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 Dipos- 04-26-20 to home Allergies Coded Allergies: Penicillins (Verified Allergy, Unknown, 01/06/19) Vital Signs Vital Signs Date Time Temp Pulse Resp B/P (MAP) Pulse Ox O2 Delivery O2 Flow Rate FiO2 04/11/20 09:16 140/75 04/11/20 05:20 99.2 94 19 96 Room Air Current Medications Current Medications Current Medications Medications (Trade) Dose Ordered Sig/Edward Route PRN Reason Start Time Stop Time Status Last Admin Dose Admin Acetaminophen (Tylenol Tab) 1,000 mg TID PO 04/07/20 21:00 04/10/20 20:21 Amlodipine Besylate (Norvasc) 5 mg BID PO 04/07/20 21:00 04/11/20 09:16 Aspirin (Ecotrin) 81 mg DAILY PO 04/08/20 09:00 04/11/20 09:16 Atorvastatin Calcium (Lipitor) 80 mg QHS PO 04/07/20 21:00 04/10/20 20:21 Bisacodyl (Dulcolax Suppository) 10 mg DAILYPRN PRN [place] CONSTIPATION 04/07/20 16:30 Clopidogrel Bisulfate (PLAVix) 75 mg DAILY PO 04/08/20 09:00 04/11/20 09:16 Docusate Sodium (Colace) 100 mg BID PO 04/07/20 21:00 04/11/20 09:17 Enoxaparin Sodium (Lovenox) 40 mg DAILY SC 04/08/20 09:00 04/08/20 10:46 DC Enoxaparin Sodium (Lovenox) 40 mg DAILY SC 04/09/20 09:00 04/11/20 09:15 Guaifenesin (Robitussin Tab) 400 mg TID PO 04/10/20 16:00 04/11/20 09:15 Hydralazine HCl (Apresoline) 25 mg QID PO 04/07/20 21:00 04/11/20 09:16 Lidocaine (Lidoderm Patch) 1 patch DAILY TD 04/08/20 12:15 04/11/20 09:14 Non-Formulary Medication ( See Comment Field Below ) REMOVE LIDODERM PATCH DAILY@21 XX 04/08/20 21:00 04/10/20 20:23 Pantoprazole Sodium (Protonix) 40 mg DAILY PO 04/08/20 09:00 04/11/20 09:17 Senna (Senokot) 1 tab QHS PO 04/07/20 21:00 04/10/20 20:21 DARREN VAZ MD Apr 11, 2020 10:18
[2020-04-11 14:00] VITALS: BP 132/74
[2020-04-11] MEDS: ATORVASTATIN 20 MG TAB PO SCH (20:44)
[2020-04-11] MEDS: SENNA 8.6 MG TAB (SENOKOT) PO SCH (20:45)
[2020-04-11] MEDS: **NOTE PATIENT COMMENT** MISC XX SCH (20:46)
[2020-04-11 22:00] VITALS: BP 148/82
[2020-04-11] MEDS: GABAPENTIN 100 MG CAP PO SCH (22:11)
[2020-04-12] MEDS: DOCUSATE SODIUM 100MG CAPSULE PO SCH ×2 (09:00→20:31)
[2020-04-12] MEDS: **hydrALAZINE HCL** 25 MG TAB PO SCH ×4 (09:00→20:31)
--- NOTE | 2020-04-12 09:05 | IPNPDOC ---
PM&R Progress Note DATE OF SERVICE: Apr 12, 2020 Glassware Maker Progress Note Subjective: Patient stating her right leg is a little better today. She feels she is moving pretty well, denies fevers, chills, or new weakness. REVIEW OF SYSTEMS: The following is a completed review of systems and has been reviewed. Review of systems otherwise unremarkable. PAIN: Patient self reports right posterior hip pain EYES: No recent vision changes EARS, NOSE, & THROAT: +dysphagia CARDIOVASCULAR: Denies chest pain or palpitations PULMONARY: Denies shortness of breath GASTROINTESTINAL: Denies constipation/diarrhea GENITOURINARY: denies dysuria MUSCULOSKELETAL: right leg pain NEUROLOGICAL:right sided paresis HEMATOLOGICAL: denies easy bruising SKIN: denies rash PSYCHIATRIC: Unremarkable All other review of systems found to be negative. PHYSICAL EXAMINATION: VITAL SIGNS: Please see below. GENERAL: Pleasant and cooperative. No acute distress. HEENT: PERRL. Extraocular movements intact. Clear conjunctiva CARDIOVASCULAR: Regular rate and rhythm. No murmurs, rubs, or gallops LUNGS: Clear to auscultation bilaterally. No wheezes. No rhonchi ABDOMEN: Soft, nontender, nondistended. Positive bowel sounds. Normal active bowel sounds NEUROLOGICAL: Alert and oriented to self, and place, not time, Cranial nerves II through XII grossly intact. Sensation grossly intact. +dysarthria EXTREMITIES: 5\5 strength left upper extremity, 4/5 RUE. 4\5 strength right lower extremity. 5/5 strength in left lower extremity. SKIN: intact ASSESSMENT:89-year-old with past medical history of TIAs and HTN who presents status post new stroke PLAN: 1. REhab- PT/OT advance mobility and ADLs, advance mobility and ADLs, strengthen/stretch/maintain ROM all 4 limbs -LAB ENGINEER for cognition & swallow, had been cleared on other unit for regular diet, however will downgrade until evaluated on ARU- mechanical soft level 3 and nectar for now 2. 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 Resp- recent CXR showing COPD, will monitor for infection , c/u duonebs and guaifenesin 5. GI ppx- protonix 6. DVT ppx- lovenox and teds 7. 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 Dispo- 04-26-20 to home Allergies Coded Allergies: Penicillins (Verified Allergy, Unknown, 01/06/19) Vital Signs Vital Signs Date Time Temp Pulse Resp B/P (MAP) Pulse Ox O2 Delivery O2 Flow Rate FiO2 04/12/20 06:00 98.2 88 18 96 Room Air 04/11/20 22:00 148/82 (104) Current Medications Current Medications Current Medications Medications (Trade) Dose Ordered Sig/Edward Route PRN Reason Start Time Stop Time Status Last Admin Dose Admin Acetaminophen (Tylenol Tab) 1,000 mg TID PO 04/07/20 21:00 04/11/20 20:44 Amlodipine Besylate (Norvasc) 5 mg BID PO 04/07/20 21:00 04/11/20 20:45 Aspirin (Ecotrin) 81 mg DAILY PO 04/08/20 09:00 04/11/20 09:16 Atorvastatin Calcium (Lipitor) 80 mg QHS PO 04/07/20 21:00 04/11/20 20:44 Bisacodyl (Dulcolax Suppository) 10 mg DAILYPRN PRN [place] CONSTIPATION 04/07/20 16:30 Clopidogrel Bisulfate (PLAVix) 75 mg DAILY PO 04/08/20 09:00 04/11/20 09:16 Docusate Sodium (Colace) 100 mg BID PO 04/07/20 21:00 04/11/20 09:17 Enoxaparin Sodium (Lovenox) 40 mg DAILY SC 04/08/20 09:00 04/08/20 10:46 DC Enoxaparin Sodium (Lovenox) 40 mg DAILY SC 04/09/20 09:00 04/11/20 09:15 Gabapentin (Neurontin) 100 mg TID PO 04/11/20 21:15 04/11/20 22:11 Guaifenesin (Robitussin Tab) 400 mg TID PO 04/10/20 16:00 04/11/20 20:43 Hydralazine HCl (Apresoline) 25 mg QID PO 04/07/20 21:00 04/11/20 20:45 Lidocaine (Lidoderm Patch) 1 patch DAILY TD 04/08/20 12:15 04/11/20 09:14 Non-Formulary Medication ( See Comment Field Below ) REMOVE LIDODERM PATCH DAILY@21 XX 04/08/20 21:00 04/11/20 20:46 Pantoprazole Sodium (Protonix) 40 mg DAILY PO 04/08/20 09:00 04/11/20 09:17 Senna (Senokot) 1 tab QHS PO 04/07/20 21:00 04/10/20 20:21 DARREN VAZ MD Apr 12, 2020 09:05
[2020-04-12] MEDS: PANTOPRAZOLE 40MG TAB (PROTONIX) PO SCH (09:40)
[2020-04-12] MEDS: ASPIRIN 81MG ENTERIC TABLET PO SCH (09:41)
[2020-04-12] MEDS: CLOPIDOGREL 75 MG TAB PO SCH (09:41)
[2020-04-12] MEDS: ACETAMINOPHEN 500 MG TAB PO SCH ×3 (09:41→20:31)
[2020-04-12] MEDS: guaiFENesin 200 MG TAB PO SCH ×3 (09:41→20:29)
[2020-04-12] MEDS: LIDOCAINE 5% (LIDODERM) PATCH TD SCH (09:42)
[2020-04-12] MEDS: GABAPENTIN 100 MG CAP PO SCH ×3 (09:42→20:29)
[2020-04-12] MEDS: amLODIPine 5 MG TAB PO SCH ×2 (09:42→20:31)
[2020-04-12] MEDS: ENOXAPARIN 40MG/0.4ML SYRINGE (J1650 PER 10MG) SC SCH (09:43)
[2020-04-12 14:00] VITALS: BP 135/73
[2020-04-12 20:30] VITALS: BP 128/73
[2020-04-12] MEDS: SENNA 8.6 MG TAB (SENOKOT) PO SCH (20:31)
[2020-04-12] MEDS: ATORVASTATIN 20 MG TAB PO SCH (20:32)
[2020-04-12] MEDS: **NOTE PATIENT COMMENT** MISC XX SCH (20:32)
[2020-04-13 06:45] VITALS: BP 136/75
[2020-04-13] MEDS: PANTOPRAZOLE 40MG TAB (PROTONIX) PO SCH (08:38)
[2020-04-13] MEDS: ASPIRIN 81MG ENTERIC TABLET PO SCH (08:38)
[2020-04-13] MEDS: ACETAMINOPHEN 500 MG TAB PO SCH ×3 (08:38→20:25)
[2020-04-13] MEDS: guaiFENesin 200 MG TAB PO SCH ×3 (08:38→20:22)
[2020-04-13] MEDS: DOCUSATE SODIUM 100MG CAPSULE PO SCH ×2 (08:39→20:24)
[2020-04-13] MEDS: ENOXAPARIN 40MG/0.4ML SYRINGE (J1650 PER 10MG) SC SCH (08:39)
[2020-04-13] MEDS: GABAPENTIN 100 MG CAP PO SCH ×3 (08:39→20:22)
[2020-04-13] MEDS: LIDOCAINE 5% (LIDODERM) PATCH TD SCH (08:39)
[2020-04-13] MEDS: CLOPIDOGREL 75 MG TAB PO SCH (08:39)
[2020-04-13] MEDS: **hydrALAZINE HCL** 25 MG TAB PO SCH ×4 (08:41→20:24)
[2020-04-13] MEDS: amLODIPine 5 MG TAB PO SCH ×2 (08:42→20:23)
[2020-04-13 14:00] VITALS: BP 131/87
[2020-04-13 20:20] VITALS: BP 145/65
[2020-04-13] MEDS: ATORVASTATIN 20 MG TAB PO SCH (20:22)
[2020-04-13] MEDS: SENNA 8.6 MG TAB (SENOKOT) PO SCH (20:24)
[2020-04-13] MEDS: **NOTE PATIENT COMMENT** MISC XX SCH (20:25)
[2020-04-14 05:34] VITALS: BP 150/78
[2020-04-14 06:51] LABS: BASO % 0.2 % (0.0-1.0); EOS # 0.2 10^3/uL (0.0-0.5); HEMATOCRIT 36.5 % (36.0-47.0); HEMOGLOBIN 11.7 g/dl (12.0-15.5); LYMPH % 20.7 % (24.0-44.0); MEAN CORPUSCULAR HEMOGLOBIN 29.5 pg (27.0-33.0); MEAN CORPUSCULAR HGB CONC 32.1 g/dl (32.0-36.5); MEAN CORPUSCULAR VOLUME 92.2 fl (80.0-96.0); MONO # 0.5 10^3/uL (0.0-0.8); MONO % 10.1 % (2.0-8.0); NEUTROPHILS # 2.9 10^3/uL (1.5-8.5); NEUTROPHILS % 62.9 % (36.0-66.0); PLATELET COUNT, AUTOMATED 245 10^3/uL (150-450); RED BLOOD COUNT 3.96 10^6/uL (4.00-5.40); WHITE BLOOD COUNT 4.6 10^3/uL (4.0-10.0)
[2020-04-14 07:22] LABS: CREATININE FOR GFR 0.95 MG/DL (0.55-1.30); GLOMERULAR FILTRATION RATE 59.1 (>32); POTASSIUM SERUM 3.5 MEQ/L (3.5-5.1)
[2020-04-14] MEDS: **hydrALAZINE HCL** 25 MG TAB PO SCH ×4 (09:00→20:54)
[2020-04-14] MEDS: GABAPENTIN 100 MG CAP PO SCH ×3 (09:02→20:53)
[2020-04-14] MEDS: ASPIRIN 81MG ENTERIC TABLET PO SCH (09:02)
[2020-04-14] MEDS: PANTOPRAZOLE 40MG TAB (PROTONIX) PO SCH (09:02)
[2020-04-14] MEDS: CLOPIDOGREL 75 MG TAB PO SCH (09:02)
[2020-04-14] MEDS: DOCUSATE SODIUM 100MG CAPSULE PO SCH ×2 (09:02→20:54)
[2020-04-14] MEDS: guaiFENesin 200 MG TAB PO SCH ×3 (09:02→20:53)
[2020-04-14] MEDS: amLODIPine 5 MG TAB PO SCH ×2 (09:02→20:54)
[2020-04-14] MEDS: ACETAMINOPHEN 500 MG TAB PO SCH ×3 (09:03→20:53)
[2020-04-14] MEDS: ENOXAPARIN 40MG/0.4ML SYRINGE (J1650 PER 10MG) SC SCH (09:03)
[2020-04-14] MEDS: LIDOCAINE 5% (LIDODERM) PATCH TD SCH (09:03)
[2020-04-14 14:00] VITALS: BP 113/58
[2020-04-14 20:00] VITALS: BP 126/76
[2020-04-14] MEDS: ATORVASTATIN 20 MG TAB PO SCH (20:53)
[2020-04-14] MEDS: SENNA 8.6 MG TAB (SENOKOT) PO SCH (20:54)
[2020-04-14] MEDS: **NOTE PATIENT COMMENT** MISC XX SCH (20:58)
[2020-04-15 05:19] VITALS: BP 137/82
[2020-04-15] MEDS: ASPIRIN 81MG ENTERIC TABLET PO SCH (08:31)
[2020-04-15] MEDS: amLODIPine 5 MG TAB PO SCH ×2 (08:32→20:27)
[2020-04-15] MEDS: PANTOPRAZOLE 40MG TAB (PROTONIX) PO SCH (08:32)
[2020-04-15] MEDS: **hydrALAZINE HCL** 25 MG TAB PO SCH ×4 (08:33→20:27)
[2020-04-15] MEDS: DOCUSATE SODIUM 100MG CAPSULE PO SCH ×2 (08:33→20:27)
[2020-04-15] MEDS: ACETAMINOPHEN 500 MG TAB PO SCH ×3 (08:33→20:27)
[2020-04-15] MEDS: CLOPIDOGREL 75 MG TAB PO SCH (08:33)
[2020-04-15] MEDS: guaiFENesin 200 MG TAB PO SCH ×3 (08:33→20:27)
[2020-04-15] MEDS: GABAPENTIN 100 MG CAP PO SCH ×3 (08:33→20:26)
[2020-04-15] MEDS: ENOXAPARIN 40MG/0.4ML SYRINGE (J1650 PER 10MG) SC SCH (08:34)
[2020-04-15] MEDS: LIDOCAINE 5% (LIDODERM) PATCH TD SCH (08:34)
[2020-04-15 14:00] VITALS: BP 115/70
[2020-04-15 16:40] VITALS: BP 126/74
[2020-04-15 20:00] VITALS: BP 119/65
[2020-04-15] MEDS: ATORVASTATIN 20 MG TAB PO SCH (20:27)
[2020-04-15] MEDS: SENNA 8.6 MG TAB (SENOKOT) PO SCH (20:28)
[2020-04-15] MEDS: **NOTE PATIENT COMMENT** MISC XX SCH (20:29)
[2020-04-16 05:11] VITALS: BP 129/72
[2020-04-16] MEDS: amLODIPine 5 MG TAB PO SCH ×2 (08:12→20:23)
[2020-04-16] MEDS: GABAPENTIN 100 MG CAP PO SCH ×3 (08:12→20:23)
[2020-04-16] MEDS: ASPIRIN 81MG ENTERIC TABLET PO SCH (08:12)
[2020-04-16] MEDS: PANTOPRAZOLE 40MG TAB (PROTONIX) PO SCH (08:12)
[2020-04-16] MEDS: ACETAMINOPHEN 500 MG TAB PO SCH ×3 (08:13→20:23)
[2020-04-16] MEDS: guaiFENesin 200 MG TAB PO SCH ×3 (08:14→20:22)
[2020-04-16] MEDS: CLOPIDOGREL 75 MG TAB PO SCH (08:14)
[2020-04-16] MEDS: ENOXAPARIN 40MG/0.4ML SYRINGE (J1650 PER 10MG) SC SCH (08:15)
[2020-04-16] MEDS: DOCUSATE SODIUM 100MG CAPSULE PO SCH ×2 (08:15→20:20)
[2020-04-16] MEDS: LIDOCAINE 5% (LIDODERM) PATCH TD SCH (08:15)
[2020-04-16] MEDS: **hydrALAZINE HCL** 25 MG TAB PO SCH ×4 (08:16→20:06)
[2020-04-16 14:00] VITALS: BP 123/68
[2020-04-16 20:00] VITALS: BP 136/62
[2020-04-16] MEDS: SENNA 8.6 MG TAB (SENOKOT) PO SCH (20:20)
[2020-04-16] MEDS: **NOTE PATIENT COMMENT** MISC XX SCH (20:23)
[2020-04-16] MEDS: ATORVASTATIN 20 MG TAB PO SCH (20:23)
[2020-04-17] MEDS: LIDOCAINE 5% (LIDODERM) PATCH TD SCH (04:43)
[2020-04-17 06:00] VITALS: BP 135/74
[2020-04-17 06:55] LABS: BASO % 0.4 % (0.0-1.0); EOS # 0.2 10^3/uL (0.0-0.5); EOS % 4.9 % (0.0-3.0); HEMATOCRIT 33.6 % (36.0-47.0); HEMOGLOBIN 10.7 g/dl (12.0-15.5); LYMPH % 21.2 % (24.0-44.0); MEAN CORPUSCULAR HEMOGLOBIN 29.2 pg (27.0-33.0); MEAN CORPUSCULAR HGB CONC 31.8 g/dl (32.0-36.5); MEAN CORPUSCULAR VOLUME 91.6 fl (80.0-96.0); MONO # 0.5 10^3/uL (0.0-0.8); MONO % 10.8 % (2.0-8.0); NEUTROPHILS # 2.8 10^3/uL (1.5-8.5); NEUTROPHILS % 61.8 % (36.0-66.0); PLATELET COUNT, AUTOMATED 282 10^3/uL (150-450); RED BLOOD COUNT 3.67 10^6/uL (4.00-5.40); WHITE BLOOD COUNT 4.5 10^3/uL (4.0-10.0)
[2020-04-17 07:23] LABS: BLOOD UREA NITROGEN 24 MG/DL (7-18); CALCIUM LEVEL 8.3 MG/DL (8.8-10.2); CARBON DIOXIDE LEVEL 26 MEQ/L (21-32); CHLORIDE LEVEL 108 MEQ/L (98-107); CREATININE FOR GFR 0.82 MG/DL (0.55-1.30); GLOMERULAR FILTRATION RATE > 60.0 (>32); GLUCOSE, FASTING 87 MG/DL (70-100); POTASSIUM SERUM 3.9 MEQ/L (3.5-5.1); SODIUM LEVEL 141 MEQ/L (136-145)
[2020-04-17] MEDS: DOCUSATE SODIUM 100MG CAPSULE PO SCH ×2 (09:00→20:41)
[2020-04-17] MEDS: ACETAMINOPHEN 500 MG TAB PO SCH ×3 (09:05→20:42)
[2020-04-17] MEDS: guaiFENesin 200 MG TAB PO SCH ×3 (09:06→20:41)
[2020-04-17] MEDS: GABAPENTIN 100 MG CAP PO SCH ×3 (09:06→20:42)
[2020-04-17] MEDS: CLOPIDOGREL 75 MG TAB PO SCH (09:06)
[2020-04-17] MEDS: amLODIPine 5 MG TAB PO SCH ×2 (09:06→20:42)
[2020-04-17] MEDS: ASPIRIN 81MG ENTERIC TABLET PO SCH (09:06)
[2020-04-17] MEDS: PANTOPRAZOLE 40MG TAB (PROTONIX) PO SCH (09:07)
[2020-04-17] MEDS: **hydrALAZINE HCL** 25 MG TAB PO SCH ×4 (09:07→20:41)
[2020-04-17] MEDS: ENOXAPARIN 40MG/0.4ML SYRINGE (J1650 PER 10MG) SC SCH (09:07)
[2020-04-17 14:00] VITALS: BP 134/73
--- NOTE | 2020-04-17 15:25 | IPNPDOC ---
PM&R Progress Note DATE OF SERVICE: Apr 17, 2020 Grain Handler Progress Note Subjective: Patient stating her right leg hurts a lot today and she has difficulty putting weight through it, stating the pain comes and goes. REVIEW OF SYSTEMS: The following is a completed review of systems and has been reviewed. Review of systems otherwise unremarkable. PAIN: Patient self reports right posterior hip pain EYES: No recent vision changes EARS, NOSE, & THROAT: +dysphagia CARDIOVASCULAR: Denies chest pain or palpitations PULMONARY: Denies shortness of breath GASTROINTESTINAL: Denies constipation/diarrhea GENITOURINARY: denies dysuria MUSCULOSKELETAL: right leg pain NEUROLOGICAL:right sided paresis HEMATOLOGICAL: denies easy bruising SKIN: denies rash PSYCHIATRIC: Unremarkable All other review of systems found to be negative. PHYSICAL EXAMINATION: VITAL SIGNS: Please see below. GENERAL: Pleasant and cooperative. No acute distress. HEENT: PERRL. Extraocular movements intact. Clear conjunctiva CARDIOVASCULAR: Regular rate and rhythm. No murmurs, rubs, or gallops LUNGS: Clear to auscultation bilaterally. No wheezes. No rhonchi ABDOMEN: Soft, nontender, nondistended. Positive bowel sounds. Normal active bowel sounds NEUROLOGICAL: Alert and oriented to self, and place, not time, Cranial nerves II through XII grossly intact. Sensation grossly intact. +dysarthria EXTREMITIES: 5\5 strength left upper extremity, 4/5 RUE. 4\5 strength right lower extremity. 5/5 strength in left lower extremity. right leg (-) SLR, no pain with internal/external rotation of hip (-) Bennie's bilat SKIN: intact ASSESSMENT:89-year-old with past medical history of TIAs and HTN who presents status post new stroke PLAN: 1. REhab- PT/OT advance mobility and ADLs, advance mobility and ADLs, strengthen/stretch/maintain ROM all 4 limbs -WIRED SWEATBAND CUTTER for cognition & swallow, had been cleared on other unit for regular diet, however will downgrade until evaluated on ARU- mechanical soft level 3 and nectar for now 2. 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 Resp- recent CXR showing COPD, will monitor for infection , c/u duonebs and guaifenesin 5. GI ppx- protonix 6. DVT ppx- lovenox and teds -will order doppler ro r/o right LE DVT although suspicion low 7. 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 Dispo- 04-26-20 to home Allergies Coded Allergies: Penicillins (Verified Allergy, Unknown, 01/06/19) Vital Signs Vital Signs Date Time Temp Pulse Resp B/P (MAP) Pulse Ox O2 Delivery O2 Flow Rate FiO2 04/17/20 14:00 98.4 91 18 134/73 (93) 99 Room Air Laboratory Data CBC/BMP Laboratory Tests 04/17/20 06:11 Labs 24H Laboratory Tests 2 04/17/20 06:11: Immature Granulocyte % (Auto) 0.9, Neutrophils (%) (Auto) 61.8, Lymphocytes (%) (Auto) 21.2L, Monocytes (%) (Auto) 10.8H, Eosinophils (%) (Auto) 4.9H, Basophils (%) (Auto) 0.4, Neutrophils # (Auto) 2.8, Lymphocytes # (Auto) 1.0L, Monocytes # (Auto) 0.5, Eosinophils # (Auto) 0.2, Basophils # (Auto) 0.0, Nucleated Red Blood Cells % (auto) 0.0, Anion Gap 7L, Glomerular Filtration Rate > 60.0, Calcium Level 8.3L Current Medications Current Medications Current Medications Medications (Trade) Dose Ordered Sig/Edward Route PRN Reason Start Time Stop Time Status Last Admin Dose Admin Acetaminophen (Tylenol Tab) 1,000 mg TID PO 04/07/20 21:00 04/17/20 09:05 Amlodipine Besylate (Norvasc) 5 mg BID PO 04/07/20 21:00 04/17/20 09:06 Aspirin (Ecotrin) 81 mg DAILY PO 04/08/20 09:00 04/17/20 09:06 Atorvastatin Calcium (Lipitor) 80 mg QHS PO 04/07/20 21:00 04/16/20 20:23 Bisacodyl (Dulcolax Suppository) 10 mg DAILYPRN PRN [place] CONSTIPATION 04/07/20 16:30 Clopidogrel Bisulfate (PLAVix) 75 mg DAILY PO 04/08/20 09:00 04/17/20 09:06 Docusate Sodium (Colace) 100 mg BID PO 04/07/20 21:00 04/15/20 08:33 Enoxaparin Sodium (Lovenox) 40 mg DAILY SC 04/08/20 09:00 04/08/20 10:46 DC Enoxaparin Sodium (Lovenox) 40 mg DAILY SC 04/09/20 09:00 04/17/20 09:07 Gabapentin (Neurontin) 100 mg TID PO 04/11/20 21:15 04/17/20 09:06 Guaifenesin (Robitussin Tab) 400 mg TID PO 04/10/20 16:00 04/17/20 09:06 Hydralazine HCl (Apresoline) 25 mg QID PO 04/07/20 21:00 04/17/20 09:07 Lidocaine (Lidoderm Patch) 1 patch DAILY TD 04/08/20 12:15 04/17/20 04:43 Non-Formulary Medication ( See Comment Field Below ) REMOVE LIDODERM PATCH DAILY@ XX 04/08/20 21:00 04/16/20 20:23 Pantoprazole Sodium (Protonix) 40 mg DAILY PO 04/08/20 09:00 04/17/20 09:07 Senna (Senokot) 1 tab QHS PO 04/07/20 21:00 04/10/20 20:21 DARREN VAZ MD Apr 17, 2020 15:25
--- NOTE | 2020-04-17 16:36 | REP ---
INDICATION: immobility and pain COMPARISON: None. TECHNIQUE: Real time compression and duplex Doppler interrogation of the bilateral lower extremity deep venous system is performed. FINDINGS: Bilaterally, the common femoral, superficial femoral and popliteal veins are fully compressible with transducer pressure and demonstrate normal spontaneous and phasic flow, without evidence of deep venous thrombosis. IMPRESSION: No evidence of deep venous thrombosis of the bilateral lower extremity femoral popliteal venous system. <Electronically signed by Willem Corey > 04/17/20 [id number]
[2020-04-17 20:20] VITALS: BP 133/62
[2020-04-17] MEDS: SENNA 8.6 MG TAB (SENOKOT) PO SCH (20:41)
[2020-04-17] MEDS: ATORVASTATIN 20 MG TAB PO SCH (20:42)
[2020-04-17] MEDS: **NOTE PATIENT COMMENT** MISC XX SCH (20:43)
[2020-04-18 05:46] VITALS: BP 136/76
[2020-04-18] MEDS: PANTOPRAZOLE 40MG TAB (PROTONIX) PO SCH (08:16)
[2020-04-18] MEDS: LIDOCAINE 5% (LIDODERM) PATCH TD SCH (08:16)
[2020-04-18] MEDS: ENOXAPARIN 40MG/0.4ML SYRINGE (J1650 PER 10MG) SC SCH (08:16)
[2020-04-18] MEDS: guaiFENesin 200 MG TAB PO SCH ×3 (08:16→20:39)
[2020-04-18] MEDS: CLOPIDOGREL 75 MG TAB PO SCH (08:16)
[2020-04-18] MEDS: DOCUSATE SODIUM 100MG CAPSULE PO SCH ×2 (08:16→20:39)
[2020-04-18] MEDS: ASPIRIN 81MG ENTERIC TABLET PO SCH (08:16)
[2020-04-18] MEDS: GABAPENTIN 100 MG CAP PO SCH ×3 (08:17→20:39)
[2020-04-18] MEDS: amLODIPine 5 MG TAB PO SCH ×2 (08:17→20:38)
[2020-04-18] MEDS: ACETAMINOPHEN 500 MG TAB PO SCH ×3 (08:18→20:39)
[2020-04-18] MEDS: **hydrALAZINE HCL** 25 MG TAB PO SCH ×4 (08:18→20:40)
[2020-04-18 14:00] VITALS: BP 140/82
[2020-04-18 20:08] VITALS: BP 131/70
[2020-04-18] MEDS: SENNA 8.6 MG TAB (SENOKOT) PO SCH (20:38)
[2020-04-18] MEDS: ATORVASTATIN 20 MG TAB PO SCH (20:39)
[2020-04-18] MEDS: **NOTE PATIENT COMMENT** MISC XX SCH (21:37)
[2020-04-19 05:17] LABS: BASO % 0.5 % (0.0-1.0); EOS # 0.2 10^3/uL (0.0-0.5); EOS % 4.6 % (0.0-3.0); HEMATOCRIT 32.9 % (36.0-47.0); HEMOGLOBIN 10.5 g/dl (12.0-15.5); LYMPH # 1.1 10^3/uL (1.5-5.0); LYMPH % 27.2 % (24.0-44.0); MEAN CORPUSCULAR HEMOGLOBIN 29.5 pg (27.0-33.0); MEAN CORPUSCULAR HGB CONC 31.9 g/dl (32.0-36.5); MEAN CORPUSCULAR VOLUME 92.4 fl (80.0-96.0); MONO # 0.4 10^3/uL (0.0-0.8); MONO % 9.7 % (2.0-8.0); NEUTROPHILS # 2.3 10^3/uL (1.5-8.5); NEUTROPHILS % 57.2 % (36.0-66.0); PLATELET COUNT, AUTOMATED 297 10^3/uL (150-450); RED BLOOD COUNT 3.56 10^6/uL (4.00-5.40); WHITE BLOOD COUNT 3.9 10^3/uL (4.0-10.0)
[2020-04-19 05:23] VITALS: BP 137/72
[2020-04-19 05:44] LABS: BLOOD UREA NITROGEN 22 MG/DL (7-18); CALCIUM LEVEL 8.3 MG/DL (8.8-10.2); CARBON DIOXIDE LEVEL 26 MEQ/L (21-32); CHLORIDE LEVEL 109 MEQ/L (98-107); CREATININE FOR GFR 0.81 MG/DL (0.55-1.30); GLOMERULAR FILTRATION RATE > 60.0 (>32); GLUCOSE, FASTING 83 MG/DL (70-100); SODIUM LEVEL 141 MEQ/L (136-145)
[2020-04-19 08:06] VITALS: BP 144/94
[2020-04-19] MEDS: ENOXAPARIN 40MG/0.4ML SYRINGE (J1650 PER 10MG) SC SCH (08:10)
[2020-04-19] MEDS: LIDOCAINE 5% (LIDODERM) PATCH TD SCH (08:10)
[2020-04-19] MEDS: ACETAMINOPHEN 500 MG TAB PO SCH ×3 (08:11→20:45)
[2020-04-19] MEDS: amLODIPine 5 MG TAB PO SCH ×2 (08:11→20:45)
[2020-04-19] MEDS: DOCUSATE SODIUM 100MG CAPSULE PO SCH ×2 (08:12→20:43)
[2020-04-19] MEDS: **hydrALAZINE HCL** 25 MG TAB PO SCH ×4 (08:12→20:44)
[2020-04-19] MEDS: PANTOPRAZOLE 40MG TAB (PROTONIX) PO SCH (08:13)
[2020-04-19] MEDS: ASPIRIN 81MG ENTERIC TABLET PO SCH (08:13)
[2020-04-19] MEDS: guaiFENesin 200 MG TAB PO SCH ×3 (08:13→20:43)
[2020-04-19] MEDS: GABAPENTIN 100 MG CAP PO SCH ×3 (08:13→20:43)
[2020-04-19] MEDS: CLOPIDOGREL 75 MG TAB PO SCH (08:14)
--- NOTE | 2020-04-19 08:55 | IPNPDOC ---
PM&R Progress Note DATE OF SERVICE: Apr 19, 2020 Hog Dropper Progress Note Subjective: Patient stating her right leg hurts again todya and she is having trouble putting weight through it. REVIEW OF SYSTEMS: The following is a completed review of systems and has been reviewed. Review of systems otherwise unremarkable. PAIN: Patient self reports right posterior hip pain EYES: No recent vision changes EARS, NOSE, & THROAT: +dysphagia CARDIOVASCULAR: Denies chest pain or palpitations PULMONARY: Denies shortness of breath GASTROINTESTINAL: Denies constipation/diarrhea GENITOURINARY: denies dysuria MUSCULOSKELETAL: right leg pain NEUROLOGICAL:right sided paresis HEMATOLOGICAL: denies easy bruising SKIN: denies rash PSYCHIATRIC: Unremarkable All other review of systems found to be negative. PHYSICAL EXAMINATION: VITAL SIGNS: Please see below. GENERAL: Pleasant and cooperative. No acute distress. HEENT: PERRL. Extraocular movements intact. Clear conjunctiva CARDIOVASCULAR: Regular rate and rhythm. No murmurs, rubs, or gallops LUNGS: Clear to auscultation bilaterally. No wheezes. No rhonchi ABDOMEN: Soft, nontender, nondistended. Positive bowel sounds. Normal active bowel sounds NEUROLOGICAL: Alert and oriented to self, and place, not time, Cranial nerves II through XII grossly intact. Sensation grossly intact. +dysarthria EXTREMITIES: 5\5 strength left upper extremity, 4/5 RUE. 4\5 strength right lower extremity. 5/5 strength in left lower extremity. right leg (-) SLR, no pain with internal/external rotation of hip (-) Bennie's bilat SKIN: intact ASSESSMENT:89-year-old with past medical history of TIAs and HTN who presents status post new stroke PLAN: 1. REhab- PT/OT advance mobility and ADLs, advance mobility and ADLs, strengthen/stretch/maintain ROM all 4 limbs -METALLURGICAL ENGINEERING TECHNICIAN for cognition & swallow, had been cleared on other unit for regular diet, however will downgrade until evaluated on ARU- mechanical soft level 3 and nectar for now 2. 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 Resp- recent CXR showing COPD, will monitor for infection , c/u duonebs and guaifenesin 5. GI ppx- protonix 6. DVT ppx- lovenox and teds -Doppler negative for DVT 7. 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 Dispo- 04-26-20 to home Allergies Coded Allergies: Penicillins (Verified Allergy, Unknown, 01/06/19) Vital Signs Vital Signs Date Time Temp Pulse Resp B/P (MAP) Pulse Ox O2 Delivery O2 Flow Rate FiO2 04/19/20 08:12 144/94 04/19/20 08:11 83 04/19/20 05:23 97.3 16 93 Room Air Laboratory Data CBC/BMP Laboratory Tests 04/19/20 04:54 Labs 24H Laboratory Tests 2 04/19/20 04:54: Immature Granulocyte % (Auto) 0.8, Neutrophils (%) (Auto) 57.2, Lymphocytes (%) (Auto) 27.2, Monocytes (%) (Auto) 9.7H, Eosinophils (%) (Auto) 4.6H, Basophils (%) (Auto) 0.5, Neutrophils # (Auto) 2.3, Lymphocytes # (Auto) 1.1L, Monocytes # (Auto) 0.4, Eosinophils # (Auto) 0.2, Basophils # (Auto) 0.0, Nucleated Red Blood Cells % (auto) 0.0, Anion Gap 6L, Glomerular Filtration Rate > 60.0, Calcium Level 8.3L Current Medications Current Medications Current Medications Medications (Trade) Dose Ordered Sig/Edward Route PRN Reason Start Time Stop Time Status Last Admin Dose Admin Acetaminophen (Tylenol Tab) 1,000 mg TID PO 04/07/20 21:00 04/19/20 08:11 Amlodipine Besylate (Norvasc) 5 mg BID PO 04/07/20 21:00 04/19/20 08:11 Aspirin (Ecotrin) 81 mg DAILY PO 04/08/20 09:00 04/19/20 08:13 Atorvastatin Calcium (Lipitor) 80 mg QHS PO 04/07/20 21:00 04/18/20 20:39 Bisacodyl (Dulcolax Suppository) 10 mg DAILYPRN PRN [place] CONSTIPATION 04/07/20 16:30 Clopidogrel Bisulfate (PLAVix) 75 mg DAILY PO 04/08/20 09:00 04/19/20 08:14 Docusate Sodium (Colace) 100 mg BID PO 04/07/20 21:00 04/18/20 20:39 Enoxaparin Sodium (Lovenox) 40 mg DAILY SC 04/08/20 09:00 04/08/20 10:46 DC Enoxaparin Sodium (Lovenox) 40 mg DAILY SC 04/09/20 09:00 04/19/20 08:10 Gabapentin (Neurontin) 100 mg TID PO 04/11/20 21:15 04/17/20 15:25 DC 04/17/20 09:06 Gabapentin (Neurontin) 300 mg TID PO 04/17/20 16:00 04/19/20 08:13 Guaifenesin (Robitussin Tab) 400 mg TID PO 04/10/20 16:00 04/19/20 08:13 Hydralazine HCl (Apresoline) 25 mg QID PO 04/07/20 21:00 04/19/20 08:12 Lidocaine (Lidoderm Patch) 1 patch DAILY TD 04/08/20 12:15 04/19/20 08:10 Non-Formulary Medication ( See Comment Field Below ) REMOVE LIDODERM PATCH DAILY@21 XX 04/08/20 21:00 04/18/20 21:37 Pantoprazole Sodium (Protonix) 40 mg DAILY PO 04/08/20 09:00 04/19/20 08:13 Senna (Senokot) 1 tab QHS PO 04/07/20 21:00 04/18/20 20:38 DARREN VAZ MD Apr 19, 2020 08:55
--- NOTE | 2020-04-19 08:55 | IPNPDOC ---
PM&R Progress Note DATE OF SERVICE: Apr 18, 2020 Project Associate Progress Note Subjective: Patient stating her right leg feels much better today and that she had tried a shoe lift in therapy. REVIEW OF SYSTEMS: The following is a completed review of systems and has been reviewed. Review of systems otherwise unremarkable. PAIN: Patient self reports right posterior hip pain EYES: No recent vision changes EARS, NOSE, & THROAT: +dysphagia CARDIOVASCULAR: Denies chest pain or palpitations PULMONARY: Denies shortness of breath GASTROINTESTINAL: Denies constipation/diarrhea GENITOURINARY: denies dysuria MUSCULOSKELETAL: right leg pain NEUROLOGICAL:right sided paresis HEMATOLOGICAL: denies easy bruising SKIN: denies rash PSYCHIATRIC: Unremarkable All other review of systems found to be negative. PHYSICAL EXAMINATION: VITAL SIGNS: Please see below. GENERAL: Pleasant and cooperative. No acute distress. HEENT: PERRL. Extraocular movements intact. Clear conjunctiva CARDIOVASCULAR: Regular rate and rhythm. No murmurs, rubs, or gallops LUNGS: Clear to auscultation bilaterally. No wheezes. No rhonchi ABDOMEN: Soft, nontender, nondistended. Positive bowel sounds. Normal active bowel sounds NEUROLOGICAL: Alert and oriented to self, and place, not time, Cranial nerves II through XII grossly intact. Sensation grossly intact. +dysarthria EXTREMITIES: 5\5 strength left upper extremity, 4/5 RUE. 4\5 strength right lower extremity. 5/5 strength in left lower extremity. right leg (-) SLR, no pain with internal/external rotation of hip (-) Bennie's bilat SKIN: intact ASSESSMENT:89-year-old with past medical history of TIAs and HTN who presents status post new stroke PLAN: 1. REhab- PT/OT advance mobility and ADLs, advance mobility and ADLs, strengthen/stretch/maintain ROM all 4 limbs -CHIEF LIBRARIAN CIRCULATION DEPARTMENT for cognition & swallow, had been cleared on other unit for regular diet, however will downgrade until evaluated on ARU- mechanical soft level 3 and nectar for now 2. 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 Resp- recent CXR showing COPD, will monitor for infection , c/u duonebs and guaifenesin 5. GI ppx- protonix 6. DVT ppx- lovenox and teds -Doppler negative for DVT 7. 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 Dispo- 04-26-20 to home Allergies Coded Allergies: Penicillins (Verified Allergy, Unknown, 01/06/19) Vital Signs Vital Signs Date Time Temp Pulse Resp B/P (MAP) Pulse Ox O2 Delivery O2 Flow Rate FiO2 04/19/20 08:12 144/94 04/19/20 08:11 83 04/19/20 05:23 97.3 16 93 Room Air Laboratory Data CBC/BMP Laboratory Tests 04/19/20 04:54 Labs 24H Laboratory Tests 2 04/19/20 04:54: Immature Granulocyte % (Auto) 0.8, Neutrophils (%) (Auto) 57.2, Lymphocytes (%) (Auto) 27.2, Monocytes (%) (Auto) 9.7H, Eosinophils (%) (Auto) 4.6H, Basophils (%) (Auto) 0.5, Neutrophils # (Auto) 2.3, Lymphocytes # (Auto) 1.1L, Monocytes # (Auto) 0.4, Eosinophils # (Auto) 0.2, Basophils # (Auto) 0.0, Nucleated Red Blood Cells % (auto) 0.0, Anion Gap 6L, Glomerular Filtration Rate > 60.0, Calcium Level 8.3L Current Medications Current Medications Current Medications Medications (Trade) Dose Ordered Sig/Edward Route PRN Reason Start Time Stop Time Status Last Admin Dose Admin Acetaminophen (Tylenol Tab) 1,000 mg TID PO 04/07/20 21:00 04/19/20 08:11 Amlodipine Besylate (Norvasc) 5 mg BID PO 04/07/20 21:00 04/19/20 08:11 Aspirin (Ecotrin) 81 mg DAILY PO 04/08/20 09:00 04/19/20 08:13 Atorvastatin Calcium (Lipitor) 80 mg QHS PO 04/07/20 21:00 04/18/20 20:39 Bisacodyl (Dulcolax Suppository) 10 mg DAILYPRN PRN [place] CONSTIPATION 04/07/20 16:30 Clopidogrel Bisulfate (PLAVix) 75 mg DAILY PO 04/08/20 09:00 04/19/20 08:14 Docusate Sodium (Colace) 100 mg BID PO 04/07/20 21:00 04/18/20 20:39 Enoxaparin Sodium (Lovenox) 40 mg DAILY SC 04/08/20 09:00 04/08/20 10:46 DC Enoxaparin Sodium (Lovenox) 40 mg DAILY SC 04/09/20 09:00 04/19/20 08:10 Gabapentin (Neurontin) 100 mg TID PO 04/11/20 21:15 04/17/20 15:25 DC 04/17/20 09:06 Gabapentin (Neurontin) 300 mg TID PO 04/17/20 16:00 04/19/20 08:13 Guaifenesin (Robitussin Tab) 400 mg TID PO 04/10/20 16:00 04/19/20 08:13 Hydralazine HCl (Apresoline) 25 mg QID PO 04/07/20 21:00 04/19/20 08:12 Lidocaine (Lidoderm Patch) 1 patch DAILY TD 04/08/20 12:15 04/19/20 08:10 Non-Formulary Medication ( See Comment Field Below ) REMOVE LIDODERM PATCH DAILY@ XX 04/08/20 21:00 04/18/20 21:37 Pantoprazole Sodium (Protonix) 40 mg DAILY PO 04/08/20 09:00 04/19/20 08:13 Senna (Senokot) 1 tab QHS PO 04/07/20 21:00 04/18/20 20:38 DARREN VAZ MD Apr 19, 2020 08:55
[2020-04-19 12:19] VITALS: BP 137/79
[2020-04-19 14:00] VITALS: BP 118/69
--- NOTE | 2020-04-19 15:13 | REP ---
INDICATION: difficulty bearing weight r/o femur/pelvic fracture. COMPARISON: None. TECHNIQUE: Axial noncontrast images through the right hip with coronal and sagittal reformations. FINDINGS: There is an extremely subtle nondisplaced fracture involving the very superior aspect of the greater trochanter best identified on coronal and sagittal images (series 204; images 20-26). No further acute fracture or dislocation is appreciated. Extensive osteopenia and degenerative changes are noted throughout the osseous structures. Surrounding musculoskeletal structures demonstrate age-related atrophic changes without obvious significant effusion or hematoma. IMPRESSION: Extremely subtle nondisplaced fracture involving the greater trochanter. <Electronically signed by Daniel Baker > 04/19/20 [id number]
[2020-04-19 16:35] VITALS: BP 141/80
[2020-04-19 20:00] VITALS: BP 119/59
[2020-04-19] MEDS: ATORVASTATIN 20 MG TAB PO SCH (20:42)
[2020-04-19] MEDS: **NOTE PATIENT COMMENT** MISC XX SCH (20:45)
[2020-04-19] MEDS: SENNA 8.6 MG TAB (SENOKOT) PO SCH (20:45)
[2020-04-20 05:18] VITALS: BP 134/70
[2020-04-20 07:30] VITALS: BP 115/63
[2020-04-20] MEDS: ASPIRIN 81MG ENTERIC TABLET PO SCH (07:38)
[2020-04-20] MEDS: GABAPENTIN 100 MG CAP PO SCH ×3 (07:39→21:09)
[2020-04-20] MEDS: ACETAMINOPHEN 500 MG TAB PO SCH ×3 (07:39→21:13)
[2020-04-20] MEDS: amLODIPine 5 MG TAB PO SCH ×2 (07:40→21:10)
[2020-04-20] MEDS: guaiFENesin 200 MG TAB PO SCH ×3 (07:41→21:10)
[2020-04-20] MEDS: PANTOPRAZOLE 40MG TAB (PROTONIX) PO SCH (07:41)
[2020-04-20] MEDS: CLOPIDOGREL 75 MG TAB PO SCH (07:42)
[2020-04-20] MEDS: **hydrALAZINE HCL** 25 MG TAB PO SCH ×4 (07:43→21:11)
[2020-04-20] MEDS: LIDOCAINE 5% (LIDODERM) PATCH TD SCH (07:43)
[2020-04-20] MEDS: DOCUSATE SODIUM 100MG CAPSULE PO SCH ×2 (07:43→21:09)
[2020-04-20] MEDS: ENOXAPARIN 40MG/0.4ML SYRINGE (J1650 PER 10MG) SC SCH (07:43)
[2020-04-20 11:50] VITALS: BP 134/75
[2020-04-20 14:00] VITALS: BP 125/69
--- NOTE | 2020-04-20 14:45 | IPNPDOC ---
PM&R Progress Note DATE OF SERVICE: Apr 20, 2020 Aerophysicist Progress Note Subjective: Patient understands she has a fracture of her right femur that does not require surgery. She states the pain is bearable and was able to work on isometric gluteal and quad exercises in bed without causing pain. REVIEW OF SYSTEMS: The following is a completed review of systems and has been reviewed. Review of systems otherwise unremarkable. PAIN: Patient self reports right posterior hip pain EYES: No recent vision changes EARS, NOSE, & THROAT: +dysphagia CARDIOVASCULAR: Denies chest pain or palpitations PULMONARY: Denies shortness of breath GASTROINTESTINAL: Denies constipation/diarrhea GENITOURINARY: denies dysuria MUSCULOSKELETAL: right leg pain NEUROLOGICAL:right sided paresis HEMATOLOGICAL: denies easy bruising SKIN: denies rash PSYCHIATRIC: Unremarkable All other review of systems found to be negative. PHYSICAL EXAMINATION: VITAL SIGNS: Please see below. GENERAL: Pleasant and cooperative. No acute distress. HEENT: PERRL. Extraocular movements intact. Clear conjunctiva CARDIOVASCULAR: Regular rate and rhythm. No murmurs, rubs, or gallops LUNGS: Clear to auscultation bilaterally. No wheezes. No rhonchi ABDOMEN: Soft, nontender, nondistended. Positive bowel sounds. Normal active bowel sounds NEUROLOGICAL: Alert and oriented to self, and place, not time, Cranial nerves II through XII grossly intact. Sensation grossly intact. +dysarthria EXTREMITIES: 5\5 strength left upper extremity, 4/5 RUE. 4\5 strength right lower extremity. 5/5 strength in left lower extremity. right leg (-) SLR, no pain with internal/external rotation of hip (-) Bennie's bilat SKIN: intact ASSESSMENT:89-year-old with past medical history of TIAs and HTN who presents status post new stroke PLAN: 1. REhab- PT/OT advance mobility and ADLs, advance mobility and ADLs, strengthen/stretch/maintain ROM all 4 limbs -APPRAISER for cognition & swallow, had been cleared on other unit for regular diet, h owever will downgrade until evaluated on ARU- mechanical soft level 3 and nectar for now 2. 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 Resp- recent CXR showing COPD, will monitor for infection , c/u duonebs and guaifenesin 5. GI ppx- protonix 6. DVT ppx- lovenox and teds -Doppler negative for DVT 7. Pain- tylenol , lidoderm patch to right posterior thigh, c/u increase gabapentin dosing to 300mg TID for sright greater trochanter fracture 8. Ortho- CT scna 04-19-20 + fpr subtle non-displaced right greater trochanter fracture, discussed case with Dr Estrella who recommends WBAT, no surgical intervention- patient educated to avoid hip abduction exercises 9. Dispo- 04-26-20 to home Allergies Coded Allergies: Penicillins (Verified Allergy, Unknown, 01/06/19) Vital Signs Vital Signs Date Time Temp Pulse Resp B/P (MAP) Pulse Ox O2 Delivery O2 Flow Rate FiO2 04/20/20 14:00 99.0 85 18 125/69 (87) 98 Room Air Current Medications Current Medications Current Medications Medications (Trade) Dose Ordered Sig/Edward Route PRN Reason Start Time Stop Time Status Last Admin Dose Admin Acetaminophen (Tylenol Tab) 1,000 mg TID PO 04/07/20 21:00 04/20/20 07:39 Amlodipine Besylate (Norvasc) 5 mg BID PO 04/07/20 21:00 04/20/20 07:40 Aspirin (Ecotrin) 81 mg DAILY PO 04/08/20 09:00 04/20/20 07:38 Atorvastatin Calcium (Lipitor) 80 mg QHS PO 04/07/20 21:00 04/19/20 20:42 Bisacodyl (Dulcolax Suppository) 10 mg DAILYPRN PRN [place] CONSTIPATION 04/07/20 16:30 Clopidogrel Bisulfate (PLAVix) 75 mg DAILY PO 04/08/20 09:00 04/20/20 07:42 Docusate Sodium (Colace) 100 mg BID PO 04/07/20 21:00 04/19/20 20:43 Enoxaparin Sodium (Lovenox) 40 mg DAILY SC 04/08/20 09:00 04/08/20 10:46 DC Enoxaparin Sodium (Lovenox) 40 mg DAILY SC 04/09/20 09:00 04/20/20 07:43 Gabapentin (Neurontin) 100 mg TID PO 04/11/20 21:15 04/17/20 15:25 DC 04/17/20 09:06 Gabapentin (Neurontin) 300 mg TID PO 04/17/20 16:00 04/20/20 07:39 Guaifenesin (Robitussin Tab) 400 mg TID PO 04/10/20 16:00 04/20/20 07:41 Hydralazine HCl (Apresoline) 25 mg QID PO 04/07/20 21:00 04/19/20 16:36 Lidocaine (Lidoderm Patch) 1 patch DAILY TD 04/08/20 12:15 04/20/20 07:43 Non-Formulary Medication ( See Comment Field Below ) REMOVE LIDODERM PATCH DAILY@ XX 04/08/20 21:00 04/19/20 20:45 Pantoprazole Sodium (Protonix) 40 mg DAILY PO 04/08/20 09:00 04/20/20 07:41 Senna (Senokot) 1 tab QHS PO 04/07/20 21:00 04/19/20 20:45 DARREN VAZ MD Apr 20, 2020 14:45
[2020-04-20 16:49] VITALS: BP 139/74
[2020-04-20 20:00] VITALS: BP 140/66
[2020-04-20] MEDS: SENNA 8.6 MG TAB (SENOKOT) PO SCH (21:10)
[2020-04-20] MEDS: ATORVASTATIN 20 MG TAB PO SCH (21:10)
[2020-04-20] MEDS: **NOTE PATIENT COMMENT** MISC XX SCH (21:11)
[2020-04-21 05:17] LABS: BASO % 0.7 % (0.0-1.0); EOS # 0.3 10^3/uL (0.0-0.5); EOS % 6.7 % (0.0-3.0); HEMATOCRIT 32.1 % (36.0-47.0); LYMPH # 1.1 10^3/uL (1.5-5.0); MEAN CORPUSCULAR HGB CONC 31.2 g/dl (32.0-36.5); MONO # 0.4 10^3/uL (0.0-0.8); MONO % 9.3 % (2.0-8.0); NEUTROPHILS # 2.4 10^3/uL (1.5-8.5); NEUTROPHILS % 57.6 % (36.0-66.0); PLATELET COUNT, AUTOMATED 289 10^3/uL (150-450); RED BLOOD COUNT 3.45 10^6/uL (4.00-5.40); WHITE BLOOD COUNT 4.2 10^3/uL (4.0-10.0)
[2020-04-21 05:24] VITALS: BP 127/60
[2020-04-21 05:40] LABS: BLOOD UREA NITROGEN 20 MG/DL (7-18); CALCIUM LEVEL 8.4 MG/DL (8.8-10.2); CARBON DIOXIDE LEVEL 25 MEQ/L (21-32); CHLORIDE LEVEL 112 MEQ/L (98-107); GLOMERULAR FILTRATION RATE > 60.0 (>32); GLUCOSE, FASTING 83 MG/DL (70-100); POTASSIUM SERUM 4.1 MEQ/L (3.5-5.1); SODIUM LEVEL 145 MEQ/L (136-145)
[2020-04-21] MEDS: guaiFENesin 200 MG TAB PO SCH ×3 (08:21→21:27)
[2020-04-21] MEDS: ASPIRIN 81MG ENTERIC TABLET PO SCH (08:21)
[2020-04-21] MEDS: PANTOPRAZOLE 40MG TAB (PROTONIX) PO SCH (08:21)
[2020-04-21] MEDS: LIDOCAINE 5% (LIDODERM) PATCH TD SCH (08:21)
[2020-04-21] MEDS: ACETAMINOPHEN 500 MG TAB PO SCH ×3 (08:21→21:00)
[2020-04-21] MEDS: **hydrALAZINE HCL** 25 MG TAB PO SCH ×4 (08:21→21:00)
[2020-04-21] MEDS: CLOPIDOGREL 75 MG TAB PO SCH (08:22)
[2020-04-21] MEDS: amLODIPine 5 MG TAB PO SCH ×2 (08:22→21:28)
[2020-04-21] MEDS: DOCUSATE SODIUM 100MG CAPSULE PO SCH ×2 (08:22→21:27)
[2020-04-21] MEDS: GABAPENTIN 100 MG CAP PO SCH ×3 (08:22→21:28)
[2020-04-21] MEDS: ENOXAPARIN 40MG/0.4ML SYRINGE (J1650 PER 10MG) SC SCH (08:23)
--- NOTE | 2020-04-21 11:57 | IPNPDOC ---
Text Note Date of Service The patient was seen on 04/21/20. NOTE Subjective: Patient seen and examined at bedside. Patient voices no new medical complaints. She notes right leg pain. She denies chest pain, shortness of breath, headaches, nausea, vomiting, diarrhea. Objective: General: NAD, sitting comfortably in chair, elderly, frail, in good spirits HEENT: NC/AT A/P: #left temporoparietal infarct - residual right sided paresis and dysarthria #thoracic aortic thrombus - patient declined anti-coagulation - continue with asa/plavix/statin - neuro consulted previously for recommendations #HTN #HLD #COPD - respiratory treatments - stable #rehab - continue to follow as per ARU VS,Bowen, I+O VS, Bowen, I+O Laboratory Tests 04/21/20 04:53 Vital Signs Date Time Temp Pulse Resp B/P (MAP) Pulse Ox O2 Delivery O2 Flow Rate FiO2 04/21/20 05:24 98.6 63 17 127/60 (82) 96 Room Air I&O- Last 24 Hours up to 6 AM 04/21/20 06:00 Intake Total 620 ml Balance 620 ml MERYL SOTO MD Apr 21, 2020 07:41
[2020-04-21 12:04] VITALS: BP 134/70
[2020-04-21 14:00] VITALS: BP 132/73
[2020-04-21 16:40] VITALS: BP 129/73
[2020-04-21 20:20] VITALS: BP 122/74
[2020-04-21] MEDS: SENNA 8.6 MG TAB (SENOKOT) PO SCH (21:27)
[2020-04-21] MEDS: ATORVASTATIN 20 MG TAB PO SCH (21:27)
[2020-04-21] MEDS: **NOTE PATIENT COMMENT** MISC XX SCH (21:29)
[2020-04-22 06:33] VITALS: BP 147/81
[2020-04-22] MEDS: GABAPENTIN 100 MG CAP PO SCH ×3 (08:50→21:00)
[2020-04-22] MEDS: CLOPIDOGREL 75 MG TAB PO SCH (08:50)
[2020-04-22] MEDS: PANTOPRAZOLE 40MG TAB (PROTONIX) PO SCH (08:50)
[2020-04-22] MEDS: DOCUSATE SODIUM 100MG CAPSULE PO SCH ×2 (08:50→21:06)
[2020-04-22] MEDS: **hydrALAZINE HCL** 25 MG TAB PO SCH ×4 (08:51→21:00)
[2020-04-22] MEDS: ASPIRIN 81MG ENTERIC TABLET PO SCH (08:52)
[2020-04-22] MEDS: guaiFENesin 200 MG TAB PO SCH ×3 (08:52→21:05)
[2020-04-22] MEDS: amLODIPine 5 MG TAB PO SCH ×2 (08:52→21:06)
[2020-04-22] MEDS: ACETAMINOPHEN 500 MG TAB PO SCH ×3 (08:53→21:00)
[2020-04-22] MEDS: LIDOCAINE 5% (LIDODERM) PATCH TD SCH (08:53)
[2020-04-22] MEDS: ENOXAPARIN 40MG/0.4ML SYRINGE (J1650 PER 10MG) SC SCH (08:53)
[2020-04-22 14:00] VITALS: BP 122/69
[2020-04-22 20:00] VITALS: BP 127/64
[2020-04-22] MEDS: SENNA 8.6 MG TAB (SENOKOT) PO SCH (21:05)
[2020-04-22] MEDS: ATORVASTATIN 20 MG TAB PO SCH (21:06)
[2020-04-22] MEDS: **NOTE PATIENT COMMENT** MISC XX SCH (21:07)
[2020-04-23 05:32] VITALS: BP 143/80
[2020-04-23] MEDS: DOCUSATE SODIUM 100MG CAPSULE PO SCH ×2 (08:07→22:10)
[2020-04-23] MEDS: ACETAMINOPHEN 500 MG TAB PO SCH ×3 (08:07→22:11)
[2020-04-23] MEDS: ASPIRIN 81MG ENTERIC TABLET PO SCH (08:08)
[2020-04-23] MEDS: ENOXAPARIN 40MG/0.4ML SYRINGE (J1650 PER 10MG) SC SCH (08:08)
[2020-04-23] MEDS: CLOPIDOGREL 75 MG TAB PO SCH (08:08)
[2020-04-23] MEDS: PANTOPRAZOLE 40MG TAB (PROTONIX) PO SCH (08:08)
[2020-04-23] MEDS: guaiFENesin 200 MG TAB PO SCH ×3 (08:08→22:10)
[2020-04-23] MEDS: LIDOCAINE 5% (LIDODERM) PATCH TD SCH (08:09)
[2020-04-23] MEDS: amLODIPine 5 MG TAB PO SCH ×2 (08:09→22:11)
[2020-04-23] MEDS: **hydrALAZINE HCL** 25 MG TAB PO SCH ×4 (08:10→21:00)
[2020-04-23] MEDS: GABAPENTIN 100 MG CAP PO SCH ×3 (09:00→22:11)
[2020-04-23 14:05] VITALS: BP 117/62
[2020-04-23 20:00] VITALS: BP 121/67
[2020-04-23] MEDS: **NOTE PATIENT COMMENT** MISC XX SCH (21:00)
--- NOTE | 2020-04-23 21:00 | IPNPDOC ---
PM&R Progress Note DATE OF SERVICE: Apr 21, 2020 Rotary Envelope Machine Operator Progress Note Subjective: Patient stating she feel good today and that therapy is going well. REVIEW OF SYSTEMS: The following is a completed review of systems and has been reviewed. Review of systems otherwise unremarkable. PAIN: Patient self reports right posterior hip pain EYES: No recent vision changes EARS, NOSE, & THROAT: +dysphagia (improved) CARDIOVASCULAR: Denies chest pain or palpitations PULMONARY: Denies shortness of breath GASTROINTESTINAL: Denies constipation/diarrhea GENITOURINARY: denies dysuria MUSCULOSKELETAL: right leg pain NEUROLOGICAL:right sided paresis HEMATOLOGICAL: denies easy bruising SKIN: denies rash PSYCHIATRIC: Unremarkable All other review of systems found to be negative. PHYSICAL EXAMINATION: VITAL SIGNS: Please see below. GENERAL: Pleasant and cooperative. No acute distress. HEENT: PERRL. Extraocular movements intact. Clear conjunctiva CARDIOVASCULAR: Regular rate and rhythm. No murmurs, rubs, or gallops LUNGS: Clear to auscultation bilaterally. No wheezes. No rhonchi ABDOMEN: Soft, nontender, nondistended. Positive bowel sounds. Normal active bowel sounds NEUROLOGICAL: Alert and oriented to self, and place, not time, Cranial nerves II through XII grossly intact. Sensation grossly intact. +dysarthria EXTREMITIES: 5\5 strength left upper extremity, 4/5 RUE. 4\5 strength right lower extremity. 5/5 strength in left lower extremity. right leg (-) SLR, no pain with internal/external rotation of hip (-) Bennie's bilat SKIN: intact ASSESSMENT:89-year-old with past medical history of TIAs and HTN who presents status post new stroke PLAN: 1. REhab- PT/OT advance mobility and ADLs, advance mobility and ADLs, strengthen/stretch/maintain ROM all 4 limbs -OPHTHALMIC PHOTOGRAPHER for cognition & swallow, regular diet 2. 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 Resp- recent CXR showing COPD, will monitor for infection , c/u duonebs and guaifenesin 5. GI ppx- protonix 6. DVT ppx- lovenox and teds -Doppler negative for DVT 7. 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 Dispo- 04-26-20 to home Allergies Coded Allergies: Penicillins (Verified Allergy, Unknown, 01/06/19) Vital Signs Vital Signs Date Time Temp Pulse Resp B/P (MAP) Pulse Ox O2 Delivery O2 Flow Rate FiO2 04/23/20 16:37 130/73 04/23/20 14:05 97.8 82 16 96 04/23/20 05:32 Room Air Current Medications Current Medications Current Medications Medications (Trade) Dose Ordered Sig/Edward Route PRN Reason Start Time Stop Time Status Last Admin Dose Admin Acetaminophen (Tylenol Tab) 1,000 mg TID PO 04/07/20 21:00 04/23/20 16:36 Amlodipine Besylate (Norvasc) 5 mg BID PO 04/07/20 21:00 04/23/20 08:09 Aspirin (Ecotrin) 81 mg DAILY PO 04/08/20 09:00 04/23/20 08:08 Atorvastatin Calcium (Lipitor) 80 mg QHS PO 04/07/20 21:00 04/22/20 21:06 Bisacodyl (Dulcolax Suppository) 10 mg DAILYPRN PRN [place] CONSTIPATION 04/07/20 16:30 Clopidogrel Bisulfate (PLAVix) 75 mg DAILY PO 04/08/20 09:00 04/23/20 08:08 Docusate Sodium (Colace) 100 mg BID PO 04/07/20 21:00 04/23/20 08:07 Enoxaparin Sodium (Lovenox) 40 mg DAILY SC 04/08/20 09:00 04/08/20 10:46 DC Enoxaparin Sodium (Lovenox) 40 mg DAILY SC 04/09/20 09:00 04/23/20 08:08 Gabapentin (Neurontin) 100 mg TID PO 04/11/20 21:15 04/17/20 15:25 DC 04/17/20 09:06 Gabapentin (Neurontin) 300 mg TID PO 04/17/20 16:00 04/22/20 17:08 Guaifenesin (Robitussin Tab) 400 mg TID PO 04/10/20 16:00 04/23/20 16:36 Hydralazine HCl (Apresoline) 25 mg QID PO 04/07/20 21:00 04/23/20 16:37 Lidocaine (Lidoderm Patch) 1 patch DAILY TD 04/08/20 12:15 04/23/20 08:09 Non-Formulary Medication ( See Comment Field Below ) REMOVE LIDODERM PATCH DAILY@ XX 04/08/20 21:00 04/22/20 21:07 Pantoprazole Sodium (Protonix) 40 mg DAILY PO 04/08/20 09:00 04/23/20 08:08 Senna (Senokot) 1 tab QHS PO 04/07/20 21:00 04/22/20 21:05 DARREN VAZ MD Apr 23, 2020 21:00
[2020-04-23 22:00] VITALS: BP 121/67
[2020-04-23] MEDS: SENNA 8.6 MG TAB (SENOKOT) PO SCH (22:10)
[2020-04-23] MEDS: ATORVASTATIN 20 MG TAB PO SCH (22:11)
[2020-04-24 06:00] VITALS: BP 123/65
[2020-04-24 06:26] LABS: BASO % 0.4 % (0.0-1.0); EOS # 0.3 10^3/uL (0.0-0.5); EOS % 4.6 % (0.0-3.0); HEMATOCRIT 33.6 % (36.0-47.0); HEMOGLOBIN 10.7 g/dl (12.0-15.5); LYMPH # 0.7 10^3/uL (1.5-5.0); LYMPH % 13.2 % (24.0-44.0); MEAN CORPUSCULAR HEMOGLOBIN 29.6 pg (27.0-33.0); MEAN CORPUSCULAR HGB CONC 31.8 g/dl (32.0-36.5); MEAN CORPUSCULAR VOLUME 93.1 fl (80.0-96.0); MONO # 0.5 10^3/uL (0.0-0.8); MONO % 9.2 % (2.0-8.0); NEUTROPHILS # 3.9 10^3/uL (1.5-8.5); NEUTROPHILS % 72.2 % (36.0-66.0); PLATELET COUNT, AUTOMATED 288 10^3/uL (150-450); RED BLOOD COUNT 3.61 10^6/uL (4.00-5.40); WHITE BLOOD COUNT 5.4 10^3/uL (4.0-10.0)
[2020-04-24 06:43] LABS: BLOOD UREA NITROGEN 22 MG/DL (7-18); CREATININE FOR GFR 0.83 MG/DL (0.55-1.30); GLUCOSE, FASTING 91 MG/DL (70-100)
[2020-04-24 06:44] LABS: CALCIUM LEVEL 8.5 MG/DL (8.8-10.2); CARBON DIOXIDE LEVEL 25 MEQ/L (21-32); CHLORIDE LEVEL 110 MEQ/L (98-107); GLOMERULAR FILTRATION RATE > 60.0 (>32); POTASSIUM SERUM 3.5 MEQ/L (3.5-5.1); SODIUM LEVEL 140 MEQ/L (136-145)
[2020-04-24] MEDS: **hydrALAZINE HCL** 25 MG TAB PO SCH ×4 (09:00→20:46)
[2020-04-24] MEDS: amLODIPine 5 MG TAB PO SCH ×2 (09:00→20:45)
--- NOTE | 2020-04-24 09:40 | IPNPDOC ---
PM&R Progress Note DATE OF SERVICE: Apr 24, 2020 Print Room Worker Progress Note Subjective: Patient seen in therapy stating her leg feels better today, denies fevers chills, difficulty going to the bathroom. REVIEW OF SYSTEMS: The following is a completed review of systems and has been reviewed. Review of systems otherwise unremarkable. PAIN: Patient self reports right posterior hip pain EYES: No recent vision changes EARS, NOSE, & THROAT: +dysphagia CARDIOVASCULAR: Denies chest pain or palpitations PULMONARY: Denies shortness of breath GASTROINTESTINAL: Denies constipation/diarrhea GENITOURINARY: denies dysuria MUSCULOSKELETAL: right leg pain NEUROLOGICAL:right sided paresis HEMATOLOGICAL: denies easy bruising SKIN: denies rash PSYCHIATRIC: Unremarkable All other review of systems found to be negative. PHYSICAL EXAMINATION: VITAL SIGNS: Please see below. GENERAL: Pleasant and cooperative. No acute distress. HEENT: PERRL. Extraocular movements intact. Clear conjunctiva CARDIOVASCULAR: Regular rate and rhythm. No murmurs, rubs, or gallops LUNGS: Clear to auscultation bilaterally. No wheezes. No rhonchi ABDOMEN: Soft, nontender, nondistended. Positive bowel sounds. Normal active bowel sounds NEUROLOGICAL: Alert and oriented to self, and place, not time, Cranial nerves II through XII grossly intact. Sensation grossly intact. +dysarthria EXTREMITIES: 5\5 strength left upper extremity, 4/5 RUE. 4\5 strength right lower extremity. 5/5 strength in left lower extremity. right leg (-) SLR, no pain with internal/external rotation of hip (-) Bennie's bilat SKIN: intact ASSESSMENT:89-year-old with past medical history of TIAs and HTN who presents status post new stroke PLAN: 1. REhab- PT/OT advance mobility and ADLs, advance mobility and ADLs, strengthen/stretch/maintain ROM all 4 limbs -SHEETER HELPER for cognition & swallow, had been cleared on other unit for regular diet, however will downgrade until evaluated on ARU- mechanical soft level 3 and nectar for now 2. 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 Resp- recent CXR showing COPD, will monitor for infection , c/u duonebs and guaifenesin 5. GI ppx- protonix 6. DVT ppx- lovenox and teds -Doppler negative for DVT 7. Pain- tylenol , lidoderm patch to right posterior thigh, c/u increase gabapentin dosing to 300mg TID for right greater trochanter fracture 8. Ortho- CT scan 04-19-20 + for subtle non-displaced right greater trochanter fracture, discussed case with Dr Estrella who recommends WBAT, no surgical intervention- patient educated to avoid hip abduction exercises 9. Dispo- 04-26-20 to home Allergies Coded Allergies: Penicillins (Verified Allergy, Unknown, 01/06/19) Vital Signs Vital Signs Date Time Temp Pulse Resp B/P (MAP) Pulse Ox O2 Delivery O2 Flow Rate FiO2 04/24/20 06:00 97.9 77 18 123/65 (84) 96 04/23/20 05:32 Room Air Laboratory Data CBC/BMP Laboratory Tests 04/24/20 06:09 Labs 24H Laboratory Tests 2 04/24/20 06:09: Immature Granulocyte % (Auto) 0.4, Neutrophils (%) (Auto) 72.2H, Lymphocytes (%) (Auto) 13.2L, Monocytes (%) (Auto) 9.2H, Eosinophils (%) (Auto) 4.6H, Basophils (%) (Auto) 0.4, Neutrophils # (Auto) 3.9, Lymphocytes # (Auto) 0.7L, Monocytes # (Auto) 0.5, Eosinophils # (Auto) 0.3, Basophils # (Auto) 0.0, Nucleated Red Blood Cells % (auto) 0.0, Anion Gap 5L, Glomerular Filtration Rate > 60.0, Calcium Level 8.5L Current Medications Current Medications Current Medications Medications (Trade) Dose Ordered Sig/Edward Route PRN Reason Start Time Stop Time Status Last Admin Dose Admin Acetaminophen (Tylenol Tab) 1,000 mg TID PO 04/07/20 21:00 04/23/20 16:36 Amlodipine Besylate (Norvasc) 5 mg BID PO 04/07/20 21:00 04/23/20 22:11 Aspirin (Ecotrin) 81 mg DAILY PO 04/08/20 09:00 04/23/20 08:08 Atorvastatin Calcium (Lipitor) 80 mg QHS PO 04/07/20 21:00 04/23/20 22:11 Bisacodyl (Dulcolax Suppository) 10 mg DAILYPRN PRN [place] CONSTIPATION 04/07/20 16:30 Clopidogrel Bisulfate (PLAVix) 75 mg DAILY PO 04/08/20 09:00 04/23/20 08:08 Docusate Sodium (Colace) 100 mg BID PO 04/07/20 21:00 04/23/20 22:10 Enoxaparin Sodium (Lovenox) 40 mg DAILY SC 04/08/20 09:00 04/08/20 10:46 DC Enoxaparin Sodium (Lovenox) 40 mg DAILY SC 04/09/20 09:00 04/23/20 08:08 Gabapentin (Neurontin) 100 mg TID PO 04/11/20 21:15 04/17/20 15:25 DC 04/17/20 09:06 Gabapentin (Neurontin) 300 mg TID PO 04/17/20 16:00 04/22/20 17:08 Guaifenesin (Robitussin Tab) 400 mg TID PO 04/10/20 16:00 04/23/20 22:10 Hydralazine HCl (Apresoline) 25 mg QID PO 04/07/20 21:00 04/23/20 16:37 Lidocaine (Lidoderm Patch) 1 patch DAILY TD 04/08/20 12:15 04/23/20 08:09 Non-Formulary Medication ( See Comment Field Below ) REMOVE LIDODERM PATCH DAILY@21 XX 04/08/20 21:00 04/23/20 21:00 Pantoprazole Sodium (Protonix) 40 mg DAILY PO 04/08/20 09:00 04/23/20 08:08 Senna (Senokot) 1 tab QHS PO 04/07/20 21:00 04/23/20 22:10 DARREN VAZ MD Apr 24, 2020 09:40
[2020-04-24] MEDS: ASPIRIN 81MG ENTERIC TABLET PO SCH (10:05)
[2020-04-24] MEDS: ENOXAPARIN 40MG/0.4ML SYRINGE (J1650 PER 10MG) SC SCH (10:05)
[2020-04-24] MEDS: ACETAMINOPHEN 500 MG TAB PO SCH ×3 (10:06→20:47)
[2020-04-24] MEDS: guaiFENesin 200 MG TAB PO SCH ×3 (10:08→20:46)
[2020-04-24] MEDS: CLOPIDOGREL 75 MG TAB PO SCH (10:09)
[2020-04-24] MEDS: DOCUSATE SODIUM 100MG CAPSULE PO SCH ×2 (10:10→20:48)
[2020-04-24] MEDS: PANTOPRAZOLE 40MG TAB (PROTONIX) PO SCH (10:10)
[2020-04-24] MEDS: LIDOCAINE 5% (LIDODERM) PATCH TD SCH (10:10)
[2020-04-24] MEDS: GABAPENTIN 100 MG CAP PO SCH ×3 (10:54→20:46)
--- NOTE | 2020-04-24 13:30 | IPNPDOC ---
Text Note Date of Service The patient was seen on 04/24/20. NOTE Patient was seen and examined at bedside. Participating in therapy. PHYSICAL EXAMINATION: VITAL SIGNS: Please see below. GENERAL:AAO 3 HEENT: R facial droop CARDIOVASCULAR: RRR, normal S1, S2 RESPIRATORY: CTAB, no wheeze, no rales ABDOMINAL: soft, non tender, BS+ EXTREMITIES: no edeme NEUROLOGICAL: 5\5 strength left upper extremity, 4/5 RUE. 4\5 strength right lower extremity. 5/5 strength in left lower extremity. 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 Family refused AC 3) HTN - Cont home meds - monitor and titrate Dispo: As per ARU. VS,Fishbone, I+O VS, Fishbone, I+O Laboratory Tests 04/24/20 06:09 Vital Signs Date Time Temp Pulse Resp B/P (MAP) Pulse Ox O2 Delivery O2 Flow Rate FiO2 04/24/20 09:00 112/63 04/24/20 09:00 87 04/24/20 06:00 97.9 18 96 04/23/20 05:32 Room Air I&O- Last 24 Hours up to 6 AM 04/24/20 06:00 Intake Total 360 ml Balance 360 ml ALINE PHILLIPS MD Apr 24, 2020 13:30
[2020-04-24 14:00] VITALS: BP 140/71
[2020-04-24 20:00] VITALS: BP 145/79
[2020-04-24] MEDS: ATORVASTATIN 20 MG TAB PO SCH (20:46)
[2020-04-24] MEDS: SENNA 8.6 MG TAB (SENOKOT) PO SCH (20:47)
[2020-04-24] MEDS: **NOTE PATIENT COMMENT** MISC XX SCH (20:47)
[2020-04-24 22:00] VITALS: BP 145/79
[2020-04-25 06:00] VITALS: BP 136/70
[2020-04-25] MEDS: **hydrALAZINE HCL** 25 MG TAB PO SCH ×4 (09:00→20:21)
[2020-04-25] MEDS: LIDOCAINE 5% (LIDODERM) PATCH TD SCH (09:08)
[2020-04-25] MEDS: ENOXAPARIN 40MG/0.4ML SYRINGE (J1650 PER 10MG) SC SCH (09:08)
[2020-04-25] MEDS: ASPIRIN 81MG ENTERIC TABLET PO SCH (09:08)
[2020-04-25] MEDS: DOCUSATE SODIUM 100MG CAPSULE PO SCH ×2 (09:09→20:21)
[2020-04-25] MEDS: CLOPIDOGREL 75 MG TAB PO SCH (09:09)
[2020-04-25] MEDS: GABAPENTIN 100 MG CAP PO SCH ×3 (09:09→20:20)
[2020-04-25] MEDS: guaiFENesin 200 MG TAB PO SCH ×3 (09:10→20:20)
[2020-04-25] MEDS: ACETAMINOPHEN 500 MG TAB PO SCH ×3 (09:10→20:20)
[2020-04-25] MEDS: PANTOPRAZOLE 40MG TAB (PROTONIX) PO SCH (09:10)
[2020-04-25] MEDS: amLODIPine 5 MG TAB PO SCH ×2 (09:10→20:21)
--- NOTE | 2020-04-25 11:42 | IPNPDOC ---
PM&R Progress Note DATE OF SERVICE: Apr 25, 2020 [employer] Professional Progress Note Subjective: PAtient stating she feels ready to go home tomorrow and her right leg pain is getting better. REVIEW OF SYSTEMS: The following is a completed review of systems and has been reviewed. Review of systems otherwise unremarkable. PAIN: Patient self reports right posterior hip pain EYES: No recent vision changes EARS, NOSE, & THROAT: +dysphagia CARDIOVASCULAR: Denies chest pain or palpitations PULMONARY: Denies shortness of breath GASTROINTESTINAL: Denies constipation/diarrhea GENITOURINARY: denies dysuria MUSCULOSKELETAL: right leg pain NEUROLOGICAL:right sided paresis HEMATOLOGICAL: denies easy bruising SKIN: denies rash PSYCHIATRIC: Unremarkable All other review of systems found to be negative. PHYSICAL EXAMINATION: VITAL SIGNS: Please see below. GENERAL: Pleasant and cooperative. No acute distress. HEENT: PERRL. Extraocular movements intact. Clear conjunctiva CARDIOVASCULAR: Regular rate and rhythm. No murmurs, rubs, or gallops LUNGS: Clear to auscultation bilaterally. No wheezes. No rhonchi ABDOMEN: Soft, nontender, nondistended. Positive bowel sounds. Normal active bowel sounds NEUROLOGICAL: Alert and oriented to self, and place, not time, Cranial nerves II through XII grossly intact. Sensation grossly intact. +dysarthria EXTREMITIES: 5\5 strength left upper extremity, 4/5 RUE. 4\5 strength right lower extremity. 5/5 strength in left lower extremity. right leg (-) SLR, no pain with internal/external rotation of hip (-) Bennie's bilat SKIN: intact ASSESSMENT:89-year-old with past medical history of TIAs and HTN who presents status post new stroke PLAN: 1. REhab- PT/OT advance mobility and ADLs, advance mobility and ADLs, strengthen/stretch/maintain ROM all 4 limbs -SUPERVISOR TAN ROOM for cognition & swallow, tolerating regular diet 2. 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 Resp- recent CXR showing COPD, will monitor for infection , c/u duonebs and guaifenesin 5. GI ppx- protonix 6. DVT ppx- lovenox and teds -Doppler negative for DVT 7. Pain- tylenol , lidoderm patch to right posterior thigh, lowered dose of gracie apentin ack to 100 TID to avoid lethargy 8. Ortho- CT scan 04-19-20 + for subtle non-displaced right greater trochanter fracture, discussed case with Dr Estrella who recommends WBAT, no surgical intervention- patient educated to avoid hip abduction exercises 9. Dispo- 04-26-20 to home Allergies Coded Allergies: Penicillins (Verified Allergy, Unknown, 01/06/19) Vital Signs Vital Signs Date Time Temp Pulse Resp B/P (MAP) Pulse Ox O2 Delivery O2 Flow Rate FiO2 04/25/20 09:10 90 138/80 04/25/20 06:00 98.4 18 96 Room Air Current Medications Current Medications Current Medications Medications (Trade) Dose Ordered Sig/Edward Route PRN Reason Start Time Stop Time Status Last Admin Dose Admin Acetaminophen (Tylenol Tab) 1,000 mg TID PO 04/07/20 21:00 04/25/20 09:10 Amlodipine Besylate (Norvasc) 5 mg BID PO 04/07/20 21:00 04/25/20 09:10 Aspirin (Ecotrin) 81 mg DAILY PO 04/08/20 09:00 04/25/20 09:08 Atorvastatin Calcium (Lipitor) 80 mg QHS PO 04/07/20 21:00 04/24/20 20:46 Bisacodyl (Dulcolax Suppository) 10 mg DAILYPRN PRN MI CONSTIPATION 04/07/20 16:30 Clopidogrel Bisulfate (PLAVix) 75 mg DAILY PO 04/08/20 09:00 04/25/20 09:09 Docusate Sodium (Colace) 100 mg BID PO 04/07/20 21:00 04/25/20 09:09 Enoxaparin Sodium (Lovenox) 40 mg DAILY SC 04/08/20 09:00 04/08/20 10:46 DC Enoxaparin Sodium (Lovenox) 40 mg DAILY SC 04/09/20 09:00 04/25/20 09:08 Gabapentin (Neurontin) 100 mg TID PO 04/11/20 21:15 04/17/20 15:25 DC 04/17/20 09:06 Gabapentin (Neurontin) 100 mg TID PO 04/24/20 09:00 04/25/20 09:09 Gabapentin (Neurontin) 300 mg TID PO 04/17/20 16:00 04/24/20 10:46 DC 04/22/20 17:08 Guaifenesin (Robitussin Tab) 400 mg TID PO 04/10/20 16:00 04/25/20 09:10 Hydralazine HCl (Apresoline) 25 mg QID PO 04/07/20 21:00 04/24/20 20:46 Lidocaine (Lidoderm Patch) 1 patch DAILY TD 04/08/20 12:15 04/25/20 09:08 Non-Formulary Medication ( See Comment Field Below ) REMOVE LIDODERM PATCH DAILY@ XX 04/08/20 21:00 04/24/20 20:47 Pantoprazole Sodium (Protonix) 40 mg DAILY PO 04/08/20 09:00 04/25/20 09:10 Senna (Senokot) 1 tab QHS PO 04/07/20 21:00 04/23/20 22:10 DARREN VAZ MD Apr 25, 2020 11:42
--- NOTE | 2020-04-25 12:51 | IPNPDOC ---
Text Note Date of Service The patient was seen on 04/25/20. NOTE Patient was seen and examined at bedside. Participating in therapy. PHYSICAL EXAMINATION: VITAL SIGNS: Please see below. GENERAL:AAO 3 HEENT: R facial droop CARDIOVASCULAR: RRR, normal S1, S2 RESPIRATORY: CTAB, no wheeze, no rales ABDOMINAL: soft, non tender, BS+ EXTREMITIES: no edeme NEUROLOGICAL: 5\5 strength left upper extremity, 4/5 RUE. 4\5 strength right lower extremity. 5/5 strength in left lower extremity. LABORATORY DATA, IMAGING STUDIES, MICROBIOLOGY: Reviewed Assessment and Plan 1) CVA L temporoparietal: Ischemic. CTA chest on 04/07/20 showing atherosclerotic thrombus in the distal aortic arch and descending thoracic .Cont Rehab. 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 Only on Aspirin, plavix and statins . Family refused AC 3) HTN. Cont home meds. monitor and titrate Dispo: As per ARU. VS,Fishbone, I+O VS, Fishbone, I+O Vital Signs Date Time Temp Pulse Resp B/P (MAP) Pulse Ox O2 Delivery O2 Flow Rate FiO2 04/25/20 09:10 90 138/80 04/25/20 06:00 98.4 18 96 Room Air I&O- Last 24 Hours up to 6 AM 04/25/20 06:00 Intake Total 540 ml Balance 540 ml ALINE PHILLIPS MD Apr 25, 2020 12:51
[2020-04-25 14:00] VITALS: BP 128/70
[2020-04-25 20:00] VITALS: BP 135/76
[2020-04-25] MEDS: ATORVASTATIN 20 MG TAB PO SCH (20:20)
[2020-04-25] MEDS: SENNA 8.6 MG TAB (SENOKOT) PO SCH (20:21)
[2020-04-25] MEDS: **NOTE PATIENT COMMENT** MISC XX SCH (20:21)
[2020-04-26 05:16] VITALS: BP 150/75
[2020-04-26 06:28] LABS: BASO % 0.5 % (0.0-1.0); EOS # 0.3 10^3/uL (0.0-0.5); EOS % 7.4 % (0.0-3.0); HEMATOCRIT 33.5 % (36.0-47.0); HEMOGLOBIN 10.5 g/dl (12.0-15.5); LYMPH # 0.8 10^3/uL (1.5-5.0); LYMPH % 20.5 % (24.0-44.0); MEAN CORPUSCULAR HEMOGLOBIN 29.2 pg (27.0-33.0); MEAN CORPUSCULAR HGB CONC 31.3 g/dl (32.0-36.5); MEAN CORPUSCULAR VOLUME 93.3 fl (80.0-96.0); MONO # 0.5 10^3/uL (0.0-0.8); NEUTROPHILS # 2.2 10^3/uL (1.5-8.5); NEUTROPHILS % 59.1 % (36.0-66.0); PLATELET COUNT, AUTOMATED 283 10^3/uL (150-450); RED BLOOD COUNT 3.59 10^6/uL (4.00-5.40); WHITE BLOOD COUNT 3.8 10^3/uL (4.0-10.0)
[2020-04-26 06:47] LABS: BLOOD UREA NITROGEN 19 MG/DL (7-18); CALCIUM LEVEL 8.4 MG/DL (8.8-10.2); CARBON DIOXIDE LEVEL 26 MEQ/L (21-32); CHLORIDE LEVEL 112 MEQ/L (98-107); CREATININE FOR GFR 0.78 MG/DL (0.55-1.30); GLOMERULAR FILTRATION RATE > 60.0 (>32); GLUCOSE, FASTING 86 MG/DL (70-100); POTASSIUM SERUM 3.7 MEQ/L (3.5-5.1); SODIUM LEVEL 144 MEQ/L (136-145)
[2020-04-26] MEDS: **hydrALAZINE HCL** 25 MG TAB PO SCH ×2 (09:00→12:56)
[2020-04-26] MEDS: DOCUSATE SODIUM 100MG CAPSULE PO SCH (09:00)
[2020-04-26] MEDS: LIDOCAINE 5% (LIDODERM) PATCH TD SCH (09:29)
[2020-04-26] MEDS: GABAPENTIN 100 MG CAP PO SCH (09:30)
[2020-04-26] MEDS: ACETAMINOPHEN 500 MG TAB PO SCH (09:30)
[2020-04-26] MEDS: CLOPIDOGREL 75 MG TAB PO SCH (09:30)
[2020-04-26] MEDS: ASPIRIN 81MG ENTERIC TABLET PO SCH (09:30)
[2020-04-26] MEDS: PANTOPRAZOLE 40MG TAB (PROTONIX) PO SCH (09:30)
[2020-04-26] MEDS: guaiFENesin 200 MG TAB PO SCH (09:30)
[2020-04-26] MEDS: ENOXAPARIN 40MG/0.4ML SYRINGE (J1650 PER 10MG) SC SCH (09:30)
[2020-04-26] MEDS: amLODIPine 5 MG TAB PO SCH (09:32)
[2020-04-26] MEDS ORDERED: PANT40TA29 PO (10:24)
[2020-04-26] MEDS ORDERED: AMLO1TAB24 PO (10:24)
[2020-04-26] MEDS ORDERED: GABA-1171 PO (10:24)
[2020-04-26] MEDS ORDERED: ATOR80TA59 PO (10:24)
[2020-04-26] MEDS ORDERED: PLAV1TAB2 PO (10:24)
[2020-04-26] MEDS ORDERED: HYDR25TA PO (10:24)
[2020-04-26] MEDS ORDERED: ASPI-161 PO (10:24)
[2020-04-26 12:56] VITALS: BP 117/62
[2020-04-26 14:00] VITALS: BP 107/59
== END 2020-04-26 15:10 | disposition home health service (06) | DRG 57 ==
LOC: M PM&R 19:26
PROVIDERS: ADMIT Physical Medicine & Rehabilitation; ATTEND Physical Medicine & Rehabilitation
DX: I69.351 Hemiplegia and hemiparesis following cerebral infarction affecting right dominant side (principal); G45.9 Transient cerebral ischemic attack, unspecified; I69.322 Dysarthria following cerebral infarction; Z74.09 Other reduced mobility; Z74.1 Need for assistance with personal care; I10 Essential (primary) hypertension; E78.5 Hyperlipidemia, unspecified; J44.9 Chronic obstructive pulmonary disease, unspecified; Z79.02 Long term (current) use of antithrombotics/antiplatelets; Z79.82 Long term (current) use of aspirin; Z66 Do not resuscitate; Z79.899 Other long term (current) drug therapy; Z88.0 Allergy status to penicillin; F41.9 Anxiety disorder, unspecified; Z85.528 Personal history of other malignant neoplasm of kidney

== ENCOUNTER → 2020-05-18 | Outpatient (REF) | payer MEDICARE, MEDICAID ==
[~2020-05-18] MED LIST changes: +GABA-1171 PO; +HYDR25TA PO; +PANT40TA29 PO
== END ==
LOC: M LAB REF 12:01
PROVIDERS: ATTEND Internal Medicine
DX: M10.9 Gout, unspecified (principal)

== ENCOUNTER → 2020-06-20 | Outpatient (REF) | payer MEDICARE, MEDICAID ==
[2020-06-20 18:21] LABS: % LABILE ALKALINE PHOSPHATASE 41.8 %
== END ==
LOC: M LAB REF 16:15
PROVIDERS: ATTEND Internal Medicine
DX: R74.8 Abnormal levels of other serum enzymes (principal)

== ENCOUNTER → 2020-07-07 | Outpatient (CLI) | payer MEDICARE, MEDICAID ==
--- NOTE | 2020-07-07 09:49 | REP ---
INDICATION: AYE REECE. FINDINGS: Multiple ultrasonographic images of the liver show the hepatic parenchymal echo texture to appear unremarkable. There are no focal masses. There is no intrahepatic ductal dilatation. The common bile duct measures approximately 6 mm in its greatest transverse dimension. Multiple ultrasonographic images of the gallbladder show no focal or diffuse gallbladder wall thickening. There are no echogenic foci within the gallbladder lumen, which casts acoustic shadows. There is no pericholecystic edema. Images of the pancreatic region show no gross abnormality. The imaged portion of the right kidney is unremarkable. Incidental note is made of a small cyst IMPRESSION: Unremarkable right upper quadrant ultrasound. Accredited by the [employer] in General Ultrasound. <Electronically signed by Zach Carver > 07/07/20 [id number]
== END ==
LOC: M RAD 08:13
PROVIDERS: ATTEND Internal Medicine
DX: R74.8 Abnormal levels of other serum enzymes (principal)

== ENCOUNTER → 2020-12-22 | Outpatient (CLI) | payer MEDICARE, MEDICAID ==
--- NOTE | 2020-12-22 15:23 | REP ---
INDICATION: STRAIN. COMPARISON: 04/06/2020 portable chest TECHNIQUE: Four views of the ribs with frontal view of the chest FINDINGS: The accompanying frontal view the chest is unchanged from the portable exam. There is thoracic aortic tortuosity. There is a large right paratracheal soft tissue density status quo. This density has been stable since 03/05/2017. There is mild cardiomegaly with a left ventricular configuration status quo. The lung lanier are clear. Evaluation of the right ribs is extremely limited. There is gross superimposition of multiple ribs on all views. Rib fracture cannot be ruled out. Additionally, the bones are demineralized to such a degree that if there was a fracture could be obscured. IMPRESSION: Markedly limited exam. CT recommended. I cannot rule out rib fracture. There are multiple thoracic vertebral body compression fractures the ages of which are unknown. <Electronically signed by Zach Carver > 12/22/20 [id number]
--- NOTE | 2020-12-22 15:24 | REP ---
INDICATION: STRAIN. COMPARISON: None. TECHNIQUE: Multiple views FINDINGS: The bones are markedly demineralized. There is disc space narrowing at every level. This is advanced at L4-5 and posteriorly at all other levels. Lumbar vertebral body height is within normal limits, however, compression fractures are seen involving all imaged thoracic vertebral bodies. The ages of these cannot be determined. The appear other advanced. To the advanced degree of bony demineralization and chronic change facet joint fractures cannot be ruled out by this exam. I cannot confirm that the pedicles are intact due to the degree of bony demineralization and advanced chronic changes. IMPRESSION: Multiple abnormalities as described above. MRI is recommended. <Electronically signed by Zach Carver > 12/22/20 [id number]
--- NOTE | 2020-12-22 15:26 | REP ---
INDICATION: STRAIN. COMPARISON: 03/05/2017 TECHNIQUE: Multiple views FINDINGS: Since the last examination multiple thoracic spine vertebral body compression fractures have developed. The bones are markedly demineralized the degree of which has also worsened from the prior exam. There is disc space narrowing at every level. IMPRESSION: Multiple new and old thoracic vertebral body compression fractures of various grades. The ages of which cannot be determined. Even old fractures appear to have worsened. MRI is recommended to search for marrow edema and to assess the central canal. <Electronically signed by Zach Carver > 12/22/20 0054
== END ==
LOC: M WUC 14:11
PROVIDERS: ATTEND Physician Assistant
DX: S39.012A Strain of muscle, fascia and tendon of lower back, initial encounter (principal); S29.012A Strain of muscle and tendon of back wall of thorax, initial encounter; W18.30XA Fall on same level, unspecified, initial encounter; Y92.009 Unspecified place in unspecified non-institutional (private) residence as the place of occurrence of the external cause

== ENCOUNTER → 2021-01-16 | Outpatient (REF) | payer MEDICARE, MEDICAID ==
[2021-01-17 12:41] LABS: % LABILE ALKALINE PHOSPHATASE 76.7 %
== END ==
LOC: M LAB REF 11:26
PROVIDERS: ATTEND Internal Medicine
DX: R74.8 Abnormal levels of other serum enzymes (principal)

== ENCOUNTER → 2021-07-19 | Outpatient (REF) | payer MEDICARE, MEDICAID ==
[2021-07-19 18:36] LABS: PERCENT SATURATION 18.6 % (13.2-45.0)
[2021-07-20 15:13] LABS: % LABILE ALKALINE PHOSPHATASE 32.4 %
== END ==
LOC: M LAB REF 17:12
PROVIDERS: ATTEND Internal Medicine
DX: D64.9 Anemia, unspecified (principal)